=== PATIENT | female | born 1935 | race Two or more races ===

== ENCOUNTER 2017-04-23 16:17 | Inpatient (IN) | payer MEDICARE, MEDICAID ==
[~2017-04-23] VITALS: Ht 157.5 cm; Wt 62.1 kg
[2017-04-23] MEDS ORDERED: Sodium Chloride 500ML 500 ML IVPB ONE (17:00)
[2017-04-23 17:51] LABS: APPEARANCE,URINE CLEAR; BILIRUBIN, URINE NEGATIVE (NEGATIVE); COLOR,URINE PALE YELLOW; GLUCOSE, URINE (UA) 2+ (NEGATIVE); KETONES,URINE NEGATIVE (NEGATIVE); LEUKOCYTE ESTERASE ,URINE 1+ (NEGATIVE); NITRITE,URINE NEGATIVE (NEGATIVE); PH,URINE 5 (4.5-8.0); PROTEIN,URINE 3+ (NEGATIVE); UROBILINOGEN,URINE NORMAL MG/DL (0.0-1.0)
[2017-04-23 18:04] LABS: BASOPHILS % (AUTO) 1.6 % (0.0-2.0); EOSINOPHILS % (AUTO) 1.5 % (0.0-3.0); HEMATOCRIT 29.2 % (37.0-47.0); HEMOGLOBIN 9.3 G/DL (12.0-16.0); LYMPHOCYTES % (AUTO) 19.2 % (20.0-45.0); MEAN CORPUSCULAR VOLUME 95 FL (80-99); MONOCYTES % (AUTO) 9.7 % (1.0-10.0); PLATELET COUNT 276 K/UL (150-450); RED BLOOD COUNT 3.07 M/UL (4.20-5.40); RED CELL DISTRIBUTION WIDTH 12.7 % (11.6-14.8); WHITE BLOOD COUNT 11.3 K/UL (4.8-10.8)
--- NOTE | 2017-04-23 18:10 | Emergency Room Report ---
History of Present Illness General Chief Complaint: Multiple Trauma/Fall Source: Patient Present Illness HPI Patient presents emergency department today with generalized weakness. Patient currently is not eating or sleeping. Patient has had multiple falls because of her weakness. She fell and hit her head and has a contusion on the back of her head. She denies any nausea vomiting or chills. She does complain of persistent dizziness as well. Symptoms are noted to be highly severe. No other modifying factors. No other associated signs and symptoms. No other complaints were noted. Allergies: Coded Allergies: No Known Allergies (Unverified , 04/23/17) Patient History Past Medical History: DM, HTN, CAD Past Surgical History: none Pertinent Family History: none Social History: Denies: smoking, alcohol use, drug use Reviewed Nursing Documentation: PMH: Agreed, PSxH: Agreed Nursing Documentation-PMH Hx Cardiac Problems: Yes Hx Hypertension: Yes Hx Diabetes: Yes Review of Systems All Other Systems: negative except mentioned in HPI Physical Exam Vital Signs Date Time Temp Pulse Resp B/P (MAP) Pulse Ox O2 Delivery O2 Flow Rate FiO2 04/23/17 16:15 98.2 86 18 134/64 96 Room Air Sp02 EP Interpretation: reviewed, normal General Appearance: alert, moderate distress Head: other - contusion on head Eyes: bilateral eye normal inspection ENT: normal ENT inspection, hearing grossly normal, normal voice Neck: normal inspection, full range of motion, supple, no bony tend Respiratory: normal inspection, lungs clear, normal breath sounds, no respiratory distress, no retraction, no wheezing Cardiovascular #1: regular rate, rhythm, no edema Gastrointestinal: normal inspection, normal bowel sounds, non tender, soft, no guarding, no hernia Genitourinary: no CVA tenderness Musculoskeletal: normal inspection, back normal, normal range of motion Neurologic: normal inspection, alert, responsive, speech normal Psychiatric: normal inspection, judgement/insight normal, depressed affect Skin: normal inspection, normal color, no rash Medical Decision Making Diagnostic Impression: Primary Impression: Failure to thrive Additional Impressions: Fall Contusion Unable to ambulate Vertigo ER Course Patient presents emergency department to alcohol and inability ambulate. Patient not eating well not sleeping. Patient also has a contusion. Patient also complains of spinning around her head. Differential considerations include electrolyte abnormality, acute CVA, vertigo, intracranial injury, urethritis name a few. Given the severity of the patient's presentation I felt this is a highly complex patient. This patient required extensive workup. Patient laboratory workup show evidence of anemia and renal insufficiency. Patient's head CT was negative. Chest x-ray was also normal. Given patient's inability ambulate and failure to thrive the patient require admission to the hospital. Case was discussed with Dr. Ben Barrios. Patient will be admitted to [facility] for further treatment. Labs Test 04/23/17 17:40 04/23/17 17:45 Urine Color Pale yellow Urine Appearance Clear Urine pH 5 (4.5-8.0) Urine Specific [place] 1.010 (1.005-1.035) Urine Protein 3+ (NEGATIVE) Urine Glucose (UA) 2+ (NEGATIVE) Urine Ketones Negative (NEGATIVE) Urine Occult Blood 3+ (NEGATIVE) Urine Nitrite Negative (NEGATIVE) Urine Bilirubin Negative (NEGATIVE) Urine Urobilinogen Normal MG/DL (0.0-1.0) Urine Leukocyte Esterase 1+ (NEGATIVE) Urine RBC 0-2 /HPF (0 - 2) Urine WBC 0-2 /HPF (0 - 2) Urine Squamous Epithelial Cells Few /LPF (NONE/OCC) Urine Bacteria None /HPF (NONE) White Blood Count 11.3 K/UL (4.8-10.8) Red Blood Count 3.07 M/UL (4.20-5.40) Hemoglobin 9.3 G/DL (12.0-16.0) Hematocrit 29.2 % (37.0-47.0) Mean Corpuscular Volume 95 FL (80-99) Mean Corpuscular Hemoglobin 30.3 PG (27.0-31.0) Mean Corpuscular Hemoglobin Concent 31.9 G/DL (32.0-36.0) Red Cell Distribution Width 12.7 % (11.6-14.8) Platelet Count 276 K/UL (150-450) Mean Platelet Volume 6.8 FL (6.5-10.1) Neutrophils (%) (Auto) 68.0 % (45.0-75.0) Lymphocytes (%) (Auto) 19.2 % (20.0-45.0) Monocytes (%) (Auto) 9.7 % (1.0-10.0) Eosinophils (%) (Auto) 1.5 % (0.0-3.0) Basophils (%) (Auto) 1.6 % (0.0-2.0) Sodium Level 138 MMOL/L (136-145) Potassium Level 4.5 MMOL/L (3.5-5.1) Chloride Level 103 MMOL/L (98-107) Carbon Dioxide Level 21 MMOL/L (21-32) Anion Gap 14 mmol/L (5-15) Blood Urea Nitrogen 28 mg/dL (7-18) Creatinine 2.0 MG/DL (0.55-1.30) Estimat Glomerular Filtration Rate mL/min (>60) Glucose Level 242 MG/DL (74-106) Calcium Level 9.1 MG/DL (8.5-10.1) Total Bilirubin 0.3 MG/DL (0.2-1.0) Aspartate Amino Transf (AST/SGOT) 22 U/L (15-37) Alanine Aminotransferase (ALT/SGPT) 20 U/L (12-78) Alkaline Phosphatase 68 U/L (46-116) Total Creatine Kinase 503 U/L (26-308) Creatine Kinase MB 1.9 NG/ML (0.0-3.6) Creatine Kinase MB Relative Index 0.3 Troponin I 0.010 ng/mL (0.000-0.056) Pro-B-Type Natriuretic Peptide 607 pg/mL (0-125) Total Protein 7.1 G/DL (6.4-8.2) Albumin 3.4 G/DL (3.4-5.0) Globulin 3.7 g/dL Albumin/Globulin Ratio 0.9 (1.0-2.7) EKG Diagnostic Results Rate: normal Rhythm: NSR ST Segments: no acute changes Rhythm Strip Diag. Results EP Interpretation: yes Rate: 83 Chest X-Ray Diagnostic Results Chest X-Ray Diagnostic Results : Chest X-Ray Ordered: Yes # of Views/Limited/Complete: 1 View Indication: Chest Pain EP Interpretation: Yes Interpretation: no consolidation, no effusion, no pneumothorax, no acute cardiopulmonary disease Impression: No acute disease Electronically Signed by: Electronically signed by Alex Chong MD CT/MRI/US Diagnostic Results CT/MRI/US Diagnostic Results : Impression ead CT: Negative Last Vital Signs Date Time Temp Pulse Resp B/P (MAP) Pulse Ox O2 Delivery O2 Flow Rate FiO2 04/23/17 16:15 98.2 86 18 134/64 96 Room Air Status: improved Disposition: ADMITTED INPATIENT Condition: Serious ALEX CHONG M.D. Apr 23, 2017 18:10
[2017-04-23 18:14] VITALS: BP 150/47
[2017-04-23] MEDS ORDERED: UNOBMED (18:20)
[2017-04-23 18:24] LABS: ALANINE AMINOTRANSFERASE 20 U/L (12-78); ALBUMIN 3.4 G/DL (3.4-5.0); ALBUMIN/GLOBULIN RATIO 0.9 (1.0-2.7); ALKALINE PHOSPHATASE 68 U/L (46-116); ANION GAP 14 mmol/L (5-15); ASPARTATE AMINO TRANSFERASE 22 U/L (15-37); BILIRUBIN,TOTAL 0.3 MG/DL (0.2-1.0); BLOOD UREA NITROGEN 28 mg/dL (7-18); CALCIUM 9.1 MG/DL (8.5-10.1); CARBON DIOXIDE 21 MMOL/L (21-32); CHLORIDE 103 MMOL/L (98-107); CKMB 1.9 NG/ML (0.0-3.6); CREATINE KINASE 503 U/L (26-308); POTASSIUM 4.5 MMOL/L (3.5-5.1); SODIUM 138 MMOL/L (136-145)
[2017-04-23 19:15] VITALS: BP 142/68
[2017-04-23 20:55] VITALS: BP 138/69
[2017-04-23] MEDS ORDERED: Nitroglycerin Subl 0.4mg tab SL PRN (21:00)
[2017-04-23] MEDS ORDERED: Albuterol/Ipratropium 3ml neb HHN PRN (21:00)
[2017-04-23] MEDS ORDERED: LORazepam Inj 2mg/ml 1ml IV PRN (21:00)
[2017-04-23] MEDS ORDERED: Morphine Sulfate 2mg/ml Inj IVP PRN (21:00)
[2017-04-23] MEDS ORDERED: Miralax 17gm pkt ORAL PRN (21:00)
[2017-04-23] MEDS ORDERED: Mylanta II UD 30ml ORAL PRN (21:00)
[2017-04-23 21:50] VITALS: BP 151/71
[2017-04-23] MEDS: Heparin 5000 units/ml inj SUBQ SCH (22:23)
[2017-04-23] MEDS ORDERED: METFORMIN HCL500 M1 ORAL (23:07)
[2017-04-24 00:32] VITALS: BP 144/64
[2017-04-24 04:00] VITALS: BP 136/71
[2017-04-24 07:43] LABS: BASOPHILS % (AUTO) 1.7 % (0.0-2.0); EOSINOPHILS % (AUTO) 3.8 % (0.0-3.0); HEMATOCRIT 30.4 % (37.0-47.0); HEMOGLOBIN 10.2 G/DL (12.0-16.0); MEAN CORPUSCULAR VOLUME 93 FL (80-99); MONOCYTES % (AUTO) 8.9 % (1.0-10.0); NEUTROPHILS % (AUTO) 55.8 % (45.0-75.0); PLATELET COUNT 299 K/UL (150-450); RED BLOOD COUNT 3.26 M/UL (4.20-5.40); RED CELL DISTRIBUTION WIDTH 12.4 % (11.6-14.8); WHITE BLOOD COUNT 7.4 K/UL (4.8-10.8)
[2017-04-24 08:00] VITALS: BP 146/65
--- NOTE | 2017-04-24 08:27 | Diagnostic Imaging Report ---
Indications: Head trauma, pain Technique: Spiral acquisitions obtained through the brain. Angled axial and coronal 5 x 5 mm slices were reconstructed. Total dose length product 1362 mGycm. CTDI vol(s) 70 mGy. Dose reduction achieved using automated exposure control Comparison: None Findings: There is a left high parietal scalp contusion. No acute intracranial hemorrhage or edema. No mass effect or midline shift. There is a calcification within the high right parasagittal parietal cortex. There is mild age-related enlargement of the ventricles and extra axial CSF spaces. A small lacunar infarct is seen within the anterior right corpus callosum. There is periventricular deep white matter chronic ischemic changes. No the calvarium is intact. The mastoids are clear. The visualized sinuses are clear. The orbits are unremarkable. 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 The CT scanner at [facility] is accredited by the [employer] and the scans are performed using protocols designed to limit radiation exposure to as low as reasonably achievable to attain images of sufficient resolution adequate for diagnostic evaluation.
[2017-04-24 08:34] LABS: ALANINE AMINOTRANSFERASE 17 U/L (12-78); ALBUMIN 3.1 G/DL (3.4-5.0); ALBUMIN/GLOBULIN RATIO 0.9 (1.0-2.7); ALKALINE PHOSPHATASE 65 U/L (46-116); ANION GAP 12 mmol/L (5-15); ASPARTATE AMINO TRANSFERASE 27 U/L (15-37); BILIRUBIN,TOTAL 0.2 MG/DL (0.2-1.0); BLOOD UREA NITROGEN 23 mg/dL (7-18); CALCIUM 8.9 MG/DL (8.5-10.1); CARBON DIOXIDE 23 MMOL/L (21-32); CHLORIDE 106 MMOL/L (98-107); CHOLESTEROL 264 MG/DL (< 200); CREATININE 1.7 MG/DL (0.55-1.30); HDL CHOLESTEROL 37 MG/DL (40-60); SODIUM 141 MMOL/L (136-145); TRIGLYCERIDES 624 MG/DL (0-200)
[2017-04-24] MEDS: Heparin 5000 units/ml inj SUBQ SCH ×2 (09:25→21:39)
--- NOTE | 2017-04-24 10:24 | Diagnostic Imaging Report ---
Indication: COUGH Technique: One view of the chest Comparison: none Findings: No acute infiltrates, effusions, or congestion. Tortuous calcified aorta. Normal heart size. Upper mediastinum unremarkable. Impression: No acute process. This agrees with the preliminary interpretation provided by the emergency room physician
[2017-04-24 12:00] VITALS: BP 146/66
--- NOTE | 2017-04-24 13:12 | Neurology Progress Note ---
Objective Physical Exam Last Vital Signs Date Time Temp Pulse Resp B/P (MAP) Pulse Ox O2 Delivery O2 Flow Rate FiO2 04/24/17 08:38 80 18 Room Air 21 04/24/17 08:00 97.9 146/65 95 Laboratory Tests Test 04/23/17 17:40 04/23/17 17:45 04/24/17 06:15 Urine Color Pale yellow Urine Appearance Clear Urine pH 5 (4.5-8.0) Urine Specific [place] 1.010 (1.005-1.035) Urine Protein 3+ (NEGATIVE) H Urine Glucose (UA) 2+ (NEGATIVE) H Urine Ketones Negative (NEGATIVE) Urine Occult Blood 3+ (NEGATIVE) H Urine Nitrite Negative (NEGATIVE) Urine Bilirubin Negative (NEGATIVE) Urine Urobilinogen Normal MG/DL (0.0-1.0) Urine Leukocyte Esterase 1+ (NEGATIVE) H Urine RBC 0-2 /HPF (0 - 2) Urine WBC 0-2 /HPF (0 - 2) Urine Squamous Epithelial Cells Few /LPF (NONE/OCC) Urine Bacteria None /HPF (NONE) White Blood Count 11.3 K/UL (4.8-10.8) H 7.4 K/UL (4.8-10.8) Red Blood Count 3.07 M/UL (4.20-5.40) L 3.26 M/UL (4.20-5.40) L Hemoglobin 9.3 G/DL (12.0-16.0) L 10.2 G/DL (12.0-16.0) L Hematocrit 29.2 % (37.0-47.0) L 30.4 % (37.0-47.0) L Mean Corpuscular Volume 95 FL (80-99) 93 FL (80-99) Mean Corpuscular Hemoglobin 30.3 PG (27.0-31.0) 31.2 PG (27.0-31.0) H Mean Corpuscular Hemoglobin Concent 31.9 G/DL (32.0-36.0) L 33.5 G/DL (32.0-36.0) Red Cell Distribution Width 12.7 % (11.6-14.8) 12.4 % (11.6-14.8) Platelet Count 276 K/UL (150-450) 299 K/UL (150-450) Mean Platelet Volume 6.8 FL (6.5-10.1) 6.9 FL (6.5-10.1) Neutrophils (%) (Auto) 68.0 % (45.0-75.0) 55.8 % (45.0-75.0) Lymphocytes (%) (Auto) 19.2 % (20.0-45.0) L 30.0 % (20.0-45.0) Monocytes (%) (Auto) 9.7 % (1.0-10.0) 8.9 % (1.0-10.0) Eosinophils (%) (Auto) 1.5 % (0.0-3.0) 3.8 % (0.0-3.0) H Basophils (%) (Auto) 1.6 % (0.0-2.0) 1.7 % (0.0-2.0) Sodium Level 138 MMOL/L (136-145) 141 MMOL/L (136-145) Potassium Level 4.5 MMOL/L (3.5-5.1) 4.0 MMOL/L (3.5-5.1) Chloride Level 103 MMOL/L (98-107) 106 MMOL/L (98-107) Carbon Dioxide Level 21 MMOL/L (21-32) 23 MMOL/L (21-32) Anion Gap 14 mmol/L (5-15) 12 mmol/L (5-15) Blood Urea Nitrogen 28 mg/dL (7-18) H 23 mg/dL (7-18) H Creatinine 2.0 MG/DL (0.55-1.30) H 1.7 MG/DL (0.55-1.30) H Estimat Glomerular Filtration Rate mL/min (>60) mL/min (>60) Glucose Level 242 MG/DL (74-106) H 190 MG/DL (74-106) H Calcium Level 9.1 MG/DL (8.5-10.1) 8.9 MG/DL (8.5-10.1) Total Bilirubin 0.3 MG/DL (0.2-1.0) 0.2 MG/DL (0.2-1.0) Aspartate Amino Transf (AST/SGOT) 22 U/L (15-37) 27 U/L (15-37) Alanine Aminotransferase (ALT/SGPT) 20 U/L (12-78) 17 U/L (12-78) Alkaline Phosphatase 68 U/L (46-116) 65 U/L (46-116) Total Creatine Kinase 503 U/L (26-308) H Creatine Kinase MB 1.9 NG/ML (0.0-3.6) Creatine Kinase MB Relative Index 0.3 Troponin I 0.010 ng/mL (0.000-0.056) Pro-B-Type Natriuretic Peptide 607 pg/mL (0-125) H Total Protein 7.1 G/DL (6.4-8.2) 6.7 G/DL (6.4-8.2) Albumin 3.4 G/DL (3.4-5.0) 3.1 G/DL (3.4-5.0) L Globulin 3.7 g/dL 3.6 g/dL Albumin/Globulin Ratio 0.9 (1.0-2.7) L 0.9 (1.0-2.7) L Prothrombin Time 10.0 SEC (9.30-11.50) Prothromb Time International Ratio 1.0 (0.9-1.1) Activated Partial Thromboplast Time 26 SEC (23-33) Triglycerides Level 624 MG/DL (0-200) H Cholesterol Level 264 MG/DL (< 200) H LDL Cholesterol 132 mg/dL (<100) H HDL Cholesterol 37 MG/DL (40-60) L Cholesterol/HDL Ratio 7.1 (3.3-4.4) H Thyroid Stimulating Hormone (TSH) 2.071 uiU/mL (0.360-3.740) Impression/Recommendations Problems: (1) 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
[2017-04-24] MEDS ORDERED: Mylanta II UD 30ml ORAL PRN (15:00)
[2017-04-24] MEDS ORDERED: LORazepam Inj 2mg/ml 1ml IV PRN (15:30)
[2017-04-24] MEDS ORDERED: Miralax 17gm pkt ORAL PRN (15:30)
[2017-04-24] MEDS ORDERED: Nitroglycerin Subl 0.4mg tab SL PRN (15:30)
[2017-04-24] MEDS ORDERED: Albuterol/Ipratropium 3ml neb HHN PRN (15:30)
--- NOTE | 2017-04-24 15:42 | Consultation ---
History of Present Illness General Date patient seen: Apr 24, 2017 Time patient seen: 14:00 Chief Complaint: Multiple Trauma/Fall Referring physician: dr Barrios Reason for Consultation: inpatient management Present Illness HPI 81 y/old female with PMH of CAD, HTN, DM presented to ED with c/o generalized weakness. 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 Negative for acute intracranial bleed or mass effect Left high parietal scalp hematoma mild leuk-1.3 anemia -9.3/29.2 troponin negative ECG with NSR no acute ischemic changes pro BNP 607 BS -242 evidence of renal failure BUN-28 and creat-2.0 patient was admitted for further management Allergies: Coded Allergies: ASPIRIN (Verified Allergy, Unknown, RASH, 04/23/17) CODEINE (Verified Allergy, Unknown, RASH, 04/23/17) Medication History Scheduled Metformin Hcl* (Metformin Hcl*), 500 MG ORAL TWICE A DAY, (Reported) Miscellaneous Medications Unable to Obtain Medications (Unable To Obtain Meds), (Reported) Patient History Healthcare decision maker LAQUITA MICHAELS ADRIANA R Resuscitation status Chemical (Meds Only) Advanced Directive on File No Past Medical/Surgical History Past Medical/Surgical History: (1) Fall (2) CAD (coronary artery disease) (3) HTN (hypertension) (4) Diabetes mellitus Review of Systems Constitutional: Reports: weakness Eye: Reports: no symptoms Respiratory: Reports: no symptoms Cardiovascular: Reports: other - CAD HTN Gastrointestinal: Reports: no symptoms Genitourinary: Reports: no symptoms Skin: Reports: no symptoms Psychiatric: Reports: no symptoms Neurological: Reports: see HPI Endocrine: Reports: other - DM Hematologic/Lymphatic: Reports: see HPI Physical Exam Lines, tubes and drains: peripheral HEENT: normocephalic, atraumatic, anicteric Neck: supple Respiratory/Chest: lungs clear, no respiratory distress, no accessory muscle use Cardiovascular/Chest: normal rate, regular rhythm Abdomen: normal bowel sounds, soft Extremities: no calf tenderness Skin Exam: warm/dry Neurologic: alert Musculoskeletal: normal muscle bulk Last 24 Hour Vital Signs Date Time Temp Pulse Resp B/P (MAP) Pulse Ox O2 Delivery O2 Flow Rate FiO2 04/24/17 12:00 98.1 74 19 146/66 96 Room Air 04/24/17 08:38 80 18 Room Air 21 04/24/17 08:00 97.9 80 17 146/65 95 Room Air 04/24/17 04:00 97.7 83 20 136/71 95 Room Air 04/24/17 00:32 98.2 88 19 144/64 95 Room Air 04/23/17 23:17 98.2 04/23/17 21:50 97.9 87 18 151/71 95 Room Air 04/23/17 21:00 98.2 68 17 138/69 100 Room Air 04/23/17 20:55 98.2 68 17 138/69 100 Room Air 04/23/17 19:15 98.4 84 16 142/68 99 Room Air 04/23/17 18:14 98.2 89 17 150/47 98 Room Air 04/23/17 16:15 98.2 86 18 134/64 96 Room Air Laboratory Tests Test 04/23/17 17:40 04/23/17 17:45 04/24/17 06:15 Urine Color Pale yellow Urine Appearance Clear Urine pH 5 (4.5-8.0) Urine Specific [place] 1.010 (1.005-1.035) Urine Protein 3+ (NEGATIVE) H Urine Glucose (UA) 2+ (NEGATIVE) H Urine Ketones Negative (NEGATIVE) Urine Occult Blood 3+ (NEGATIVE) H Urine Nitrite Negative (NEGATIVE) Urine Bilirubin Negative (NEGATIVE) Urine Urobilinogen Normal MG/DL (0.0-1.0) Urine Leukocyte Esterase 1+ (NEGATIVE) H Urine RBC 0-2 /HPF (0 - 2) Urine WBC 0-2 /HPF (0 - 2) Urine Squamous Epithelial Cells Few /LPF (NONE/OCC) Urine Bacteria None /HPF (NONE) White Blood Count 11.3 K/UL (4.8-10.8) H 7.4 K/UL (4.8-10.8) Red Blood Count 3.07 M/UL (4.20-5.40) L 3.26 M/UL (4.20-5.40) L Hemoglobin 9.3 G/DL (12.0-16.0) L 10.2 G/DL (12.0-16.0) L Hematocrit 29.2 % (37.0-47.0) L 30.4 % (37.0-47.0) L Mean Corpuscular Volume 95 FL (80-99) 93 FL (80-99) Mean Corpuscular Hemoglobin 30.3 PG (27.0-31.0) 31.2 PG (27.0-31.0) H Mean Corpuscular Hemoglobin Concent 31.9 G/DL (32.0-36.0) L 33.5 G/DL (32.0-36.0) Red Cell Distribution Width 12.7 % (11.6-14.8) 12.4 % (11.6-14.8) Platelet Count 276 K/UL (150-450) 299 K/UL (150-450) Mean Platelet Volume 6.8 FL (6.5-10.1) 6.9 FL (6.5-10.1) Neutrophils (%) (Auto) 68.0 % (45.0-75.0) 55.8 % (45.0-75.0) Lymphocytes (%) (Auto) 19.2 % (20.0-45.0) L 30.0 % (20.0-45.0) Monocytes (%) (Auto) 9.7 % (1.0-10.0) 8.9 % (1.0-10.0) Eosinophils (%) (Auto) 1.5 % (0.0-3.0) 3.8 % (0.0-3.0) H Basophils (%) (Auto) 1.6 % (0.0-2.0) 1.7 % (0.0-2.0) Sodium Level 138 MMOL/L (136-145) 141 MMOL/L (136-145) Potassium Level 4.5 MMOL/L (3.5-5.1) 4.0 MMOL/L (3.5-5.1) Chloride Level 103 MMOL/L (98-107) 106 MMOL/L (98-107) Carbon Dioxide Level 21 MMOL/L (21-32) 23 MMOL/L (21-32) Anion Gap 14 mmol/L (5-15) 12 mmol/L (5-15) Blood Urea Nitrogen 28 mg/dL (7-18) H 23 mg/dL (7-18) H Creatinine 2.0 MG/DL (0.55-1.30) H 1.7 MG/DL (0.55-1.30) H Estimat Glomerular Filtration Rate mL/min (>60) mL/min (>60) Glucose Level 242 MG/DL (74-106) H 190 MG/DL (74-106) H Calcium Level 9.1 MG/DL (8.5-10.1) 8.9 MG/DL (8.5-10.1) Total Bilirubin 0.3 MG/DL (0.2-1.0) 0.2 MG/DL (0.2-1.0) Aspartate Amino Transf (AST/SGOT) 22 U/L (15-37) 27 U/L (15-37) Alanine Aminotransferase (ALT/SGPT) 20 U/L (12-78) 17 U/L (12-78) Alkaline Phosphatase 68 U/L (46-116) 65 U/L (46-116) Total Creatine Kinase 503 U/L (26-308) H Creatine Kinase MB 1.9 NG/ML (0.0-3.6) Creatine Kinase MB Relative Index 0.3 Troponin I 0.010 ng/mL (0.000-0.056) Pro-B-Type Natriuretic Peptide 607 pg/mL (0-125) H Total Protein 7.1 G/DL (6.4-8.2) 6.7 G/DL (6.4-8.2) Albumin 3.4 G/DL (3.4-5.0) 3.1 G/DL (3.4-5.0) L Globulin 3.7 g/dL 3.6 g/dL Albumin/Globulin Ratio 0.9 (1.0-2.7) L 0.9 (1.0-2.7) L Prothrombin Time 10.0 SEC (9.30-11.50) Prothromb Time International Ratio 1.0 (0.9-1.1) Activated Partial Thromboplast Time 26 SEC (23-33) Triglycerides Level 624 MG/DL (0-200) H Cholesterol Level 264 MG/DL (< 200) H LDL Cholesterol 132 mg/dL (<100) H HDL Cholesterol 37 MG/DL (40-60) L Cholesterol/HDL Ratio 7.1 (3.3-4.4) H Thyroid Stimulating Hormone (TSH) 2.071 uiU/mL (0.360-3.740) Height (Feet): 5 Height (Inches): 2.00 Weight (Pounds): 137 Medications Current Medications Medications (Trade) Dose Ordered Sig/Lita Route PRN Reason Start Time Stop Time Status Last Admin Dose Admin Acetaminophen (Tylenol) 650 mg Q4H PRN ORAL Prn Headache/Temp > 101 04/24/17 15:30 05/24/17 15:29 Al Hydroxide/Mg Hydroxide (Mylanta II) 30 ml Q6H PRN ORAL dyspepsia 04/24/17 15:00 05/23/17 20:59 Albuterol/ Ipratropium (Albuterol/ Ipratropium) 3 ml Q4H PRN HHN Shortness of Breath 04/24/17 15:30 04/28/17 15:29 Atorvastatin Calcium (Lipitor) 20 mg BEDTIME ORAL 04/24/17 21:00 05/24/17 20:59 Clonidine HCl (Catapres) 0.1 mg Q4H PRN ORAL SBP > 160 04/24/17 15:15 05/23/17 15:14 Clopidogrel Bisulfate (Plavix) 75 mg DAILY ORAL 04/25/17 09:00 05/24/17 13:59 Dextrose (Dextrose 50%) STAT PRN IV Hypoglycemia 04/24/17 15:30 05/23/17 15:29 Heparin Sodium (Porcine) (Heparin 5000 units/ml) 5,000 units EVERY 12 HOURS SUBQ 04/24/17 21:00 05/23/17 21:59 Lorazepam (Ativan 2mg/ml 1ml) 0.5 mg Q4H PRN IV For Anxiety 04/24/17 15:30 04/30/17 15:29 Nitroglycerin (Ntg) 0.4 mg Q5M X 3 DOSES PRN SL Prn Chest Pain 04/24/17 15:30 05/23/17 15:29 Ondansetron HCl (Zofran) 4 mg Q6H PRN IVP Nausea & Vomiting 04/24/17 15:30 05/23/17 15:29 Polyethylene Glycol (Miralax) 17 gm HSPRN PRN ORAL Constipation 04/24/17 15:30 05/23/17 15:29 Temazepam (Restoril) 15 mg HSPRN PRN ORAL Insomnia 04/24/17 15:30 04/30/17 15:29 Assessment/Plan Assessment/Plan ASSESSMENT Likely acute ischemic right middle cerebral artery stroke Blunt head trauma hx of recurrent falls Dehydration mixed hyperlipidemia ARF vs CKD CAD HTN Diabetes mellitus anemia PLAN OF CARE neuro eval appreciated clinical exam c/w acute ischemic CVA with R MCA distribution start Plavix ( allergic to ASA) MRI brain Carotid Duplex lipid panel with grossly elevated TG as well as eleavted TC and LDL started on statin add Gemfibrozil check lipase PT/OT/ST fall precautions gentle IVF monitor renal parameters, lytes renal US BS management, add sensitive scale of insulin BP management , currently normotensive , avoid hypotension monitor HH anemia w/up DVT prophylaxis bowel regimen case discussed and evaluated by supervising physician Hamzah (Magdy),Essence DEJESUS Apr 24, 2017 15:42
[2017-04-24 16:00] VITALS: BP 146/68
[2017-04-24] MEDS: NovoLOG Insulin Flexpen SUBQ SCH ×2 (16:30→21:00)
--- NOTE | 2017-04-24 18:09 | History & Physical ---
History and Physical History & Physicial Dictated for Int Med-Dr Barrios no. [id number]. RUTHIE JORDAN Apr 24, 2017 18:09
--- NOTE | 2017-04-24 18:09 | History & Physical ---
History and Physical History & Physicial Dictated for Int Med-Dr Barrios no. [id number]. RUTHIE JORDAN Apr 24, 2017 18:09
--- NOTE | 2017-04-24 18:09 | History & Physical ---
History and Physical History & Physicial Dictated for Int Med-Dr Barrios no. [id number]. RUTHIE JORDAN Apr 24, 2017 18:09
[2017-04-24 20:00] VITALS: BP 150/61
[2017-04-24] MEDS ORDERED: Atorvastatin 20mg tab ORAL SCH ×2 (21:00)
--- NOTE | 2017-04-24 21:45 | Consultation ---
DATE OF CONSULTATION: 04/24/2017 NEUROLOGICAL CONSULTATION: CONSULTING PHYSICIAN: Hector Mills M.D. ATTENDING PHYSICIAN: Ben Barrios M.D. REQUESTING PHYSICIAN: Ben Barrios M.D. HISTORY OF PRESENT ILLNESS: This is a 81-year-old female seen in neurological consultation to evaluate the new onset of fall, head trauma followed by left-sided weakness. Apparently, the patient had several falls lately. She developed dizziness, headache, and now complaining of heaviness and weakness in her left upper and left lower extremity. She was brought to emergency room. Her vital signs were stable. Blood pressure 134/64, she was afebrile. Initial assessment included imaging, chest x-ray revealing no acute process. 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 The patient's vital signs at the hospital remained stable. She was afebrile. Laboratory work included CBC study with WBC 11.3, hemoglobin 9.3, hematocrit 29.2. Chemistry panel, elevated BUN of 24, creatinine 2.0, blood sugar 232. CPK . Elevated triglycerides at 624, cholesterol 264, and LDL 132. Normal TSH. Urinalysis, 3+ protein. Normal coagulation studies. PAST MEDICAL HISTORY: The patient has history of diabetes, hypertension, hyperlipidemia, coronary artery disease, status post bilateral total knee replacement. SOCIAL HISTORY: The patient lives alone. She is single, but she has family visiting her. No alcohol. No drug abuse. Nonsmoker. FAMILY HISTORY: Noncontributory. REVIEW OF SYMPTOMS: Headache especially in the area of left parietal region, dizziness when getting up, weakness, aches and pains in her left upper and left lower extremity. Denies chest pain or palpitations. Denies respiratory difficulties. No abdominal pain or discomfort. No urine or bowel incontinence. PHYSICAL EXAMINATION: GENERAL: A well-developed, well-nourished lady, not in acute distress, lying comfortably in bed. VITAL SIGNS: Blood pressure 132/70, respiration 18. HEENT: Head normocephalic. There is a tenderness and bruise in the left parietal region. NECK: Supple. No meningeal signs. No otorrhea. No rhinorrhea noted. EXTREMITIES: Upper and lower extremities without clubbing, cyanosis. There is tenderness and bruises on her left upper extremity noted. Peripheral pulses 1+, symmetric. MENTAL STATUS: The patient is alert and oriented x3, with no evidence of aphasia or apraxia. Cognitive function normal. CRANIAL NERVE II: Pupils both responding to light and accommodation. Extraocular movements intact. No nystagmus. CRANIAL NERVE V: Normal corneal responses. CRANIAL NERVE VII: Drooped left nasolabial fold. CRANIAL NERVE VIII: Normal hearing. CRANIAL NERVES IX THROUGH XII: Tongue is in midline. Symmetric palate elevation. MOTOR EXAMINATION: Normal muscle tone and strength in the right upper and right lower extremity, but reduced strength of 3/5 in left upper extremity and 2/5 in left lower extremity. DEEP TENDON REFLEXES: Depressed bilaterally. Positive Babinski on the left. SENSORY EXAMINATION: Decreased response to pin stimulation of left leg. GAIT: Not tested. IMPRESSION: 1. 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 2. 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 3. Hypertension. 4. Diabetes, type 2. 5. Coronary artery disease. 6. Renal insufficiency. DISCUSSION: The patient has multiple stroke risk factors, now presenting with acute right MCA distribution stroke. It is not clear if the patient had symptoms in the last few days when she had several trip and fall accidents. At this time, the patient appears stabilized but presenting with left hemiparesis and sensory loss. Her vital signs remained stable. We will transfer to monitored bed. We will keep strict bed rest for the following 24 hours and get MRI of the brain without contrast, carotid duplex, and 2D echocardiogram. Start on aspirin and Plavix, start on statins, maintain systolic blood pressure above 130 and below 170, start tomorrow, get physical and occupational therapy, speech therapy. We will follow with you. Thank you for allowing me to see this interesting patient in neurological consultation. Hector Mills M.D. DR: Karine JOB#: [id number] CC:
[2017-04-25] VITALS (7 sets, daily range): BP systolic 123–161; BP diastolic 60–70
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
[2017-04-25 05:01] LABS: BASOPHILS % (AUTO) 1.7 % (0.0-2.0); EOSINOPHILS % (AUTO) 4.9 % (0.0-3.0); HEMOGLOBIN 10.9 G/DL (12.0-16.0); MEAN CORPUSCULAR VOLUME 92 FL (80-99); MONOCYTES % (AUTO) 10.2 % (1.0-10.0); NEUTROPHILS % (AUTO) 52.1 % (45.0-75.0); PLATELET COUNT 316 K/UL (150-450); RED BLOOD COUNT 3.36 M/UL (4.20-5.40); RED CELL DISTRIBUTION WIDTH 11.6 % (11.6-14.8); WHITE BLOOD COUNT 8.1 K/UL (4.8-10.8)
[2017-04-25 05:49] LABS: % IRON SATURATION 26 % (15-50); IRON 62 ug/dL (50-175); TOTAL IRON BINDING CAPACITY 242 ug/dL (250-450)
[2017-04-25 06:23] LABS: ANION GAP 12 mmol/L (5-15); BLOOD UREA NITROGEN 24 mg/dL (7-18); CARBON DIOXIDE 23 MMOL/L (21-32); CHLORIDE 105 MMOL/L (98-107); CREATININE 1.8 MG/DL (0.55-1.30); FERRITIN 129 NG/ML (8-388); POTASSIUM 4.2 MMOL/L (3.5-5.1); SODIUM 140 MMOL/L (136-145)
[2017-04-25] MEDS: NovoLOG Insulin Flexpen SUBQ SCH ×4 (06:30→21:00)
--- NOTE | 2017-04-25 08:35 | Diagnostic Imaging Report ---
Indication: Altered mental status and weakness Technique: sagittal T1 fast spin echo, axial T1 FLAIR, axial T2 FLAIR, axial T2 FS PROPELLER, axial T2* GRE, axial diffusion weighted images. ADC and exponential ADC maps generated Comparison: Reference made to head CT dated 04/23/2017 Findings: A focus of restricted diffusion is seen extending from the right posterior garrett radiata into the right lentiform nucleus. Tiny focus also seen in the right high parasagittal frontal region A tiny focus of restricted diffusion is seen in the left garrett radiata. Another small focus of restricted diffusion is also seen in the left posterior temporal periventricular deep white matter. Small focus is seen in the left occipital lobe. Tiny focus of restricted diffusion is seen in the inferior right cerebellar hemisphere. These demonstrate slightly increased T2 signal. These are occult on prior CT. No associated hemorrhage. No mass effect nor midline shift. There is age-related enlargement of the ventricles and extra-axial CSF spaces deep white matter hyperintensities bilaterally likely are chronic ischemic changes.. Visualized orbits and sinuses are unremarkable. Vascular flow voids are preserved. Impression: Multiple small acute infarcts bilaterally as described, largest in the right basal ganglia and garrett radiata. Distribution suggests multiple emboli of cardiogenic origin Negative for acute intracranial bleed or mass effect Chronic and age-related changes, as described This agrees with the preliminary interpretation provided overnight by [facility] teleradiology service.
[2017-04-25] MEDS: Heparin 5000 units/ml inj SUBQ SCH ×2 (08:36→21:00)
--- NOTE | 2017-04-25 09:16 | Pulmonology Progress Note ---
Assessment/Plan Problems: (1) Acute ischemic right middle cerebral artery (MCA) stroke (2) ATN (acute tubular necrosis) (3) Anemia (4) Diabetes mellitus (5) CAD (coronary artery disease) (6) HTN (hypertension) Assessment/Plan MRI Impression: Multiple small acute infarcts bilaterally as described, largest in the right basal ganglia and garrett radiata. Distribution suggests multiple emboli of cardiogenic origin. pt /ot cardio to see, d/w Dr. Enriquez anemia and renal w/u in process. sliding scale, Subjective ROS Limited/Unobtainable: No Interval Events: comfortable, no new complains Allergies: Coded Allergies: ASPIRIN (Verified Allergy, Unknown, RASH, 04/23/17) CODEINE (Verified Allergy, Unknown, RASH, 04/23/17) Objective Last 24 Hour Vital Signs Date Time Temp Pulse Resp B/P (MAP) Pulse Ox O2 Delivery O2 Flow Rate FiO2 04/25/17 08:34 161/70 04/25/17 08:08 98.2 83 20 161/70 98 Room Air 04/25/17 07:49 82 16 Room Air 04/25/17 04:00 78 04/25/17 04:00 97.8 81 20 129/66 97 Room Air 04/25/17 00:00 80 04/25/17 00:00 97.4 82 20 123/60 97 Room Air 04/24/17 22:40 97.9 04/24/17 20:00 80 04/24/17 20:00 97.9 87 20 150/61 97 Room Air 04/24/17 19:36 88 18 Room Air 04/24/17 16:00 79 04/24/17 16:00 97.3 85 19 146/68 97 Room Air 04/24/17 12:00 98.1 74 19 146/66 96 Room Air General Appearance: WD/WN HEENT: normocephalic, anicteric Respiratory/Chest: chest wall non-tender, lungs clear Breasts: no masses Cardiovascular: normal peripheral pulses Abdomen: normal bowel sounds, soft, non tender, no mass Extremities: no cyanosis Skin: no rash, no lesions Laboratory Tests 04/25/17 04:20: White Blood Count 8.1, Red Blood Count 3.36L, Hemoglobin 10.9L, Hematocrit 31.0L , Mean Corpuscular Volume 92, Mean Corpuscular Hemoglobin 32.5H, Mean Corpuscular Hemoglobin Concent 35.2, Red Cell Distribution Width 11.6, Platelet Count 316, Mean Platelet Volume 6.9, Neutrophils (%) (Auto) 52.1, Lymphocytes (% ) (Auto) 31.0, Monocytes (%) (Auto) 10.2H, Eosinophils (%) (Auto) 4.9H, Basophils (%) (Auto) 1.7, Sodium Level 140, Potassium Level 4.2, Chloride Level 105, Carbon Dioxide Level 23, Anion Gap 12, Blood Urea Nitrogen 24H, Creatinine 1.8H, Estimat Glomerular Filtration Rate , Glucose Level 216H, Hemoglobin A1c [ Pending], Calcium Level 9.0, Iron Level 62, Total Iron Binding Capacity 242L, Percent Iron Saturation 26, Unsaturated Iron Binding 180, Ferritin 129, Lipase 135, Vitamin B12 Level 329, RBC Folate Hemolysate [Pending], Red Blood Cell Folate [Pending] Current Medications Medications (Trade) Dose Ordered Sig/Lita Route PRN Reason Start Time Stop Time Status Last Admin Dose Admin Acetaminophen (Tylenol) 650 mg Q4H PRN ORAL Mild Pain/Temp > 100.5 04/24/17 20:45 05/24/17 20:44 04/25/17 08:39 Al Hydroxide/Mg Hydroxide (Mylanta II) 30 ml Q6H PRN ORAL dyspepsia 04/24/17 15:00 05/23/17 20:59 Albuterol/ Ipratropium (Albuterol/ Ipratropium) 3 ml Q4H PRN HHN Shortness of Breath 04/24/17 15:30 04/28/17 15:29 Atorvastatin Calcium (Lipitor) 20 mg BEDTIME ORAL 04/24/17 21:00 05/24/17 20:59 04/24/17 21:37 Clonidine HCl (Catapres) 0.1 mg Q4H PRN ORAL SBP > 160 04/24/17 15:15 05/23/17 15:14 04/25/17 08:34 Clopidogrel Bisulfate (Plavix) 75 mg DAILY ORAL 04/25/17 09:00 05/24/17 13:59 04/25/17 08:34 Dextrose (Dextrose 50%) STAT PRN IV Hypoglycemia 04/24/17 15:45 05/24/17 15:44 Fenofibrate (Tricor) 145 mg DAILY ORAL 04/25/17 09:00 05/25/17 08:59 04/25/17 08:34 Heparin Sodium (Porcine) (Heparin 5000 units/ml) 5,000 units EVERY 12 HOURS SUBQ 04/24/17 21:00 05/23/17 21:59 04/25/17 08:36 Insulin Aspart (NovoLOG) BEFORE MEALS AND HS SUBQ 04/24/17 16:30 05/24/17 16:29 Lorazepam (Ativan 2mg/ml 1ml) 0.5 mg Q4H PRN IV For Anxiety 04/24/17 15:30 04/30/17 15:29 Nitroglycerin (Ntg) 0.4 mg Q5M X 3 DOSES PRN SL Prn Chest Pain 04/24/17 15:30 05/23/17 15:29 Ondansetron HCl (Zofran) 4 mg Q6H PRN IVP Nausea & Vomiting 04/24/17 15:30 05/23/17 15:29 Polyethylene Glycol (Miralax) 17 gm HSPRN PRN ORAL Constipation 04/24/17 15:30 05/23/17 15:29 Temazepam (Restoril) 15 mg HSPRN PRN ORAL Insomnia 04/24/17 15:30 04/30/17 15:29 04/24/17 21:37 RHEA FRANK Apr 25, 2017 09:16
--- NOTE | 2017-04-25 10:04 | Cardiology Progress Note ---
Assessment/Plan Assessment/Plan msultip fall multipl acute cva left sided shest wall pain psot fall dm htn renal insuf anemia opt has been on anticoaguation meds she dose nto recal the nam will need to swtich to antohr agent if the dose and ised as anticoaguation was appropriate trop rib series watc renal fucntion her contac person was contacted brittni clemente lhave her uncle look up all her meds at home adn bring in [id number] Objective Last 24 Hour Vital Signs Date Time Temp Pulse Resp B/P (MAP) Pulse Ox O2 Delivery O2 Flow Rate FiO2 04/25/17 08:34 161/70 04/25/17 08:08 98.2 83 20 161/70 98 Room Air 04/25/17 08:00 83 04/25/17 07:49 82 16 Room Air 04/25/17 04:00 78 04/25/17 04:00 97.8 81 20 129/66 97 Room Air 04/25/17 00:00 80 04/25/17 00:00 97.4 82 20 123/60 97 Room Air 04/24/17 22:40 97.9 04/24/17 20:00 80 04/24/17 20:00 97.9 87 20 150/61 97 Room Air 04/24/17 19:36 88 18 Room Air 04/24/17 16:00 79 04/24/17 16:00 97.3 85 19 146/68 97 Room Air 04/24/17 12:00 98.1 74 19 146/66 96 Room Air Laboratory Tests Test 04/25/17 04:20 White Blood Count 8.1 K/UL (4.8-10.8) Red Blood Count 3.36 M/UL (4.20-5.40) L Hemoglobin 10.9 G/DL (12.0-16.0) L Hematocrit 31.0 % (37.0-47.0) L Mean Corpuscular Volume 92 FL (80-99) Mean Corpuscular Hemoglobin 32.5 PG (27.0-31.0) H Mean Corpuscular Hemoglobin Concent 35.2 G/DL (32.0-36.0) Red Cell Distribution Width 11.6 % (11.6-14.8) Platelet Count 316 K/UL (150-450) Mean Platelet Volume 6.9 FL (6.5-10.1) Neutrophils (%) (Auto) 52.1 % (45.0-75.0) Lymphocytes (%) (Auto) 31.0 % (20.0-45.0) Monocytes (%) (Auto) 10.2 % (1.0-10.0) H Eosinophils (%) (Auto) 4.9 % (0.0-3.0) H Basophils (%) (Auto) 1.7 % (0.0-2.0) Sodium Level 140 MMOL/L (136-145) Potassium Level 4.2 MMOL/L (3.5-5.1) Chloride Level 105 MMOL/L (98-107) Carbon Dioxide Level 23 MMOL/L (21-32) Anion Gap 12 mmol/L (5-15) Blood Urea Nitrogen 24 mg/dL (7-18) H Creatinine 1.8 MG/DL (0.55-1.30) H Estimat Glomerular Filtration Rate mL/min (>60) Glucose Level 216 MG/DL (74-106) H Hemoglobin A1c Pending Calcium Level 9.0 MG/DL (8.5-10.1) Iron Level 62 ug/dL (50-175) Total Iron Binding Capacity 242 ug/dL (250-450) L Percent Iron Saturation 26 % (15-50) Unsaturated Iron Binding 180 ug/dL (112-346) Ferritin 129 NG/ML (8-388) Lipase 135 U/L (73-393) Vitamin B12 Level 329 PG/ML (193-986) RBC Folate Hemolysate Pending Red Blood Cell Folate Pending ANURADHA KNAPP Apr 25, 2017 10:04
--- NOTE | 2017-04-25 10:31 | Diagnostic Imaging Report ---
Indication: Acute renal failure. Abnormal renal function tests Technique: Grayscale and duplex images of the kidneys, retroperitoneum, and bladder were obtained. Comparison:None Findings: Right kidney measures 10.3 cm in length. Left kidney measures 9.4 cm in length. Both kidneys demonstrate normal echogenicity. No hydronephrosis. There is a small amount of perinephric fluid on the left. Questionable left renal sinus echogenic focus with shadowing measures 5 mm in diameter.. Normal inferior vena cava. Bladder is normal. Impression: Questionable nonobstructive left intrarenal calculus Perinephric fluid on the left, nonspecific as regards etiology. Correlate with any findings of left renal inflammation.
[2017-04-25 10:59] LABS: CREATINE KINASE 228 U/L (26-308)
[2017-04-25] MEDS ORDERED: Nitroglycerin Subl 0.4mg tab SL PRN (11:00)
[2017-04-25] MEDS ORDERED: Albuterol/Ipratropium 3ml neb HHN PRN (11:30)
[2017-04-25] MEDS ORDERED: LORazepam Inj 2mg/ml 1ml IV PRN (11:30)
--- NOTE | 2017-04-25 11:44 | Neurology Progress Note ---
Interim History Interim History ROS Limited/Unobtainable: No Complaints: weakness L side Events: no change Objective Physical Exam Last Vital Signs Date Time Temp Pulse Resp B/P (MAP) Pulse Ox O2 Delivery O2 Flow Rate FiO2 04/25/17 08:34 161/70 04/25/17 08:08 98.2 83 20 98 Room Air 04/24/17 08:38 21 Laboratory Tests Test 04/25/17 04:20 04/25/17 04:50 White Blood Count 8.1 K/UL (4.8-10.8) Red Blood Count 3.36 M/UL (4.20-5.40) L Hemoglobin 10.9 G/DL (12.0-16.0) L Hematocrit 31.0 % (37.0-47.0) L Mean Corpuscular Volume 92 FL (80-99) Mean Corpuscular Hemoglobin 32.5 PG (27.0-31.0) H Mean Corpuscular Hemoglobin Concent 35.2 G/DL (32.0-36.0) Red Cell Distribution Width 11.6 % (11.6-14.8) Platelet Count 316 K/UL (150-450) Mean Platelet Volume 6.9 FL (6.5-10.1) Neutrophils (%) (Auto) 52.1 % (45.0-75.0) Lymphocytes (%) (Auto) 31.0 % (20.0-45.0) Monocytes (%) (Auto) 10.2 % (1.0-10.0) H Eosinophils (%) (Auto) 4.9 % (0.0-3.0) H Basophils (%) (Auto) 1.7 % (0.0-2.0) Sodium Level 140 MMOL/L (136-145) Potassium Level 4.2 MMOL/L (3.5-5.1) Chloride Level 105 MMOL/L (98-107) Carbon Dioxide Level 23 MMOL/L (21-32) Anion Gap 12 mmol/L (5-15) Blood Urea Nitrogen 24 mg/dL (7-18) H Creatinine 1.8 MG/DL (0.55-1.30) H Estimat Glomerular Filtration Rate mL/min (>60) Glucose Level 216 MG/DL (74-106) H Hemoglobin A1c Pending Calcium Level 9.0 MG/DL (8.5-10.1) Iron Level 62 ug/dL (50-175) Total Iron Binding Capacity 242 ug/dL (250-450) L Percent Iron Saturation 26 % (15-50) Unsaturated Iron Binding 180 ug/dL (112-346) Ferritin 129 NG/ML (8-388) Lipase 135 U/L (73-393) Vitamin B12 Level 329 PG/ML (193-986) RBC Folate Hemolysate Pending Red Blood Cell Folate Pending Uric Acid 6.9 MG/DL (2.6-7.2) Total Creatine Kinase 228 U/L (26-308) General: well developed, well nourished, no acute distress Head: normocophalic, atraumatic Neck: no rigidity Neurologic Exam Mental Status: awake, alert, oriented x4, normal cognition, good mathematical skills, normal recent memory, normal remote memory, preserved visuospatial function Speech: normal speech, no dysarthia Language: normal language, no aphasia Cranial Nerve II: fundus normal, visual adams, no papilledema Cranial Nerves III, IV, : PERRLA, EOMI, pupils Cranial Nerve V: normal facial sensations, temporales function normal, masseters function normal, pterygoids function normal Cranial Nerve VII: other - L droop Cranial Nerve VIII: normal hearing, no nystagmus Cranial Nerve IX: normal palate elevation, gag response Cranial Nerve X: no voice hoarseness Cranial Nerve XI: SCM symmetric, trapezii function normal Cranial Nerve XII: tongue midline, no tongue atrophy/fasciculations Motor System: normal muscle tone, no involuntary movement, no muscle wasting, other - L arm 4/5, L leg 2/5 Sensory: other - reduced PPL leg Deep Tendon Reflexes: 0 bicep (L), 0 bicep (R), 0 tricep (L), 0 tricep (R), 0 brachioradialis (L), 0 brachioradialis (R), 0 knee (L), 0 knee (R), 0 ankle (L) , 0 ankle (R) Reflexes: extensor plantar (L), mute plantar (R) Stance: other Gait: other Impression/Recommendations Problems: (1) acute ischemic disseminated embolic strokes (2) Acute ischemic right middle cerebral artery (MCA) stroke (3) blunt head trauma (4) CAD (coronary artery disease) (5) HTN (hypertension) (6) Diabetes mellitus Status: unchanged Recommendations # [id number] d/w cardio will start on anticoag get ANAMARIA. pt/ot/speech d/w rn and family DEAN ABURTO Apr 25, 2017 11:44
[2017-04-25] MEDS ORDERED: Mylanta II UD 30ml ORAL PRN (12:00)
--- NOTE | 2017-04-25 12:58 | Internal Med Progress Note ---
Subjective Date of Service: Apr 25, 2017 Physician Name Dixon Jordan Attending Physician Ben Barrios MD Current Medications Medications (Trade) Dose Ordered Sig/Lita Route PRN Reason Start Time Stop Time Status Last Admin Dose Admin Acetaminophen (Tylenol) 650 mg Q4H PRN ORAL Mild Pain/Temp > 100.5 04/25/17 12:00 05/24/17 11:59 Al Hydroxide/Mg Hydroxide (Mylanta II) 30 ml Q6H PRN ORAL dyspepsia 04/25/17 12:00 05/23/17 11:59 Albuterol/ Ipratropium (Albuterol/ Ipratropium) 3 ml Q4H PRN HHN Shortness of Breath 04/25/17 11:30 04/28/17 15:29 Atorvastatin Calcium (Lipitor) 20 mg BEDTIME ORAL 04/25/17 21:00 05/24/17 20:59 Clonidine HCl (Catapres) 0.1 mg Q4H PRN ORAL SBP > 160 mmHg 04/25/17 11:15 05/23/17 15:14 Clopidogrel Bisulfate (Plavix) 75 mg DAILY ORAL 04/26/17 09:00 05/24/17 13:59 Dextrose (Dextrose 50%) STAT PRN IV Hypoglycemia 04/25/17 12:00 05/24/17 11:59 Fenofibrate (Tricor) 145 mg DAILY ORAL 04/26/17 09:00 05/25/17 08:59 Heparin Sodium (Porcine) (Heparin 5000 units/ml) 5,000 units EVERY 12 HOURS SUBQ 04/25/17 21:00 05/23/17 21:59 Insulin Aspart (NovoLOG) BEFORE MEALS AND HS SUBQ 04/25/17 12:00 05/24/17 11:59 Lorazepam (Ativan 2mg/ml 1ml) 0.5 mg Q4H PRN IV For Anxiety 04/25/17 11:30 04/30/17 15:29 Nitroglycerin (Ntg) 0.4 mg Q5M X 3 DOSES PRN SL Prn Chest Pain 04/25/17 11:00 05/23/17 15:29 Ondansetron HCl (Zofran) 4 mg Q6H PRN IVP Nausea & Vomiting 04/25/17 11:30 05/23/17 11:29 Polyethylene Glycol (Miralax) 17 gm HSPRN PRN ORAL Constipation 04/25/17 21:00 05/23/17 20:59 Temazepam (Restoril) 15 mg HSPRN PRN ORAL Insomnia 04/25/17 21:00 04/30/17 20:59 Allergies: Coded Allergies: ASPIRIN (Verified Allergy, Unknown, RASH, 04/23/17) CODEINE (Verified Allergy, Unknown, RASH, 04/23/17) Subjective 81 YO F admitted with left weakness. Now acute CVA. Await transesophageal echo. Cover for Int Med-Dr Barrios Objective Last Vital Signs Date Time Temp Pulse Resp B/P (MAP) Pulse Ox O2 Delivery O2 Flow Rate FiO2 04/25/17 08:34 161/70 04/25/17 08:08 98.2 83 20 98 Room Air 04/24/17 08:38 21 General Appearance: WD/WN, no apparent distress, alert EENT: PERRL/EOMI, normal ENT inspection, TMs normal Neck: non-tender, normal alignment, supple, normal inspection Cardiovascular: normal peripheral pulses, normal rate, regular rhythm, no gallop/murmur, no JVD Respiratory/Chest: chest wall non-tender, lungs clear, normal breath sounds, no respiratory distress, no accessory muscle use Abdomen: normal bowel sounds, non tender, soft, no organomegaly, no mass Genitourinary/Rectal: normal genital exam Extremities: other - left weakness 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, other - left weakness Laboratory Tests Test 04/25/17 04:20 04/25/17 04:50 White Blood Count 8.1 K/UL (4.8-10.8) Red Blood Count 3.36 M/UL (4.20-5.40) L Hemoglobin 10.9 G/DL (12.0-16.0) L Hematocrit 31.0 % (37.0-47.0) L Mean Corpuscular Volume 92 FL (80-99) Mean Corpuscular Hemoglobin 32.5 PG (27.0-31.0) H Mean Corpuscular Hemoglobin Concent 35.2 G/DL (32.0-36.0) Red Cell Distribution Width 11.6 % (11.6-14.8) Platelet Count 316 K/UL (150-450) Mean Platelet Volume 6.9 FL (6.5-10.1) Neutrophils (%) (Auto) 52.1 % (45.0-75.0) Lymphocytes (%) (Auto) 31.0 % (20.0-45.0) Monocytes (%) (Auto) 10.2 % (1.0-10.0) H Eosinophils (%) (Auto) 4.9 % (0.0-3.0) H Basophils (%) (Auto) 1.7 % (0.0-2.0) Sodium Level 140 MMOL/L (136-145) Potassium Level 4.2 MMOL/L (3.5-5.1) Chloride Level 105 MMOL/L (98-107) Carbon Dioxide Level 23 MMOL/L (21-32) Anion Gap 12 mmol/L (5-15) Blood Urea Nitrogen 24 mg/dL (7-18) H Creatinine 1.8 MG/DL (0.55-1.30) H Estimat Glomerular Filtration Rate mL/min (>60) Glucose Level 216 MG/DL (74-106) H Hemoglobin A1c Pending Calcium Level 9.0 MG/DL (8.5-10.1) Iron Level 62 ug/dL (50-175) Total Iron Binding Capacity 242 ug/dL (250-450) L Percent Iron Saturation 26 % (15-50) Unsaturated Iron Binding 180 ug/dL (112-346) Ferritin 129 NG/ML (8-388) Lipase 135 U/L (73-393) Vitamin B12 Level 329 PG/ML (193-986) RBC Folate Hemolysate Pending Red Blood Cell Folate Pending Uric Acid 6.9 MG/DL (2.6-7.2) Total Creatine Kinase 228 U/L (26-308) Assessment/Plan Problem List: (1) Left hemiparesis Assessment & Plan: due to acute CVA (2) Renal failure (3) acute ischemic disseminated embolic strokes Assessment & Plan: Await transesophageal echo to R/O cardiac emboli. (4) Diabetes mellitus Assessment & Plan: Patient Refusing insulin. (5) HTN (hypertension) (6) CAD (coronary artery disease) Assessment & Plan: See cardiology note. Status: not improved DIXON JORDAN Apr 25, 2017 12:58
[2017-04-25] MEDS ORDERED: CLOPIDOGREL75 MG ORAL (17:27)
[2017-04-25] MEDS ORDERED: CETIRIZINE HCL10 MG PO (17:27)
[2017-04-25] MEDS ORDERED: METFORMIN HCL1000 M1 ORAL (17:27)
[2017-04-25] MEDS ORDERED: GLIMEPIRIDE4 MG ORAL (17:27)
[2017-04-25] MEDS ORDERED: CARVEDILOL25 MG ORAL (18:51)
[2017-04-25] MEDS ORDERED: AMLODIPINE BESYL5 MG ORAL (18:51)
--- NOTE | 2017-04-25 19:01 | Consultation ---
DATE OF CONSULTATION: 04/25/2017 CARDIOLOGY CONSULTATION CONSULTING PHYSICIAN: Vishal Enriquez M.D. REFERRING PHYSICIAN: Radha Ayon M.D. REASON FOR REFERRAL: Multiple strokes. HISTORY OF PRESENT ILLNESS: This is a 81-year-old female, who has a history of multiple medical problems. The patient apparently was walking to the bathroom, had noticed that when she stood up, she would get dizzy on that day, but that is not her usual symptoms. Nevertheless, she walked to the bathroom, she fell on her left side and she had tried to get up and she was dizzy constantly; therefore, she presented to the emergency room here at [facility]. It should be noted that this information is obtained from the patient directly through one of our staff that speaks Lebanese. The emergency room data indicates she was actually brought in because of generalized weakness and not eating and sleeping. In any case, the fall resulted in contusion on the back of her head and she presented to the emergency room when she had the dizziness. She denies a spinning sensation, however, as a cause. She actually remembers the actual fall. She did not lose consciousness. She does not really have any chest pain. No PND. No orthopnea, although she uses 3 pillows chronically at home. She has no palpitations. She does not really have dizziness on standing except for the day that this occurred. PAST MEDICAL HISTORY: Positive for diabetes and high blood pressure. She has actually been told to take blood thinners, but she does know why. She does not have high cholesterol. No heart attack. No cancer. No stroke. No hepatitis or tuberculosis. No asthma or emphysema. No ulcers. No kidney problems, liver problems, thyroid problems, anemia, or arthritis. She denies any blood clots anywhere, but she knows that she is on blood thinners because her doctor told her to take. SOCIAL HISTORY: She does not smoke, does not drink, never did. She lives at home. REVIEW OF SYSTEMS: GASTROINTESTINAL: Negative except for the fact that she has had constipation for few days. GENITOURINARY: Negative. PULMONARY: Negative. CONSTITUTIONAL: Negative. NEUROLOGIC: She has some pain in her left side of her body from the fall. PHYSICAL EXAMINATION: GENERALS: Physical examination shows her to be elderly female, in no respiratory distress. However, she is quite uncomfortable when she tries to sit up in bed to allow examination. In fact, she was not able to do that. NECK: Supple. No jugular venous distention. LUNGS: Appear to be clear anteriorly and to the sides as much as I could examine her. CARDIAC: Regular rate and rhythm. No heaves, thrills, gallops, or rubs are noted. ABDOMEN: Soft and nontender, although she does have pain in the rib cage area on the left side on palpation of the abdomen. EXTREMITIES: There is no clubbing or cyanosis. She has good pulses in the right dorsalis pedis, but the left is somewhat weaker. She has excellent capillary refill pressure. LABORATORY AND DIAGNOSTIC DATA: Telemetry data is unremarkable with sinus rhythm. Carotid duplex study showed 20% to 30% stenosis in the common carotid, 10% in the internal carotid and external carotids on the right side, and 30% to 40% in the common carotid on the left side, 10% internal as well as external carotid arteries. Echocardiogram preliminary shows ejection fraction 60% to 65%. No significant valvular regurgitation is noted. EKG shows normal sinus rhythm, normal QRS axis, no ST or T wave abnormalities. Her blood tests show white count of 8.1, hemoglobin 10.9, and platelet count of 316. Her hemoglobin has been as low as 9.3. Sodium 140; potassium 4.2; chloride 105; bicarbonate 22; BUN is 24; creatinine 1.8, has been as high as 2.0; and a glucose of 216. A1c is pending at this time. Iron level of 62, 26% saturation. Liver function tests are normal. Her triglycerides, however, are 624 with a cholesterol of 264, LDL of 132, and her cholesterol is 7.1. Lipase is 135 and vitamin B12 level 329. TSH is 2.071. Her urinalysis shows 1+ leukocyte esterase and 0 to 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 There is a right parietal scalp hematoma and a chest x-ray that was performed shows no acute processes and MRI of the brain shows multiple small acute infarctions bilaterally as described, largest in the right basal ganglia, garrett radiata discoloration suggests multiple emboli of cardiogenic origin. Negative acute intracranial bleed or mass effects being noted. Medications are really unknown at this time. ASSESSMENT AND PLAN: 1. Multiple falls. 2. 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 3. Diabetes mellitus. 4. Hypertension. 5. Anemia. 6. Renal insufficiency. This patient has been on some blood thinners on prior occasions. The name of the medications nor the dosage of medications or the reason why she has been on medications are unknown at this time, but she has been on some blood thinners before. She is allergic to multiple medications, the name of which she is not sure of. Here, she is listed as aspirin and codeine allergies. We would require listing of her medications to make sure that she is on anticoagulation. Obviously, she has had the strokes that would be an indication for anticoagulation if cardioembolic in origin and there is probably a very little chance that these medications could be discontinued. From her other aspects of fall, she will require orthostatic vitals checked and she may have a rib series to identify if there are any fractures of her ribs as she is quite tender in that area, on the left lateral lower chest wall area, to touch and she may have therefore sustained fractures in that area, although her chest x-ray did not identify any, may be a left-sided rib series may be in order. Vishal Enriquez M.D. DR: LAYTON JOB#: [id number] CC:
[2017-04-25] MEDS ORDERED: Atorvastatin 20mg tab ORAL SCH (21:00)
[2017-04-25] MEDS ORDERED: Miralax 17gm pkt ORAL PRN (21:00)
[2017-04-26 03:54] VITALS: BP 140/60
[2017-04-26 05:29] LABS: HEMOGLOBIN 10.6 G/DL (12.0-16.0); MEAN CORPUSCULAR VOLUME 93 FL (80-99); PLATELET COUNT 279 K/UL (150-450); RED BLOOD COUNT 3.13 M/UL (4.20-5.40); RED CELL DISTRIBUTION WIDTH 12.1 % (11.6-14.8); WHITE BLOOD COUNT 8.1 K/UL (4.8-10.8)
[2017-04-26 06:10] LABS: ALANINE AMINOTRANSFERASE 18 U/L (12-78); ALBUMIN/GLOBULIN RATIO 0.8 (1.0-2.7); ALKALINE PHOSPHATASE 67 U/L (46-116); ANION GAP 9 mmol/L (5-15); ASPARTATE AMINO TRANSFERASE 19 U/L (15-37); BILIRUBIN,TOTAL 0.2 MG/DL (0.2-1.0); BLOOD UREA NITROGEN 22 mg/dL (7-18); CARBON DIOXIDE 26 MMOL/L (21-32); CHLORIDE 103 MMOL/L (98-107); CREATININE 1.8 MG/DL (0.55-1.30); PHOSPHORUS 4.6 MG/DL (2.5-4.9); POTASSIUM 4.1 MMOL/L (3.5-5.1); SODIUM 138 MMOL/L (136-145)
[2017-04-26] MEDS ORDERED: COSOPT1 DRO2 BOTH EYES (06:26)
[2017-04-26] MEDS ORDERED: BRIMONIDINE TART5 ML BOTH EYES (06:26)
[2017-04-26] MEDS: NovoLOG Insulin Flexpen SUBQ SCH ×4 (06:30→21:00)
[2017-04-26 06:53] LABS: APPEARANCE,URINE CLEAR; BILIRUBIN, URINE NEGATIVE (NEGATIVE); COLOR,URINE PALE YELLOW; GLUCOSE, URINE (UA) 2+ (NEGATIVE); KETONES,URINE NEGATIVE (NEGATIVE); LEUKOCYTE ESTERASE ,URINE NEGATIVE (NEGATIVE); NITRITE,URINE NEGATIVE (NEGATIVE); PH,URINE 5 (4.5-8.0); PROTEIN,URINE 3+ (NEGATIVE); UROBILINOGEN,URINE NORMAL MG/DL (0.0-1.0)
[2017-04-26 07:25] LABS: % IRON SATURATION 20 % (15-50); IRON 50 ug/dL (50-175); TOTAL IRON BINDING CAPACITY 247 ug/dL (250-450)
[2017-04-26 07:26] LABS: LACTATE DEHYDROGENASE 165 U/L (81-234)
[2017-04-26 08:55] VITALS: BP 148/64
[2017-04-26] MEDS: Carvedilol 25mg Tab ORAL SCH ×2 (09:25→21:18)
[2017-04-26] MEDS: Heparin 5000 units/ml inj SUBQ SCH ×2 (09:32→20:36)
--- NOTE | 2017-04-26 09:32 | Pulmonology Progress Note ---
Assessment/Plan Problems: (1) Acute ischemic right middle cerebral artery (MCA) stroke (2) Anemia (3) ATN (acute tubular necrosis) (4) Diabetes mellitus (5) CAD (coronary artery disease) (6) HTN (hypertension) Assessment/Plan MRI Impression: Multiple small acute infarcts bilaterally as described, largest in the right basal ganglia and garrett radiata. Distribution suggests multiple emboli of cardiogenic origin. pt /ot cardio to see, d/w Dr. Enriquez anemia and renal w/u in process. sliding scale, Reti count elevated, check stool for OB Subjective ROS Limited/Unobtainable: No Interval Events: c/o left chest pain, tender on palpation Allergies: Coded Allergies: ASPIRIN (Verified Allergy, Unknown, 04/25/17) ATORVASTATIN (Verified Allergy, Unknown, 04/26/17) CHOLINE FENOFIBRATE (Verified Allergy, Unknown, 04/26/17) DULOXETINE (Verified Allergy, Unknown, 04/26/17) GABAPENTIN (Verified Allergy, Unknown, 04/26/17) NIACIN (Verified Allergy, Unknown, 04/26/17) OXYCODONE (Verified Allergy, Unknown, 04/26/17) PENICILLINS (Verified Allergy, Unknown, 04/25/17) PROMETHAZINE (Verified Allergy, Unknown, 04/26/17) ROSIGLITAZONE (Verified Allergy, Unknown, 04/26/17) TRAMADOL (Verified Allergy, Unknown, 04/26/17) Objective Last 24 Hour Vital Signs Date Time Temp Pulse Resp B/P (MAP) Pulse Ox O2 Delivery O2 Flow Rate FiO2 04/26/17 08:55 97.1 80 18 148/64 96 Room Air 04/26/17 07:54 83 18 Room Air 21 04/26/17 04:00 79 04/26/17 03:54 97.3 76 20 140/60 95 Room Air 04/26/17 00:00 76 04/25/17 23:57 98.2 82 20 139/63 94 Room Air 04/25/17 20:08 99.3 87 20 147/69 95 Room Air 04/25/17 20:00 83 04/25/17 19:51 80 16 Room Air 04/25/17 16:58 97.1 82 18 141/64 95 Room Air 04/25/17 16:00 82 04/25/17 12:00 77 04/25/17 12:00 97.2 89 18 134/61 94 Room Air Intake and Output 04/26/17 04/27/17 19:00 07:00 Intake Total 240 ml Balance 240 ml Intake Oral 240 ml # Voids 1 General Appearance: WD/WN HEENT: normocephalic, anicteric Respiratory/Chest: chest wall non-tender, lungs clear Breasts: no masses Cardiovascular: normal peripheral pulses Abdomen: normal bowel sounds, non distended Extremities: no clubbing Skin: no ulcers 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 Laboratory Tests 04/26/17 04:20: White Blood Count 8.1, Red Blood Count 3.13L, Hemoglobin 10.6L, Hematocrit 29.0L , Mean Corpuscular Volume 93, Mean Corpuscular Hemoglobin 33.7H, Mean Corpuscular Hemoglobin Concent 36.4H, Red Cell Distribution Width 12.1, Platelet Count 279, Mean Platelet Volume 6.7, Neutrophils (%) (Auto) 56.6, Lymphocytes (%) (Auto) 26.8, Monocytes (%) (Auto) 11.4H, Eosinophils (%) (Auto) 3.6H, Basophils (%) (Auto) 1.6, Erythrocyte Sedimentation Rate 104H, Reticulocyte Count 2.5H, Prothrombin Time 10.0, Prothromb Time International Ratio 1.0, Activated Partial Thromboplast Time 26, Sodium Level 138, Potassium Level 4.1, Chloride Level 103, Carbon Dioxide Level 26, Anion Gap 9, Blood Urea Nitrogen 22H, Creatinine 1.8H, Estimat Glomerular Filtration Rate , Glucose Level 209H, Calcium Level 9.0, Phosphorus Level 4.6, Magnesium Level 1.6L, Iron Level 50, Total Iron Binding Capacity 247L, Percent Iron Saturation 20, Unsaturated Iron Binding 197, Total Bilirubin 0.2, Aspartate Amino Transf (AST/ SGOT) 19, Alanine Aminotransferase (ALT/SGPT) 18, Alkaline Phosphatase 67, Lactate Dehydrogenase 165, Total Protein 6.8, Albumin 3.0L, Globulin 3.8, Albumin/Globulin Ratio 0.8L, Vitamin B12 Level 360, Folate 18.7H 04/26/17 05:00: Urine Color Pale yellow, Urine Appearance Clear, Urine pH 5, Urine Specific [place] 1.015, Urine Protein 3+H, Urine Glucose (UA) 2+H, Urine Ketones Negative , Urine Occult Blood Negative, Urine Nitrite Negative, Urine Bilirubin Negative , Urine Urobilinogen Normal, Urine Leukocyte Esterase Negative, Urine RBC 0-2, Urine WBC 0-2, Urine Squamous Epithelial Cells Occasional, Urine Bacteria Occasional, Urine Eosinophils None seen, Urine Random Sodium 81, Urine Potassium Timed 53 Current Medications Medications (Trade) Dose Ordered Sig/Lita Route PRN Reason Start Time Stop Time Status Last Admin Dose Admin Acetaminophen (Tylenol) 650 mg Q4H PRN ORAL Mild Pain/Temp > 100.5 04/25/17 12:00 05/24/17 11:59 04/25/17 22:00 Al Hydroxide/Mg Hydroxide (Mylanta II) 30 ml Q6H PRN ORAL dyspepsia 04/25/17 12:00 05/23/17 11:59 Albuterol/ Ipratropium (Albuterol/ Ipratropium) 3 ml Q4H PRN HHN Shortness of Breath 04/25/17 11:30 04/28/17 15:29 Atorvastatin Calcium (Lipitor) 20 mg BEDTIME ORAL 04/25/17 21:00 05/24/17 20:59 Carvedilol (Coreg) 25 mg EVERY 12 HOURS ORAL 04/26/17 09:00 05/26/17 08:59 Clonidine HCl (Catapres) 0.1 mg Q4H PRN ORAL SBP > 160 mmHg 04/25/17 11:15 05/23/17 15:14 Clopidogrel Bisulfate (Plavix) 75 mg DAILY ORAL 04/26/17 09:00 05/24/17 13:59 Dextrose (Dextrose 50%) STAT PRN IV Hypoglycemia 04/25/17 12:00 05/24/17 11:59 Dorzolamide/ Timolol (Cosopt) 1 drop TWICE A DAY BOTH EYES 04/26/17 22:00 05/26/17 21:59 Fenofibrate (Tricor) 145 mg DAILY ORAL 04/26/17 09:00 05/25/17 08:59 Heparin Sodium (Porcine) (Heparin 5000 units/ml) 5,000 units EVERY 12 HOURS SUBQ 04/25/17 21:00 05/23/17 21:59 Insulin Aspart (NovoLOG) BEFORE MEALS AND HS SUBQ 04/25/17 12:00 05/24/17 11:59 Lorazepam (Ativan 2mg/ml 1ml) 0.5 mg Q4H PRN IV For Anxiety 04/25/17 11:30 04/30/17 15:29 Magnesium Sulfate 100 ml @ 100 mls/hr Q1H IVPB 04/26/17 08:15 04/26/17 10:14 Nitroglycerin (Ntg) 0.4 mg Q5M X 3 DOSES PRN SL Prn Chest Pain 04/25/17 11:00 05/23/17 15:29 Ondansetron HCl (Zofran) 4 mg Q6H PRN IVP Nausea & Vomiting 04/25/17 11:30 05/23/17 11:29 Polyethylene Glycol (Miralax) 17 gm HSPRN PRN ORAL Constipation 04/25/17 21:00 05/23/17 20:59 Temazepam (Restoril) 15 mg HSPRN PRN ORAL Insomnia 04/25/17 21:00 04/30/17 20:59 RHEA FRANK Apr 26, 2017 09:32
[2017-04-26 12:41] VITALS: BP 125/58
--- NOTE | 2017-04-26 14:48 | Internal Med Progress Note ---
Subjective Date of Service: Apr 26, 2017 Physician Name Ruthie Jordan Attending Physician Ben Barrios MD Current Medications Medications (Trade) Dose Ordered Sig/Lita Route PRN Reason Start Time Stop Time Status Last Admin Dose Admin Acetaminophen (Tylenol) 650 mg Q4H PRN ORAL Mild Pain/Temp > 100.5 04/25/17 12:00 05/24/17 11:59 04/26/17 09:46 Al Hydroxide/Mg Hydroxide (Mylanta II) 30 ml Q6H PRN ORAL dyspepsia 04/25/17 12:00 05/23/17 11:59 Albuterol/ Ipratropium (Albuterol/ Ipratropium) 3 ml Q4H PRN HHN Shortness of Breath 04/25/17 11:30 04/28/17 15:29 Atorvastatin Calcium (Lipitor) 20 mg BEDTIME ORAL 04/25/17 21:00 05/24/17 20:59 Carvedilol (Coreg) 25 mg EVERY 12 HOURS ORAL 04/26/17 09:00 05/26/17 08:59 04/26/17 09:25 Clonidine HCl (Catapres) 0.1 mg Q4H PRN ORAL SBP > 160 mmHg 04/25/17 11:15 05/23/17 15:14 Clopidogrel Bisulfate (Plavix) 75 mg DAILY ORAL 04/26/17 09:00 05/24/17 13:59 04/26/17 13:54 Dextrose (Dextrose 50%) STAT PRN IV Hypoglycemia 04/25/17 12:00 05/24/17 11:59 Dorzolamide/ Timolol (Cosopt) 1 drop TWICE A DAY BOTH EYES 04/26/17 22:00 05/26/17 21:59 Fenofibrate (Tricor) 145 mg DAILY ORAL 04/26/17 09:00 05/25/17 08:59 04/26/17 09:26 Heparin Sodium (Porcine) (Heparin 5000 units/ml) 5,000 units EVERY 12 HOURS SUBQ 04/25/17 21:00 05/23/17 21:59 04/26/17 09:32 Insulin Aspart (NovoLOG) BEFORE MEALS AND HS SUBQ 04/25/17 12:00 05/24/17 11:59 Lorazepam (Ativan 2mg/ml 1ml) 0.5 mg Q4H PRN IV For Anxiety 04/25/17 11:30 04/30/17 15:29 Nitroglycerin (Ntg) 0.4 mg Q5M X 3 DOSES PRN SL Prn Chest Pain 04/25/17 11:00 05/23/17 15:29 Ondansetron HCl (Zofran) 4 mg Q6H PRN IVP Nausea & Vomiting 04/25/17 11:30 05/23/17 11:29 Polyethylene Glycol (Miralax) 17 gm HSPRN PRN ORAL Constipation 04/25/17 21:00 05/23/17 20:59 Temazepam (Restoril) 15 mg HSPRN PRN ORAL Insomnia 04/25/17 21:00 04/30/17 20:59 Allergies: Coded Allergies: ASPIRIN (Verified Allergy, Unknown, 04/25/17) ATORVASTATIN (Verified Allergy, Unknown, 04/26/17) CHOLINE FENOFIBRATE (Verified Allergy, Unknown, 04/26/17) DULOXETINE (Verified Allergy, Unknown, 04/26/17) GABAPENTIN (Verified Allergy, Unknown, 04/26/17) NIACIN (Verified Allergy, Unknown, 04/26/17) OXYCODONE (Verified Allergy, Unknown, 04/26/17) PENICILLINS (Verified Allergy, Unknown, 04/25/17) PROMETHAZINE (Verified Allergy, Unknown, 04/26/17) ROSIGLITAZONE (Verified Allergy, Unknown, 04/26/17) TRAMADOL (Verified Allergy, Unknown, 04/26/17) ROS Limited/Unobtainable: No Constitutional: Reports: no symptoms HEENT: Reports: no symptoms Cardiovascular: Reports: no symptoms Respiratory: Reports: no symptoms Gastrointestinal/Abdominal: Reports: no symptoms Genitourinary: Reports: no symptoms Neurologic/Psychiatric: Reports: other - left sided weakness Subjective 81 YO F admitted with left weakness. Now acute CVA. Await transesophageal echo. Cover for Int Joseph-Dr Barrios Objective Last Vital Signs Date Time Temp Pulse Resp B/P (MAP) Pulse Ox O2 Delivery O2 Flow Rate FiO2 04/26/17 12:41 98.4 74 18 125/58 95 Room Air 04/26/17 07:54 21 Laboratory Tests Test 04/26/17 04:20 04/26/17 05:00 White Blood Count 8.1 K/UL (4.8-10.8) Red Blood Count 3.13 M/UL (4.20-5.40) L Hemoglobin 10.6 G/DL (12.0-16.0) L Hematocrit 29.0 % (37.0-47.0) L Mean Corpuscular Volume 93 FL (80-99) Mean Corpuscular Hemoglobin 33.7 PG (27.0-31.0) H Mean Corpuscular Hemoglobin Concent 36.4 G/DL (32.0-36.0) H Red Cell Distribution Width 12.1 % (11.6-14.8) Platelet Count 279 K/UL (150-450) Mean Platelet Volume 6.7 FL (6.5-10.1) Neutrophils (%) (Auto) % (45.0-75.0) Lymphocytes (%) (Auto) % (20.0-45.0) Monocytes (%) (Auto) % (1.0-10.0) Eosinophils (%) (Auto) % (0.0-3.0) Basophils (%) (Auto) % (0.0-2.0) Differential Total Cells Counted 100 Neutrophils % (Manual) 59 % (45-75) Lymphocytes % (Manual) 26 % (20-45) Monocytes % (Manual) 11 % (1-10) H Eosinophils % (Manual) 4 % (0-3) H Basophils % (Manual) 0 % (0-2) Band Neutrophils 0 % (0-8) Platelet Estimate Adequate Platelet Morphology Normal Erythrocyte Sedimentation Rate 104 MM/HR (0-30) H Reticulocyte Count 2.5 % (0.0-2.0) H Prothrombin Time 10.0 SEC (9.30-11.50) Prothromb Time International Ratio 1.0 (0.9-1.1) Activated Partial Thromboplast Time 26 SEC (23-33) Sodium Level 138 MMOL/L (136-145) Potassium Level 4.1 MMOL/L (3.5-5.1) Chloride Level 103 MMOL/L (98-107) Carbon Dioxide Level 26 MMOL/L (21-32) Anion Gap 9 mmol/L (5-15) Blood Urea Nitrogen 22 mg/dL (7-18) H Creatinine 1.8 MG/DL (0.55-1.30) H Estimat Glomerular Filtration Rate mL/min (>60) Glucose Level 209 MG/DL (74-106) H Calcium Level 9.0 MG/DL (8.5-10.1) Phosphorus Level 4.6 MG/DL (2.5-4.9) Magnesium Level 1.6 MG/DL (1.8-2.4) L Iron Level 50 ug/dL (50-175) Total Iron Binding Capacity 247 ug/dL (250-450) L Percent Iron Saturation 20 % (15-50) Unsaturated Iron Binding 197 ug/dL (112-346) Total Bilirubin 0.2 MG/DL (0.2-1.0) Aspartate Amino Transf (AST/SGOT) 19 U/L (15-37) Alanine Aminotransferase (ALT/SGPT) 18 U/L (12-78) Alkaline Phosphatase 67 U/L (46-116) Lactate Dehydrogenase 165 U/L (81-234) Total Protein 6.8 G/DL (6.4-8.2) Albumin 3.0 G/DL (3.4-5.0) L Globulin 3.8 g/dL Albumin/Globulin Ratio 0.8 (1.0-2.7) L Vitamin B12 Level 360 PG/ML (193-986) Folate 18.7 NG/ML (3.1-17.5) H Urine Color Pale yellow Urine Appearance Clear Urine pH 5 (4.5-8.0) Urine Specific [place] 1.015 (1.005-1.035) Urine Protein 3+ (NEGATIVE) H Urine Glucose (UA) 2+ (NEGATIVE) H Urine Ketones Negative (NEGATIVE) Urine Occult Blood Negative (NEGATIVE) Urine Nitrite Negative (NEGATIVE) Urine Bilirubin Negative (NEGATIVE) Urine Urobilinogen Normal MG/DL (0.0-1.0) Urine Leukocyte Esterase Negative (NEGATIVE) Urine RBC 0-2 /HPF (0 - 2) Urine WBC 0-2 /HPF (0 - 2) Urine Squamous Epithelial Cells Occasional /LPF Urine Bacteria Occasional /HPF (NONE) Urine Eosinophils None seen Urine Random Sodium 81 MEQ/L (20-110) Urine Potassium Timed 53 mmol/L (12-62) Intake and Output 04/26/17 04/27/17 19:00 07:00 Intake Total 480 ml Balance 480 ml Intake Oral 480 ml # Voids 3 Objective General Appearance: WD/WN, no apparent distress, alert EENT: PERRL/EOMI, normal ENT inspection, TMs normal Neck: non-tender, normal alignment, supple, normal inspection Cardiovascular: normal peripheral pulses, normal rate, regular rhythm, no gallop/murmur, no JVD Respiratory/Chest: chest wall non-tender, lungs clear, normal breath sounds, no respiratory distress, no accessory muscle use Abdomen: normal bowel sounds, non tender, soft, no organomegaly, no mass Genitourinary/Rectal: normal genital exam Extremities: other - left weakness 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 Await transesophageal echo to R/O cardiac emboli. (4) Diabetes mellitus Assessment & Plan: Patient Refusing insulin. (5) HTN (hypertension) (6) CAD (coronary artery disease) Assessment & Plan: See cardiology note. Status: not improved RUTHIE JORDAN Apr 26, 2017 14:48
[2017-04-26 16:07] VITALS: BP 138/67
--- NOTE | 2017-04-26 17:02 | Cardiology Progress Note ---
Assessment/Plan Assessment/Plan 1. Multiple falls. 2. 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 3. Diabetes mellitus. 4. Hypertension. 5. Anemia. 6. Renal insufficiency. out pt med included plavix supposedly allergic to lipitor and triplex adn niacin !! will need krystyna however possible multiple cva arterial to arterial embolism rather than cardiac to arterial embolism trop all neg rib series needed med list reviwed will paln on krystyna on Subjective Cardiovascular: Reports: chest pain - chest wall pain , Denies: lightheadedness , palpitations Respiratory: Denies: shortness of breath Gastrointestinal/Abdominal: Denies: abdominal pain Objective Last 24 Hour Vital Signs Date Time Temp Pulse Resp B/P (MAP) Pulse Ox O2 Delivery O2 Flow Rate FiO2 04/26/17 16:07 98.6 82 18 138/67 96 Room Air 04/26/17 16:00 83 04/26/17 12:41 98.4 74 18 125/58 95 Room Air 04/26/17 12:00 74 04/26/17 10:45 97.1 04/26/17 09:25 80 148/64 04/26/17 08:55 97.1 80 18 148/64 96 Room Air 04/26/17 08:00 84 04/26/17 07:54 83 18 Room Air 21 04/26/17 04:00 79 04/26/17 03:54 97.3 76 20 140/60 95 Room Air 04/26/17 00:00 76 04/25/17 23:57 98.2 82 20 139/63 94 Room Air 04/25/17 20:08 99.3 87 20 147/69 95 Room Air 04/25/17 20:00 83 04/25/17 19:51 80 16 Room Air General Appearance: alert Neck: supple Cardiovascular: normal rate, regular rhythm, other - chest wall tenderness Respiratory/Chest: lungs clear, normal breath sounds Abdomen: normal bowel sounds, non tender, soft Extremities: no swelling Intake and Output 04/26/17 04/27/17 19:00 07:00 Intake Total 480 ml Balance 480 ml Intake Oral 480 ml # Voids 3 Laboratory Tests Test 04/26/17 04:20 04/26/17 05:00 White Blood Count 8.1 K/UL (4.8-10.8) Red Blood Count 3.13 M/UL (4.20-5.40) L Hemoglobin 10.6 G/DL (12.0-16.0) L Hematocrit 29.0 % (37.0-47.0) L Mean Corpuscular Volume 93 FL (80-99) Mean Corpuscular Hemoglobin 33.7 PG (27.0-31.0) H Mean Corpuscular Hemoglobin Concent 36.4 G/DL (32.0-36.0) H Red Cell Distribution Width 12.1 % (11.6-14.8) Platelet Count 279 K/UL (150-450) Mean Platelet Volume 6.7 FL (6.5-10.1) Neutrophils (%) (Auto) % (45.0-75.0) Lymphocytes (%) (Auto) % (20.0-45.0) Monocytes (%) (Auto) % (1.0-10.0) Eosinophils (%) (Auto) % (0.0-3.0) Basophils (%) (Auto) % (0.0-2.0) Differential Total Cells Counted 100 Neutrophils % (Manual) 59 % (45-75) Lymphocytes % (Manual) 26 % (20-45) Monocytes % (Manual) 11 % (1-10) H Eosinophils % (Manual) 4 % (0-3) H Basophils % (Manual) 0 % (0-2) Band Neutrophils 0 % (0-8) Platelet Estimate Adequate Platelet Morphology Normal Erythrocyte Sedimentation Rate 104 MM/HR (0-30) H Reticulocyte Count 2.5 % (0.0-2.0) H Prothrombin Time 10.0 SEC (9.30-11.50) Prothromb Time International Ratio 1.0 (0.9-1.1) Activated Partial Thromboplast Time 26 SEC (23-33) Sodium Level 138 MMOL/L (136-145) Potassium Level 4.1 MMOL/L (3.5-5.1) Chloride Level 103 MMOL/L (98-107) Carbon Dioxide Level 26 MMOL/L (21-32) Anion Gap 9 mmol/L (5-15) Blood Urea Nitrogen 22 mg/dL (7-18) H Creatinine 1.8 MG/DL (0.55-1.30) H Estimat Glomerular Filtration Rate mL/min (>60) Glucose Level 209 MG/DL (74-106) H Calcium Level 9.0 MG/DL (8.5-10.1) Phosphorus Level 4.6 MG/DL (2.5-4.9) Magnesium Level 1.6 MG/DL (1.8-2.4) L Iron Level 50 ug/dL (50-175) Total Iron Binding Capacity 247 ug/dL (250-450) L Percent Iron Saturation 20 % (15-50) Unsaturated Iron Binding 197 ug/dL (112-346) Total Bilirubin 0.2 MG/DL (0.2-1.0) Aspartate Amino Transf (AST/SGOT) 19 U/L (15-37) Alanine Aminotransferase (ALT/SGPT) 18 U/L (12-78) Alkaline Phosphatase 67 U/L (46-116) Lactate Dehydrogenase 165 U/L (81-234) Total Protein 6.8 G/DL (6.4-8.2) Albumin 3.0 G/DL (3.4-5.0) L Globulin 3.8 g/dL Albumin/Globulin Ratio 0.8 (1.0-2.7) L Vitamin B12 Level 360 PG/ML (193-986) Folate 18.7 NG/ML (3.1-17.5) H Urine Color Pale yellow Urine Appearance Clear Urine pH 5 (4.5-8.0) Urine Specific [place] 1.015 (1.005-1.035) Urine Protein 3+ (NEGATIVE) H Urine Glucose (UA) 2+ (NEGATIVE) H Urine Ketones Negative (NEGATIVE) Urine Occult Blood Negative (NEGATIVE) Urine Nitrite Negative (NEGATIVE) Urine Bilirubin Negative (NEGATIVE) Urine Urobilinogen Normal MG/DL (0.0-1.0) Urine Leukocyte Esterase Negative (NEGATIVE) Urine RBC 0-2 /HPF (0 - 2) Urine WBC 0-2 /HPF (0 - 2) Urine Squamous Epithelial Cells Occasional /LPF Urine Bacteria Occasional /HPF (NONE) Urine Eosinophils None seen Urine Random Sodium 81 MEQ/L (20-110) Urine Potassium Timed 53 mmol/L (12-62) ANURADHA KNAPP Apr 26, 2017 17:02
--- NOTE | 2017-04-26 17:41 | Cardiology Report ---
APPROVED REPORT EXAM: Two-dimensional and M-mode echocardiogram with Doppler and color Doppler. INDICATION Left ventricular function M-Mode DIMENSIONS Aortic Root2.6 (2.0-3.7cm) Aortic Cusp Exc.1.6 (1.5-2.0cm) Technically difficult study due to poor acoustical windows. M-mode measurements not obtainable due to cardiac structure. Normal left ventricular chamber size, systolic function and wall motion. Left ventricular ejection fraction estimated to be 60-65%. No evidence of left ventricular hypertrophy. No evidence of pericardial or pleural effusion. All other cardiac chamber sizes are within normal limits. Focal aortic valve sclerosis with adequate cusp excursion. Thickened mitral valve leaflets with normal excursion. Normal mitral annulus and aortic root. Pulmonic valve not well visualized. Normal tricuspid valve structure. IVC is normal in size and collapsible with respiration. A color flow and spectral Doppler study was performed and revealed: No aortic regurgitation. Trace mitral regurgitation. Mitral diastolic velocities suggest reduced left ventricular relaxation c/w diastolic dysfunction grade 1. No tricuspid regurgitation.
--- NOTE | 2017-04-26 18:45 | Cardiology Report ---
APPROVED REPORT EKG Measurement Heart [id number] Normal sinus rhythm Nonspecific T wave abnormality Prolonged QT Abnormal ECG
--- NOTE | 2017-04-26 18:45 | Cardiology Report ---
APPROVED REPORT EKG Measurement Heart [id number] Normal sinus rhythm Nonspecific T wave abnormality Prolonged QT Abnormal ECG
--- NOTE | 2017-04-26 18:45 | Cardiology Report ---
APPROVED REPORT EKG Measurement Heart [id number] [place] 152P57 [id number] Normal sinus rhythm Nonspecific T wave abnormality Prolonged QT Abnormal ECG
[2017-04-26 19:53] VITALS: BP 147/67
[2017-04-26] MEDS: Cosopt Opth Soln 10 mL Btl BOTH EYES SCH (21:47)
--- NOTE | 2017-04-26 23:49 | Consultation ---
History of Present Illness General Chief Complaint: Multiple Trauma/Fall Referring physician: dr Barrios Reason for Consultation: inpatient management Present Illness HPI 81-year-old female, who has a history of multiple medical problems. The patient apparently was walking to the bathroom, had noticed that when she stood up, she would get dizzy on that day, but that is not her usual symptoms. the pt has been pw with decrease appetite and stated that she was depressed Allergies: Coded Allergies: ASPIRIN (Verified Allergy, Unknown, 04/25/17) ATORVASTATIN (Verified Allergy, Unknown, 04/26/17) CHOLINE FENOFIBRATE (Verified Allergy, Unknown, 04/26/17) DULOXETINE (Verified Allergy, Unknown, 04/26/17) GABAPENTIN (Verified Allergy, Unknown, 04/26/17) NIACIN (Verified Allergy, Unknown, 04/26/17) OXYCODONE (Verified Allergy, Unknown, 04/26/17) PENICILLINS (Verified Allergy, Unknown, 04/25/17) PROMETHAZINE (Verified Allergy, Unknown, 04/26/17) ROSIGLITAZONE (Verified Allergy, Unknown, 04/26/17) TRAMADOL (Verified Allergy, Unknown, 04/26/17) Medication History Scheduled Amlodipine Besylate* (Amlodipine Besylate*), 5 MG ORAL BID, (Reported) Brimonidine Tartrate* (Alphagan*), 1 DROP BOTH EYES TID, (Reported) Carvedilol* (Carvedilol*), 25 MG ORAL EVERY 12 HOURS, (Reported) Cetirizine Hcl (Cetirizine Hcl), 100 MG PO DAILY, (Reported) Clopidogrel* (Clopidogrel*), 75 MG ORAL DAILY, (Reported) Dorzolamide HCl/Timolol Maleat (Dorzolamide-Timolol Eye Drops), 1 DROP BOTH EYES BID, (Reported) Glimepiride* (Glimepiride*), 2 MG ORAL BID, (Reported) Metformin Hcl* (Metformin Hcl*), 500 MG ORAL TWICE A DAY, (Reported) Metformin Hcl* (Metformin Hcl*), 1,000 MG ORAL BID, (Reported) Miscellaneous Medications Unable to Obtain Medications (Unable To Obtain Meds), (Reported) Patient History History Provided By: Patient, Medical Record Healthcare decision maker LAQUITA MICHAELS ADRIANA R Resuscitation status Chemical (Meds Only) Advanced Directive on File No Review of Systems Psychiatric: Reports: prior hx, anxiety, depressed feelings Physical Exam General Appearance: no apparent distress Neurologic: alert, responsive, depressed affect Last 24 Hour Vital Signs Date Time Temp Pulse Resp B/P (MAP) Pulse Ox O2 Delivery O2 Flow Rate FiO2 04/26/17 21:18 90 147/67 04/26/17 19:53 98.2 90 20 147/67 94 Room Air 04/26/17 16:07 98.6 82 18 138/67 96 Room Air 04/26/17 16:00 83 04/26/17 12:41 98.4 74 18 125/58 95 Room Air 04/26/17 12:00 74 04/26/17 10:45 97.1 04/26/17 09:25 80 148/64 04/26/17 08:55 97.1 80 18 148/64 96 Room Air 04/26/17 08:00 84 04/26/17 07:54 83 18 Room Air 21 04/26/17 04:00 79 04/26/17 03:54 97.3 76 20 140/60 95 Room Air 04/26/17 00:00 76 04/25/17 23:57 98.2 82 20 139/63 94 Room Air Intake and Output 04/26/17 04/27/17 19:00 07:00 Intake Total 720 ml Balance 720 ml Intake Oral 720 ml # Voids 4 Laboratory Tests Test 04/26/17 04:20 04/26/17 05:00 White Blood Count 8.1 K/UL (4.8-10.8) Red Blood Count 3.13 M/UL (4.20-5.40) L Hemoglobin 10.6 G/DL (12.0-16.0) L Hematocrit 29.0 % (37.0-47.0) L Mean Corpuscular Volume 93 FL (80-99) Mean Corpuscular Hemoglobin 33.7 PG (27.0-31.0) H Mean Corpuscular Hemoglobin Concent 36.4 G/DL (32.0-36.0) H Red Cell Distribution Width 12.1 % (11.6-14.8) Platelet Count 279 K/UL (150-450) Mean Platelet Volume 6.7 FL (6.5-10.1) Neutrophils (%) (Auto) % (45.0-75.0) Lymphocytes (%) (Auto) % (20.0-45.0) Monocytes (%) (Auto) % (1.0-10.0) Eosinophils (%) (Auto) % (0.0-3.0) Basophils (%) (Auto) % (0.0-2.0) Differential Total Cells Counted 100 Neutrophils % (Manual) 59 % (45-75) Lymphocytes % (Manual) 26 % (20-45) Monocytes % (Manual) 11 % (1-10) H Eosinophils % (Manual) 4 % (0-3) H Basophils % (Manual) 0 % (0-2) Band Neutrophils 0 % (0-8) Platelet Estimate Adequate Platelet Morphology Normal Erythrocyte Sedimentation Rate 104 MM/HR (0-30) H Reticulocyte Count 2.5 % (0.0-2.0) H Prothrombin Time 10.0 SEC (9.30-11.50) Prothromb Time International Ratio 1.0 (0.9-1.1) Activated Partial Thromboplast Time 26 SEC (23-33) Sodium Level 138 MMOL/L (136-145) Potassium Level 4.1 MMOL/L (3.5-5.1) Chloride Level 103 MMOL/L (98-107) Carbon Dioxide Level 26 MMOL/L (21-32) Anion Gap 9 mmol/L (5-15) Blood Urea Nitrogen 22 mg/dL (7-18) H Creatinine 1.8 MG/DL (0.55-1.30) H Estimat Glomerular Filtration Rate mL/min (>60) Glucose Level 209 MG/DL (74-106) H Calcium Level 9.0 MG/DL (8.5-10.1) Phosphorus Level 4.6 MG/DL (2.5-4.9) Magnesium Level 1.6 MG/DL (1.8-2.4) L Iron Level 50 ug/dL (50-175) Total Iron Binding Capacity 247 ug/dL (250-450) L Percent Iron Saturation 20 % (15-50) Unsaturated Iron Binding 197 ug/dL (112-346) Total Bilirubin 0.2 MG/DL (0.2-1.0) Aspartate Amino Transf (AST/SGOT) 19 U/L (15-37) Alanine Aminotransferase (ALT/SGPT) 18 U/L (12-78) Alkaline Phosphatase 67 U/L (46-116) Lactate Dehydrogenase 165 U/L (81-234) Total Protein 6.8 G/DL (6.4-8.2) Albumin 3.0 G/DL (3.4-5.0) L Globulin 3.8 g/dL Albumin/Globulin Ratio 0.8 (1.0-2.7) L Vitamin B12 Level 360 PG/ML (193-986) Folate 18.7 NG/ML (3.1-17.5) H Urine Color Pale yellow Urine Appearance Clear Urine pH 5 (4.5-8.0) Urine Specific [place] 1.015 (1.005-1.035) Urine Protein 3+ (NEGATIVE) H Urine Glucose (UA) 2+ (NEGATIVE) H Urine Ketones Negative (NEGATIVE) Urine Occult Blood Negative (NEGATIVE) Urine Nitrite Negative (NEGATIVE) Urine Bilirubin Negative (NEGATIVE) Urine Urobilinogen Normal MG/DL (0.0-1.0) Urine Leukocyte Esterase Negative (NEGATIVE) Urine RBC 0-2 /HPF (0 - 2) Urine WBC 0-2 /HPF (0 - 2) Urine Squamous Epithelial Cells Occasional /LPF Urine Bacteria Occasional /HPF (NONE) Urine Eosinophils None seen Urine Random Sodium 81 MEQ/L (20-110) Urine Potassium Timed 53 mmol/L (12-62) Height (Feet): 5 Height (Inches): 2.00 Weight (Pounds): 137 Medications Current Medications Medications (Trade) Dose Ordered Sig/Lita Route PRN Reason Start Time Stop Time Status Last Admin Dose Admin Acetaminophen (Tylenol) 650 mg Q4H PRN ORAL Mild Pain/Temp > 100.5 04/25/17 12:00 05/24/17 11:59 04/26/17 21:44 Al Hydroxide/Mg Hydroxide (Mylanta II) 30 ml Q6H PRN ORAL dyspepsia 04/25/17 12:00 05/23/17 11:59 Albuterol/ Ipratropium (Albuterol/ Ipratropium) 3 ml Q4H PRN HHN Shortness of Breath 04/25/17 11:30 04/28/17 15:29 Carvedilol (Coreg) 25 mg EVERY 12 HOURS ORAL 04/26/17 09:00 05/26/17 08:59 04/26/17 21:18 Clonidine HCl (Catapres) 0.1 mg Q4H PRN ORAL SBP > 160 mmHg 04/25/17 11:15 05/23/17 15:14 Clopidogrel Bisulfate (Plavix) 75 mg DAILY ORAL 04/26/17 09:00 05/24/17 13:59 04/26/17 13:54 Dextrose (Dextrose 50%) STAT PRN IV Hypoglycemia 04/25/17 12:00 05/24/17 11:59 Dorzolamide/ Timolol (Cosopt) 1 drop TWICE A DAY BOTH EYES 04/26/17 22:00 05/26/17 21:59 04/26/17 21:47 Glipizide (Glucotrol) 5 mg TWICE A DAY ORAL 04/27/17 09:00 05/27/17 08:59 Heparin Sodium (Porcine) (Heparin 5000 units/ml) 5,000 units EVERY 12 HOURS SUBQ 04/25/17 21:00 05/23/17 21:59 04/26/17 09:32 Insulin Aspart (NovoLOG) BEFORE MEALS AND HS SUBQ 04/25/17 12:00 05/24/17 11:59 Lorazepam (Ativan 2mg/ml 1ml) 0.5 mg Q4H PRN IV For Anxiety 04/25/17 11:30 04/30/17 15:29 Nitroglycerin (Ntg) 0.4 mg Q5M X 3 DOSES PRN SL Prn Chest Pain 04/25/17 11:00 05/23/17 15:29 Ondansetron HCl (Zofran) 4 mg Q6H PRN IVP Nausea & Vomiting 04/25/17 11:30 05/23/17 11:29 Polyethylene Glycol (Miralax) 17 gm HSPRN PRN ORAL Constipation 04/25/17 21:00 05/23/17 20:59 Temazepam (Restoril) 15 mg HSPRN PRN ORAL Insomnia 04/25/17 21:00 04/30/17 20:59 Assessment/Plan Status: stable, progressing Assessment/Plan mdd remeron 7.5 qhs Chalino Hogue M.D. Apr 26, 2017 23:49
[2017-04-27 00:18] VITALS: BP 124/53
[2017-04-27 03:53] VITALS: BP 143/72
[2017-04-27 04:42] LABS: BASOPHILS % (AUTO) 1.3 % (0.0-2.0); EOSINOPHILS % (AUTO) 2.6 % (0.0-3.0); HEMATOCRIT 29.8 % (37.0-47.0); HEMOGLOBIN 10.1 G/DL (12.0-16.0); LYMPHOCYTES % (AUTO) 23.6 % (20.0-45.0); MEAN CORPUSCULAR VOLUME 92 FL (80-99); MONOCYTES % (AUTO) 13.8 % (1.0-10.0); NEUTROPHILS % (AUTO) 58.7 % (45.0-75.0); PLATELET COUNT 290 K/UL (150-450); RED BLOOD COUNT 3.22 M/UL (4.20-5.40); WHITE BLOOD COUNT 9.6 K/UL (4.8-10.8)
[2017-04-27 05:22] LABS: ANION GAP 11 mmol/L (5-15); BLOOD UREA NITROGEN 26 mg/dL (7-18); CALCIUM 9.2 MG/DL (8.5-10.1); CARBON DIOXIDE 23 MMOL/L (21-32); CHLORIDE 101 MMOL/L (98-107); CREATININE 1.9 MG/DL (0.55-1.30); POTASSIUM 4.4 MMOL/L (3.5-5.1); SODIUM 135 MMOL/L (136-145)
[2017-04-27] MEDS: NovoLOG Insulin Flexpen SUBQ SCH ×4 (06:30→21:00)
[2017-04-27] MEDS ORDERED: Ketorolac 30mg Inj IV PRN (07:00)
[2017-04-27 07:55] VITALS: BP 142/74
[2017-04-27] MEDS: Heparin 5000 units/ml inj SUBQ SCH ×2 (09:00→21:00)
[2017-04-27] MEDS ORDERED: Morphine Sulfate 4mg/ml Inj IVP PRN (10:00)
--- NOTE | 2017-04-27 10:23 | Internal Med Progress Note ---
Subjective Date of Service: Apr 27, 2017 Physician Name Ruthie Jordan Attending Physician Ben Barrios MD Current Medications Medications (Trade) Dose Ordered Sig/Lita Route PRN Reason Start Time Stop Time Status Last Admin Dose Admin Acetaminophen (Tylenol) 650 mg Q4H PRN ORAL Mild Pain/Temp > 100.5 04/25/17 12:00 05/24/17 11:59 04/26/17 21:44 Al Hydroxide/Mg Hydroxide (Mylanta II) 30 ml Q6H PRN ORAL dyspepsia 04/25/17 12:00 05/23/17 11:59 Albuterol/ Ipratropium (Albuterol/ Ipratropium) 3 ml Q4H PRN HHN Shortness of Breath 04/25/17 11:30 04/28/17 15:29 Carvedilol (Coreg) 25 mg EVERY 12 HOURS ORAL 04/26/17 09:00 05/26/17 08:59 04/26/17 21:18 Clonidine HCl (Catapres) 0.1 mg Q4H PRN ORAL SBP > 160 mmHg 04/25/17 11:15 05/23/17 15:14 Clopidogrel Bisulfate (Plavix) 75 mg DAILY ORAL 04/26/17 09:00 05/24/17 13:59 04/26/17 13:54 Dextrose (Dextrose 50%) STAT PRN IV Hypoglycemia 04/25/17 12:00 05/24/17 11:59 Dorzolamide/ Timolol (Cosopt) 1 drop TWICE A DAY BOTH EYES 04/26/17 22:00 05/26/17 21:59 04/26/17 21:47 Glipizide (Glucotrol) 5 mg TWICE A DAY ORAL 04/27/17 09:00 05/27/17 08:59 Heparin Sodium (Porcine) (Heparin 5000 units/ml) 5,000 units EVERY 12 HOURS SUBQ 04/25/17 21:00 05/23/17 21:59 04/26/17 09:32 Insulin Aspart (NovoLOG) BEFORE MEALS AND HS SUBQ 04/25/17 12:00 05/24/17 11:59 Lorazepam (Ativan 2mg/ml 1ml) 0.5 mg Q4H PRN IV For Anxiety 04/25/17 11:30 04/30/17 15:29 Mirtazapine (Remeron) 7.5 mg BEDTIME ORAL 04/27/17 21:00 05/27/17 20:59 Morphine Sulfate (Morphine Sulfate) 4 mg Q4H PRN IVP Severe Pain (Pain Scale 7-10) 04/27/17 10:00 05/04/17 09:59 Nitroglycerin (Ntg) 0.4 mg Q5M X 3 DOSES PRN SL Prn Chest Pain 04/25/17 11:00 05/23/17 15:29 Ondansetron HCl (Zofran) 4 mg Q6H PRN IVP Nausea & Vomiting 04/25/17 11:30 05/23/17 11:29 Polyethylene Glycol (Miralax) 17 gm HSPRN PRN ORAL Constipation 04/25/17 21:00 05/23/17 20:59 Temazepam (Restoril) 15 mg HSPRN PRN ORAL Insomnia 04/25/17 21:00 04/30/17 20:59 Allergies: Coded Allergies: ASPIRIN (Verified Allergy, Unknown, 04/25/17) ATORVASTATIN (Verified Allergy, Unknown, 04/26/17) CHOLINE FENOFIBRATE (Verified Allergy, Unknown, 04/26/17) DULOXETINE (Verified Allergy, Unknown, 04/26/17) GABAPENTIN (Verified Allergy, Unknown, 04/26/17) NIACIN (Verified Allergy, Unknown, 04/26/17) OXYCODONE (Verified Allergy, Unknown, 04/26/17) PENICILLINS (Verified Allergy, Unknown, 04/25/17) PROMETHAZINE (Verified Allergy, Unknown, 04/26/17) ROSIGLITAZONE (Verified Allergy, Unknown, 04/26/17) TRAMADOL (Verified Allergy, Unknown, 04/26/17) ROS Limited/Unobtainable: No Constitutional: Reports: no symptoms HEENT: Reports: no symptoms Cardiovascular: Reports: no symptoms Respiratory: Reports: no symptoms Gastrointestinal/Abdominal: Reports: no symptoms Genitourinary: Reports: no symptoms Neurologic/Psychiatric: Reports: weakness Subjective 81 YO F admitted with left weakness. Now acute CVA. Await transesophageal echo. Cover for Int April Barrios Objective Last Vital Signs Date Time Temp Pulse Resp B/P (MAP) Pulse Ox O2 Delivery O2 Flow Rate FiO2 04/27/17 07:55 80 18 Room Air 21 04/27/17 07:55 96.3 142/74 94 Laboratory Tests Test 04/27/17 04:12 White Blood Count 9.6 K/UL (4.8-10.8) Red Blood Count 3.22 M/UL (4.20-5.40) L Hemoglobin 10.1 G/DL (12.0-16.0) L Hematocrit 29.8 % (37.0-47.0) L Mean Corpuscular Volume 92 FL (80-99) Mean Corpuscular Hemoglobin 31.5 PG (27.0-31.0) H Mean Corpuscular Hemoglobin Concent 34.1 G/DL (32.0-36.0) Red Cell Distribution Width 12.0 % (11.6-14.8) Platelet Count 290 K/UL (150-450) Mean Platelet Volume 7.6 FL (6.5-10.1) Neutrophils (%) (Auto) 58.7 % (45.0-75.0) Lymphocytes (%) (Auto) 23.6 % (20.0-45.0) Monocytes (%) (Auto) 13.8 % (1.0-10.0) H Eosinophils (%) (Auto) 2.6 % (0.0-3.0) Basophils (%) (Auto) 1.3 % (0.0-2.0) Sodium Level 135 MMOL/L (136-145) L Potassium Level 4.4 MMOL/L (3.5-5.1) Chloride Level 101 MMOL/L (98-107) Carbon Dioxide Level 23 MMOL/L (21-32) Anion Gap 11 mmol/L (5-15) Blood Urea Nitrogen 26 mg/dL (7-18) H Creatinine 1.9 MG/DL (0.55-1.30) H Estimat Glomerular Filtration Rate mL/min (>60) Glucose Level 254 MG/DL (74-106) H Calcium Level 9.2 MG/DL (8.5-10.1) Intake and Output 04/27/17 04/28/17 19:00 07:00 # Voids 1 Objective General Appearance: WD/WN, no apparent distress, alert EENT: PERRL/EOMI, normal ENT inspection, TMs normal Neck: non-tender, normal alignment, supple, normal inspection Cardiovascular: normal peripheral pulses, normal rate, regular rhythm, no gallop/murmur, no JVD Respiratory/Chest: chest wall non-tender, lungs clear, normal breath sounds, no respiratory distress, no accessory muscle use Abdomen: normal bowel sounds, non tender, soft, no organomegaly, no mass Genitourinary/Rectal: normal genital exam Extremities: other - left weakness Neurologic: fluid power mechanic II-XII grossly normal, other - left weakness Assessment/Plan Problem List: (1) Left hemiparesis Assessment & Plan: See neruology note; due to acute CVA (2) Renal failure (3) acute ischemic disseminated embolic strokes Assessment & Plan: See neruology note. Await transesophageal echo to R/O cardiac emboli. (4) Diabetes mellitus Assessment & Plan: Patient Refusing insulin. (5) HTN (hypertension) (6) CAD (coronary artery disease) Assessment & Plan: See cardiology note. Status: not improved Assessment/Plan Discharge planning: nursing home [facility] vs [facility] RUTHIE JORDAN Apr 27, 2017 10:23
[2017-04-27] MEDS ORDERED: DiphenhydrAMINE 50mg/ml Inj IVP PRN (10:30)
--- NOTE | 2017-04-27 11:02 | Diagnostic Imaging Report ---
Indication: Left-sided pain Technique: Oval views of the left ribs Comparison: None Findings: No acute fractures. No evidence of pneumothorax. There is scoliotic deformity and degenerative change of the thoracic and lumbar spine Impression: No acute bony trauma
--- NOTE | 2017-04-27 11:21 | Diagnostic Imaging Report ---
APPROVED REPORT CPT Code: 47704 Vascular Symptoms Syncope Doppler Spectral Velocity Analysis RightLeft arteries. The Doppler spectral flow analysis indicates the degree of stenosis is minimal (20% - 30%) in the common carotid artery, minimal (10%) in the internal carotid artery, and minimal (10%) in the external carotid artery. VERTEBRAL- The vertebral artery is patent, without evidence of stenosis or steal. arteries. The Doppler spectral flow analysis indicates the degree of stenosis is minimal to mild (30% - 40%) in the common carotid artery, minimal (10%) in the internal carotid artery, and minimal (10%) in the external carotid artery. VERTEBRAL- The vertebral artery is patent, without evidence of stenosis or steal. The ECA and ICA vesselas are tortuous.
--- NOTE | 2017-04-27 11:21 | Diagnostic Imaging Report ---
APPROVED REPORT CPT Code: 52656 Vascular Symptoms Syncope Doppler Spectral Velocity Analysis RightLeft arteries. The Doppler spectral flow analysis indicates the degree of stenosis is minimal (20% - 30%) in the common carotid artery, minimal (10%) in the internal carotid artery, and minimal (10%) in the external carotid artery. VERTEBRAL- The vertebral artery is patent, without evidence of stenosis or steal. arteries. The Doppler spectral flow analysis indicates the degree of stenosis is minimal to mild (30% - 40%) in the common carotid artery, minimal (10%) in the internal carotid artery, and minimal (10%) in the external carotid artery. VERTEBRAL- The vertebral artery is patent, without evidence of stenosis or steal. The ECA and ICA vesselas are tortuous.
--- NOTE | 2017-04-27 11:21 | Diagnostic Imaging Report ---
APPROVED REPORT CPT Code: 91739 Vascular Symptoms Syncope Doppler Spectral Velocity Analysis RightLeft arteries. The Doppler spectral flow analysis indicates the degree of stenosis is minimal (20% - 30%) in the common carotid artery, minimal (10%) in the internal carotid artery, and minimal (10%) in the external carotid artery. VERTEBRAL- The vertebral artery is patent, without evidence of stenosis or steal. arteries. The Doppler spectral flow analysis indicates the degree of stenosis is minimal to mild (30% - 40%) in the common carotid artery, minimal (10%) in the internal carotid artery, and minimal (10%) in the external carotid artery. VERTEBRAL- The vertebral artery is patent, without evidence of stenosis or steal. The ECA and ICA vesselas are tortuous.
[2017-04-27 11:38] VITALS: BP 157/65
[2017-04-27] MEDS: Carvedilol 25mg Tab ORAL SCH ×2 (11:43→21:00)
[2017-04-27] MEDS: Cosopt Opth Soln 10 mL Btl BOTH EYES SCH ×2 (11:43→17:33)
[2017-04-27] MEDS: GlipiZIDE 5mg tab ORAL SCH ×2 (11:44→17:33)
--- NOTE | 2017-04-27 12:05 | Pulmonology Progress Note ---
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 Distribution suggests multiple emboli of cardiogenic origin. pt /ot on morphine prn pain sliding scale, Reti count elevated, check stool for OB, still pending Subjective ROS Limited/Unobtainable: No Constitutional: Reports: no symptoms HEENT: Repors: no symptoms Allergies: Coded Allergies: ASPIRIN (Verified Allergy, Unknown, 04/25/17) ATORVASTATIN (Verified Allergy, Unknown, 04/26/17) CHOLINE FENOFIBRATE (Verified Allergy, Unknown, 04/26/17) DULOXETINE (Verified Allergy, Unknown, 04/26/17) GABAPENTIN (Verified Allergy, Unknown, 04/26/17) NIACIN (Verified Allergy, Unknown, 04/26/17) OXYCODONE (Verified Allergy, Unknown, 04/26/17) PENICILLINS (Verified Allergy, Unknown, 04/25/17) PROMETHAZINE (Verified Allergy, Unknown, 04/26/17) ROSIGLITAZONE (Verified Allergy, Unknown, 04/26/17) TRAMADOL (Verified Allergy, Unknown, 04/26/17) Objective Last 24 Hour Vital Signs Date Time Temp Pulse Resp B/P (MAP) Pulse Ox O2 Delivery O2 Flow Rate FiO2 04/27/17 11:43 83 157/65 04/27/17 11:38 96.8 83 18 157/65 93 Room Air 04/27/17 07:55 80 18 Room Air 21 04/27/17 07:55 96.3 81 18 142/74 94 Room Air 04/27/17 04:00 75 04/27/17 03:53 97.0 82 20 143/72 95 Room Air 04/27/17 00:18 98.2 81 20 124/53 97 Room Air 04/27/17 00:00 83 04/26/17 21:18 90 147/67 04/26/17 20:00 92 04/26/17 19:53 98.2 90 20 147/67 94 Room Air 04/26/17 19:11 85 18 Room Air 21 04/26/17 16:07 98.6 82 18 138/67 96 Room Air 04/26/17 16:00 83 04/26/17 12:41 98.4 74 18 125/58 95 Room Air Intake and Output 04/27/17 04/28/17 19:00 07:00 Intake Total 120 ml Balance 120 ml Intake Oral 120 ml # Voids 2 General Appearance: WD/WN, no acute distress HEENT: atraumatic Respiratory/Chest: chest wall non-tender, lungs clear Breasts: no masses Cardiovascular: normal peripheral pulses, regular rhythm Abdomen: soft, non tender, no organomegaly Extremities: no cyanosis, no clubbing Laboratory Tests 04/27/17 04:12: White Blood Count 9.6, Red Blood Count 3.22L, Hemoglobin 10.1L, Hematocrit 29.8L , Mean Corpuscular Volume 92, Mean Corpuscular Hemoglobin 31.5H, Mean Corpuscular Hemoglobin Concent 34.1, Red Cell Distribution Width 12.0, Platelet Count 290, Mean Platelet Volume 7.6, Neutrophils (%) (Auto) 58.7, Lymphocytes (% ) (Auto) 23.6, Monocytes (%) (Auto) 13.8H, Eosinophils (%) (Auto) 2.6, Basophils (%) (Auto) 1.3, Sodium Level 135L, Potassium Level 4.4, Chloride Level 101, Carbon Dioxide Level 23, Anion Gap 11, Blood Urea Nitrogen 26H, Creatinine 1.9H, Estimat Glomerular Filtration Rate , Glucose Level 254H, Calcium Level 9.2 Current Medications Medications (Trade) Dose Ordered Sig/Lita Route PRN Reason Start Time Stop Time Status Last Admin Dose Admin Acetaminophen (Tylenol) 650 mg Q4H PRN ORAL Mild Pain/Temp > 100.5 04/25/17 12:00 05/24/17 11:59 04/26/17 21:44 Al Hydroxide/Mg Hydroxide (Mylanta II) 30 ml Q6H PRN ORAL dyspepsia 04/25/17 12:00 05/23/17 11:59 Albuterol/ Ipratropium (Albuterol/ Ipratropium) 3 ml Q4H PRN HHN Shortness of Breath 04/25/17 11:30 04/28/17 15:29 Carvedilol (Coreg) 25 mg EVERY 12 HOURS ORAL 04/26/17 09:00 11/28/17 08:59 04/27/17 11:43 Clonidine HCl (Catapres) 0.1 mg Q4H PRN ORAL SBP > 160 mmHg 04/25/17 11:15 05/23/17 15:14 Clopidogrel Bisulfate (Plavix) 75 mg DAILY ORAL 04/26/17 09:00 05/24/17 13:59 04/26/17 13:54 Dextrose (Dextrose 50%) STAT PRN IV Hypoglycemia 04/25/17 12:00 05/24/17 11:59 Diphenhydramine HCl (Benadryl) 25 mg Q6H PRN IVP Itching 04/27/17 10:30 05/27/17 10:29 Dorzolamide/ Timolol (Cosopt) 1 drop TWICE A DAY BOTH EYES 04/26/17 22:00 05/26/17 21:59 04/27/17 11:43 Glipizide (Glucotrol) 5 mg TWICE A DAY ORAL 04/27/17 09:00 05/27/17 08:59 04/27/17 11:44 Heparin Sodium (Porcine) (Heparin 5000 units/ml) 5,000 units EVERY 12 HOURS SUBQ 04/25/17 21:00 05/23/17 21:59 04/26/17 09:32 Insulin Aspart (NovoLOG) BEFORE MEALS AND HS SUBQ 04/25/17 12:00 05/24/17 11:59 Lorazepam (Ativan 2mg/ml 1ml) 0.5 mg Q4H PRN IV For Anxiety 04/25/17 11:30 04/30/17 15:29 Mirtazapine (Remeron) 7.5 mg BEDTIME ORAL 04/27/17 21:00 05/27/17 20:59 Morphine Sulfate (Morphine Sulfate) 4 mg Q4H PRN IVP Severe Pain (Pain Scale 7-10) 04/27/17 10:00 05/04/17 09:59 Nitroglycerin (Ntg) 0.4 mg Q5M X 3 DOSES PRN SL Prn Chest Pain 04/25/17 11:00 05/23/17 15:29 Ondansetron HCl (Zofran) 4 mg Q6H PRN IVP Nausea & Vomiting 04/25/17 11:30 05/23/17 11:29 Polyethylene Glycol (Miralax) 17 gm HSPRN PRN ORAL Constipation 04/25/17 21:00 05/23/17 20:59 Temazepam (Restoril) 15 mg HSPRN PRN ORAL Insomnia 04/25/17 21:00 04/30/17 20:59 RHEA FRANK Apr 27, 2017 12:05
--- NOTE | 2017-04-27 12:42 | Neurology Progress Note ---
Interim History Interim History ROS Limited/Unobtainable: No Complaints: weakness L side Events: no change Objective Physical Exam Last Vital Signs Date Time Temp Pulse Resp B/P (MAP) Pulse Ox O2 Delivery O2 Flow Rate FiO2 04/27/17 11:43 83 157/65 04/27/17 11:38 96.8 18 93 Room Air 04/27/17 07:55 21 Laboratory Tests Test 04/27/17 04:12 White Blood Count 9.6 K/UL (4.8-10.8) Red Blood Count 3.22 M/UL (4.20-5.40) L Hemoglobin 10.1 G/DL (12.0-16.0) L Hematocrit 29.8 % (37.0-47.0) L Mean Corpuscular Volume 92 FL (80-99) Mean Corpuscular Hemoglobin 31.5 PG (27.0-31.0) H Mean Corpuscular Hemoglobin Concent 34.1 G/DL (32.0-36.0) Red Cell Distribution Width 12.0 % (11.6-14.8) Platelet Count 290 K/UL (150-450) Mean Platelet Volume 7.6 FL (6.5-10.1) Neutrophils (%) (Auto) 58.7 % (45.0-75.0) Lymphocytes (%) (Auto) 23.6 % (20.0-45.0) Monocytes (%) (Auto) 13.8 % (1.0-10.0) H Eosinophils (%) (Auto) 2.6 % (0.0-3.0) Basophils (%) (Auto) 1.3 % (0.0-2.0) Sodium Level 135 MMOL/L (136-145) L Potassium Level 4.4 MMOL/L (3.5-5.1) Chloride Level 101 MMOL/L (98-107) Carbon Dioxide Level 23 MMOL/L (21-32) Anion Gap 11 mmol/L (5-15) Blood Urea Nitrogen 26 mg/dL (7-18) H Creatinine 1.9 MG/DL (0.55-1.30) H Estimat Glomerular Filtration Rate mL/min (>60) Glucose Level 254 MG/DL (74-106) H Calcium Level 9.2 MG/DL (8.5-10.1) General: well developed, well nourished, no acute distress Head: normocophalic, atraumatic Neck: no rigidity Neurologic Exam Mental Status: awake, alert, oriented x4, normal cognition, good mathematical skills, normal recent memory, normal remote memory, preserved visuospatial function Speech: normal speech, no dysarthia Language: normal language, no aphasia Cranial Nerve II: fundus normal, visual adams, no papilledema Cranial Nerves III, IV, : PERRLA, EOMI, pupils Cranial Nerve V: normal facial sensations, temporales function normal, masseters function normal, pterygoids function normal Cranial Nerve VII: other - L droop Cranial Nerve VIII: normal hearing, no nystagmus Cranial Nerve IX: normal palate elevation, gag response Cranial Nerve X: no voice hoarseness Cranial Nerve XI: SCM symmetric, trapezii function normal Cranial Nerve XII: tongue midline, no tongue atrophy/fasciculations Motor System: normal muscle tone, no involuntary movement, no muscle wasting, other - L arm 4/5, L leg 2/5 Sensory: other - reduced PPL leg Deep Tendon Reflexes: 0 bicep (L), 0 bicep (R), 0 tricep (L), 0 tricep (R), 0 brachioradialis (L), 0 brachioradialis (R), 0 knee (L), 0 knee (R), 0 ankle (L) , 0 ankle (R) Reflexes: extensor plantar (L), mute plantar (R) Stance: other Gait: other Impression/Recommendations Problems: (1) acute ischemic disseminated embolic strokes (2) blunt head trauma (3) CAD (coronary artery disease) (4) HTN (hypertension) (5) Diabetes mellitus Status: not improved Recommendations # [id number] [facility] pt/ot/speech d/w speech and family DEAN ABURTO Apr 27, 2017 12:42
--- NOTE | 2017-04-27 12:44 | Neurology Progress Note ---
Interim History Interim History ROS Limited/Unobtainable: No Complaints: weakness L side, pain L chest, numbness L face Events: no change Objective Physical Exam Last Vital Signs Date Time Temp Pulse Resp B/P (MAP) Pulse Ox O2 Delivery O2 Flow Rate FiO2 04/27/17 11:43 83 157/65 04/27/17 11:38 96.8 18 93 Room Air 04/27/17 07:55 21 Laboratory Tests Test 04/27/17 04:12 White Blood Count 9.6 K/UL (4.8-10.8) Red Blood Count 3.22 M/UL (4.20-5.40) L Hemoglobin 10.1 G/DL (12.0-16.0) L Hematocrit 29.8 % (37.0-47.0) L Mean Corpuscular Volume 92 FL (80-99) Mean Corpuscular Hemoglobin 31.5 PG (27.0-31.0) H Mean Corpuscular Hemoglobin Concent 34.1 G/DL (32.0-36.0) Red Cell Distribution Width 12.0 % (11.6-14.8) Platelet Count 290 K/UL (150-450) Mean Platelet Volume 7.6 FL (6.5-10.1) Neutrophils (%) (Auto) 58.7 % (45.0-75.0) Lymphocytes (%) (Auto) 23.6 % (20.0-45.0) Monocytes (%) (Auto) 13.8 % (1.0-10.0) H Eosinophils (%) (Auto) 2.6 % (0.0-3.0) Basophils (%) (Auto) 1.3 % (0.0-2.0) Sodium Level 135 MMOL/L (136-145) L Potassium Level 4.4 MMOL/L (3.5-5.1) Chloride Level 101 MMOL/L (98-107) Carbon Dioxide Level 23 MMOL/L (21-32) Anion Gap 11 mmol/L (5-15) Blood Urea Nitrogen 26 mg/dL (7-18) H Creatinine 1.9 MG/DL (0.55-1.30) H Estimat Glomerular Filtration Rate mL/min (>60) Glucose Level 254 MG/DL (74-106) H Calcium Level 9.2 MG/DL (8.5-10.1) General: well developed, well nourished, no acute distress Head: normocophalic, atraumatic Neck: no rigidity Neurologic Exam Mental Status: awake, alert, oriented x4, normal cognition, good mathematical skills, normal recent memory, normal remote memory, preserved visuospatial function Speech: normal speech, no dysarthia Language: normal language, no aphasia Cranial Nerve II: fundus normal, visual adams, no papilledema Cranial Nerves III, IV, : PERRLA, EOMI, pupils Cranial Nerve V: normal facial sensations, temporales function normal, masseters function normal, pterygoids function normal Cranial Nerve VII: other - L droop Cranial Nerve VIII: normal hearing, no nystagmus Cranial Nerve IX: normal palate elevation, gag response Cranial Nerve X: no voice hoarseness Cranial Nerve XI: SCM symmetric, trapezii function normal Cranial Nerve XII: tongue midline, no tongue atrophy/fasciculations Motor System: normal muscle tone, no involuntary movement, no muscle wasting, other - L arm 4/5, L leg 2/5 Sensory: other - reduced PPL leg Deep Tendon Reflexes: 0 bicep (L), 0 bicep (R), 0 tricep (L), 0 tricep (R), 0 brachioradialis (L), 0 brachioradialis (R), 0 knee (L), 0 knee (R), 0 ankle (L) , 0 ankle (R) Reflexes: extensor plantar (L), mute plantar (R) Stance: other Gait: other Impression/Recommendations Problems: (1) acute ischemic disseminated embolic strokes (2) blunt head trauma (3) CAD (coronary artery disease) (4) HTN (hypertension) (5) Diabetes mellitus Status: not improved, unchanged Recommendations # [id number] [place] anticoag per cardio rehab pt/ot/speech d/w speech and family DEAN ABURTO Apr 27, 2017 12:43
[2017-04-27 15:36] VITALS: BP 124/60
[2017-04-27] MEDS ORDERED: Miralax 17gm pkt ORAL PRN (17:45)
--- NOTE | 2017-04-27 18:11 | Cardiology Progress Note ---
Assessment/Plan Assessment/Plan 1. Multiple falls. 2. 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 3. Diabetes mellitus. 4. Hypertension. 5. Anemia. 6. Renal insufficiency. out pt med included plavix supposedly allergic to lipitor and triplex adn niacin !! planned krystyna for tomorrow however possible multiple cva arterial to arterial embolism rather than cardiac to arterial embolism trop all neg rib series neg echo neg but tds krystyna discussed with pt Subjective Cardiovascular: Reports: chest pain, Denies: lightheadedness, palpitations Respiratory: Denies: shortness of breath Gastrointestinal/Abdominal: Denies: abdomen distended Genitourinary: Denies: no symptoms Objective Last 24 Hour Vital Signs Date Time Temp Pulse Resp B/P (MAP) Pulse Ox O2 Delivery O2 Flow Rate FiO2 04/27/17 15:36 97.7 78 18 124/60 94 Room Air 04/27/17 12:00 83 04/27/17 11:43 83 157/65 04/27/17 11:38 96.8 83 18 157/65 93 Room Air 04/27/17 08:00 80 04/27/17 07:55 80 18 Room Air 21 04/27/17 07:55 96.3 81 18 142/74 94 Room Air 04/27/17 04:00 75 04/27/17 03:53 97.0 82 20 143/72 95 Room Air 04/27/17 00:18 98.2 81 20 124/53 97 Room Air 04/27/17 00:00 83 04/26/17 21:18 90 147/67 04/26/17 20:00 92 04/26/17 19:53 98.2 90 20 147/67 94 Room Air 04/26/17 19:11 85 18 Room Air 21 General Appearance: alert Neck: supple Cardiovascular: normal rate Respiratory/Chest: lungs clear, other - left lateral chest wall tenderness Abdomen: normal bowel sounds, non tender, soft Extremities: no swelling Intake and Output 04/27/17 04/28/17 19:00 07:00 Intake Total 480 ml Balance 480 ml Intake Oral 480 ml # Voids 3 Laboratory Tests Test 04/27/17 04:12 White Blood Count 9.6 K/UL (4.8-10.8) Red Blood Count 3.22 M/UL (4.20-5.40) L Hemoglobin 10.1 G/DL (12.0-16.0) L Hematocrit 29.8 % (37.0-47.0) L Mean Corpuscular Volume 92 FL (80-99) Mean Corpuscular Hemoglobin 31.5 PG (27.0-31.0) H Mean Corpuscular Hemoglobin Concent 34.1 G/DL (32.0-36.0) Red Cell Distribution Width 12.0 % (11.6-14.8) Platelet Count 290 K/UL (150-450) Mean Platelet Volume 7.6 FL (6.5-10.1) Neutrophils (%) (Auto) 58.7 % (45.0-75.0) Lymphocytes (%) (Auto) 23.6 % (20.0-45.0) Monocytes (%) (Auto) 13.8 % (1.0-10.0) H Eosinophils (%) (Auto) 2.6 % (0.0-3.0) Basophils (%) (Auto) 1.3 % (0.0-2.0) Sodium Level 135 MMOL/L (136-145) L Potassium Level 4.4 MMOL/L (3.5-5.1) Chloride Level 101 MMOL/L (98-107) Carbon Dioxide Level 23 MMOL/L (21-32) Anion Gap 11 mmol/L (5-15) Blood Urea Nitrogen 26 mg/dL (7-18) H Creatinine 1.9 MG/DL (0.55-1.30) H Estimat Glomerular Filtration Rate mL/min (>60) Glucose Level 254 MG/DL (74-106) H Calcium Level 9.2 MG/DL (8.5-10.1) ANURADHA KNAPP Apr 27, 2017 18:11
--- NOTE | 2017-04-27 19:27 | General Progress Note ---
Assessment/Plan Status: stable Assessment/Plan encephalopathy noncompliance lacks capacity cont to encourage her to take meds Subjective Date patient seen: Apr 27, 2017 Neurologic/Psychiatric: Reports: anxiety - the pt refuses some meds, insulin illogical unable to process nor understand the information given to her, depressed Allergies: Coded Allergies: ASPIRIN (Verified Allergy, Unknown, 04/25/17) ATORVASTATIN (Verified Allergy, Unknown, 04/26/17) CHOLINE FENOFIBRATE (Verified Allergy, Unknown, 04/26/17) DULOXETINE (Verified Allergy, Unknown, 04/26/17) GABAPENTIN (Verified Allergy, Unknown, 04/26/17) NIACIN (Verified Allergy, Unknown, 04/26/17) OXYCODONE (Verified Allergy, Unknown, 04/26/17) PENICILLINS (Verified Allergy, Unknown, 04/25/17) PROMETHAZINE (Verified Allergy, Unknown, 04/26/17) ROSIGLITAZONE (Verified Allergy, Unknown, 04/26/17) TRAMADOL (Verified Allergy, Unknown, 04/26/17) Objective Last 24 Hour Vital Signs Date Time Temp Pulse Resp B/P (MAP) Pulse Ox O2 Delivery O2 Flow Rate FiO2 04/27/17 16:00 79 04/27/17 15:36 97.7 78 18 124/60 94 Room Air 04/27/17 12:00 83 04/27/17 11:43 83 157/65 04/27/17 11:38 96.8 83 18 157/65 93 Room Air 04/27/17 08:00 80 04/27/17 07:55 80 18 Room Air 21 04/27/17 07:55 96.3 81 18 142/74 94 Room Air 04/27/17 04:00 75 04/27/17 03:53 97.0 82 20 143/72 95 Room Air 04/27/17 00:18 98.2 81 20 124/53 97 Room Air 04/27/17 00:00 83 04/26/17 21:18 90 147/67 04/26/17 20:00 92 04/26/17 19:53 98.2 90 20 147/67 94 Room Air Intake and Output 04/27/17 04/28/17 19:00 07:00 Intake Total 480 ml Balance 480 ml Intake Oral 480 ml # Voids 4 Laboratory Tests 04/27/17 04:12: White Blood Count 9.6, Red Blood Count 3.22L, Hemoglobin 10.1L, Hematocrit 29.8L , Mean Corpuscular Volume 92, Mean Corpuscular Hemoglobin 31.5H, Mean Corpuscular Hemoglobin Concent 34.1, Red Cell Distribution Width 12.0, Platelet Count 290, Mean Platelet Volume 7.6, Neutrophils (%) (Auto) 58.7, Lymphocytes (% ) (Auto) 23.6, Monocytes (%) (Auto) 13.8H, Eosinophils (%) (Auto) 2.6, Basophils (%) (Auto) 1.3, Sodium Level 135L, Potassium Level 4.4, Chloride Level 101, Carbon Dioxide Level 23, Anion Gap 11, Blood Urea Nitrogen 26H, Creatinine 1.9H, Estimat Glomerular Filtration Rate , Glucose Level 254H, Calcium Level 9.2 Height (Feet): 5 Height (Inches): 2.00 Weight (Pounds): 137 General Appearance: no apparent distress, alert Neurologic: responsive, depressed affect Chalino Hogue M.D. Apr 27, 2017 19:27
[2017-04-27 20:00] VITALS: BP 140/62
[2017-04-28] VITALS (12 sets, daily range): BP systolic 133–148; BP diastolic 60–74
[2017-04-28 06:30] LABS: BASOPHILS % (AUTO) 1.4 % (0.0-2.0); HEMATOCRIT 31.9 % (37.0-47.0); HEMOGLOBIN 10.5 G/DL (12.0-16.0); LYMPHOCYTES % (AUTO) 21.5 % (20.0-45.0); MEAN CORPUSCULAR VOLUME 93 FL (80-99); MONOCYTES % (AUTO) 13.9 % (1.0-10.0); NEUTROPHILS % (AUTO) 59.2 % (45.0-75.0); PLATELET COUNT 325 K/UL (150-450); RED BLOOD COUNT 3.42 M/UL (4.20-5.40); RED CELL DISTRIBUTION WIDTH 12.4 % (11.6-14.8); WHITE BLOOD COUNT 10.1 K/UL (4.8-10.8)
[2017-04-28] MEDS: NovoLOG Insulin Flexpen SUBQ SCH ×4 (06:30→20:47)
[2017-04-28 07:13] LABS: ANION GAP 9 mmol/L (5-15); BLOOD UREA NITROGEN 28 mg/dL (7-18); CALCIUM 8.9 MG/DL (8.5-10.1); CARBON DIOXIDE 25 MMOL/L (21-32); CHLORIDE 102 MMOL/L (98-107); CREATININE 1.9 MG/DL (0.55-1.30); POTASSIUM 4.7 MMOL/L (3.5-5.1); SODIUM 136 MMOL/L (136-145)
[2017-04-28] MEDS: Cosopt Opth Soln 10 mL Btl BOTH EYES SCH ×2 (09:00→17:51)
[2017-04-28] MEDS: GlipiZIDE 5mg tab ORAL SCH ×2 (09:00→17:51)
[2017-04-28] MEDS: Heparin 5000 units/ml inj SUBQ SCH ×2 (09:00→20:46)
[2017-04-28] MEDS: Carvedilol 25mg Tab ORAL SCH ×2 (09:00→20:47)
[2017-04-28] MEDS ORDERED: Propofol 200mg/20ml IV ONE (12:20)
[2017-04-28] MEDS ORDERED: Midazolam 2mg/2ml Inj ONE (12:20)
[2017-04-28] MEDS ORDERED: Sterile Water Irrig 1000ml IRRIG ONE (12:20)
[2017-04-28] MEDS ORDERED: NS Irrig 1000ml ONE (12:20)
[2017-04-28] MEDS ORDERED: NS 500ML IV ONE (12:30)
--- NOTE | 2017-04-28 12:34 | Pulmonology Progress Note ---
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 Distribution suggests multiple emboli of cardiogenic origin. pt /ot on morphine prn pain sliding scale, awaiting OB in stool Subjective ROS Limited/Unobtainable: No Constitutional: Reports: no symptoms HEENT: Repors: no symptoms Allergies: Coded Allergies: ASPIRIN (Verified Allergy, Unknown, 04/25/17) ATORVASTATIN (Verified Allergy, Unknown, 04/26/17) CHOLINE FENOFIBRATE (Verified Allergy, Unknown, 04/26/17) DULOXETINE (Verified Allergy, Unknown, 04/26/17) GABAPENTIN (Verified Allergy, Unknown, 04/26/17) NIACIN (Verified Allergy, Unknown, 04/26/17) OXYCODONE (Verified Allergy, Unknown, 04/26/17) PENICILLINS (Verified Allergy, Unknown, 04/25/17) PROMETHAZINE (Verified Allergy, Unknown, 04/26/17) ROSIGLITAZONE (Verified Allergy, Unknown, 04/26/17) TRAMADOL (Verified Allergy, Unknown, 04/26/17) Objective Last 24 Hour Vital Signs Date Time Temp Pulse Resp B/P (MAP) Pulse Ox O2 Delivery O2 Flow Rate FiO2 04/28/17 12:00 97.5 79 20 146/66 93 Room Air 04/28/17 08:25 81 18 Room Air 04/28/17 08:00 97.6 81 20 140/64 95 Room Air 04/28/17 04:00 98.2 84 18 148/74 94 Room Air 04/28/17 03:42 77 04/28/17 00:03 75 04/28/17 00:00 98.1 77 18 147/61 94 Room Air 04/27/17 20:37 84 04/27/17 20:00 98.1 83 18 140/62 94 Room Air 04/27/17 19:30 82 18 Room Air 21 04/27/17 16:00 79 04/27/17 15:36 97.7 78 18 124/60 94 Room Air General Appearance: WD/WN HEENT: normocephalic, atraumatic Respiratory/Chest: chest wall non-tender, lungs clear Cardiovascular: normal peripheral pulses, regular rhythm Abdomen: normal bowel sounds, soft, non tender Extremities: no cyanosis Skin: no rash 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 Laboratory Tests 04/28/17 05:40: White Blood Count 10.1, Red Blood Count 3.42L, Hemoglobin 10.5L, Hematocrit 31.9L, Mean Corpuscular Volume 93, Mean Corpuscular Hemoglobin 30.6, Mean Corpuscular Hemoglobin Concent 32.8, Red Cell Distribution Width 12.4, Platelet Count 325, Mean Platelet Volume 7.8, Neutrophils (%) (Auto) 59.2, Lymphocytes (% ) (Auto) 21.5, Monocytes (%) (Auto) 13.9H, Eosinophils (%) (Auto) 4.0H, Basophils (%) (Auto) 1.4, Sodium Level 136, Potassium Level 4.7, Chloride Level 102, Carbon Dioxide Level 25, Anion Gap 9, Blood Urea Nitrogen 28H, Creatinine 1.9H, Estimat Glomerular Filtration Rate , Glucose Level 261H, Calcium Level 8.9 Current Medications Medications (Trade) Dose Ordered Sig/Lita Route PRN Reason Start Time Stop Time Status Last Admin Dose Admin Acetaminophen (Tylenol) 650 mg Q4H PRN ORAL Mild Pain/Temp > 100.5 04/25/17 12:00 05/24/17 11:59 04/27/17 20:59 Al Hydroxide/Mg Hydroxide (Mylanta II) 30 ml Q6H PRN ORAL dyspepsia 04/25/17 12:00 05/23/17 11:59 Albuterol/ Ipratropium (Albuterol/ Ipratropium) 3 ml Q4H PRN HHN Shortness of Breath 04/25/17 11:30 04/28/17 15:29 Carvedilol (Coreg) 25 mg EVERY 12 HOURS ORAL 04/26/17 09:00 05/26/17 08:59 04/27/17 11:43 Clonidine HCl (Catapres) 0.1 mg Q4H PRN ORAL SBP > 160 mmHg 04/25/17 11:15 05/23/17 15:14 Clopidogrel Bisulfate (Plavix) 75 mg DAILY ORAL 04/26/17 09:00 05/24/17 13:59 04/26/17 13:54 Dextrose (Dextrose 50%) STAT PRN IV Hypoglycemia 04/25/17 12:00 05/24/17 11:59 Diphenhydramine HCl (Benadryl) 25 mg Q6H PRN IVP Itching 04/27/17 10:30 05/27/17 10:29 Dorzolamide/ Timolol (Cosopt) 1 drop TWICE A DAY BOTH EYES 04/26/17 22:00 05/26/17 21:59 04/28/17 09:00 Glipizide (Glucotrol) 5 mg TWICE A DAY ORAL 04/27/17 09:00 05/27/17 08:59 04/27/17 17:33 Heparin Sodium (Porcine) (Heparin 5000 units/ml) 5,000 units EVERY 12 HOURS SUBQ 04/25/17 21:00 05/23/17 21:59 04/26/17 09:32 Insulin Aspart (NovoLOG) BEFORE MEALS AND HS SUBQ 04/25/17 12:00 05/24/17 11:59 Lorazepam (Ativan 2mg/ml 1ml) 0.5 mg Q4H PRN IV For Anxiety 04/25/17 11:30 04/30/17 15:29 Mirtazapine (Remeron) 7.5 mg BEDTIME ORAL 04/27/17 21:00 05/27/17 20:59 04/27/17 20:53 Morphine Sulfate (Morphine Sulfate) 4 mg Q4H PRN IVP Severe Pain (Pain Scale 7-10) 04/27/17 10:00 05/04/17 09:59 Nitroglycerin (Ntg) 0.4 mg Q5M X 3 DOSES PRN SL Prn Chest Pain 04/25/17 11:00 05/23/17 15:29 Ondansetron HCl (Zofran) 4 mg Q6H PRN IVP Nausea & Vomiting 04/25/17 11:30 05/23/17 11:29 Polyethylene Glycol (Miralax) 17 gm DAILYPRN PRN ORAL Constipation 04/27/17 17:45 05/25/17 20:59 04/27/17 17:34 Temazepam (Restoril) 15 mg HSPRN PRN ORAL Insomnia 04/25/17 21:00 04/30/17 20:59 RHEA FRANK Apr 28, 2017 12:34
--- NOTE | 2017-04-28 13:04 | Pre-Procedure Note/Attestation ---
Pre-Procedure Note/Attestation Complete Prior to Procedure Procedure Narrative: transesophageal echocardiography Indications for Procedure Pre-Operative Diagnosis: cva multiple Attestation I attest that I discussed the nature of the procedure; its benefits; risks and complications; and alternatives (and the risks and benefits of such alternatives ), prior to the procedure, with the patient (or the patient's legal cash application representative). I attest that, if there was a reasonable possibility of needing a blood transfusion, the patient (or the patient's legal cash application representative) was given the [facility] standardized written summary, pursuant to the [place] Blood Safety Act ([place] Health and Safety Code # 1645, as amended). I attest that I re-evaluated the patient just prior to the surgery and that there has been no change in the patient's H&P, except as documented below: ANURADHA KNAPP Apr 28, 2017 13:04
--- NOTE | 2017-04-28 13:04 | Pre-Procedure Note/Attestation ---
Pre-Procedure Note/Attestation Complete Prior to Procedure Procedure Narrative: transesophageal echocardiography Indications for Procedure Pre-Operative Diagnosis: cva multiple Attestation I attest that I discussed the nature of the procedure; its benefits; risks and complications; and alternatives (and the risks and benefits of such alternatives ), prior to the procedure, with the patient (or the patient's legal membership sales representative). I attest that, if there was a reasonable possibility of needing a blood transfusion, the patient (or the patient's legal membership sales representative) was given the [facility] standardized written summary, pursuant to the [place] Blood Safety Act ([place] Health and Safety Code # 1645, as amended). I attest that I re-evaluated the patient just prior to the surgery and that there has been no change in the patient's H&P, except as documented below: ANURADHA KNAPP Apr 28, 2017 13:04
--- NOTE | 2017-04-28 13:04 | Pre-Procedure Note/Attestation ---
Pre-Procedure Note/Attestation Complete Prior to Procedure Procedure Narrative: transesophageal echocardiography Indications for Procedure Pre-Operative Diagnosis: cva multiple Attestation I attest that I discussed the nature of the procedure; its benefits; risks and complications; and alternatives (and the risks and benefits of such alternatives ), prior to the procedure, with the patient (or the patient's legal account services representative). I attest that, if there was a reasonable possibility of needing a blood transfusion, the patient (or the patient's legal account services representative) was given the [facility] standardized written summary, pursuant to the [place] Blood Safety Act ([place] Health and Safety Code # 1645, as amended). I attest that I re-evaluated the patient just prior to the surgery and that there has been no change in the patient's H&P, except as documented below: ANURADHA KNAPP Apr 28, 2017 13:04
--- NOTE | 2017-04-28 13:07 | Brief Operative Note ---
Immediate Post Operative Note Operative Note Pre-op Diagnosis: cva multiple Procedure: krystyna, pw, color flow agitate saline bubble study Findings: other - no evidence for [place] thrombus she did have sessile atheroma in the descending thoracic arota Surgeon: sdaneshrad Anesthesia: moderate sedation Specimen: none Complications: none Condition: stable Fluids: none Estimated Blood Loss: none Drains: none Implant(s) used?: No ANURADHA KNAPP Apr 28, 2017 13:07
--- NOTE | 2017-04-28 13:13 | Cardiology Progress Note ---
Assessment/Plan Assessment/Plan 1. Multiple falls. 2. 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 3. Diabetes mellitus. 4. Hypertension. 5. Anemia. 6. Renal insufficiency. 7. aortic atheroma out pt med included plavix supposedly allergic to lipitor and triplex adn niacin !! krystyna did nto show any cardiac sourse of embolism and not righ tto left shunt , but did show atherom in the proximal descengin aorta possible multiple cva arterial to arterial embolism form atheroma of aorta trop all neg rib series neg likley need statin and antiplt i doubt anticoagulation will be benfitial Subjective Cardiovascular: Reports: chest pain - left side Respiratory: Denies: shortness of breath Gastrointestinal/Abdominal: Denies: abdominal pain Genitourinary: Denies: no symptoms Objective Last 24 Hour Vital Signs Date Time Temp Pulse Resp B/P (MAP) Pulse Ox O2 Delivery O2 Flow Rate FiO2 04/28/17 12:00 97.5 79 20 146/66 93 Room Air 04/28/17 08:25 81 18 Room Air 21 04/28/17 08:00 97.6 81 20 140/64 95 Room Air 04/28/17 04:00 98.2 84 18 148/74 94 Room Air 04/28/17 03:42 77 04/28/17 00:03 75 04/28/17 00:00 98.1 77 18 147/61 94 Room Air 04/27/17 20:37 84 04/27/17 20:00 98.1 83 18 140/62 94 Room Air 04/27/17 19:30 82 18 Room Air 21 04/27/17 16:00 79 04/27/17 15:36 97.7 78 18 124/60 94 Room Air General Appearance: no apparent distress Neck: supple Cardiovascular: normal rate, regular rhythm Respiratory/Chest: rhonchi - left Abdomen: normal bowel sounds, non tender, soft Extremities: no swelling Laboratory Tests Test 04/28/17 05:40 White Blood Count 10.1 K/UL (4.8-10.8) Red Blood Count 3.42 M/UL (4.20-5.40) L Hemoglobin 10.5 G/DL (12.0-16.0) L Hematocrit 31.9 % (37.0-47.0) L Mean Corpuscular Volume 93 FL (80-99) Mean Corpuscular Hemoglobin 30.6 PG (27.0-31.0) Mean Corpuscular Hemoglobin Concent 32.8 G/DL (32.0-36.0) Red Cell Distribution Width 12.4 % (11.6-14.8) Platelet Count 325 K/UL (150-450) Mean Platelet Volume 7.8 FL (6.5-10.1) Neutrophils (%) (Auto) 59.2 % (45.0-75.0) Lymphocytes (%) (Auto) 21.5 % (20.0-45.0) Monocytes (%) (Auto) 13.9 % (1.0-10.0) H Eosinophils (%) (Auto) 4.0 % (0.0-3.0) H Basophils (%) (Auto) 1.4 % (0.0-2.0) Sodium Level 136 MMOL/L (136-145) Potassium Level 4.7 MMOL/L (3.5-5.1) Chloride Level 102 MMOL/L (98-107) Carbon Dioxide Level 25 MMOL/L (21-32) Anion Gap 9 mmol/L (5-15) Blood Urea Nitrogen 28 mg/dL (7-18) H Creatinine 1.9 MG/DL (0.55-1.30) H Estimat Glomerular Filtration Rate mL/min (>60) Glucose Level 261 MG/DL (74-106) H Calcium Level 8.9 MG/DL (8.5-10.1) ANURADHA KNAPP Apr 28, 2017 13:13
--- NOTE | 2017-04-28 13:30 | Anethesia Preoperative Eval ---
Anesthesia Pre-op PMH/ROS General Date of Evaluation: Apr 28, 2017 Time of Evaluation: 12:25 Anesthesiologist: Stevie ASA Score: ASA 3 Mallampati Score Class I : Soft palate, uvula, fauces, pillars visible Class II: Soft palate, uvula, fauces visible Class III: Soft palate, base of uvula visible Class IV: Only hard plate visible Mallampati Classification: Class II Surgeon: Flavio Diagnosis: CVA Surgical Procedure: krystyna Anesthesia History: none Family History: no anesthesia problems Allergies: Coded Allergies: ASPIRIN (Verified Allergy, Unknown, 04/25/17) ATORVASTATIN (Verified Allergy, Unknown, 04/26/17) CHOLINE FENOFIBRATE (Verified Allergy, Unknown, 04/26/17) DULOXETINE (Verified Allergy, Unknown, 04/26/17) GABAPENTIN (Verified Allergy, Unknown, 04/26/17) NIACIN (Verified Allergy, Unknown, 04/26/17) OXYCODONE (Verified Allergy, Unknown, 04/26/17) PENICILLINS (Verified Allergy, Unknown, 04/25/17) PROMETHAZINE (Verified Allergy, Unknown, 04/26/17) ROSIGLITAZONE (Verified Allergy, Unknown, 04/26/17) TRAMADOL (Verified Allergy, Unknown, 04/26/17) Medications: see eMAR Past Medical History Cardiovascular: Reports: HTN, Denies: CAD, AR, valve dz, arrhythmia, other Pulmonary: Denies: asthma, COPD, VICKY, other Gastrointestinal/Genitourinary: Reports: GERD, CRI, Denies: ESRD, other Neurologic/Psychiatric: Reports: dementia - mild, Denies: CVA, depression/anxiety, TIA, other Endocrine: Reports: DM - on pills, Denies: hypothyroidism, steroids, other HEENT: Denies: cataract (L), cataract (R), glaucoma, C[place] (L), COW[place]Z (R), other Hematology/Immune: Reports: anemia - mild, Denies: DVT, bleeding disorder, other Musculoskeletal/Integumentary: Reports: DJD, Denies: OA, RA, DDD, edema, other PMH Narrative: as above admitted after mechanical fall no Fx diagnosed PSxH Narrative: Bilateral knee replacement Anesthesia Pre-op Phys. Exam Physician Exam Last Vital Signs Date Time Temp Pulse Resp B/P (MAP) Pulse Ox O2 Delivery O2 Flow Rate FiO2 04/28/17 13:18 98.7 88 16 138/60 97 Nasal Cannula 3.0 04/28/17 08:25 21 Constitutional: NAD Neurologic: other - unable to obtaine Cardiovascular: RRR Respiratory: CTA Gastrointestinal: S/NT/ND Airway Exam Mallampati Score: Class II MO: limited Neck: short ROM: limited Teeth: missing Dentures: no upper, no lower Anesthesia Pre-op A/P Labs Hematology Test 04/28/17 05:40 White Blood Count 10.1 K/UL (4.8-10.8) Red Blood Count 3.42 M/UL (4.20-5.40) L Hemoglobin 10.5 G/DL (12.0-16.0) L Hematocrit 31.9 % (37.0-47.0) L Mean Corpuscular Volume 93 FL (80-99) Mean Corpuscular Hemoglobin 30.6 PG (27.0-31.0) Mean Corpuscular Hemoglobin Concent 32.8 G/DL (32.0-36.0) Red Cell Distribution Width 12.4 % (11.6-14.8) Platelet Count 325 K/UL (150-450) Mean Platelet Volume 7.8 FL (6.5-10.1) Neutrophils (%) (Auto) 59.2 % (45.0-75.0) Lymphocytes (%) (Auto) 21.5 % (20.0-45.0) Monocytes (%) (Auto) 13.9 % (1.0-10.0) H Eosinophils (%) (Auto) 4.0 % (0.0-3.0) H Basophils (%) (Auto) 1.4 % (0.0-2.0) Chemistry Test 04/28/17 05:40 Sodium Level 136 MMOL/L (136-145) Potassium Level 4.7 MMOL/L (3.5-5.1) Chloride Level 102 MMOL/L (98-107) Carbon Dioxide Level 25 MMOL/L (21-32) Anion Gap 9 mmol/L (5-15) Blood Urea Nitrogen 28 mg/dL (7-18) H Creatinine 1.9 MG/DL (0.55-1.30) H Estimat Glomerular Filtration Rate mL/min (>60) Glucose Level 261 MG/DL (74-106) H Calcium Level 8.9 MG/DL (8.5-10.1) Studies Pre-op Studies: EKG - NSR Risk Assessment & Plan Assessment: ASA 3 Plan: MAC Status Change Before Surgery: No Pre-Antibiotics Drug: none LEIDY WALLER M.D. Apr 28, 2017 13:30
--- NOTE | 2017-04-28 13:31 | Immediate Post-Op Evaluation ---
Immediate Post-Op Evalulation Immediate Post-Op Evalulation Procedure: ANAMARIA Date of Evaluation: Apr 28, 2017 Time of Evaluation: 13:30 IV Fluids: 200 Blood Products: none Estimated Blood Loss: none Urinary Output: none Blood Pressure Systolic: 139 Blood Pressure Diastolic: 65 Pulse Rate: 82 Respiratory Rate: 20 O2 Sat by Pulse Oximetry: 99 Temperature (Fahrenheit): 98.1 Pain Score (1-10): 2 Nausea: No Vomiting: No Complications NONE Patient Status: reacts, patent, none Hydration Status: adequate LEIDY WALLER M.D. Apr 28, 2017 13:31
[2017-04-28] MEDS ORDERED: LR 1000ml 1,000 ML IVLG SCH (13:32)
--- NOTE | 2017-04-28 13:32 | 48 Hour Post Anesthesia Eval ---
Post Anesthesia Evaluation Procedure: ANAMARIA Date of Evaluation: Apr 28, 2017 Time of Evaluation: 14:10 Blood Pressure Systolic: 148 0: 61 Pulse Rate: 80 Respiratory Rate: 18 Temperature (Fahrenheit): 97.6 O2 Sat by Pulse Oximetry: 98 Airway: patent Nausea: No Vomiting: No Pain Intensity: 1 Hydration Status: adequate Cardiopulmonary Status: stable Mental Status/LOC: patient returned to baseline Follow-up Care/Observations: n/a Post-Anesthesia Complications: none Follow-up care needed: N/A LEIDY WALLER M.D. Apr 28, 2017 13:32
[2017-04-28] MEDS ORDERED: fentaNYL 100 mcg/2 mL IV PRN (13:45)
[2017-04-28] MEDS ORDERED: DiphenhydrAMINE 50mg/ml Inj IVP PRN (13:45)
--- NOTE | 2017-04-28 14:16 | General Progress Note ---
Assessment/Plan Status: stable, progressing Assessment/Plan mdd noncompliance cont current meds cont to encourage her to take meds Subjective Neurologic/Psychiatric: Reports: anxiety, depressed, emotional problems Allergies: Coded Allergies: ASPIRIN (Verified Allergy, Unknown, 04/25/17) ATORVASTATIN (Verified Allergy, Unknown, 04/26/17) CHOLINE FENOFIBRATE (Verified Allergy, Unknown, 04/26/17) DULOXETINE (Verified Allergy, Unknown, 04/26/17) GABAPENTIN (Verified Allergy, Unknown, 04/26/17) NIACIN (Verified Allergy, Unknown, 04/26/17) OXYCODONE (Verified Allergy, Unknown, 04/26/17) PENICILLINS (Verified Allergy, Unknown, 04/25/17) PROMETHAZINE (Verified Allergy, Unknown, 04/26/17) ROSIGLITAZONE (Verified Allergy, Unknown, 04/26/17) TRAMADOL (Verified Allergy, Unknown, 04/26/17) Subjective the pt refuses insulin at times. she is alert and oriented but is illogical Objective Last 24 Hour Vital Signs Date Time Temp Pulse Resp B/P (MAP) Pulse Ox O2 Delivery O2 Flow Rate FiO2 04/28/17 13:40 98.9 82 22 133/69 98 Nasal Cannula 2.0 04/28/17 13:32 80 18 98 04/28/17 13:31 82 20 99 04/28/17 13:30 80 24 148/60 98 Nasal Cannula 2.0 04/28/17 13:23 80 18 139/65 98 Nasal Cannula 2.0 04/28/17 13:18 88 16 138/60 97 Nasal Cannula 3.0 04/28/17 13:12 98.7 88 16 133/68 97 Nasal Cannula 3.0 04/28/17 12:00 97.5 79 20 146/66 93 Room Air 04/28/17 08:25 81 18 Room Air 21 04/28/17 08:00 97.6 81 20 140/64 95 Room Air 04/28/17 04:00 98.2 84 18 148/74 94 Room Air 04/28/17 03:42 77 04/28/17 00:03 75 04/28/17 00:00 98.1 77 18 147/61 94 Room Air 04/27/17 20:37 84 04/27/17 20:00 98.1 83 18 140/62 94 Room Air 04/27/17 19:30 82 18 Room Air 21 04/27/17 16:00 79 04/27/17 15:36 97.7 78 18 124/60 94 Room Air Intake and Output 04/28/17 04/29/17 19:00 07:00 Intake Total 150 ml Balance 150 ml IV Total 150 ml Laboratory Tests 04/28/17 05:40: White Blood Count 10.1, Red Blood Count 3.42L, Hemoglobin 10.5L, Hematocrit 31.9L, Mean Corpuscular Volume 93, Mean Corpuscular Hemoglobin 30.6, Mean Corpuscular Hemoglobin Concent 32.8, Red Cell Distribution Width 12.4, Platelet Count 325, Mean Platelet Volume 7.8, Neutrophils (%) (Auto) 59.2, Lymphocytes (% ) (Auto) 21.5, Monocytes (%) (Auto) 13.9H, Eosinophils (%) (Auto) 4.0H, Basophils (%) (Auto) 1.4, Sodium Level 136, Potassium Level 4.7, Chloride Level 102, Carbon Dioxide Level 25, Anion Gap 9, Blood Urea Nitrogen 28H, Creatinine 1.9H, Estimat Glomerular Filtration Rate , Glucose Level 261H, Calcium Level 8.9 Height (Feet): 5 Height (Inches): 2.00 Weight (Pounds): 137 General Appearance: no apparent distress, alert Neurologic: alert, oriented x 3, responsive, depressed affect Chalino Hogue M.D. Apr 28, 2017 14:16
--- NOTE | 2017-04-28 17:43 | Internal Med Progress Note ---
Subjective Date of Service: Apr 28, 2017 Physician Name Jordan,Ruthie Attending Physician Ben Barrios MD Current Medications Medications (Trade) Dose Ordered Sig/Lita Route PRN Reason Start Time Stop Time Status Last Admin Dose Admin Acetaminophen (Tylenol) 325 mg Q4H PRN ORAL Mild Pain (Pain Scale 1-3) 04/28/17 13:45 04/28/17 18:45 Acetaminophen (Tylenol) 650 mg Q4H PRN ORAL Mild Pain/Temp > 100.5 04/25/17 12:00 05/24/17 11:59 04/27/17 20:59 Al Hydroxide/Mg Hydroxide (Mylanta II) 30 ml Q6H PRN ORAL dyspepsia 04/25/17 12:00 05/23/17 11:59 Carvedilol (Coreg) 25 mg EVERY 12 HOURS ORAL 04/26/17 09:00 05/26/17 08:59 04/27/17 11:43 Clonidine HCl (Catapres) 0.1 mg Q4H PRN ORAL SBP > 160 mmHg 04/25/17 11:15 05/23/17 15:14 Clopidogrel Bisulfate (Plavix) 75 mg DAILY ORAL 04/26/17 09:00 05/24/17 13:59 04/26/17 13:54 Dextrose (Dextrose 50%) STAT PRN IV Hypoglycemia 04/25/17 12:00 05/24/17 11:59 Diphenhydramine HCl (Benadryl) 25 mg Q15M PRN IVP Itching 04/28/17 13:45 04/28/17 18:45 Diphenhydramine HCl (Benadryl) 25 mg Q6H PRN IVP Itching 04/27/17 10:30 05/27/17 10:29 Dorzolamide/ Timolol (Cosopt) 1 drop TWICE A DAY BOTH EYES 04/26/17 22:00 05/26/17 21:59 04/28/17 09:00 Fentanyl Citrate (Sublimaze 100 mcg/2 mL) 25 mcg Q10M PRN IV Moderate Pain (Pain Scale 4-6) 04/28/17 13:45 04/28/17 18:45 Glipizide (Glucotrol) 5 mg TWICE A DAY ORAL 04/27/17 09:00 05/27/17 08:59 04/27/17 17:33 Heparin Sodium (Porcine) (Heparin 5000 units/ml) 5,000 units EVERY 12 HOURS SUBQ 04/25/17 21:00 05/23/17 21:59 04/26/17 09:32 Insulin Aspart (NovoLOG) BEFORE MEALS AND HS SUBQ 04/25/17 12:00 05/24/17 11:59 Lactated Ringer's 1,000 ml @ 10 mls/hr Q24H IVLG 04/28/17 13:32 04/28/17 18:45 Lorazepam (Ativan 2mg/ml 1ml) 0.5 mg Q4H PRN IV For Anxiety 04/25/17 11:30 04/30/17 15:29 Mirtazapine (Remeron) 7.5 mg BEDTIME ORAL 04/27/17 21:00 05/27/17 20:59 04/27/17 20:53 Morphine Sulfate (Morphine Sulfate) 4 mg Q4H PRN IVP Severe Pain (Pain Scale 7-10) 04/27/17 10:00 05/04/17 09:59 Nitroglycerin (Ntg) 0.4 mg Q5M X 3 DOSES PRN SL Prn Chest Pain 04/25/17 11:00 05/23/17 15:29 Ondansetron HCl (Zofran) 4 mg Q1H PRN IVP Nausea & Vomiting 04/28/17 13:45 04/28/17 18:45 Ondansetron HCl (Zofran) 4 mg Q6H PRN IVP Nausea & Vomiting 04/25/17 11:30 05/23/17 11:29 Polyethylene Glycol (Miralax) 17 gm DAILYPRN PRN ORAL Constipation 04/27/17 17:45 05/25/17 20:59 04/27/17 17:34 Temazepam (Restoril) 15 mg HSPRN PRN ORAL Insomnia 04/25/17 21:00 04/30/17 20:59 Allergies: Coded Allergies: ASPIRIN (Verified Allergy, Unknown, 04/25/17) ATORVASTATIN (Verified Allergy, Unknown, 04/26/17) CHOLINE FENOFIBRATE (Verified Allergy, Unknown, 04/26/17) DULOXETINE (Verified Allergy, Unknown, 04/26/17) GABAPENTIN (Verified Allergy, Unknown, 04/26/17) NIACIN (Verified Allergy, Unknown, 04/26/17) OXYCODONE (Verified Allergy, Unknown, 04/26/17) PENICILLINS (Verified Allergy, Unknown, 04/25/17) PROMETHAZINE (Verified Allergy, Unknown, 04/26/17) ROSIGLITAZONE (Verified Allergy, Unknown, 04/26/17) TRAMADOL (Verified Allergy, Unknown, 04/26/17) ROS Limited/Unobtainable: No Constitutional: Reports: no symptoms HEENT: Reports: no symptoms Cardiovascular: Reports: no symptoms Respiratory: Reports: no symptoms Gastrointestinal/Abdominal: Reports: no symptoms Genitourinary: Reports: no symptoms Neurologic/Psychiatric: Reports: no symptoms Subjective 81 YO F admitted with left weakness. Now acute CVA. Await transesophageal echo and videoswallow. Cover for Int Joseph-Dr Barrios Objective Last Vital Signs Date Time Temp Pulse Resp B/P (MAP) Pulse Ox O2 Delivery O2 Flow Rate FiO2 04/28/17 16:00 80 04/28/17 13:40 98.9 22 133/69 98 Nasal Cannula 2.0 04/28/17 08:25 21 Laboratory Tests Test 04/28/17 05:40 White Blood Count 10.1 K/UL (4.8-10.8) Red Blood Count 3.42 M/UL (4.20-5.40) L Hemoglobin 10.5 G/DL (12.0-16.0) L Hematocrit 31.9 % (37.0-47.0) L Mean Corpuscular Volume 93 FL (80-99) Mean Corpuscular Hemoglobin 30.6 PG (27.0-31.0) Mean Corpuscular Hemoglobin Concent 32.8 G/DL (32.0-36.0) Red Cell Distribution Width 12.4 % (11.6-14.8) Platelet Count 325 K/UL (150-450) Mean Platelet Volume 7.8 FL (6.5-10.1) Neutrophils (%) (Auto) 59.2 % (45.0-75.0) Lymphocytes (%) (Auto) 21.5 % (20.0-45.0) Monocytes (%) (Auto) 13.9 % (1.0-10.0) H Eosinophils (%) (Auto) 4.0 % (0.0-3.0) H Basophils (%) (Auto) 1.4 % (0.0-2.0) Sodium Level 136 MMOL/L (136-145) Potassium Level 4.7 MMOL/L (3.5-5.1) Chloride Level 102 MMOL/L (98-107) Carbon Dioxide Level 25 MMOL/L (21-32) Anion Gap 9 mmol/L (5-15) Blood Urea Nitrogen 28 mg/dL (7-18) H Creatinine 1.9 MG/DL (0.55-1.30) H Estimat Glomerular Filtration Rate mL/min (>60) Glucose Level 261 MG/DL (74-106) H Calcium Level 8.9 MG/DL (8.5-10.1) Intake and Output 04/28/17 04/29/17 19:00 07:00 Intake Total 150 ml Balance 150 ml IV Total 150 ml Objective General Appearance: WD/WN, no apparent distress, alert EENT: PERRL/EOMI, normal ENT inspection, TMs normal Neck: non-tender, normal alignment, supple, normal inspection Cardiovascular: normal peripheral pulses, normal rate, regular rhythm, no gallop/murmur, no JVD Respiratory/Chest: chest wall non-tender, lungs clear, normal breath sounds, no respiratory distress, no accessory muscle use Abdomen: normal bowel sounds, non tender, soft, no organomegaly, no mass Genitourinary/Rectal: normal genital exam Extremities: other - left weakness 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 Await transesophageal echo to R/O cardiac emboli. (4) Diabetes mellitus Assessment & Plan: Patient Refusing insulin. (5) HTN (hypertension) (6) CAD (coronary artery disease) Assessment & Plan: See cardiology note. (7) Dysphagia Assessment & Plan: Await video swallow eval Assessment/Plan Discharge planning: nursing home [facility] [place] [facility] RUTHIE JORDAN Apr 28, 2017 17:43
[2017-04-29] VITALS: BP 139/65
[2017-04-29 04:00] VITALS: BP_SYST 140; BP_SYST 150; BP_DIAS 61; BP_DIAS 64
[2017-04-29] MEDS: NovoLOG Insulin Flexpen SUBQ SCH ×4 (06:30→18:05)
[2017-04-29 06:31] LABS: BASOPHILS % (AUTO) 1.6 % (0.0-2.0); EOSINOPHILS % (AUTO) 3.1 % (0.0-3.0); HEMATOCRIT 32.3 % (37.0-47.0); HEMOGLOBIN 10.9 G/DL (12.0-16.0); LYMPHOCYTES % (AUTO) 18.9 % (20.0-45.0); MEAN CORPUSCULAR VOLUME 94 FL (80-99); MONOCYTES % (AUTO) 10.6 % (1.0-10.0); NEUTROPHILS % (AUTO) 65.9 % (45.0-75.0); PLATELET COUNT 331 K/UL (150-450); RED BLOOD COUNT 3.44 M/UL (4.20-5.40); RED CELL DISTRIBUTION WIDTH 12.4 % (11.6-14.8); WHITE BLOOD COUNT 11.3 K/UL (4.8-10.8)
[2017-04-29 07:07] LABS: ANION GAP 11 mmol/L (5-15); BLOOD UREA NITROGEN 33 mg/dL (7-18); CALCIUM 9.3 MG/DL (8.5-10.1); CARBON DIOXIDE 25 MMOL/L (21-32); CHLORIDE 101 MMOL/L (98-107); CREATININE 1.9 MG/DL (0.55-1.30); POTASSIUM 4.7 MMOL/L (3.5-5.1); SODIUM 137 MMOL/L (136-145)
[2017-04-29 08:00] VITALS: BP 150/60
[2017-04-29] MEDS: Cosopt Opth Soln 10 mL Btl BOTH EYES SCH ×2 (09:29→18:06)
[2017-04-29] MEDS: Carvedilol 25mg Tab ORAL SCH (09:31)
[2017-04-29] MEDS: GlipiZIDE 5mg tab ORAL SCH ×2 (09:31→18:06)
[2017-04-29] MEDS: Heparin 5000 units/ml inj SUBQ SCH (09:45)
--- NOTE | 2017-04-29 10:46 | Internal Med Progress Note ---
Subjective Date of Service: Apr 29, 2017 Physician Name StephaniRuthie Attending Physician Ben Barrios MD Current Medications Medications (Trade) Dose Ordered Sig/Lita Route PRN Reason Start Time Stop Time Status Last Admin Dose Admin Acetaminophen (Tylenol) 650 mg Q4H PRN ORAL Mild Pain/Temp > 100.5 04/25/17 12:00 05/24/17 11:59 04/29/17 09:32 Al Hydroxide/Mg Hydroxide (Mylanta II) 30 ml Q6H PRN ORAL dyspepsia 04/25/17 12:00 05/23/17 11:59 Carvedilol (Coreg) 25 mg EVERY 12 HOURS ORAL 04/26/17 09:00 05/26/17 08:59 04/29/17 09:31 Clonidine HCl (Catapres) 0.1 mg Q4H PRN ORAL SBP > 160 mmHg 04/25/17 11:15 05/23/17 15:14 Clopidogrel Bisulfate (Plavix) 75 mg DAILY ORAL 04/26/17 09:00 05/24/17 13:59 04/29/17 09:31 Dextrose (Dextrose 50%) STAT PRN IV Hypoglycemia 04/25/17 12:00 05/24/17 11:59 Diphenhydramine HCl (Benadryl) 25 mg Q6H PRN IVP Itching 04/27/17 10:30 05/27/17 10:29 Dorzolamide/ Timolol (Cosopt) 1 drop TWICE A DAY BOTH EYES 04/26/17 22:00 05/26/17 21:59 04/29/17 09:29 Glipizide (Glucotrol) 5 mg TWICE A DAY ORAL 04/27/17 09:00 05/27/17 08:59 04/29/17 09:31 Heparin Sodium (Porcine) (Heparin 5000 units/ml) 5,000 units EVERY 12 HOURS SUBQ 04/25/17 21:00 05/23/17 21:59 04/29/17 09:45 Insulin Aspart (NovoLOG) BEFORE MEALS AND HS SUBQ 04/25/17 12:00 05/24/17 11:59 Lorazepam (Ativan 2mg/ml 1ml) 0.5 mg Q4H PRN IV For Anxiety 04/25/17 11:30 04/30/17 15:29 Mirtazapine (Remeron) 7.5 mg BEDTIME ORAL 04/27/17 21:00 05/27/17 20:59 04/28/17 20:46 Morphine Sulfate (Morphine Sulfate) 4 mg Q4H PRN IVP Severe Pain (Pain Scale 7-10) 04/27/17 10:00 05/04/17 09:59 Nitroglycerin (Ntg) 0.4 mg Q5M X 3 DOSES PRN SL Prn Chest Pain 04/25/17 11:00 05/23/17 15:29 Ondansetron HCl (Zofran) 4 mg Q6H PRN IVP Nausea & Vomiting 04/25/17 11:30 05/23/17 11:29 Polyethylene Glycol (Miralax) 17 gm DAILYPRN PRN ORAL Constipation 04/27/17 17:45 05/25/17 20:59 04/27/17 17:34 Temazepam (Restoril) 15 mg HSPRN PRN ORAL Insomnia 04/25/17 21:00 04/30/17 20:59 Allergies: Coded Allergies: ASPIRIN (Verified Allergy, Unknown, 04/25/17) ATORVASTATIN (Verified Allergy, Unknown, 04/26/17) CHOLINE FENOFIBRATE (Verified Allergy, Unknown, 04/26/17) DULOXETINE (Verified Allergy, Unknown, 04/26/17) GABAPENTIN (Verified Allergy, Unknown, 04/26/17) NIACIN (Verified Allergy, Unknown, 04/26/17) OXYCODONE (Verified Allergy, Unknown, 04/26/17) PENICILLINS (Verified Allergy, Unknown, 04/25/17) PROMETHAZINE (Verified Allergy, Unknown, 04/26/17) ROSIGLITAZONE (Verified Allergy, Unknown, 04/26/17) TRAMADOL (Verified Allergy, Unknown, 04/26/17) ROS Limited/Unobtainable: No Constitutional: Reports: no symptoms HEENT: Reports: no symptoms Cardiovascular: Reports: no symptoms Respiratory: Reports: no symptoms Gastrointestinal/Abdominal: Reports: no symptoms Genitourinary: Reports: no symptoms Neurologic/Psychiatric: Reports: no symptoms Subjective 81 YO F admitted with left weakness. Now acute CVA. S/P transesophageal echo 04/28/17. Await videoswallow. Cover for Int Joseph-Dr Barrios Objective Last Vital Signs Date Time Temp Pulse Resp B/P (MAP) Pulse Ox O2 Delivery O2 Flow Rate FiO2 04/29/17 09:31 83 150/60 04/29/17 04:00 98.0 20 93 04/29/17 00:00 Room Air 04/28/17 13:40 2.0 04/28/17 08:25 21 Laboratory Tests Test 04/29/17 05:30 White Blood Count 11.3 K/UL (4.8-10.8) H Red Blood Count 3.44 M/UL (4.20-5.40) L Hemoglobin 10.9 G/DL (12.0-16.0) L Hematocrit 32.3 % (37.0-47.0) L Mean Corpuscular Volume 94 FL (80-99) Mean Corpuscular Hemoglobin 31.7 PG (27.0-31.0) H Mean Corpuscular Hemoglobin Concent 33.7 G/DL (32.0-36.0) Red Cell Distribution Width 12.4 % (11.6-14.8) Platelet Count 331 K/UL (150-450) Mean Platelet Volume 7.3 FL (6.5-10.1) Neutrophils (%) (Auto) 65.9 % (45.0-75.0) Lymphocytes (%) (Auto) 18.9 % (20.0-45.0) L Monocytes (%) (Auto) 10.6 % (1.0-10.0) H Eosinophils (%) (Auto) 3.1 % (0.0-3.0) H Basophils (%) (Auto) 1.6 % (0.0-2.0) Sodium Level 137 MMOL/L (136-145) Potassium Level 4.7 MMOL/L (3.5-5.1) Chloride Level 101 MMOL/L (98-107) Carbon Dioxide Level 25 MMOL/L (21-32) Anion Gap 11 mmol/L (5-15) Blood Urea Nitrogen 33 mg/dL (7-18) H Creatinine 1.9 MG/DL (0.55-1.30) H Estimat Glomerular Filtration Rate mL/min (>60) Glucose Level 252 MG/DL (74-106) H Calcium Level 9.3 MG/DL (8.5-10.1) Objective General Appearance: WD/WN, no apparent distress, alert EENT: PERRL/EOMI, normal ENT inspection, TMs normal Neck: non-tender, normal alignment, supple, normal inspection Cardiovascular: normal peripheral pulses, normal rate, regular rhythm, no gallop/murmur, no JVD Respiratory/Chest: chest wall non-tender, lungs clear, normal breath sounds, no respiratory distress, no accessory muscle use Abdomen: normal bowel sounds, non tender, soft, no organomegaly, no mass Genitourinary/Rectal: normal genital exam Extremities: other - left weakness 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 S/P transesophageal echo 04/28/17-no thrombus, however aortic atheroma (4) Diabetes mellitus Assessment & Plan: Patient Refusing insulin. (5) HTN (hypertension) (6) CAD (coronary artery disease) Assessment & Plan: See cardiology note. (7) Dysphagia Assessment & Plan: Await video swallow eval Assessment/Plan Discharge planning: [facility] [place] [facility] RUTHIE JORDAN Apr 29, 2017 10:46
--- NOTE | 2017-04-29 12:42 | Neurology Progress Note ---
Interim History Interim History ROS Limited/Unobtainable: Yes Complaints: weakness L side, pain L chest, numbness L face worsened Events: progressed stroke, refusing insulin Objective Physical Exam Last Vital Signs Date Time Temp Pulse Resp B/P (MAP) Pulse Ox O2 Delivery O2 Flow Rate FiO2 04/29/17 09:31 83 150/60 04/29/17 04:00 98.0 20 93 04/29/17 00:00 Room Air 04/28/17 13:40 2.0 04/28/17 08:25 21 Laboratory Tests Test 04/29/17 05:30 White Blood Count 11.3 K/UL (4.8-10.8) H Red Blood Count 3.44 M/UL (4.20-5.40) L Hemoglobin 10.9 G/DL (12.0-16.0) L Hematocrit 32.3 % (37.0-47.0) L Mean Corpuscular Volume 94 FL (80-99) Mean Corpuscular Hemoglobin 31.7 PG (27.0-31.0) H Mean Corpuscular Hemoglobin Concent 33.7 G/DL (32.0-36.0) Red Cell Distribution Width 12.4 % (11.6-14.8) Platelet Count 331 K/UL (150-450) Mean Platelet Volume 7.3 FL (6.5-10.1) Neutrophils (%) (Auto) 65.9 % (45.0-75.0) Lymphocytes (%) (Auto) 18.9 % (20.0-45.0) L Monocytes (%) (Auto) 10.6 % (1.0-10.0) H Eosinophils (%) (Auto) 3.1 % (0.0-3.0) H Basophils (%) (Auto) 1.6 % (0.0-2.0) Sodium Level 137 MMOL/L (136-145) Potassium Level 4.7 MMOL/L (3.5-5.1) Chloride Level 101 MMOL/L (98-107) Carbon Dioxide Level 25 MMOL/L (21-32) Anion Gap 11 mmol/L (5-15) Blood Urea Nitrogen 33 mg/dL (7-18) H Creatinine 1.9 MG/DL (0.55-1.30) H Estimat Glomerular Filtration Rate mL/min (>60) Glucose Level 252 MG/DL (74-106) H Calcium Level 9.3 MG/DL (8.5-10.1) General: well developed, well nourished, no acute distress Head: normocophalic, atraumatic Neck: no rigidity Neurologic Exam Mental Status: awake - drowsy arousable, alert, oriented x4, normal cognition, good mathematical skills, normal recent memory Speech: normal speech, no dysarthia Language: normal language, no aphasia Cranial Nerve II: fundus normal, visual adams, no papilledema Cranial Nerves III, IV, : PERRLA, EOMI, pupils Cranial Nerve V: normal facial sensations, temporales function normal, masseters function normal, pterygoids function normal Cranial Nerve VII: other - L droop Cranial Nerve VIII: normal hearing, no nystagmus Cranial Nerve IX: normal palate elevation, gag response Cranial Nerve X: no voice hoarseness Cranial Nerve XI: SCM symmetric, trapezii function normal Cranial Nerve XII: tongue midline, no tongue atrophy/fasciculations Motor System: normal muscle tone, no involuntary movement, no muscle wasting, other - L arm 1/5, L leg 1/5 R leg 3/5 Sensory: other - reduced PPL leg Deep Tendon Reflexes: 0 bicep (L), 0 bicep (R), 0 tricep (L), 0 tricep (R), 0 brachioradialis (L), 0 brachioradialis (R), 0 knee (L), 0 knee (R), 0 ankle (L) , 0 ankle (R) Reflexes: extensor plantar (L), mute plantar (R) Stance: other Gait: other Impression/Recommendations Problems: (1) Acute ischemic disseminated strokes, in progression. (2) Elevated erythrocyte sedimentation rate (3) aortic atheroma (4) CAD (coronary artery disease) (5) HTN (hypertension) (6) diabetes mellitus poor control Status: stable, progressing, deteriorating Recommendations # [id number] plavix/statins rehab acute labs collagen -vasc/coagulopathy DEAN ABURTO Apr 29, 2017 12:42
[2017-04-29 15:08] LABS: CHOLESTEROL 228 MG/DL (< 200); HDL CHOLESTEROL 35 MG/DL (40-60); TRIGLYCERIDES 389 MG/DL (0-200)
--- NOTE | 2017-04-29 15:48 | Pulmonology Progress Note ---
Assessment/Plan Problems: (1) Acute ischemic right middle cerebral artery (MCA) stroke (2) Anemia (3) ATN (acute tubular necrosis) (4) Diabetes mellitus (5) CAD (coronary artery disease) (6) HTN (hypertension) Assessment/Plan For ANAMARIA didn't show any source of emboli pt /ot note appreciated. heart rate BP controlled med/surg Subjective ROS Limited/Unobtainable: No Constitutional: Reports: no symptoms HEENT: Repors: no symptoms Allergies: Coded Allergies: ASPIRIN (Verified Allergy, Unknown, 04/25/17) ATORVASTATIN (Verified Allergy, Unknown, 04/26/17) CHOLINE FENOFIBRATE (Verified Allergy, Unknown, 04/26/17) DULOXETINE (Verified Allergy, Unknown, 04/26/17) GABAPENTIN (Verified Allergy, Unknown, 04/26/17) NIACIN (Verified Allergy, Unknown, 04/26/17) OXYCODONE (Verified Allergy, Unknown, 04/26/17) PENICILLINS (Verified Allergy, Unknown, 04/25/17) PROMETHAZINE (Verified Allergy, Unknown, 04/26/17) ROSIGLITAZONE (Verified Allergy, Unknown, 04/26/17) TRAMADOL (Verified Allergy, Unknown, 04/26/17) Objective Last 24 Hour Vital Signs Date Time Temp Pulse Resp B/P (MAP) Pulse Ox O2 Delivery O2 Flow Rate FiO2 04/29/17 09:31 83 150/60 04/29/17 08:00 92.5 83 18 150/60 Room Air 04/29/17 04:00 98.0 74 20 140/64 93 04/29/17 03:42 73 04/29/17 00:00 98.0 77 20 139/65 98 Room Air 04/28/17 23:52 76 04/28/17 20:47 88 136/61 04/28/17 20:00 98.2 87 20 136/61 94 Room Air 04/28/17 19:56 86 04/28/17 16:00 80 04/28/17 16:00 97.8 83 21 143/61 96 Room Air General Appearance: WD/WN HEENT: normocephalic, atraumatic, anicteric Respiratory/Chest: chest wall non-tender, lungs clear Breasts: no masses Cardiovascular: normal peripheral pulses Abdomen: normal bowel sounds, soft, non tender Genitourinary: normal external genitalia Extremities: no cyanosis Skin: no rash 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 Laboratory Tests 04/29/17 05:30: White Blood Count 11.3H, Red Blood Count 3.44L, Hemoglobin 10.9L, Hematocrit 32.3L, Mean Corpuscular Volume 94, Mean Corpuscular Hemoglobin 31.7H, Mean Corpuscular Hemoglobin Concent 33.7, Red Cell Distribution Width 12.4, Platelet Count 331, Mean Platelet Volume 7.3, Neutrophils (%) (Auto) 65.9, Lymphocytes (% ) (Auto) 18.9L, Monocytes (%) (Auto) 10.6H, Eosinophils (%) (Auto) 3.1H, Basophils (%) (Auto) 1.6, Sodium Level 137, Potassium Level 4.7, Chloride Level 101, Carbon Dioxide Level 25, Anion Gap 11, Blood Urea Nitrogen 33H, Creatinine 1.9H, Estimat Glomerular Filtration Rate , Glucose Level 252H, Calcium Level 9.3 04/29/17 14:25: Protein C Activity [Pending], Protein S Activity [Pending], Anti-Thrombin III Antigen [Pending], Factor V Mutation [Pending], C-Reactive Protein, Quantitative 9.8H, Triglycerides Level 389H, Cholesterol Level 228H, LDL Cholesterol 133H, HDL Cholesterol 35L, Cholesterol/HDL Ratio 6.5H, Phospholipids Level [Pending], Anti-Nuclear Antibody Screen [Pending] Current Medications Medications (Trade) Dose Ordered Sig/Lita Route PRN Reason Start Time Stop Time Status Last Admin Dose Admin Acetaminophen (Tylenol) 650 mg Q4H PRN ORAL Mild Pain/Temp > 100.5 04/25/17 12:00 05/24/17 11:59 04/29/17 09:32 Al Hydroxide/Mg Hydroxide (Mylanta II) 30 ml Q6H PRN ORAL dyspepsia 04/25/17 12:00 05/23/17 11:59 Carvedilol (Coreg) 25 mg EVERY 12 HOURS ORAL 04/26/17 09:00 05/26/17 08:59 04/29/17 09:31 Clonidine HCl (Catapres) 0.1 mg Q4H PRN ORAL SBP > 160 mmHg 04/25/17 11:15 05/23/17 15:14 Clopidogrel Bisulfate (Plavix) 75 mg DAILY ORAL 04/26/17 09:00 05/24/17 13:59 04/29/17 09:31 Dextrose (Dextrose 50%) STAT PRN IV Hypoglycemia 04/25/17 12:00 05/24/17 11:59 Diphenhydramine HCl (Benadryl) 25 mg Q6H PRN IVP Itching 04/27/17 10:30 05/27/17 10:29 Dorzolamide/ Timolol (Cosopt) 1 drop TWICE A DAY BOTH EYES 04/26/17 22:00 05/26/17 21:59 04/29/17 09:29 Glipizide (Glucotrol) 5 mg TWICE A DAY ORAL 04/27/17 09:00 05/27/17 08:59 04/29/17 09:31 Heparin Sodium (Porcine) (Heparin 5000 units/ml) 5,000 units EVERY 12 HOURS SUBQ 04/25/17 21:00 05/23/17 21:59 04/29/17 09:45 Insulin Aspart (NovoLOG) BEFORE MEALS AND HS SUBQ 04/25/17 12:00 05/24/17 11:59 04/29/17 12:47 Lorazepam (Ativan 2mg/ml 1ml) 0.5 mg Q4H PRN IV For Anxiety 04/25/17 11:30 04/30/17 15:29 Mirtazapine (Remeron) 7.5 mg BEDTIME ORAL 04/27/17 21:00 05/27/17 20:59 04/28/17 20:46 Morphine Sulfate (Morphine Sulfate) 4 mg Q4H PRN IVP Severe Pain (Pain Scale 7-10) 04/27/17 10:00 05/04/17 09:59 Nitroglycerin (Ntg) 0.4 mg Q5M X 3 DOSES PRN SL Prn Chest Pain 04/25/17 11:00 05/23/17 15:29 Ondansetron HCl (Zofran) 4 mg Q6H PRN IVP Nausea & Vomiting 04/25/17 11:30 05/23/17 11:29 Polyethylene Glycol (Miralax) 17 gm DAILYPRN PRN ORAL Constipation 04/27/17 17:45 05/25/17 20:59 04/27/17 17:34 Temazepam (Restoril) 15 mg HSPRN PRN ORAL Insomnia 04/25/17 21:00 04/30/17 20:59 RHEA FRANK Apr 29, 2017 15:48
--- NOTE | 2017-04-29 17:14 | Cardiology Progress Note ---
Assessment/Plan Assessment/Plan 1. Multiple falls. 2. 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 3. Diabetes mellitus. 4. Hypertension. 5. Anemia. 6. Renal insufficiency. 7. aortic atheroma out pt med included plavix supposedly allergic to lipitor and triplex adn niacin !! krystyna did nto show any cardiac sourse of embolism and not righ tto left shunt , but did show atherom in the proximal descengin aorta possible multiple cva arterial to arterial embolism form atheroma of aorta trop all neg rib series neg likley need statin and antiplt per neurology pending sng transfer Subjective Cardiovascular: Reports: chest pain Respiratory: Denies: shortness of breath Gastrointestinal/Abdominal: Denies: abdominal pain Objective Last 24 Hour Vital Signs Date Time Temp Pulse Resp B/P (MAP) Pulse Ox O2 Delivery O2 Flow Rate FiO2 04/29/17 16:00 80 04/29/17 09:31 83 150/60 04/29/17 08:00 92.5 83 18 150/60 Room Air 04/29/17 04:00 98.0 74 20 140/64 93 04/29/17 03:42 73 04/29/17 00:00 98.0 77 20 139/65 98 Room Air 04/28/17 23:52 76 04/28/17 20:47 88 136/61 04/28/17 20:00 98.2 87 20 136/61 94 Room Air 04/28/17 19:56 86 General Appearance: alert Neck: supple Cardiovascular: regular rhythm Respiratory/Chest: lungs clear Abdomen: normal bowel sounds, non tender, soft Extremities: no swelling Laboratory Tests Test 04/29/17 05:30 04/29/17 14:25 White Blood Count 11.3 K/UL (4.8-10.8) H Red Blood Count 3.44 M/UL (4.20-5.40) L Hemoglobin 10.9 G/DL (12.0-16.0) L Hematocrit 32.3 % (37.0-47.0) L Mean Corpuscular Volume 94 FL (80-99) Mean Corpuscular Hemoglobin 31.7 PG (27.0-31.0) H Mean Corpuscular Hemoglobin Concent 33.7 G/DL (32.0-36.0) Red Cell Distribution Width 12.4 % (11.6-14.8) Platelet Count 331 K/UL (150-450) Mean Platelet Volume 7.3 FL (6.5-10.1) Neutrophils (%) (Auto) 65.9 % (45.0-75.0) Lymphocytes (%) (Auto) 18.9 % (20.0-45.0) L Monocytes (%) (Auto) 10.6 % (1.0-10.0) H Eosinophils (%) (Auto) 3.1 % (0.0-3.0) H Basophils (%) (Auto) 1.6 % (0.0-2.0) Sodium Level 137 MMOL/L (136-145) Potassium Level 4.7 MMOL/L (3.5-5.1) Chloride Level 101 MMOL/L (98-107) Carbon Dioxide Level 25 MMOL/L (21-32) Anion Gap 11 mmol/L (5-15) Blood Urea Nitrogen 33 mg/dL (7-18) H Creatinine 1.9 MG/DL (0.55-1.30) H Estimat Glomerular Filtration Rate mL/min (>60) Glucose Level 252 MG/DL (74-106) H Calcium Level 9.3 MG/DL (8.5-10.1) Protein C Activity Pending Protein S Activity Pending Anti-Thrombin III Antigen Pending Factor V Mutation Pending C-Reactive Protein, Quantitative 9.8 mg/dL (0.00-0.90) H Triglycerides Level 389 MG/DL (0-200) H Cholesterol Level 228 MG/DL (< 200) H LDL Cholesterol 133 mg/dL (<100) H HDL Cholesterol 35 MG/DL (40-60) L Cholesterol/HDL Ratio 6.5 (3.3-4.4) H Phospholipids Level Pending Anti-Nuclear Antibody Screen Pending ANURADHA KNAPP Apr 29, 2017 17:14
[2017-04-29 18:45] VITALS: BP 133/50
[2017-04-29] MEDS ORDERED: Lactulose 10gm/15ml UDC ORAL PRN (19:15)
--- NOTE | 2017-04-30 18:28 | General Progress Note ---
Assessment/Plan Status: stable Assessment/Plan mdd noncompliance cont current meds cont to encourage her to take meds Subjective Date patient seen: Apr 29, 2017 Neurologic/Psychiatric: Reports: anxiety, depressed, emotional problems Allergies: Coded Allergies: ASPIRIN (Verified Allergy, Unknown, 04/25/17) ATORVASTATIN (Verified Allergy, Unknown, 04/26/17) CHOLINE FENOFIBRATE (Verified Allergy, Unknown, 04/26/17) DULOXETINE (Verified Allergy, Unknown, 04/26/17) GABAPENTIN (Verified Allergy, Unknown, 04/26/17) NIACIN (Verified Allergy, Unknown, 04/26/17) OXYCODONE (Verified Allergy, Unknown, 04/26/17) PENICILLINS (Verified Allergy, Unknown, 04/25/17) PROMETHAZINE (Verified Allergy, Unknown, 04/26/17) ROSIGLITAZONE (Verified Allergy, Unknown, 04/26/17) TRAMADOL (Verified Allergy, Unknown, 04/26/17) Subjective the pt refuses insulin at times. she is alert and oriented but is illogical Objective Last 24 Hour Vital Signs Date Time Temp Pulse Resp B/P (MAP) Pulse Ox O2 Delivery O2 Flow Rate FiO2 04/29/17 19:14 92.5 19 Room Air 04/29/17 18:45 98.2 84 20 133/50 98 Room Air Height (Feet): 5 Height (Inches): 2.00 Weight (Pounds): 137 General Appearance: no apparent distress, alert Neurologic: alert, oriented x 3, responsive, depressed affect Chalino Hogue M.D. Apr 30, 2017 18:28
--- NOTE | 2017-05-01 17:07 | Discharge Summary ---
Discharge Summary Hospital Course Date of Admission Apr 23, 2017 at 19:23 Date of Discharge Apr 29, 2017 at 20:50 Admitting Diagnosis falls failure to thrieve HPI Olga Reyes is a 81 year old female who was admitted on Apr 23, 2017 at 19: 23 for Falss,Failure To Thrive Hospital Course [id number] Discharge Discharge Disposition Patient was discharged to SNF/Subacute Facility(03) Discharge Diagnoses: Ingris Olguin NP May 01, 2017 17:07
--- NOTE | 2017-05-01 17:07 | Discharge Summary ---
Discharge Summary Hospital Course Date of Admission Apr 23, 2017 at 19:23 Date of Discharge Apr 29, 2017 at 20:50 Admitting Diagnosis falls failure to thrieve HPI Olga Reyes is a 81 year old female who was admitted on Apr 23, 2017 at 19: 23 for Falss,Failure To Thrive Hospital Course [id number] Discharge Discharge Disposition Patient was discharged to SNF/Subacute Facility(03) Discharge Diagnoses: Ingris Olguin NP May 01, 2017 17:07
--- NOTE | 2017-05-01 17:07 | Discharge Summary ---
Discharge Summary Hospital Course Date of Admission Apr 23, 2017 at 19:23 Date of Discharge Apr 29, 2017 at 20:50 Admitting Diagnosis falls failure to thrieve HPI Olga Reyes is a 81 year old female who was admitted on Apr 23, 2017 at 19: 23 for Falss,Failure To Thrive Hospital Course [id number] Discharge Discharge Disposition Patient was discharged to SNF/Subacute Facility(03) Discharge Diagnoses: Ingris Olguin NP May 01, 2017 17:07
--- NOTE | 2017-05-02 00:15 | Discharge Summary 2 SIG ---
DATE OF ADMISSION: 04/23/2017 DATE OF DISCHARGE: 04/29/2017 ATTENDING PHYSICIAN: Ben Barrios M.D. CONSULTANTS: 1. Radha Ayon M.D. 2. Hector Mills M.D. 3. Vishal Enriquez M.D. 4. Chalino Hogue M.D. BRIEF HOSPITAL COURSE: The patient is a 81-year-old female, who came from home, presented to ED complaining of generalized weakness. She has medical history significant for coronary artery disease, hypertension, diabetes mellitus, and reported had not been eating or sleeping. She was having recurrent falls secondary to generalized weakness and was unable to ambulate. She reported dizziness with walking and recently hit her head and had a contusion at the back of the head. She denied any chest pain, shortness of breath, or palpitations. 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 She was slightly anemic. Creatinine was elevated to 2.0. She was admitted to a monitored bed and was started on aspirin and Plavix. She underwent neurologic evaluation. Carotid duplex showed 20% to 30% stenosis in the common carotid, 10% in the internal carotid and external carotid on the right, 30% to 40% in the common carotid on the left side, and 10% internal as well as external carotid arteries. Echocardiogram showed ejection fraction 60% to 65%, there was no significant valvular regurgitation and EKG was in normal sinus rhythm with normal QRS axis, no ST to T-wave abnormalities. MRI of the brain showed multiple small acute infarcts bilaterally, largest in the right basal ganglia and garrett radiata suggesting multiple emboli of cardiogenic origin, there was no intracranial bleed or mass effect noted. Cardiac evaluation was done. The patient is allergic to multiple medications including aspirin, codeine, Lipitor, Trilipix, and niacin. On 04/28/2017, she underwent transesophageal echocardiogram with color flow and saline bubble study. Findings showed no evidence for NASIR thrombus, although there was an atheroma in the descending thoracic aorta, possible source could be arterial to arterial embolism from atheroma of the aorta. Troponin had been negative and rib series was negative for fractures or acute bony trauma. She was given physical therapy and was eventually discharged to [facility]. FINAL DIAGNOSES: 1. Acute ischemic disseminated stroke. 2. Aortic atheroma. 3. Coronary artery disease. 4. Hypertension. 5. Diabetes mellitus, poor control. 6. Major depressive disorder. 7. Multiple falls. 8. Anemia. 9. Hypertension. 10. Acute cerebrovascular accident with left hemiparesis. 11. Dysphagia. DISPOSITION: The patient was discharged to [facility]. DISCHARGE MEDICATIONS: Continue with aspirin and Plavix. Radha Ayon M.D. I have been assigned to dictate discharge summary on this account and I was not involved in the patient's management. Ingris Olguin N.P. DR: Domitila JOB#: [id number] CC: MELVIN
== END 2017-04-29 20:50 | DRG 64 ==
LOC: EDBD 16:17 → EMR 16:50 → 4W 19:23 → EDBEDREQ 20:20 → 2W 04-24 14:33 → 2E 04-25 11:05 → SDSOVERFLO 04-29 10:49 → 2E 04-29 10:52
PROC: B24BZZ4 Ultrasonography of Heart with Aorta, Transesophageal (ICD-10-PCS; principal; 2017-04-28 12:45)
DX: I63.411 Cerebral infarction due to embolism of right middle cerebral artery (principal); N17.0 Acute kidney failure with tubular necrosis; E11.65 Type 2 diabetes mellitus with hyperglycemia; I10 Essential (primary) hypertension; D64.9 Anemia, unspecified; S00.03XA Contusion of scalp, initial encounter; G81.94 Hemiplegia, unspecified affecting left nondominant side; I25.10 Atherosclerotic heart disease of native coronary artery without angina pectoris; R42 Dizziness and giddiness; Z88.6 Allergy status to analgesic agent; Z88.8 Allergy status to other drugs, medicaments and biological substances; I70.0 Atherosclerosis of aorta; R13.10 Dysphagia, unspecified; V89.9XXA Person injured in unspecified vehicle accident, initial encounter; Y92.89 Other specified places as the place of occurrence of the external cause; Z79.84 Long term (current) use of oral hypoglycemic drugs; E86.0 Dehydration; Z86.73 Personal history of transient ischemic attack (TIA), and cerebral infarction without residual deficits; Z91.81 History of falling; F32.9 Major depressive disorder, single episode, unspecified; Z96.653 Presence of artificial knee joint, bilateral; R51 Headache; Z91.14 Patient's other noncompliance with medication regimen
CPT/HCPCS: 36415; 70450; 70551; 71010; 76775; 80048; 80053; 80061; 81001; 81003; 81241; 82550; 82553; 82607; 82728; 82746; 82747; 82962; 83036; 83540; 83550; 83615; 83690; 83735; 83880; 84100; 84133; 84300; 84311; 84443; 84484; 84550; 85007; 85025; 85044; 85060; 85301; 85303; 85306; 85610; 85651; 85730; 86039; 86140; 89050; 93005; 93306; 93312; 93880; 94003; 94150; 94664; 99285; J1815; J2250

== ENCOUNTER 2018-08-18 20:14 | Inpatient (IN) | payer MEDICARE, MEDICAID ==
[~2018-08-18] VITALS: Ht 157.5 cm; Wt 53.3 kg
[~2018-08-18 20:14] MED LIST: AMLODIPINE BESYL5 MG ORAL; BRIMONIDINE TART5 ML BOTH EYES; CARVEDILOL25 MG ORAL; CETIRIZINE HCL10 MG PO; CLOPIDOGREL75 MG ORAL; COSOPT1 DRO2 BOTH EYES; GLIMEPIRIDE4 MG ORAL; METFORMIN HCL1000 M1 ORAL; METFORMIN HCL500 M1 ORAL; UNOBMED
[2018-08-18 20:15] VITALS: BP 104/69
--- NOTE | 2018-08-18 20:21 | NUR ---
ED Nurse Note: RA29 BROUGHT PT TO ED PT ON 6L ALBUTEROL TREATMENT O2 96% DIFFUCULTY BREATHING PER SON, FOUND MOM AT HOME.
[2018-08-18 21:10] LABS: BASOPHILS % (AUTO) 1.5 % (0.0-2.0); EOSINOPHILS % (AUTO) 1.3 % (0.0-3.0); HEMATOCRIT 31.7 % (37.0-47.0); HEMOGLOBIN 10.6 G/DL (12.0-16.0); LYMPHOCYTES % (AUTO) 13.9 % (20.0-45.0); MEAN CORPUSCULAR VOLUME 87 FL (80-99); MONOCYTES % (AUTO) 7.8 % (1.0-10.0); NEUTROPHILS % (AUTO) 75.6 % (45.0-75.0); PLATELET COUNT 339 K/UL (150-450); RED BLOOD COUNT 3.65 M/UL (4.20-5.40); RED CELL DISTRIBUTION WIDTH 11.6 % (11.6-14.8); WHITE BLOOD COUNT 14.5 K/UL (4.8-10.8)
[2018-08-18 21:42] LABS: ANION GAP 12 mmol/L (5-15); BLOOD UREA NITROGEN 31 mg/dL (7-18); CALCIUM 8.5 MG/DL (8.5-10.1); CARBON DIOXIDE 24 MMOL/L (21-32); CHLORIDE 98 MMOL/L (98-107); POTASSIUM 4.6 MMOL/L (3.5-5.1); SODIUM 134 MMOL/L (136-145)
[2018-08-18 21:55] LABS: APPEARANCE,URINE CLEAR; BILIRUBIN, URINE NEGATIVE (NEGATIVE); COLOR,URINE PALE YELLOW; GLUCOSE, URINE (UA) 2+ (NEGATIVE); KETONES,URINE 1+ (NEGATIVE); LEUKOCYTE ESTERASE ,URINE 2+ (NEGATIVE); NITRITE,URINE NEGATIVE (NEGATIVE); PH,URINE 5 (4.5-8.0); PROTEIN,URINE 3+ (NEGATIVE); UROBILINOGEN,URINE NORMAL MG/DL (0.0-1.0)
[2018-08-18 22:09] LABS: ALANINE AMINOTRANSFERASE 14 U/L (12-78); ALBUMIN 3.1 G/DL (3.4-5.0); ALBUMIN/GLOBULIN RATIO 0.7 (1.0-2.7); ALKALINE PHOSPHATASE 96 U/L (46-116); ASPARTATE AMINO TRANSFERASE 18 U/L (15-37); BILIRUBIN,TOTAL 0.3 MG/DL (0.2-1.0); CKMB 2.4 NG/ML (0.0-3.6); CREATINE KINASE 97 U/L (26-308); PHOSPHORUS 4.1 MG/DL (2.5-4.9)
--- NOTE | 2018-08-18 22:13 | NUR ---
ED Nurse Note: RUTH ALFORD [phone]
[2018-08-18] MEDS ORDERED: Miralax 17gm pkt ORAL PRN (22:30)
[2018-08-18] MEDS ORDERED: Heparin 25,000u/D5W 500ml 500 ML IV SCH (22:30)
[2018-08-18] MEDS ORDERED: Enalaprilat 2.5mg/2ml Inj IV PRN (22:30)
[2018-08-18] MEDS ORDERED: dilTIAZem HCl 25mg/5ml Inj IV PRN (22:30)
[2018-08-18] MEDS ORDERED: Albuterol/Ipratropium 3ml neb HHN PRN (22:30)
[2018-08-18] MEDS ORDERED: Nitroglycerin Subl 0.4mg tab SL PRN (22:30)
[2018-08-18 22:46] VITALS: BP 126/58
--- NOTE | 2018-08-18 22:47 | Emergency Room Report ---
History of Present Illness General Chief Complaint: Dyspnea/Respdistress Present Illness HPI Patient is a 82-year-old female brought in by EMS after increased difficulty breathing. Patient was noted to have prior history of diabetes as well as arthritis. Patient was noted to have previously been admitted to this hospital for discomfort. Patient had been started on supplemental oxygen and given breathing treatments by EMS. Patient was noted to have increased wheezing. Patient was noted to have no fever. She reported having some issues with chronic back pain due to prior falls. Patient denies any prior history of cardiac disease or lung disease. Allergies: Coded Allergies: ASPIRIN (Verified Allergy, Unknown, 04/25/17) ATORVASTATIN (Verified Allergy, Unknown, 04/26/17) CHOLINE FENOFIBRATE (Verified Allergy, Unknown, 04/26/17) DULOXETINE (Verified Allergy, Unknown, 04/26/17) GABAPENTIN (Verified Allergy, Unknown, 04/26/17) NIACIN (Verified Allergy, Unknown, 04/26/17) OXYCODONE (Verified Allergy, Unknown, 04/26/17) PENICILLINS (Verified Allergy, Unknown, 04/25/17) PROMETHAZINE (Verified Allergy, Unknown, 04/26/17) ROSIGLITAZONE (Verified Allergy, Unknown, 04/26/17) TRAMADOL (Verified Allergy, Unknown, 04/26/17) Patient History Past Medical History: see triage record Last Menstrual Period: ANAM Now: No Reviewed Nursing Documentation: PMH: Agreed; PSxH: Agreed Nursing Documentation-PMH Hx Cardiac Problems: Yes Hx Hypertension: Yes Hx Diabetes: Yes Hx Gastrointestinal Problems: No Hx Cerebrovascular Accident: Yes - 01/2018 Hx Headaches: Yes Hx Weakness: Yes Review of Systems All Other Systems: negative except mentioned in HPI Physical Exam Vital Signs Date Time Temp Pulse Resp B/P (MAP) Pulse Ox O2 Delivery O2 Flow Rate FiO2 08/18/18 20:14 101 26 104/69 89 Non-Rebreather 15.0 08/18/18 20:47 100 Sp02 EP Interpretation: reviewed, normal General Appearance: normal inspection, alert, moderate distress, Chronically Ill Head: atraumatic ENT: normal ENT inspection, hearing grossly normal, normal voice Neck: normal inspection, supple, no bony tend, limited range of motion Respiratory: normal inspection, no retraction, wheezing Cardiovascular #1: regular rate, rhythm, no edema Gastrointestinal: normal inspection, normal bowel sounds, non tender, soft, no guarding, no hernia Genitourinary: no CVA tenderness Musculoskeletal: normal inspection, back normal, normal range of motion Neurologic: normal inspection, alert, oriented x3, responsive, 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 Total critical care time excluding procedures approximately 45 minutes. Medical Decision Making Diagnostic Impression: Primary Impression: Acute respiratory failure Additional Impression: Non-ST elevated myocardial infarction ER Course . Patient presented for shortness of breath. Differential included but was not limited to anemia, pneumonia, pneumothorax, myocardial infarction, pericardial effusion, congestive heart failure, acidosis. Because of complexity of patient's case laboratory testing and imaging studies were ordered. Patient noted to have initially severe respiratory distress. She was started on BiPAP. She was given breathing treatments. Patient is noted to be allergic to aspirin. Patient was noted to have EKG interpreted by me with normal sinus rhythm with diffuse ST depression. Patient's initial troponin was noted to be elevated. Patient was given clopidogrel as well as heparin after discussion with cardiology. Patient was also given IV Lasix. Patient was noted to have some improvement in her respiratory status. Dr. Vishal Enriquez was contacted for cardiology consult. Dr. Ben Barrios was contacted for inpatient management due to prior admission Labs Test 08/18/18 20:30 08/18/18 20:33 08/18/18 21:35 08/18/18 22:22 White Blood Count 14.5 K/UL (4.8-10.8) Red Blood Count 3.65 M/UL (4.20-5.40) Hemoglobin 10.6 G/DL (12.0-16.0) Hematocrit 31.7 % (37.0-47.0) Mean Corpuscular Volume 87 FL (80-99) Mean Corpuscular Hemoglobin 29.1 PG (27.0-31.0) Mean Corpuscular Hemoglobin Concent 33.4 G/DL (32.0-36.0) Red Cell Distribution Width 11.6 % (11.6-14.8) Platelet Count 339 K/UL (150-450) Mean Platelet Volume 6.7 FL (6.5-10.1) Neutrophils (%) (Auto) 75.6 % (45.0-75.0) Lymphocytes (%) (Auto) 13.9 % (20.0-45.0) Monocytes (%) (Auto) 7.8 % (1.0-10.0) Eosinophils (%) (Auto) 1.3 % (0.0-3.0) Basophils (%) (Auto) 1.5 % (0.0-2.0) Sodium Level 134 MMOL/L (136-145) Potassium Level 4.6 MMOL/L (3.5-5.1) Chloride Level 98 MMOL/L (98-107) Carbon Dioxide Level 24 MMOL/L (21-32) Anion Gap 12 mmol/L (5-15) Blood Urea Nitrogen 31 mg/dL (7-18) Creatinine 2.0 MG/DL (0.55-1.30) Estimat Glomerular Filtration Rate mL/min (>60) Glucose Level 313 MG/DL (74-106) Calcium Level 8.5 MG/DL (8.5-10.1) Phosphorus Level 4.1 MG/DL (2.5-4.9) Magnesium Level 1.6 MG/DL (1.8-2.4) Total Bilirubin 0.3 MG/DL (0.2-1.0) Aspartate Amino Transf (AST/SGOT) 18 U/L (15-37) Alanine Aminotransferase (ALT/SGPT) 14 U/L (12-78) Alkaline Phosphatase 96 U/L (46-116) Total Creatine Kinase 97 U/L (26-308) Creatine Kinase MB 2.4 NG/ML (0.0-3.6) Creatine Kinase MB Relative Index 2.4 Troponin I 2.241 ng/mL (0.000-0.056) Pro-B-Type Natriuretic Peptide 04267 pg/mL (0-125) Total Protein 7.6 G/DL (6.4-8.2) Albumin 3.1 G/DL (3.4-5.0) Globulin 4.5 g/dL Albumin/Globulin Ratio 0.7 (1.0-2.7) Arterial Blood pH 7.411 (7.350-7.450) Arterial Blood Partial Pressure CO2 37.3 mmHg (35.0-45.0) Arterial Blood Partial Pressure O2 428.9 mmHg (75.0-100.0) Arterial Blood HCO3 23.2 mmol/L (22.0-26.0) Arterial Blood Oxygen Saturation 99.0 % (95-100) Arterial Blood Base Excess -1.2 (-2-2) Darin Test Positive Urine Color Pale yellow Urine Appearance Clear Urine pH 5 (4.5-8.0) Urine Specific [place] 1.020 (1.005-1.035) Urine Protein 3+ (NEGATIVE) Urine Glucose (UA) 2+ (NEGATIVE) Urine Ketones 1+ (NEGATIVE) Urine Blood 1+ (NEGATIVE) Urine Nitrite Negative (NEGATIVE) Urine Bilirubin Negative (NEGATIVE) Urine Urobilinogen Normal MG/DL (0.0-1.0) Urine Leukocyte Esterase 2+ (NEGATIVE) Urine RBC 2-4 /HPF (0 - 2) Urine WBC 5-10 /HPF (0 - 2) Urine Squamous Epithelial Cells Few /LPF (NONE/OCC) Urine Bacteria Moderate /HPF (NONE) EKG Diagnostic Results Rate: normal Rhythm: NSR ST Segments: other - diffuse st depression Last Vital Signs Date Time Temp Pulse Resp B/P (MAP) Pulse Ox O2 Delivery O2 Flow Rate FiO2 08/18/18 20:47 80 24 98 Facial 100 08/18/18 20:15 104/69 15.0 Status: improved Disposition: ADMITTED INPATIENT Condition: Serious Referrals: NOT CHOSEN IPA/,REFERRING (PCP) Hiram Hawkins MD Aug 18, 2018 22:47
[2018-08-18] MEDS ORDERED: Heparin 5000 units/ml inj IV ONE (23:15)
--- NOTE | 2018-08-18 23:32 | NUR ---
ED Nurse Note: TELEPHONE REPORT GIVEN TO BRIE DURAN
--- NOTE | 2018-08-18 23:40 | NUR ---
ED Nurse Note: PT TRANSFERRED WITH RT GOMEZ PATRICIA RN AND HU RN PT ON VALUE STREAM COACH, PT IS AOX4, VSS AT THE MOMENT, ON ROOM AIR SKIN INTACT. ALL BELONINGS ARE WITH PT.
[2018-08-19 00:05] VITALS: BP 127/61
--- NOTE | 2018-08-19 00:05 | NUR ---
NURSE NOTES: Report received from BRIE Arnett. Pt A/Ox4. trailer body assembler shows SR. Pt currently on 2L NC. O2 saturation @ 99%. Tolerating settings well. Shows no signs of acute distress. Pt has a LAC20g with heparin drip running at 12 u/kg/hr. Bed in lowest position, bed alarms placed. Call light within reach. Will continue to monitor and with patients plan of care.
--- NOTE | 2018-08-19 02:00 | NUR ---
NURSE NOTES: Pt resting comfortably. All needs have been met. Pt able to reposition self. VSS. Will continue to monitor.
[2018-08-19 04:00] VITALS: BP 147/64
--- NOTE | 2018-08-19 04:00 | NUR ---
NURSE NOTES: Pt changed and cleaned. Now resting comfortably. Showing no signs of acute distress. VSS. Will continue to monitor.
[2018-08-19 05:48] LABS: BASOPHILS % (AUTO) 0.7 % (0.0-2.0); EOSINOPHILS % (AUTO) 0.4 % (0.0-3.0); HEMATOCRIT 27.2 % (37.0-47.0); HEMOGLOBIN 9.1 G/DL (12.0-16.0); LYMPHOCYTES % (AUTO) 13.6 % (20.0-45.0); MEAN CORPUSCULAR VOLUME 86 FL (80-99); NEUTROPHILS % (AUTO) 77.2 % (45.0-75.0); PLATELET COUNT 292 K/UL (150-450); RED BLOOD COUNT 3.14 M/UL (4.20-5.40); RED CELL DISTRIBUTION WIDTH 11.4 % (11.6-14.8); WHITE BLOOD COUNT 11.3 K/UL (4.8-10.8)
[2018-08-19] MEDS ORDERED: Heparin 5000 units/ml inj SUBQ SCH (06:00)
[2018-08-19] MEDS: NovoLOG Insulin Flexpen SUBQ SCH ×4 (06:24→20:31)
[2018-08-19 06:47] LABS: INR 1.1 (0.9-1.1)
[2018-08-19] MEDS ORDERED: Heparin 25,000u/D5W 500ml 500 ML IV SCH ×3 (06:48→14:15)
[2018-08-19 06:57] LABS: CHOLESTEROL 110 MG/DL (< 200); HDL CHOLESTEROL 47 MG/DL (40-60); TRIGLYCERIDES 90 MG/DL (30-150)
--- NOTE | 2018-08-19 07:15 | NUR ---
CASE MANAGEMENT:REVIEW 82 YR OLD FEMALE BIBA FROM HOME CC: SOB. SAT 80% ON RA AT SCENE SI: RESPIRATORY DISTRESS 98.7 101 26 104/69 89% ON 15L/40% NON REBREATHER WBC+14.5 BUN+31 CR+2.0 GLUCOSE+313 MAG-1.6 IS: ALBUTEROL HHN X1 E M ASSEMBLER IV LASIX X1 PLAVIX X1 HEPARIN GTT PLACED ON BIPAP URINE CX BLOOD CX CXR : TO ICU INTERQUAL CRITERIA MET
--- NOTE | 2018-08-19 07:16 | NUR ---
NURSE NOTES: RECEIVED REPORT FROM Maura PINA RN. PATIENT IS LYING IN BED, RESPONSIVE. MALAGASY SPEAKING. HOOKED TO BOXING INSPECTOR. ON 2L NC. NO SIGNS OF DISTRESS. DENIES ANY PAIN OF THE MOMENT. IV ON L HAND G20 WITH HEPARIN DRIP AT 10"U"/KG/HR FOLLOWING HOSPITAL PROTOCOL ON HEPARIN DRIP. CALL LIGHT WITHIN REACH. BED AT LOWEST POSITION. SIDE RAILS UP. WILL CONTINUE TO MONITOR.
[2018-08-19 08:00] VITALS: BP 123/68
[2018-08-19] MEDS ORDERED: Carvedilol 25mg Tab ORAL SCH (09:00)
[2018-08-19 09:05] LABS: ALANINE AMINOTRANSFERASE 11 U/L (12-78); ALBUMIN 2.9 G/DL (3.4-5.0); ALBUMIN/GLOBULIN RATIO 0.7 (1.0-2.7); ALKALINE PHOSPHATASE 82 U/L (46-116); ANION GAP 15 mmol/L (5-15); ASPARTATE AMINO TRANSFERASE 21 U/L (15-37); BILIRUBIN,TOTAL 0.3 MG/DL (0.2-1.0); BLOOD UREA NITROGEN 30 mg/dL (7-18); CALCIUM 8.6 MG/DL (8.5-10.1); CARBON DIOXIDE 22 MMOL/L (21-32); CHLORIDE 99 MMOL/L (98-107); CREATININE 1.9 MG/DL (0.55-1.30); SODIUM 136 MMOL/L (136-145)
--- NOTE | 2018-08-19 09:45 | NUR ---
TRANSFER TO FLOOR: Patient transferred to [facility], per striker bed. Report given to Frida Jennings RN. Belongings and medications given to NOD. No signs of distress.
--- NOTE | 2018-08-19 11:56 | Diagnostic Imaging Report ---
Indication: Shortness of breath Technique: One view of the chest Comparison: 04/23/2017 Findings: Interim development of bilateral pulmonary interstitial edema, with peripheral curly B-lines noted. The heart size is upper limits of normal. No definite airspace consolidation. There is suggestion of small pleural effusions bilaterally. Impression: Bilateral interstitial edema. Suspect small bilateral pleural effusions well Findings discussed by phone with Dr. Ayon at the time of interpretation
--- NOTE | 2018-08-19 11:58 | Consultation ---
History of Present Illness General Date patient seen: Aug 19, 2018 Chief Complaint: Dyspnea/Respdistress Present Illness HPI 82 year old female with PMH of CAD, HTN, DM presented to ED with CC of shortness of breath and wheezing. She received respiratory treatment from paramedics and felt better. Initial CXR in ER showed mild pulmonary edema. Her troponin was increased to 2 as well. She received IV lasix and was started on heparin drip and transferred to [facility]. Allergies: Coded Allergies: ASPIRIN (Verified Allergy, Unknown, 04/25/17) ATORVASTATIN (Verified Allergy, Unknown, 04/26/17) CHOLINE FENOFIBRATE (Verified Allergy, Unknown, 04/26/17) DULOXETINE (Verified Allergy, Unknown, 04/26/17) GABAPENTIN (Verified Allergy, Unknown, 04/26/17) NIACIN (Verified Allergy, Unknown, 04/26/17) OXYCODONE (Verified Allergy, Unknown, 04/26/17) PENICILLINS (Verified Allergy, Unknown, 04/25/17) PROMETHAZINE (Verified Allergy, Unknown, 04/26/17) ROSIGLITAZONE (Verified Allergy, Unknown, 04/26/17) TRAMADOL (Verified Allergy, Unknown, 04/26/17) Medication History Scheduled Amlodipine Besylate* (Amlodipine Besylate*), 5 MG ORAL BID, (Reported) Brimonidine Tartrate* (Alphagan*), 1 DROP BOTH EYES TID, (Reported) Carvedilol* (Carvedilol*), 25 MG ORAL EVERY 12 HOURS, (Reported) Cetirizine Hcl (Cetirizine Hcl), 100 MG PO DAILY, (Reported) Clopidogrel* (Clopidogrel*), 75 MG ORAL DAILY, (Reported) Dorzolamide HCl/Timolol Maleat (Dorzolamide-Timolol Eye Drops), 1 DROP BOTH EYES BID, (Reported) Glimepiride* (Glimepiride*), 2 MG ORAL BID, (Reported) Metformin Hcl* (Metformin Hcl*), 500 MG ORAL TWICE A DAY, (Reported) Metformin Hcl* (Metformin Hcl*), 1,000 MG ORAL BID, (Reported) Miscellaneous Medications Unable to Obtain Medications (Unable To Obtain Meds), (Reported) Patient History Healthcare decision maker Resuscitation status Advanced Directive on File Past Medical/Surgical History Past Medical/Surgical History: (1) Non-ST elevated myocardial infarction (2) ATN (acute tubular necrosis) (3) HTN (hypertension) (4) CAD (coronary artery disease) (5) Diabetes mellitus Review of Systems All Other Systems: negative except mentioned in HPI Physical Exam General Appearance: WD/WN Lines, tubes and drains: peripheral HEENT: normocephalic, atraumatic Neck: non-tender, normal alignment Respiratory/Chest: chest wall non-tender, lungs clear Cardiovascular/Chest: normal peripheral pulses, normal rate Abdomen: normal bowel sounds Genitourinary/Rectal: normal genital exam Extremities: normal range of motion Last 24 Hour Vital Signs Date Time Temp Pulse Resp B/P (MAP) Pulse Ox O2 Delivery O2 Flow Rate FiO2 08/19/18 08:36 83 123/68 08/19/18 08:36 83 123/68 08/19/18 08:00 98.0 77 18 123/68 (86) 100 08/19/18 08:00 81 08/19/18 08:00 Nasal Cannula 2.0 08/19/18 08:00 2.0 08/19/18 05:11 74 14 98 08/19/18 04:00 84 08/19/18 04:00 98.4 78 19 147/64 (91) 100 08/19/18 04:00 2.0 08/19/18 04:00 Nasal Cannula 2.0 08/19/18 02:19 71 12 100 08/19/18 00:28 Nasal Cannula 2.0 08/19/18 00:05 98.1 80 127/61 (83) 08/19/18 00:05 85 08/18/18 23:40 98.7 86 15 124/62 100 15.0 40 08/18/18 22:50 77 17 98 Facial 40 08/18/18 22:46 75 16 126/58 96 15.0 100 08/18/18 20:47 80 24 98 Facial 100 08/18/18 20:15 101 26 104/69 89 Non-Rebreather 15.0 08/18/18 20:15 101 26 Non-Rebreather 15.0 08/18/18 20:14 101 26 104/69 89 Non-Rebreather 15.0 Intake and Output 08/18/18 08/19/18 19:00 07:00 Intake Total 31.570 ml Output Total 0 ml Balance 31.570 ml Intake IV Total 31.570 ml Output Urine Total 0 ml # Voids 3 Laboratory Tests Test 08/18/18 20:30 08/18/18 20:33 08/18/18 21:35 08/18/18 22:22 White Blood Count 14.5 K/UL (4.8-10.8) H Red Blood Count 3.65 M/UL (4.20-5.40) L Hemoglobin 10.6 G/DL (12.0-16.0) L Hematocrit 31.7 % (37.0-47.0) L Mean Corpuscular Volume 87 FL (80-99) Mean Corpuscular Hemoglobin 29.1 PG (27.0-31.0) Mean Corpuscular Hemoglobin Concent 33.4 G/DL (32.0-36.0) Red Cell Distribution Width 11.6 % (11.6-14.8) Platelet Count 339 K/UL (150-450) Mean Platelet Volume 6.7 FL (6.5-10.1) Neutrophils (%) (Auto) 75.6 % (45.0-75.0) H Lymphocytes (%) (Auto) 13.9 % (20.0-45.0) L Monocytes (%) (Auto) 7.8 % (1.0-10.0) Eosinophils (%) (Auto) 1.3 % (0.0-3.0) Basophils (%) (Auto) 1.5 % (0.0-2.0) Sodium Level 134 MMOL/L (136-145) L Potassium Level 4.6 MMOL/L (3.5-5.1) Chloride Level 98 MMOL/L (98-107) Carbon Dioxide Level 24 MMOL/L (21-32) Anion Gap 12 mmol/L (5-15) Blood Urea Nitrogen 31 mg/dL (7-18) H Creatinine 2.0 MG/DL (0.55-1.30) H Estimat Glomerular Filtration Rate mL/min (>60) Glucose Level 313 MG/DL (74-106) H Lactic Acid Level 2.90 mmol/L (0.4-2.0) H 1.50 mmol/L (0.66-2.22) Calcium Level 8.5 MG/DL (8.5-10.1) Phosphorus Level 4.1 MG/DL (2.5-4.9) Magnesium Level 1.6 MG/DL (1.8-2.4) L Total Bilirubin 0.3 MG/DL (0.2-1.0) Aspartate Amino Transf (AST/SGOT) 18 U/L (15-37) Alanine Aminotransferase (ALT/SGPT) 14 U/L (12-78) Alkaline Phosphatase 96 U/L (46-116) Total Creatine Kinase 97 U/L (26-308) Creatine Kinase MB 2.4 NG/ML (0.0-3.6) Creatine Kinase MB Relative Index 2.4 Troponin I 2.241 ng/mL (0.000-0.056) Pro-B-Type Natriuretic Peptide 48112 pg/mL (0-125) H Total Protein 7.6 G/DL (6.4-8.2) Albumin 3.1 G/DL (3.4-5.0) L Globulin 4.5 g/dL Albumin/Globulin Ratio 0.7 (1.0-2.7) L Arterial Blood pH 7.411 (7.350-7.450) Arterial Blood Partial Pressure CO2 37.3 mmHg (35.0-45.0) Arterial Blood Partial Pressure O2 428.9 mmHg (75.0-100.0) H Arterial Blood HCO3 23.2 mmol/L (22.0-26.0) Arterial Blood Oxygen Saturation 99.0 % (95-100) Arterial Blood Base Excess -1.2 (-2-2) Darin Test Positive Urine Color Pale yellow Urine Appearance Clear Urine pH 5 (4.5-8.0) Urine Specific [place] 1.020 (1.005-1.035) Urine Protein 3+ (NEGATIVE) H Urine Glucose (UA) 2+ (NEGATIVE) H Urine Ketones 1+ (NEGATIVE) H Urine Blood 1+ (NEGATIVE) H Urine Nitrite Negative (NEGATIVE) Urine Bilirubin Negative (NEGATIVE) Urine Urobilinogen Normal MG/DL (0.0-1.0) Urine Leukocyte Esterase 2+ (NEGATIVE) H Urine RBC 2-4 /HPF (0 - 2) H Urine WBC 5-10 /HPF (0 - 2) H Urine Squamous Epithelial Cells Few /LPF (NONE/OCC) Urine Bacteria Moderate /HPF (NONE) H Test 08/19/18 04:30 White Blood Count 11.3 K/UL (4.8-10.8) H Red Blood Count 3.14 M/UL (4.20-5.40) L Hemoglobin 9.1 G/DL (12.0-16.0) L Hematocrit 27.2 % (37.0-47.0) L Mean Corpuscular Volume 86 FL (80-99) Mean Corpuscular Hemoglobin 29.0 PG (27.0-31.0) Mean Corpuscular Hemoglobin Concent 33.6 G/DL (32.0-36.0) Red Cell Distribution Width 11.4 % (11.6-14.8) L Platelet Count 292 K/UL (150-450) Mean Platelet Volume 7.2 FL (6.5-10.1) Neutrophils (%) (Auto) 77.2 % (45.0-75.0) H Lymphocytes (%) (Auto) 13.6 % (20.0-45.0) L Monocytes (%) (Auto) 8.0 % (1.0-10.0) Eosinophils (%) (Auto) 0.4 % (0.0-3.0) Basophils (%) (Auto) 0.7 % (0.0-2.0) Prothrombin Time 11.9 SEC (9.30-11.50) H Prothromb Time International Ratio 1.1 (0.9-1.1) Activated Partial Thromboplast Time 102 SEC (23-33) H Sodium Level 136 MMOL/L (136-145) Potassium Level 4.0 MMOL/L (3.5-5.1) Chloride Level 99 MMOL/L (98-107) Carbon Dioxide Level 22 MMOL/L (21-32) Anion Gap 15 mmol/L (5-15) Blood Urea Nitrogen 30 mg/dL (7-18) H Creatinine 1.9 MG/DL (0.55-1.30) H Estimat Glomerular Filtration Rate mL/min (>60) Glucose Level 181 MG/DL (74-106) #H Calcium Level 8.6 MG/DL (8.5-10.1) Magnesium Level 1.7 MG/DL (1.8-2.4) L Total Bilirubin 0.3 MG/DL (0.2-1.0) Aspartate Amino Transf (AST/SGOT) 21 U/L (15-37) Alanine Aminotransferase (ALT/SGPT) 11 U/L (12-78) L Alkaline Phosphatase 82 U/L (46-116) Troponin I 2.620 ng/mL (0.000-0.056) C-Reactive Protein, Quantitative 11.1 mg/dL (0.00-0.90) H Pro-B-Type Natriuretic Peptide 25447 pg/mL (0-125) H Total Protein 6.9 G/DL (6.4-8.2) Albumin 2.9 G/DL (3.4-5.0) L Globulin 4.0 g/dL Albumin/Globulin Ratio 0.7 (1.0-2.7) L Triglycerides Level 90 MG/DL (30-150) Cholesterol Level 110 MG/DL (< 200) LDL Cholesterol 53 mg/dL (<100) HDL Cholesterol 47 MG/DL (40-60) Cholesterol/HDL Ratio 2.3 (3.3-4.4) L Thyroid Stimulating Hormone (TSH) 3.085 uiU/mL (0.358-3.740) Microbiology Date/Time Source Procedure Growth Status 08/18/18 21:35 Urine,Clean Catch Urine Culture - Preliminary NO GROWTH Resulted Height (Feet): 5 Height (Inches): 2.00 Weight (Pounds): 117 Medications Current Medications Medications (Trade) Dose Ordered Sig/Lita Route PRN Reason Start Time Stop Time Status Last Admin Dose Admin Acetaminophen (Tylenol) 650 mg Q4H PRN ORAL FEVER 08/18/18 22:30 09/17/18 22:29 Albuterol/ Ipratropium (Albuterol/ Ipratropium) 3 ml Q4H PRN HHN Shortness of Breath 08/18/18 22:30 08/23/18 22:29 Carvedilol (Coreg) 25 mg EVERY 12 HOURS ORAL 08/19/18 09:00 09/18/18 08:59 08/19/18 08:36 Clopidogrel Bisulfate (Plavix) 75 mg DAILY ORAL 08/19/18 09:00 09/18/18 08:59 08/19/18 08:35 Dextrose (Dextrose 50%) 25 ml Q30M PRN IV Hypoglycemia 08/18/18 22:30 09/17/18 22:29 Diltiazem HCl (Cardizem) 10 mg Q1H PRN IV heart rate more than 120, 08/18/18 22:30 09/17/18 22:29 Enalaprilat (Vasotec) 2.5 mg Q6H PRN IV sbp more than 160 08/18/18 22:30 09/17/18 22:29 Heparin Sodium/ Dextrose 500 ml @ 10.659 mls/ hr ADJUST PER PROTOCOL IV 08/19/18 07:00 09/18/18 06:59 08/19/18 07:02 Insulin Aspart (NovoLOG) BEFORE MEALS AND HS SUBQ 08/19/18 06:30 09/18/18 06:29 Nitroglycerin (Ntg) 0.4 mg Q5M PRN SL Prn Chest Pain 08/18/18 22:30 09/17/18 22:29 Ondansetron HCl (Zofran) 4 mg Q6H PRN IVP Nausea & Vomiting 08/18/18 22:30 09/17/18 22:29 Pantoprazole (Protonix) 40 mg DAILY ORAL 08/19/18 09:00 09/18/18 08:59 08/19/18 08:35 Polyethylene Glycol (Miralax) 17 gm DAILYPRN PRN ORAL Constipation 08/18/18 22:30 09/17/18 22:29 Temazepam (Restoril) 15 mg HSPRN PRN ORAL Insomnia 08/18/18 22:30 08/25/18 22:29 Assessment/Plan Problem List: (1) Acute respiratory failure ICD Codes: J96.00 - Acute respiratory failure, unspecified whether with hypoxia or hypercapnia SNOMED: 91869765 (2) Non-ST elevated myocardial infarction ICD Codes: I21.4 - Non-ST elevation (NSTEMI) myocardial infarction SNOMED: 83797662 (3) CAD (coronary artery disease) ICD Codes: I25.10 - Atherosclerotic heart disease of [place] coronary artery without angina pectoris SNOMED: 09627519 (4) Anemia ICD Codes: D64.9 - Anemia, unspecified SNOMED: 833775996 (5) ATN (acute tubular necrosis) ICD Codes: N17.0 - Acute kidney failure with tubular necrosis SNOMED: 02565076 (6) HTN (hypertension) ICD Codes: I10 - Essential (primary) hypertension SNOMED: 13560441 (7) Diabetes mellitus ICD Codes: E11.9 - Type 2 diabetes mellitus without complications SNOMED: 90661973 Assessment/Plan respiratory treatment continue heparin drip cxr bnp in am anemia w/u renal w/u sliding scale diabetic diet echo cardiogram Levofloxacin b/o bacteruia and leukocytosis dvt prophylaxis. Radha Ayon MD Aug 19, 2018 11:58
[2018-08-19 12:00] VITALS: BP 100/63
--- NOTE | 2018-08-19 12:00 | NUR ---
NURSE NOTES: Dr. Ayon at nurse station, cancelled NM VQ Scan order. Noted. Will continue to monitor patient.
[2018-08-19 12:30] LABS: CREATINE KINASE 112 U/L (26-308)
[2018-08-19] MEDS ORDERED: Heparin 5000 units/ml inj IV SCH (14:09)
--- NOTE | 2018-08-19 14:22 | NUR ---
ST NOTE: BEDSIDE SWALLOW EVAL RECEIVED BEDSIDE SWALLOW EVAL ORDER CHART REVIEWED PRIOR THE EVALUATION PT IS A 82-YEAR-OLD IRISH-SPEAKING FEMALE WHO WAS ADMITTED DUE TO RESP DISTRESS. DYSPHAGIA RISK FACTORS: RESP DISTRESS, INCREASED WHEEZING, H/O CVA(03/2017) W/SIDED WEAKNESS, HTN, HAS BILATERAL KNEE SURGERY 15 YRS AGO. PER BRAIN MRI ON 04/24/17: MULTIPLE SMALL ACUTE INFARCT BILATERALLY, LARGEST IN THE R BASAL GANGLIA AND BORDEN RADIATA. PER CT HEAD(04/23/17:) OLD R CORPUS CALLOSUM ACUTE INFARCT. PER CXR: Bilateral interstitial edema. Suspect small bilateral pleural effusions well PLOF: PT LIVES AT HOME BY HERSELF WITH SOME HELP COMES TO HER PLACE. PER PT, HAS DENTURES BUT ABLE MASTICATE SOLID WITHOUT IT. PER PT, SHE USES FRONT WHEEL WALKER AT HOME. CURRENT STATUS: PT SEEN AT BEDSIDE IN LATE AM. ALERT, COOPERATIVE, FOLLOWS DIRECTIONS, PT WITH NC(2L). IRISH-STAFF AT BEDSIDE. PT ORIENTED X 3 TO 4. L-SIDED WEAKNESS WAS NOTED. 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 MILD INCREASED ORAL TRANSIT TIME AND MILD INCREASED OROPHARYNGEAL TRANSIT TIME, FAIR LARYNGEAL ELEVATION, DELAYED COUGHING AT THE END OF CUP-SEQUENTIAL WITH THIN LIQUIDS, NO OVERT S/S OF WITH PUREE, MASTICATED SOLID. HAS RISK FOR (SILENT) ASPIRATION DUE TO PT HAS H/O CVA. RECOMMENDATIONS: 1. FOR QUALITY OF LIFE, CONTINUE ORAL DIET. CHANGED DIET TO CCHO(MEDIUM) MECH SOFT(CHOPPED) WITH THIN LIQUIDS 2. STRICT ASPIRATION PRECAUTIONS WITH DIRECT SUPERVISION 3. VIDEOSWALLOW STUDY IP OR OP. D/W PT AND RNSCOTT. POSTED ASPIRATION PRECAUTION
--- NOTE | 2018-08-19 15:05 | Diagnostic Imaging Report ---
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 Large collateral vein noted anterior to the superficial femoral artery. Remainder of the deep venous system within normal limits. No evidence of thrombus in the common femoral, popliteal, or calf veins. Greater saphenous vein also within normal limits. LEFT LEG: Venous imaging reveals a patent deep venous system. There is no evidence of thrombus within the femoral, popliteal or tibial segments. The greater saphenous vein is also within normal limits. Doppler indicates normal spontaneous flow within these segments. There is no evidence of acute deep vein thrombosis.
[2018-08-19 16:00] VITALS: BP 121/64
--- NOTE | 2018-08-19 17:37 | Consultation ---
Consult Note Consult Note asked to evaluate for elevated serum Cr patient's presentation was SOB. has multiple Allergies Patient is a 82-year-old female brought in by EMS after increased difficulty breathing. Patient was noted to have prior history of diabetes as well as arthritis. Patient was noted to have previously been admitted to this hospital for discomfort. Patient had been started on supplemental oxygen and given breathing treatments by EMS. Patient was noted to have increased wheezing. Patient was noted to have no fever. She reported having some issues with chronic back pain due to prior falls. Patient denies any prior history of cardiac disease or lung disease. Allergies: ASPIRIN (Verified Allergy, Unknown, 04/25/17) ATORVASTATIN (Verified Allergy, Unknown, 04/26/17) CHOLINE FENOFIBRATE (Verified Allergy, Unknown, 04/26/17) DULOXETINE (Verified Allergy, Unknown, 04/26/17) GABAPENTIN (Verified Allergy, Unknown, 04/26/17) NIACIN (Verified Allergy, Unknown, 04/26/17) OXYCODONE (Verified Allergy, Unknown, 04/26/17) PENICILLINS (Verified Allergy, Unknown, 04/25/17) PROMETHAZINE (Verified Allergy, Unknown, 04/26/17) ROSIGLITAZONE (Verified Allergy, Unknown, 04/26/17) TRAMADOL (Verified Allergy, Unknown, 04/26/17) Hx Cardiac Problems: Yes Hx Hypertension: Yes Hx Diabetes: Yes Hx Cerebrovascular Accident: Yes - 01/2018 Hx Headaches: Yes Hx Weakness: Yes examined date reviewed discussed with sand blaster/Plan Renal failure, Acute on Chronic Acute respiratory failure on presentation CAD, Elevated troponin I Anemia HTN DM h/o CVA CRAWLEY, Weakness 2D Echo Avoid Nephrotoxics keep BP and BS in check optimize cardiac and pulmonary status per orders Lamonte Newton MD Aug 19, 2018 17:37
--- NOTE | 2018-08-19 19:30 | NUR ---
HAND-OFF: Report given to BRIE Negrete.
--- NOTE | 2018-08-19 19:31 | NUR ---
NURSE NOTES: BESIDE REPORT RECEIVED FROM BRIE CHAVEZ. PATIENT IN X4, CZECH SPEAKING W/ SOME KINYARWANDA. SIGNAL SUPERVISOR SHOWING NSR. 2L NC, SATING WELL. BIPAP PRN ORDER. [facility] SOFT DIET. LAST BM WAS 08/17, WILL MONITOR. PURWICK IN PLACE, DRAINING YELLOW URINE. URINALYSIS AND EOSINOPHIL SENT. PT IS ACHS, BUT AM RN MENTIONED SHE IS REFUSING. SKIN IS CLEAN, DRY, INTACT. LAC 20G; ASYMPTOMATIC. RUNNING HEPARIN DROP @ 14U/KG/HR. PTT DUE AT 2029. WILL MONITOR FOR ADVERSE EFFECTS SUCH BLEEDING. ORDER TO COLECT OB STOOL BUT NO BM YET. BED IS LOCKED IN LOWEST POSITION, SIDE RAILS X3, CALL B VINEET W/ IN REACH, BED ALARM ON. WILL CONTINUE TO MONITOR AND FOLLOW W/ PLAN OF CARE.
--- NOTE | 2018-08-19 19:31 | History & Physical ---
History and Physical History & Physicial Dictated for Int Med-Dr Barrios no. [id number]. Dixon Styles MD Aug 19, 2018 19:31
[2018-08-19 20:00] VITALS: BP 125/65
--- NOTE | 2018-08-19 20:14 | Cardiology Progress Note ---
Assessment/Plan Assessment/Plan [id number] heparin diuretic plavix (asa allergy) ntp will likey need cardiac cath but at risk of contrats nephropathy Objective Last 24 Hour Vital Signs Date Time Temp Pulse Resp B/P (MAP) Pulse Ox O2 Delivery O2 Flow Rate FiO2 08/19/18 16:00 Nasal Cannula 2.0 08/19/18 16:00 78 08/19/18 16:00 99.6 81 18 121/64 (83) 93 08/19/18 12:00 98.2 87 18 100/63 (75) 93 08/19/18 12:00 72 08/19/18 12:00 2.0 08/19/18 12:00 Nasal Cannula 2.0 08/19/18 08:36 83 123/68 08/19/18 08:36 83 123/68 08/19/18 08:00 98.0 77 18 123/68 (86) 100 08/19/18 08:00 81 08/19/18 08:00 Nasal Cannula 2.0 08/19/18 08:00 2.0 08/19/18 05:11 74 14 98 08/19/18 04:00 84 08/19/18 04:00 98.4 78 19 147/64 (91) 100 08/19/18 04:00 2.0 08/19/18 04:00 Nasal Cannula 2.0 08/19/18 02:19 71 12 100 08/19/18 00:28 Nasal Cannula 2.0 08/19/18 00:05 98.1 80 127/61 (83) 08/19/18 00:05 85 08/18/18 23:40 98.7 86 15 124/62 100 15.0 40 08/18/18 22:50 77 17 98 Facial 40 08/18/18 22:46 75 16 126/58 96 15.0 100 08/18/18 20:47 80 24 98 Facial 100 08/18/18 20:15 101 26 104/69 89 Non-Rebreather 15.0 08/18/18 20:15 101 26 Non-Rebreather 15.0 08/18/18 20:14 101 26 104/69 89 Non-Rebreather 15.0 Intake and Output 08/18/18 08/19/18 19:00 07:00 Intake Total 31.570 ml Output Total 0 ml Balance 31.570 ml Intake IV Total 31.570 ml Output Urine Total 0 ml # Voids 3 Laboratory Tests Test 08/18/18 20:30 08/18/18 20:33 08/18/18 21:35 08/18/18 22:22 White Blood Count 14.5 K/UL (4.8-10.8) H Red Blood Count 3.65 M/UL (4.20-5.40) L Hemoglobin 10.6 G/DL (12.0-16.0) L Hematocrit 31.7 % (37.0-47.0) L Mean Corpuscular Volume 87 FL (80-99) Mean Corpuscular Hemoglobin 29.1 PG (27.0-31.0) Mean Corpuscular Hemoglobin Concent 33.4 G/DL (32.0-36.0) Red Cell Distribution Width 11.6 % (11.6-14.8) Platelet Count 339 K/UL (150-450) Mean Platelet Volume 6.7 FL (6.5-10.1) Neutrophils (%) (Auto) 75.6 % (45.0-75.0) H Lymphocytes (%) (Auto) 13.9 % (20.0-45.0) L Monocytes (%) (Auto) 7.8 % (1.0-10.0) Eosinophils (%) (Auto) 1.3 % (0.0-3.0) Basophils (%) (Auto) 1.5 % (0.0-2.0) Sodium Level 134 MMOL/L (136-145) L Potassium Level 4.6 MMOL/L (3.5-5.1) Chloride Level 98 MMOL/L (98-107) Carbon Dioxide Level 24 MMOL/L (21-32) Anion Gap 12 mmol/L (5-15) Blood Urea Nitrogen 31 mg/dL (7-18) H Creatinine 2.0 MG/DL (0.55-1.30) H Estimat Glomerular Filtration Rate mL/min (>60) Glucose Level 313 MG/DL (74-106) H Lactic Acid Level 2.90 mmol/L (0.4-2.0) H 1.50 mmol/L (0.66-2.22) Calcium Level 8.5 MG/DL (8.5-10.1) Phosphorus Level 4.1 MG/DL (2.5-4.9) Magnesium Level 1.6 MG/DL (1.8-2.4) L Total Bilirubin 0.3 MG/DL (0.2-1.0) Aspartate Amino Transf (AST/SGOT) 18 U/L (15-37) Alanine Aminotransferase (ALT/SGPT) 14 U/L (12-78) Alkaline Phosphatase 96 U/L (46-116) Total Creatine Kinase 97 U/L (26-308) Creatine Kinase MB 2.4 NG/ML (0.0-3.6) Creatine Kinase MB Relative Index 2.4 Troponin I 2.241 ng/mL (0.000-0.056) Pro-B-Type Natriuretic Peptide 84840 pg/mL (0-125) H Total Protein 7.6 G/DL (6.4-8.2) Albumin 3.1 G/DL (3.4-5.0) L Globulin 4.5 g/dL Albumin/Globulin Ratio 0.7 (1.0-2.7) L Arterial Blood pH 7.411 (7.350-7.450) Arterial Blood Partial Pressure CO2 37.3 mmHg (35.0-45.0) Arterial Blood Partial Pressure O2 428.9 mmHg (75.0-100.0) H Arterial Blood HCO3 23.2 mmol/L (22.0-26.0) Arterial Blood Oxygen Saturation 99.0 % (95-100) Arterial Blood Base Excess -1.2 (-2-2) Darin Test Positive Urine Color Pale yellow Urine Appearance Clear Urine pH 5 (4.5-8.0) Urine Specific [place] 1.020 (1.005-1.035) Urine Protein 3+ (NEGATIVE) H Urine Glucose (UA) 2+ (NEGATIVE) H Urine Ketones 1+ (NEGATIVE) H Urine Blood 1+ (NEGATIVE) H Urine Nitrite Negative (NEGATIVE) Urine Bilirubin Negative (NEGATIVE) Urine Urobilinogen Normal MG/DL (0.0-1.0) Urine Leukocyte Esterase 2+ (NEGATIVE) H Urine RBC 2-4 /HPF (0 - 2) H Urine WBC 5-10 /HPF (0 - 2) H Urine Squamous Epithelial Cells Few /LPF (NONE/OCC) Urine Bacteria Moderate /HPF (NONE) H Test 08/19/18 04:30 08/19/18 13:15 08/19/18 19:59 White Blood Count 11.3 K/UL (4.8-10.8) H Red Blood Count 3.14 M/UL (4.20-5.40) L Hemoglobin 9.1 G/DL (12.0-16.0) L Hematocrit 27.2 % (37.0-47.0) L Mean Corpuscular Volume 86 FL (80-99) Mean Corpuscular Hemoglobin 29.0 PG (27.0-31.0) Mean Corpuscular Hemoglobin Concent 33.6 G/DL (32.0-36.0) Red Cell Distribution Width 11.4 % (11.6-14.8) L Platelet Count 292 K/UL (150-450) Mean Platelet Volume 7.2 FL (6.5-10.1) Neutrophils (%) (Auto) 77.2 % (45.0-75.0) H Lymphocytes (%) (Auto) 13.6 % (20.0-45.0) L Monocytes (%) (Auto) 8.0 % (1.0-10.0) Eosinophils (%) (Auto) 0.4 % (0.0-3.0) Basophils (%) (Auto) 0.7 % (0.0-2.0) Prothrombin Time 11.9 SEC (9.30-11.50) H Prothromb Time International Ratio 1.1 (0.9-1.1) Activated Partial Thromboplast Time 102 SEC (23-33) H 50 SEC (23-33) H Pending Sodium Level 136 MMOL/L (136-145) Potassium Level 4.0 MMOL/L (3.5-5.1) Chloride Level 99 MMOL/L (98-107) Carbon Dioxide Level 22 MMOL/L (21-32) Anion Gap 15 mmol/L (5-15) Blood Urea Nitrogen 30 mg/dL (7-18) H Creatinine 1.9 MG/DL (0.55-1.30) H Estimat Glomerular Filtration Rate mL/min (>60) Glucose Level 181 MG/DL (74-106) #H Uric Acid 7.2 MG/DL (2.6-7.2) Calcium Level 8.6 MG/DL (8.5-10.1) Magnesium Level 1.7 MG/DL (1.8-2.4) L Total Bilirubin 0.3 MG/DL (0.2-1.0) Aspartate Amino Transf (AST/SGOT) 21 U/L (15-37) Alanine Aminotransferase (ALT/SGPT) 11 U/L (12-78) L Alkaline Phosphatase 82 U/L (46-116) Total Creatine Kinase 112 U/L (26-308) Troponin I 2.620 ng/mL (0.000-0.056) C-Reactive Protein, Quantitative 10.2 mg/dL (0.00-0.90) H Pro-B-Type Natriuretic Peptide 63392 pg/mL (0-125) H Total Protein 6.9 G/DL (6.4-8.2) Albumin 2.9 G/DL (3.4-5.0) L Globulin 4.0 g/dL Albumin/Globulin Ratio 0.7 (1.0-2.7) L Triglycerides Level 90 MG/DL (30-150) Cholesterol Level 110 MG/DL (< 200) LDL Cholesterol 53 mg/dL (<100) HDL Cholesterol 47 MG/DL (40-60) Cholesterol/HDL Ratio 2.3 (3.3-4.4) L Thyroid Stimulating Hormone (TSH) 3.085 uiU/mL (0.358-3.740) Microbiology Date/Time Source Procedure Growth Status 08/18/18 21:35 Urine,Clean Catch Urine Culture - Preliminary NO GROWTH Resulted Vishal Enriquez MD Aug 19, 2018 20:14
[2018-08-19 20:28] LABS: APPEARANCE,URINE CLOUDY; BILIRUBIN, URINE NEGATIVE (NEGATIVE); COLOR,URINE PALE YELLOW; GLUCOSE, URINE (UA) 1+ (NEGATIVE); KETONES,URINE 1+ (NEGATIVE); LEUKOCYTE ESTERASE ,URINE NEGATIVE (NEGATIVE); NITRITE,URINE NEGATIVE (NEGATIVE); PH,URINE 5 (4.5-8.0); PROTEIN,URINE 3+ (NEGATIVE); UROBILINOGEN,URINE NORMAL MG/DL (0.0-1.0)
[2018-08-19] MEDS: Carvedilol 25mg Tab ORAL SCH (20:28)
--- NOTE | 2018-08-19 21:30 | History and Physical Report ---
DATE OF ADMISSION: 08/18/2018 CHIEF COMPLAINT: The patient is an 82-year-old female, who presents with a chief complaint of shortness of breath. HISTORY OF PRESENT ILLNESS: Began a couple days prior to admission. The patient began to have shortness of breath. The patient was transported to [facility] emergency room. The patient was found to have pulmonary edema and elevated troponin. The patient is admitted for elevated troponin and probable congestive heart failure. REVIEW OF SYSTEMS: CONSTITUTIONAL: The patient denies weight loss or weight gain. The patient denies fevers or chills. HEENT: The patient denies ear or throat pain. The patient denies headache. CARDIOVASCULAR: The patient denies palpitations or chest pain. CHEST: The patient complains of shortness of breath as above. The patient complains of wheezing. ABDOMEN: The patient denies nausea, vomiting, diarrhea, or constipation. GENITOURINARY: The patient denies dysuria or increased frequency of urination. NEUROMUSCULAR: The patient denies seizures or generalized weakness. PAST MEDICAL HISTORY: Significant for, 1. Cerebrovascular accident in April of 2017. 2. Diabetes type 2. 3. Hypertension. 4. History of coronary artery disease. PAST SURGICAL HISTORY: Significant for bilateral knee replacement secondary to osteoarthritis. CURRENT MEDICATIONS: 1. Amlodipine 5 mg one tab p.o. twice daily. 2. Alphagan one drop to both eyes three times daily. 3. Carvedilol 25 mg p.o. twice daily. 4. Plavix 75 mg p.o. daily. 5. Timolol 1 drop to both eyes twice daily. 6. Glimepiride 2 mg p.o. twice daily. 7. Metformin 500 mg p.o. twice daily. ALLERGIES: 1. Aspirin. 2. Atorvastatin. 3. Choline fenofibrate. 4. Cymbalta. 5. Gabapentin. 6. Niacin. 7. Oxycodone. 8. Penicillin. 9. Promethazine. 10. Actos. 11. Tramadol. SOCIAL HISTORY: The patient is single. The patient denies tobacco or alcohol use. PHYSICAL EXAMINATION: VITAL SIGNS: Temperature 98.4, respirations 19, pulse 78 to 84, and blood pressure 147/64. GENERAL: The patient is well-developed and well-nourished white female, in no apparent distress. HEENT: Eyes, pupils are equal and responsive to light and accommodation. Extraocular movements are intact. NECK: Supple without lymphadenopathy. CHEST: Diffuse wheezes bilaterally. There are no crackles noted. CARDIOVASCULAR: Regular rhythm and rate. S1 and S2 are normal without murmurs, rubs, or gallops. ABDOMEN: Soft, nontender, and nondistended. Positive bowel sounds. No evidence of hepatosplenomegaly. Currently, no rebound or guarding noted. EXTREMITIES: Negative for clubbing, cyanosis, or edema. RECTAL/GENITAL: Refused. NEUROLOGIC: Cranial nerves II through XII are grossly intact without focal deficits. Motor strength is 5/5 bilaterally. Deep tendon reflexes are 2+ plantar. LABORATORY STUDIES: WBC 14.5, hemoglobin 10.6, hematocrit 31.7, and platelets 139,000. Sodium 134, potassium 4.6, chloride 98, CO2 24, BUN 31, creatinine 2.0, and glucose 313 . Lactic acid 2.9. Troponin 2.241. BNP elevated at 13,059. Chest x-ray revealed pulmonary interstitial edema bilaterally. ASSESSMENT: This is an 82-year-old female. 1. Shortness of breath. 2. Congestive heart failure. 3. Elevated troponin. 4. Fcz-HR-vqyitxwi myocardial infarction. 5. Renal failure. 6. Cerebrovascular disease. 7. Hypertension. 8. Coronary artery disease. 9. Glaucoma. TREATMENT: 1. Shortness of breath. A Pulmonary consultation has been obtained with Dr. Radha Ayon. We will follow recommendations of Pulmonary. 2. Congestive heart failure/eci-HW-xksxkjta myocardial infarction. A Cardiology consultation has been obtained with Dr. Vishal Enriquez. The patient has been started empirically on aspirin and Plavix. 3. Renal failure. A Nephrology consultation has been obtained with Dr. Newton. 4. Cerebrovascular disease. 5. Hypertension. The patient is currently hypotensive. 6. Glaucoma. Continue eye drops as above. Dixon Styles M.D. DR: KESHIA JOB#: [id number] CC:
[2018-08-19] MEDS: Heparin 25,000u/D5W 500ml 500 ML IV SCH (22:26)
[2018-08-20] VITALS: BP 120/63
--- NOTE | 2018-08-20 00:30 | Consultation ---
DATE OF CONSULTATION: 08/19/2018 NOTE: "POOR AUDIO QUALITY" CARDIOLOGY CONSULTATION CONSULTING PHYSICIAN: Vishal Enriquez M.D. REFERRING PHYSICIANS: 1. Ben Barrios M.D. 2. Radha Ayon M.D. REASON FOR REFERRAL: Abnormal cardiac enzymes. HISTORY OF PRESENT ILLNESS: This is an elderly female with history of stroke, who has had multiple falls. She had a fall yesterday and grandson who takes care of her was not able to be. He does work. Somebody took help to get her off the floor and put her back in bed. She usually walks with a walker, but has apparently frequent falls. Anyway, by the time that the patient's grandson came home, he found her very short of breath and had been puffing and coughing and he summoned the paramedics and the paramedics brought her to the emergency room of [facility] where she was evaluated and had abnormal cardiac enzymes. Apparently, paramedics found her to have difficulty breathing, increased breathing. Her cardiac enzymes were abnormal and the patient was subsequently admitted to the hospital. She is allergic to aspirin, so she is on Plavix and was started on anticoagulation with heparin and then subsequently admitted on BiPAP. She received some diuretics to which she did respond, but her blood pressure was rather borderline. Anyway, she is admitted to the hospital. Overnight, she was on BiPAP. The BiPAP was subsequently removed. She feels fine, but there has been no reports of any pain, pressure, tightness, heaviness, or any discomfort in the chest. She is able to walk with a walker at home and she has never experienced any shortness of breath with activity or rest at any time. It is of note that the patient's grandson was translating for the patient. She uses 2 pillows for comfort, not because of shortness of breath, but no dizziness or lightheadedness on standing. No heart pounding or palpitation. PAST MEDICAL HISTORY: Positive, she has history of multiple falls, history of multiple cerebrovascular accidents possibly some embolic in origin. 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 Nevertheless, she has history of hypertension. She did not have however hyperlipidemia. SOCIAL HISTORY: She does not smoke, never did. Does not drink, never did. She lives at home. Her grandson looks after her. REVIEW OF SYSTEMS: GASTROINTESTINAL: There has been no reports of nausea, vomiting, diarrhea, or constipation. No bloody or black stool. GENITOURINARY: Denies any burning on urination. PULMONARY: She did have a lot of coughing and congestion according to her grandson last night. 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 Nothing new. CONSTITUTIONAL: No fevers, chills, or night sweats. PHYSICAL EXAMINATION: GENERAL: Shows to be an elderly female, in no respiratory distress. She is on nasal cannula and appears comfortable. NECK: Supple. No jugular venous distention. LUNGS: Appear to be decreased breath sounds on the right side. There are some crackles on the left approximately fpc up, but she is in no respiratory distress. CARDIAC: Regular rate and rhythm. No heaves, thrills, or gallops noted. ABDOMEN: Soft, nontender. Positive bowel sounds. EXTREMITIES: There is no clubbing or cyanosis nor is there any edema. 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 LABORATORY VALUES: Telemetry monitoring showed the patient to be in sinus rhythm. Her electrocardiogram performed yesterday shows there is sinus rhythm and at that time, rate was 98, there is some ST-segment depression in I and aVL as well as some in V2, V3, and V4. In direct comparison with her older EKG, she did not have though ST-segment changes previously in V2 or V3, but there is some slightly in V5 and V6 previously present. Her blood tests, sodium 136, potassium 4.0, chloride 99, bicarbonate of 22, BUN 30, creatinine 1.9, and glucose of 181. Her uric acid is 7.3, calcium is 8.6, and magnesium of 1.7. Total CK of 112. Troponin I originally 2.24, subsequently 2.6 at 4 o'clock this morning, but proBNP was 13,000 last night and was 15,000 earlier today. Total cholesterol was 110 with LDL of 53 and HDL of 47. TSH of 3.085. Her hemoglobin A1c was not measured during this hospitalization and previously has been poor. Her white count is 11.3, hemoglobin 9.1, and platelet count of 292,000. INR is 1.1. Urinalysis showed 5-10 wbc's, 2-4 rbc's, 2+ leukocyte esterase, 1+ blood. A chest x-ray performed in the emergency room showed bilateral interstitial edema versus bilateral pleural effusions as well. Venous duplex study of the lower extremities showed no evidence of deep venous thrombosis. 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 Preliminary echocardiogram shows global hypokinesis. ASSESSMENT AND PLAN: 1. Zhy-HQ-hbscbwlxo myocardial infarction. 2. Diabetes mellitus. 3. Hypertension. 4. History of CVA with left-sided weakness. 5. Anemia. 6. Renal insufficiency. Dr. Barrios and Dr. Ayon, this patient was seen in cardiac consultation. The patient has no signs or symptoms suggestive of coronary syndrome, however, she has diabetes and hypertension, which are risk factors for coronary artery disease and indeed has underlying coronary artery disease because of afv-OG-leeeozkjr myocardial infarction. She is on anticoagulation at the present time. She is going to be on antiplatelet, however, because she is intolerant of aspirin, Plavix will be administered. An echocardiogram has been performed. Preliminary report indicates globally abnormality. She may indeed require cardiac catheterization. EKG should be repeated. If she does require cardiac catheterization, she must be with the understanding that she is at risk of renal failure from contrast nephropathy in that regard. This will be discussed with the patient's son this evening as the patient has already been seen by Dr. Newton. Anticoagulation should be continued for the time being. Vishal Enriquez M.D. DR: Earl JOB#: [id number] CC:
[2018-08-20 03:09] LABS: BASOPHILS % (AUTO) 1.1 % (0.0-2.0); EOSINOPHILS % (AUTO) 1.2 % (0.0-3.0); HEMATOCRIT 26.9 % (37.0-47.0); HEMOGLOBIN 9.2 G/DL (12.0-16.0); MEAN CORPUSCULAR VOLUME 85 FL (80-99); NEUTROPHILS % (AUTO) 71.7 % (45.0-75.0); PLATELET COUNT 306 K/UL (150-450); RED BLOOD COUNT 3.16 M/UL (4.20-5.40); RED CELL DISTRIBUTION WIDTH 11.5 % (11.6-14.8); WHITE BLOOD COUNT 11.6 K/UL (4.8-10.8)
[2018-08-20 03:31] LABS: INR 1.2 (0.9-1.1)
[2018-08-20 03:32] LABS: CREATINE KINASE 67 U/L (26-308); GAMMA GLUTAMYL TRANSPEPTIDASE 15 U/L (5-85); PHOSPHORUS 3.9 MG/DL (2.5-4.9)
[2018-08-20 03:43] LABS: ALANINE AMINOTRANSFERASE 11 U/L (12-78); ALBUMIN 2.6 G/DL (3.4-5.0); ALBUMIN/GLOBULIN RATIO 0.6 (1.0-2.7); ALKALINE PHOSPHATASE 79 U/L (46-116); ANION GAP 8 mmol/L (5-15); ASPARTATE AMINO TRANSFERASE 15 U/L (15-37); BILIRUBIN,TOTAL 0.3 MG/DL (0.2-1.0); BLOOD UREA NITROGEN 27 mg/dL (7-18); CALCIUM 8.1 MG/DL (8.5-10.1); CARBON DIOXIDE 28 MMOL/L (21-32); CHLORIDE 98 MMOL/L (98-107); CHOLESTEROL 113 MG/DL (< 200); CREATININE 2.1 MG/DL (0.55-1.30); FERRITIN 220 NG/ML (8-388); HDL CHOLESTEROL 46 MG/DL (40-60); LACTATE DEHYDROGENASE 174 U/L (81-234); POTASSIUM 3.7 MMOL/L (3.5-5.1); SODIUM 134 MMOL/L (136-145); TRIGLYCERIDES 114 MG/DL (30-150)
[2018-08-20 04:00] VITALS: BP 130/61
--- NOTE | 2018-08-20 04:07 | NUR ---
NURSE NOTES: Received critical lab result for troponin, see DEX. Will contact Funmilayo regarding abnormal labs. Addendum: 08/20/18 at 0416 by Penelope Long RN [facility]
--- NOTE | 2018-08-20 04:16 | NUR ---
NURSE NOTES: SPOKE W/ TESSIERAD REGARDING ELEVATED TROPONIN. NO NEW ORDERS AT THIS TIME. STATES PT IS ON HEPARIN. WILL CONTINUE TO MONITOR AND FOLLOW W/ PLAN OF CARE.
[2018-08-20] MEDS: Heparin 25,000u/D5W 500ml 500 ML IV SCH ×3 (04:51→20:13)
[2018-08-20] MEDS: NovoLOG Insulin Flexpen SUBQ SCH ×4 (05:23→20:16)
--- NOTE | 2018-08-20 07:15 | NUR ---
NURSE NOTES: RECEIVED PT WITH HOB ELEVATED 45 DEGREE RESTING COMFORTABLY AWAKE AND ALERT ORIENTED X4 ,ROMANSH SPEAKING ONLY.PT DENIES CP PAIN OR SOB AT THIS TIME.PT RECEIVING HEPARIN DRIP 8U/KG/HR CONNECTED ON LT AC G# 20 INFUSING WELL .FULL BODY ASSESSMENT DONE.NO ACUTE DISTRESS NOTED AT THIS TIME.WILL CONT TO MONITOR.
[2018-08-20 08:00] VITALS: BP 121/58
--- NOTE | 2018-08-20 08:00 | NUR ---
HAND-OFF: Report given to BRIE HENDERSON.
[2018-08-20 09:38] LABS: % IRON SATURATION 9 % (15-50); IRON 16 ug/dL (50-175); TOTAL IRON BINDING CAPACITY 181 ug/dL (250-450)
[2018-08-20] MEDS: Carvedilol 25mg Tab ORAL SCH ×2 (10:27→20:14)
--- NOTE | 2018-08-20 11:36 | Pulmonology Progress Note ---
Assessment/Plan Problems: (1) Acute respiratory failure (2) Non-ST elevated myocardial infarction (3) CAD (coronary artery disease) (4) Anemia (5) ATN (acute tubular necrosis) (6) HTN (hypertension) (7) Diabetes mellitus Assessment/Plan continue heparin drip on plavix sliding scale diabetic diet anemia w/u monitor BP f/u cardiology recommendations. Subjective ROS Limited/Unobtainable: No Constitutional: Reports: no symptoms HEENT: Repors: no symptoms Respiratory: Reports: no symptoms Allergies: Coded Allergies: ASPIRIN (Verified Allergy, Unknown, 04/25/17) ATORVASTATIN (Verified Allergy, Unknown, 04/26/17) CHOLINE FENOFIBRATE (Verified Allergy, Unknown, 04/26/17) DULOXETINE (Verified Allergy, Unknown, 04/26/17) GABAPENTIN (Verified Allergy, Unknown, 04/26/17) NIACIN (Verified Allergy, Unknown, 04/26/17) OXYCODONE (Verified Allergy, Unknown, 04/26/17) PENICILLINS (Verified Allergy, Unknown, 04/25/17) PROMETHAZINE (Verified Allergy, Unknown, 04/26/17) ROSIGLITAZONE (Verified Allergy, Unknown, 04/26/17) TRAMADOL (Verified Allergy, Unknown, 04/26/17) Objective Last 24 Hour Vital Signs Date Time Temp Pulse Resp B/P (MAP) Pulse Ox O2 Delivery O2 Flow Rate FiO2 08/20/18 10:27 74 121/58 08/20/18 08:00 72 08/20/18 08:00 98.4 74 22 121/58 (79) 96 08/20/18 08:00 Nasal Cannula 2.0 08/20/18 04:00 Nasal Cannula 2.0 08/20/18 04:00 76 08/20/18 04:00 98.1 90 24 130/61 (84) 94 08/20/18 00:00 98.4 83 24 120/63 (82) 95 08/20/18 00:00 Nasal Cannula 2.0 08/20/18 00:00 82 08/19/18 20:28 80 125/65 08/19/18 20:00 80 08/19/18 20:00 97.9 80 18 125/65 (85) 95 08/19/18 20:00 Nasal Cannula 2.0 08/19/18 16:00 Nasal Cannula 2.0 08/19/18 16:00 78 08/19/18 16:00 99.6 81 18 121/64 (83) 93 08/19/18 12:00 98.2 87 18 100/63 (75) 93 08/19/18 12:00 72 08/19/18 12:00 2.0 08/19/18 12:00 Nasal Cannula 2.0 Intake and Output 08/19/18 08/20/18 19:00 07:00 Intake Total 123.646 ml 69.178 ml Output Total 300 ml 300 ml Balance -176.354 ml -230.822 ml Intake IV Total 123.646 ml 69.178 ml Output Urine Total 300 ml 300 ml # Voids 2 General Appearance: WD/WN HEENT: normocephalic, atraumatic Respiratory/Chest: chest wall non-tender, lungs clear Cardiovascular: normal peripheral pulses, normal rate Abdomen: normal bowel sounds, soft, non tender Genitourinary: normal external genitalia Extremities: no clubbing Skin: no lesions Neurologic/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: 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 normal Microbiology Date/Time Source Procedure Growth Status 08/18/18 20:45 Blood Blood Culture - Preliminary NO GROWTH AFTER 24 HOURS Resulted 08/18/18 20:30 Blood Blood Culture - Preliminary NO GROWTH AFTER 24 HOURS Resulted 08/19/18 19:45 Urine,Clean Catch Urine Culture - Preliminary Gram Negative Bacillus 1 Resulted 08/18/18 21:35 Urine,Clean Catch Urine Culture - Preliminary NO GROWTH AFTER 24 HOURS Resulted Laboratory Tests 08/19/18 13:15: Activated Partial Thromboplast Time 50H 08/19/18 19:45: Urine Color Pale yellow, Urine Appearance Cloudy, Urine pH 5, Urine Specific [place] 1.020, Urine Protein 3+H, Urine Glucose (UA) 1+H, Urine Ketones 1+H, Urine Blood 3+H, Urine Nitrite Negative, Urine Bilirubin Negative, Urine Urobilinogen Normal, Urine Leukocyte Esterase Negative, Urine RBC 0-2, Urine WBC 2-4, Urine Squamous Epithelial Cells Occasional, Urine Bacteria ManyH, Urine Eosinophils None seen 08/19/18 19:59: Activated Partial Thromboplast Time > 150*H 08/20/18 03:00: Activated Partial Thromboplast Time 106H, White Blood Count 11.6H, Red Blood Count 3.16L, Hemoglobin 9.2L, Hematocrit 26.9L, Mean Corpuscular Volume 85, Mean Corpuscular Hemoglobin 29.0, Mean Corpuscular Hemoglobin Concent 34.1, Red Cell Distribution Width 11.5L, Platelet Count 306, Mean Platelet Volume 7.8, Neutrophils (%) (Auto) 71.7, Lymphocytes (%) (Auto) 17.0L, Monocytes (%) (Auto) 9.0, Eosinophils (%) (Auto) 1.2, Basophils (%) (Auto) 1.1, Differential Total Cells Counted 100, Neutrophils % (Manual) 73, Lymphocytes % (Manual) 16L, Monocytes % (Manual) 9, Eosinophils % (Manual) 2, Basophils % (Manual) 0, Band Neutrophils 0, Platelet Estimate Adequate, Platelet Morphology Normal, Hypochromasia 1+, Erythrocyte Sedimentation Rate 120H, Reticulocyte Count 0.7, Prothrombin Time 12.1H, Prothromb Time International Ratio 1.2H, Sodium Level 134L, Potassium Level 3.7, Chloride Level 98, Carbon Dioxide Level 28, Anion Gap 8, Blood Urea Nitrogen 27H, Creatinine 2.1H, Estimat Glomerular Filtration Rate , Glucose Level 179H, Hemoglobin A1c 8.9H, Uric Acid 6.9, Calcium Level 8.1L, Phosphorus Level 3.9, Magnesium Level 1.5L, Iron Level 16L, Total Iron Binding Capacity 181L, Percent Iron Saturation 9L, Unsaturated Iron Binding 165 , Ferritin 220, Total Bilirubin 0.3, Gamma Glutamyl Transpeptidase 15, Aspartate Amino Transf (AST/SGOT) 15, Alanine Aminotransferase (ALT/SGPT) 11L, Alkaline Phosphatase 79, Lactate Dehydrogenase 174, Total Creatine Kinase 67, Troponin I 3.036H, Pro-B-Type Natriuretic Peptide [id number], Total Protein 6.6, Albumin 2.6L, Globulin 4.0, Albumin/Globulin Ratio 0.6L, Triglycerides Level 114 , Cholesterol Level 113, LDL Cholesterol 53, HDL Cholesterol 46, Cholesterol/ HDL Ratio 2.5L, Carcinoembryonic Antigen [Pending], Vitamin B12 Level 655, Folate 10.1, Thyroid Stimulating Hormone (TSH) 3.067 08/20/18 10:35: Activated Partial Thromboplast Time 51H Current Medications Medications (Trade) Dose Ordered Sig/Lita Route PRN Reason Start Time Stop Time Status Last Admin Dose Admin Acetaminophen (Tylenol) 650 mg Q4H PRN ORAL FEVER 08/18/18 22:30 09/17/18 22:29 Albuterol/ Ipratropium (Albuterol/ Ipratropium) 3 ml Q4H PRN HHN Shortness of Breath 08/18/18 22:30 08/23/18 22:29 Carvedilol (Coreg) 25 mg EVERY 12 HOURS ORAL 08/19/18 21:00 09/18/18 08:59 08/20/18 10:27 Clopidogrel Bisulfate (Plavix) 75 mg DAILY ORAL 08/19/18 09:00 09/18/18 08:59 08/20/18 10:33 Dextrose (Dextrose 50%) 25 ml Q30M PRN IV Hypoglycemia 08/18/18 22:30 09/17/18 22:29 Diltiazem HCl (Cardizem) 10 mg Q1H PRN IV heart rate more than 120, 08/18/18 22:30 09/17/18 22:29 Heparin Sodium/ Dextrose 500 ml @ 8.528 mls/ hr ADJUST PER PROTOCOL IV 08/19/18 22:30 09/18/18 22:29 08/20/18 11:13 Insulin Aspart (NovoLOG) BEFORE MEALS AND HS SUBQ 08/19/18 06:30 09/18/18 06:29 08/20/18 05:23 Magnesium Sulfate 100 ml @ 100 mls/hr Q1H IVPB 08/20/18 10:00 08/20/18 13:59 08/20/18 11:04 Nitroglycerin (Ntg) 0.4 mg Q5M PRN SL Prn Chest Pain 08/18/18 22:30 09/17/18 22:29 Ondansetron HCl (Zofran) 4 mg Q6H PRN IVP Nausea & Vomiting 08/18/18 22:30 09/17/18 22:29 Pantoprazole (Protonix) 40 mg Q12HR ORAL 08/19/18 21:00 09/18/18 08:59 08/20/18 10:27 Polyethylene Glycol (Miralax) 17 gm DAILYPRN PRN ORAL Constipation 08/18/18 22:30 09/17/18 22:29 Temazepam (Restoril) 15 mg HSPRN PRN ORAL Insomnia 08/18/18 22:30 08/25/18 22:29 Radha Ayon MD Aug 20, 2018 11:36
[2018-08-20 12:00] VITALS: BP 135/72
[2018-08-20] MEDS ORDERED: Heparin 5000 units/ml inj IV SCH ×2 (12:00→19:15)
[2018-08-20] MEDS ORDERED: Heparin 25,000u/D5W 500ml 500 ML IV SCH (12:00)
--- NOTE | 2018-08-20 14:19 | Internal Med Progress Note ---
Subjective Physician Name Ben Barrios Attending Physician Ben Barrios MD Current Medications Medications (Trade) Dose Ordered Sig/Lita Route PRN Reason Start Time Stop Time Status Last Admin Dose Admin Acetaminophen (Tylenol) 650 mg Q4H PRN ORAL FEVER 08/18/18 22:30 09/17/18 22:29 Albuterol/ Ipratropium (Albuterol/ Ipratropium) 3 ml Q4H PRN HHN Shortness of Breath 08/18/18 22:30 08/23/18 22:29 Carvedilol (Coreg) 25 mg EVERY 12 HOURS ORAL 08/19/18 21:00 09/18/18 08:59 08/20/18 10:27 Clopidogrel Bisulfate (Plavix) 75 mg DAILY ORAL 08/19/18 09:00 09/18/18 08:59 08/20/18 10:33 Dextrose (Dextrose 50%) 25 ml Q30M PRN IV Hypoglycemia 08/18/18 22:30 09/17/18 22:29 Diltiazem HCl (Cardizem) 10 mg Q1H PRN IV heart rate more than 120, 08/18/18 22:30 09/17/18 22:29 Heparin Sodium/ Dextrose 500 ml @ 10.659 mls/ hr ADJUST PER PROTOCOL IV 08/20/18 12:00 09/19/18 11:59 08/20/18 12:13 Insulin Aspart (NovoLOG) BEFORE MEALS AND HS SUBQ 08/19/18 06:30 09/18/18 06:29 08/20/18 13:37 Nitroglycerin (Ntg) 0.4 mg Q5M PRN SL Prn Chest Pain 08/18/18 22:30 09/17/18 22:29 Ondansetron HCl (Zofran) 4 mg Q6H PRN IVP Nausea & Vomiting 08/18/18 22:30 09/17/18 22:29 Pantoprazole (Protonix) 40 mg Q12HR ORAL 08/19/18 21:00 09/18/18 08:59 08/20/18 10:27 Polyethylene Glycol (Miralax) 17 gm DAILYPRN PRN ORAL Constipation 08/18/18 22:30 09/17/18 22:29 Temazepam (Restoril) 15 mg HSPRN PRN ORAL Insomnia 2/20/19 22:30 08/25/18 22:29 Allergies: Coded Allergies: ASPIRIN (Verified Allergy, Unknown, 04/25/17) ATORVASTATIN (Verified Allergy, Unknown, 04/26/17) CHOLINE FENOFIBRATE (Verified Allergy, Unknown, 04/26/17) DULOXETINE (Verified Allergy, Unknown, 04/26/17) GABAPENTIN (Verified Allergy, Unknown, 04/26/17) NIACIN (Verified Allergy, Unknown, 04/26/17) OXYCODONE (Verified Allergy, Unknown, 04/26/17) PENICILLINS (Verified Allergy, Unknown, 04/25/17) PROMETHAZINE (Verified Allergy, Unknown, 04/26/17) ROSIGLITAZONE (Verified Allergy, Unknown, 04/26/17) TRAMADOL (Verified Allergy, Unknown, 04/26/17) Subjective Awake, alert, responsive, denies any chest pain, less shortness of breath Objective Last Vital Signs Date Time Temp Pulse Resp B/P (MAP) Pulse Ox O2 Delivery O2 Flow Rate FiO2 08/20/18 10:27 74 121/58 08/20/18 08:00 98.4 22 96 08/20/18 08:00 Nasal Cannula 2.0 08/18/18 23:40 40 Laboratory Tests Test 08/19/18 19:45 08/19/18 19:59 08/20/18 03:00 08/20/18 10:35 Urine Color Pale yellow Urine Appearance Cloudy Urine pH 5 (4.5-8.0) Urine Specific [place] 1.020 (1.005-1.035) Urine Protein 3+ (NEGATIVE) H Urine Glucose (UA) 1+ (NEGATIVE) H Urine Ketones 1+ (NEGATIVE) H Urine Blood 3+ (NEGATIVE) H Urine Nitrite Negative (NEGATIVE) Urine Bilirubin Negative (NEGATIVE) Urine Urobilinogen Normal MG/DL (0.0-1.0) Urine Leukocyte Esterase Negative (NEGATIVE) Urine RBC 0-2 /HPF (0 - 2) Urine WBC 2-4 /HPF (0 - 2) Urine Squamous Epithelial Cells Occasional /LPF Urine Bacteria Many /HPF (NONE) H Urine Eosinophils None seen (NONE SEEN) Activated Partial Thromboplast Time > 150 SEC (23-33) *H 106 SEC (23-33) H 51 SEC (23-33) H White Blood Count 11.6 K/UL (4.8-10.8) H Red Blood Count 3.16 M/UL (4.20-5.40) L Hemoglobin 9.2 G/DL (12.0-16.0) L Hematocrit 26.9 % (37.0-47.0) L Mean Corpuscular Volume 85 FL (80-99) Mean Corpuscular Hemoglobin 29.0 PG (27.0-31.0) Mean Corpuscular Hemoglobin Concent 34.1 G/DL (32.0-36.0) Red Cell Distribution Width 11.5 % (11.6-14.8) L Platelet Count 306 K/UL (150-450) Mean Platelet Volume 7.8 FL (6.5-10.1) Neutrophils (%) (Auto) 71.7 % (45.0-75.0) Lymphocytes (%) (Auto) 17.0 % (20.0-45.0) L Monocytes (%) (Auto) 9.0 % (1.0-10.0) Eosinophils (%) (Auto) 1.2 % (0.0-3.0) Basophils (%) (Auto) 1.1 % (0.0-2.0) Differential Total Cells Counted 100 Neutrophils % (Manual) 73 % (45-75) Lymphocytes % (Manual) 16 % (20-45) L Monocytes % (Manual) 9 % (1-10) Eosinophils % (Manual) 2 % (0-3) Basophils % (Manual) 0 % (0-2) Band Neutrophils 0 % (0-8) Other Cell Type Pathologist comment Platelet Estimate Adequate Platelet Morphology Normal Hypochromasia 1+ Erythrocyte Sedimentation Rate 120 MM/HR (0-30) H Reticulocyte Count 0.7 % (0.0-2.0) Prothrombin Time 12.1 SEC (9.30-11.50) H Prothromb Time International Ratio 1.2 (0.9-1.1) H Sodium Level 134 MMOL/L (136-145) L Potassium Level 3.7 MMOL/L (3.5-5.1) Chloride Level 98 MMOL/L (98-107) Carbon Dioxide Level 28 MMOL/L (21-32) Anion Gap 8 mmol/L (5-15) Blood Urea Nitrogen 27 mg/dL (7-18) H Creatinine 2.1 MG/DL (0.55-1.30) H Estimat Glomerular Filtration Rate mL/min (>60) Glucose Level 179 MG/DL (74-106) H Hemoglobin A1c 8.9 % (4.3-6.0) H Uric Acid 6.9 MG/DL (2.6-7.2) Calcium Level 8.1 MG/DL (8.5-10.1) L Phosphorus Level 3.9 MG/DL (2.5-4.9) Magnesium Level 1.5 MG/DL (1.8-2.4) L Iron Level 16 ug/dL (50-175) L Total Iron Binding Capacity 181 ug/dL (250-450) L Percent Iron Saturation 9 % (15-50) L Unsaturated Iron Binding 165 ug/dL (112-346) Ferritin 220 NG/ML (8-388) Total Bilirubin 0.3 MG/DL (0.2-1.0) Gamma Glutamyl Transpeptidase 15 U/L (5-85) Aspartate Amino Transf (AST/SGOT) 15 U/L (15-37) Alanine Aminotransferase (ALT/SGPT) 11 U/L (12-78) L Alkaline Phosphatase 79 U/L (46-116) Lactate Dehydrogenase 174 U/L (81-234) Total Creatine Kinase 67 U/L (26-308) Troponin I 3.036 ng/mL (0.000-0.056) Pro-B-Type Natriuretic Peptide 21764 pg/mL (0-125) H Total Protein 6.6 G/DL (6.4-8.2) Albumin 2.6 G/DL (3.4-5.0) L Globulin 4.0 g/dL Albumin/Globulin Ratio 0.6 (1.0-2.7) L Triglycerides Level 114 MG/DL (30-150) Cholesterol Level 113 MG/DL (< 200) LDL Cholesterol 53 mg/dL (<100) HDL Cholesterol 46 MG/DL (40-60) Cholesterol/HDL Ratio 2.5 (3.3-4.4) L Carcinoembryonic Antigen Pending Vitamin B12 Level 655 PG/ML (193-986) Folate 10.1 NG/ML (8.6-58.9) Thyroid Stimulating Hormone (TSH) 3.067 uiU/mL (0.358-3.740) Microbiology Date/Time Source Procedure Growth Status 08/18/18 20:45 Blood Blood Culture - Preliminary NO GROWTH AFTER 24 HOURS Resulted 08/18/18 20:30 Blood Blood Culture - Preliminary NO GROWTH AFTER 24 HOURS Resulted 08/19/18 19:45 Urine,Clean Catch Urine Culture - Preliminary Gram Negative Bacillus 1 Resulted 08/18/18 21:35 Urine,Clean Catch Urine Culture - Preliminary NO GROWTH AFTER 24 HOURS Resulted Intake and Output 08/19/18 08/20/18 19:00 07:00 Intake Total 123.646 ml 69.178 ml Output Total 300 ml 300 ml Balance -176.354 ml -230.822 ml Intake IV Total 123.646 ml 69.178 ml Output Urine Total 300 ml 300 ml # Voids 2 Objective General: No acute distress, awake and alert HEENT: NCAT, sclera anicteric, PERRL, EOMI. Neck: Supple, no significant jugular venous distention, Lungs: decreased air in the bases, clear to auscultation bilaterally, no Wheeze or Rales. Heart: Regular rate and rhythm, normal S1/S2, no murmur, distant heart sounds. Abdomen: soft, nontender, nondistended. Normoactive bowel sounds. / Rectal: Refused and deferred. Extremities: No Cyanosis , clubbing or edema. Neuro: A&O x 3, Able to move all extremities slowly. Skin: warm, no rashest Assessment/Plan Status Narrative 1. Shortness of breath. 2. Congestive heart failure. 3. Chronic renal insufficiency. 4. [id number] myocardial infarction. 5. History of CVA with left-sided weakness. 6. Glaucoma. 7. Hypertension. 8. Coronary artery disease. TREATMENT: 1. Shortness of breath. A Pulmonary consultation has been obtained with Dr. Radha Ayon. We will follow recommendations of Pulmonary. 2. Congestive heart failure/[id number] myocardial infarction. A Cardiology consultation has been obtained with Dr. Vishal Enriquez. The patient has been started empirically on aspirin and Plavix. 3. Renal failure. A Nephrology consultation has been obtained with Dr. Newton. 4. Cerebrovascular disease. 5. Hypertension. The patient is currently hypotensive. 6. Glaucoma. Continue eye drops as above. Continue on a heparin drip as per pharmacy, CODE STATUS is full code. Monitor laboratory, 2 the patient D alida. Ben Barrios MD Aug 20, 2018 14:19
--- NOTE | 2018-08-20 15:59 | Nephrology Progress Note ---
Assessment/Plan Problem List: (1) Renal failure (ARF), acute on chronic (2) CAD (coronary artery disease) Assessment: elevated troponin (3) Acute respiratory failure (4) Diabetic nephropathy Assessment Renal failure, Acute on Chronic Acute respiratory failure on presentation CAD, Elevated troponin I Anemia HTN DM h/o CVA CRAWLEY, Weakness Plan 2D Echo pending per cardio management Avoid Nephrotoxics keep BP and BS in check optimize cardiac and pulmonary status per orders Subjective ROS Limited/Unobtainable: No Constitutional: Reports: malaise, weakness Objective Objective Last 24 Hour Vital Signs Date Time Temp Pulse Resp B/P (MAP) Pulse Ox O2 Delivery O2 Flow Rate FiO2 08/20/18 12:00 Nasal Cannula 2.0 08/20/18 10:27 74 121/58 08/20/18 08:00 72 08/20/18 08:00 98.4 74 22 121/58 (79) 96 08/20/18 08:00 Nasal Cannula 2.0 08/20/18 04:00 Nasal Cannula 2.0 08/20/18 04:00 76 08/20/18 04:00 98.1 90 24 130/61 (84) 94 08/20/18 00:00 98.4 83 24 120/63 (82) 95 08/20/18 00:00 Nasal Cannula 2.0 08/20/18 00:00 82 08/19/18 20:28 80 125/65 08/19/18 20:00 80 08/19/18 20:00 97.9 80 18 125/65 (85) 95 08/19/18 20:00 Nasal Cannula 2.0 08/19/18 16:00 Nasal Cannula 2.0 08/19/18 16:00 78 08/19/18 16:00 99.6 81 18 121/64 (83) 93 Intake and Output 08/19/18 08/20/18 19:00 07:00 Intake Total 123.646 ml 69.178 ml Output Total 300 ml 300 ml Balance -176.354 ml -230.822 ml Intake IV Total 123.646 ml 69.178 ml Output Urine Total 300 ml 300 ml # Voids 2 Laboratory Tests 08/19/18 19:45: Urine Color Pale yellow, Urine Appearance Cloudy, Urine pH 5, Urine Specific [place] 1.020, Urine Protein 3+H, Urine Glucose (UA) 1+H, Urine Ketones 1+H, Urine Blood 3+H, Urine Nitrite Negative, Urine Bilirubin Negative, Urine Urobilinogen Normal, Urine Leukocyte Esterase Negative, Urine RBC 0-2, Urine WBC 2-4, Urine Squamous Epithelial Cells Occasional, Urine Bacteria ManyH, Urine Eosinophils None seen 08/19/18 19:59: Activated Partial Thromboplast Time > 150*H 08/20/18 03:00: Activated Partial Thromboplast Time 106H, White Blood Count 11.6H, Red Blood Count 3.16L, Hemoglobin 9.2L, Hematocrit 26.9L, Mean Corpuscular Volume 85, Mean Corpuscular Hemoglobin 29.0, Mean Corpuscular Hemoglobin Concent 34.1, Red Cell Distribution Width 11.5L, Platelet Count 306, Mean Platelet Volume 7.8, Neutrophils (%) (Auto) 71.7, Lymphocytes (%) (Auto) 17.0L, Monocytes (%) (Auto) 9.0, Eosinophils (%) (Auto) 1.2, Basophils (%) (Auto) 1.1, Differential Total Cells Counted 100, Neutrophils % (Manual) 73, Lymphocytes % (Manual) 16L, Monocytes % (Manual) 9, Eosinophils % (Manual) 2, Basophils % (Manual) 0, Band Neutrophils 0, Other Cell Type Pathologist comment, Platelet Estimate Adequate, Platelet Morphology Normal, Hypochromasia 1+, Erythrocyte Sedimentation Rate 120H, Reticulocyte Count 0.7, Prothrombin Time 12.1H, Prothromb Time International Ratio 1.2H, Sodium Level 134L, Potassium Level 3.7, Chloride Level 98, Carbon Dioxide Level 28, Anion Gap 8, Blood Urea Nitrogen 27H, Creatinine 2.1H, Estimat Glomerular Filtration Rate , Glucose Level 179H, Hemoglobin A1c 8.9H, Uric Acid 6.9, Calcium Level 8.1L, Phosphorus Level 3.9, Magnesium Level 1.5L, Iron Level 16L, Total Iron Binding Capacity 181L, Percent Iron Saturation 9L, Unsaturated Iron Binding 165, Ferritin 220, Total Bilirubin 0.3, Gamma Glutamyl Transpeptidase 15, Aspartate Amino Transf (AST/SGOT) 15, Alanine Aminotransferase (ALT/SGPT) 11L, Alkaline Phosphatase 79, Lactate Dehydrogenase 174, Total Creatine Kinase 67, Troponin I 3.036H, Pro-B-Type Natriuretic Peptide 47659E, Total Protein 6.6, Albumin 2.6L, Globulin 4.0, Albumin/Globulin Ratio 0.6L, Triglycerides Level 114, Cholesterol Level 113, LDL Cholesterol 53, HDL Cholesterol 46, Cholesterol/HDL Ratio 2.5L, Carcinoembryonic Antigen [Pending], Vitamin B12 Level 655, Folate 10.1, Thyroid Stimulating Hormone (TSH) 3.067 08/20/18 10:35: Activated Partial Thromboplast Time 51H Height (Feet): 5 Height (Inches): 2.00 Weight (Pounds): 117 General Appearance: no apparent distress Cardiovascular: normal rate Respiratory/Chest: decreased breath sounds Abdomen: soft Objective no change Lamonte Newton MD Aug 20, 2018 15:59
[2018-08-20 16:00] VITALS: BP 124/70
--- NOTE | 2018-08-20 19:00 | Cardiology Progress Note ---
Assessment/Plan Assessment/Plan 1. [id number] myocardial infarction. 2. Diabetes mellitus. 3. Hypertension. 4. History of CVA with left-sided weakness. 5. Anemia. 6. Renal insufficiency. heparin diuretic plavix (asa allergy) ntp will likey need cardiac cath but at risk of contrast nephropathy d/w pt in detail with davis on 08/19 she wishes to proceed if planned trop nto yet peaked transfer center at [facility] notified on 08/19 ther aore 30 pt ahead of pt for transfer as of today Subjective Cardiovascular: Denies: chest pain, lightheadedness Respiratory: Denies: SOB at rest Gastrointestinal/Abdominal: Denies: black stools Genitourinary: Denies: burning Objective Last 24 Hour Vital Signs Date Time Temp Pulse Resp B/P (MAP) Pulse Ox O2 Delivery O2 Flow Rate FiO2 08/20/18 16:00 76 08/20/18 16:00 98.4 74 20 124/70 (88) 93 08/20/18 16:00 Nasal Cannula 2.0 08/20/18 12:00 98.1 71 20 135/72 (93) 94 08/20/18 12:00 69 08/20/18 12:00 Nasal Cannula 2.0 08/20/18 10:27 74 121/58 08/20/18 08:00 72 08/20/18 08:00 98.4 74 22 121/58 (79) 96 08/20/18 08:00 Nasal Cannula 2.0 08/20/18 04:00 Nasal Cannula 2.0 08/20/18 04:00 76 08/20/18 04:00 98.1 90 24 130/61 (84) 94 08/20/18 00:00 98.4 83 24 120/63 (82) 95 08/20/18 00:00 Nasal Cannula 2.0 08/20/18 00:00 82 08/19/18 20:28 80 125/65 08/19/18 20:00 80 08/19/18 20:00 97.9 80 18 125/65 (85) 95 08/19/18 20:00 Nasal Cannula 2.0 General Appearance: no apparent distress, alert Neck: supple Cardiovascular: normal rate Respiratory/Chest: crackles/rales Abdomen: normal bowel sounds, non tender, soft Extremities: no swelling Intake and Output 08/19/18 08/20/18 19:00 07:00 Intake Total 123.646 ml 69.178 ml Output Total 300 ml 300 ml Balance -176.354 ml -230.822 ml Intake IV Total 123.646 ml 69.178 ml Output Urine Total 300 ml 300 ml # Voids 2 Laboratory Tests Test 08/19/18 19:45 08/19/18 19:59 08/20/18 03:00 08/20/18 10:35 Urine Color Pale yellow Urine Appearance Cloudy Urine pH 5 (4.5-8.0) Urine Specific Sherwood 1.020 (1.005-1.035) Urine Protein 3+ (NEGATIVE) H Urine Glucose (UA) 1+ (NEGATIVE) H Urine Ketones 1+ (NEGATIVE) H Urine Blood 3+ (NEGATIVE) H Urine Nitrite Negative (NEGATIVE) Urine Bilirubin Negative (NEGATIVE) Urine Urobilinogen Normal MG/DL (0.0-1.0) Urine Leukocyte Esterase Negative (NEGATIVE) Urine RBC 0-2 /HPF (0 - 2) Urine WBC 2-4 /HPF (0 - 2) Urine Squamous Epithelial Cells Occasional /LPF Urine Bacteria Many /HPF (NONE) H Urine Eosinophils None seen (NONE SEEN) Activated Partial Thromboplast Time > 150 SEC (23-33) *H 106 SEC (23-33) H 51 SEC (23-33) H White Blood Count 11.6 K/UL (4.8-10.8) H Red Blood Count 3.16 M/UL (4.20-5.40) L Hemoglobin 9.2 G/DL (12.0-16.0) L Hematocrit 26.9 % (37.0-47.0) L Mean Corpuscular Volume 85 FL (80-99) Mean Corpuscular Hemoglobin 29.0 PG (27.0-31.0) Mean Corpuscular Hemoglobin Concent 34.1 G/DL (32.0-36.0) Red Cell Distribution Width 11.5 % (11.6-14.8) L Platelet Count 306 K/UL (150-450) Mean Platelet Volume 7.8 FL (6.5-10.1) Neutrophils (%) (Auto) 71.7 % (45.0-75.0) Lymphocytes (%) (Auto) 17.0 % (20.0-45.0) L Monocytes (%) (Auto) 9.0 % (1.0-10.0) Eosinophils (%) (Auto) 1.2 % (0.0-3.0) Basophils (%) (Auto) 1.1 % (0.0-2.0) Differential Total Cells Counted 100 Neutrophils % (Manual) 73 % (45-75) Lymphocytes % (Manual) 16 % (20-45) L Monocytes % (Manual) 9 % (1-10) Eosinophils % (Manual) 2 % (0-3) Basophils % (Manual) 0 % (0-2) Band Neutrophils 0 % (0-8) Other Cell Type Pathologist comment Platelet Estimate Adequate Platelet Morphology Normal Hypochromasia 1+ Erythrocyte Sedimentation Rate 120 MM/HR (0-30) H Reticulocyte Count 0.7 % (0.0-2.0) Prothrombin Time 12.1 SEC (9.30-11.50) H Prothromb Time International Ratio 1.2 (0.9-1.1) H Sodium Level 134 MMOL/L (136-145) L Potassium Level 3.7 MMOL/L (3.5-5.1) Chloride Level 98 MMOL/L (98-107) Carbon Dioxide Level 28 MMOL/L (21-32) Anion Gap 8 mmol/L (5-15) Blood Urea Nitrogen 27 mg/dL (7-18) H Creatinine 2.1 MG/DL (0.55-1.30) H Estimat Glomerular Filtration Rate mL/min (>60) Glucose Level 179 MG/DL (74-106) H Hemoglobin A1c 8.9 % (4.3-6.0) H Uric Acid 6.9 MG/DL (2.6-7.2) Calcium Level 8.1 MG/DL (8.5-10.1) L Phosphorus Level 3.9 MG/DL (2.5-4.9) Magnesium Level 1.5 MG/DL (1.8-2.4) L Iron Level 16 ug/dL (50-175) L Total Iron Binding Capacity 181 ug/dL (250-450) L Percent Iron Saturation 9 % (15-50) L Unsaturated Iron Binding 165 ug/dL (112-346) Ferritin 220 NG/ML (8-388) Total Bilirubin 0.3 MG/DL (0.2-1.0) Gamma Glutamyl Transpeptidase 15 U/L (5-85) Aspartate Amino Transf (AST/SGOT) 15 U/L (15-37) Alanine Aminotransferase (ALT/SGPT) 11 U/L (12-78) L Alkaline Phosphatase 79 U/L (46-116) Lactate Dehydrogenase 174 U/L (81-234) Total Creatine Kinase 67 U/L (26-308) Troponin I 3.036 ng/mL (0.000-0.056) Pro-B-Type Natriuretic Peptide 44739 pg/mL (0-125) H Total Protein 6.6 G/DL (6.4-8.2) Albumin 2.6 G/DL (3.4-5.0) L Globulin 4.0 g/dL Albumin/Globulin Ratio 0.6 (1.0-2.7) L Triglycerides Level 114 MG/DL (30-150) Cholesterol Level 113 MG/DL (< 200) LDL Cholesterol 53 mg/dL (<100) HDL Cholesterol 46 MG/DL (40-60) Cholesterol/HDL Ratio 2.5 (3.3-4.4) L Carcinoembryonic Antigen Pending Vitamin B12 Level 655 PG/ML (193-986) Folate 10.1 NG/ML (8.6-58.9) Thyroid Stimulating Hormone (TSH) 3.067 uiU/mL (0.358-3.740) Test 08/20/18 18:30 Activated Partial Thromboplast Time Pending Microbiology Date/Time Source Procedure Growth Status 08/18/18 20:45 Blood Blood Culture - Preliminary NO GROWTH AFTER 24 HOURS Resulted 08/18/18 20:30 Blood Blood Culture - Preliminary NO GROWTH AFTER 24 HOURS Resulted 08/19/18 19:45 Urine,Clean Catch Urine Culture - Preliminary Gram Negative Bacillus 1 Resulted 08/18/18 21:35 Urine,Clean Catch Urine Culture - Preliminary NO GROWTH AFTER 24 HOURS Resulted Vishal Enriquez MD Aug 20, 2018 19:00
--- NOTE | 2018-08-20 19:15 | NUR ---
HAND-OFF: Report given to .MIMI BAIRD.
--- NOTE | 2018-08-20 19:59 | NUR ---
NURSE NOTES: Received report form Cristofer Lamar RN. Pt in bed awake with tv on. Hep Drip running at prescribed rate. Will update rate change and order timed PTT once administered. No distress noted. Pt denies pain. Bed in lowest position with side rails up x2 and call light in reach. Will continue to monitor.
[2018-08-20 20:00] VITALS: BP 130/77
[2018-08-20] MEDS ORDERED: Tubing IV Secondary IV ONE (20:18)
[2018-08-20] MEDS ORDERED: NS 275ml ONE (20:18)
[2018-08-21] VITALS: BP 126/55
[2018-08-21 02:41] LABS: BASOPHILS % (AUTO) 0.9 % (0.0-2.0); EOSINOPHILS % (AUTO) 1.8 % (0.0-3.0); HEMATOCRIT 28.2 % (37.0-47.0); HEMOGLOBIN 9.5 G/DL (12.0-16.0); LYMPHOCYTES % (AUTO) 17.6 % (20.0-45.0); MEAN CORPUSCULAR VOLUME 85 FL (80-99); MONOCYTES % (AUTO) 9.2 % (1.0-10.0); NEUTROPHILS % (AUTO) 70.4 % (45.0-75.0); PLATELET COUNT 324 K/UL (150-450); RED BLOOD COUNT 3.32 M/UL (4.20-5.40); RED CELL DISTRIBUTION WIDTH 11.1 % (11.6-14.8); WHITE BLOOD COUNT 11.8 K/UL (4.8-10.8)
[2018-08-21 02:54] LABS: ALANINE AMINOTRANSFERASE 15 U/L (12-78); ALBUMIN 2.6 G/DL (3.4-5.0); ALBUMIN/GLOBULIN RATIO 0.6 (1.0-2.7); ALKALINE PHOSPHATASE 85 U/L (46-116); ANION GAP 6 mmol/L (5-15); ASPARTATE AMINO TRANSFERASE 14 U/L (15-37); BILIRUBIN,TOTAL 0.4 MG/DL (0.2-1.0); BLOOD UREA NITROGEN 27 mg/dL (7-18); CALCIUM 8.5 MG/DL (8.5-10.1); CARBON DIOXIDE 30 MMOL/L (21-32); CHLORIDE 98 MMOL/L (98-107); CREATININE 2.1 MG/DL (0.55-1.30); PHOSPHORUS 4.8 MG/DL (2.5-4.9); POTASSIUM 3.9 MMOL/L (3.5-5.1); SODIUM 134 MMOL/L (136-145)
[2018-08-21 04:00] VITALS: BP 132/66
[2018-08-21] MEDS: Heparin 25,000u/D5W 500ml 500 ML IV SCH ×2 (04:12→18:46)
[2018-08-21] MEDS: NovoLOG Insulin Flexpen SUBQ SCH ×4 (06:30→22:22)
--- NOTE | 2018-08-21 07:10 | NUR ---
NURSE NOTES: Received patient from BRIE Maya. Patient in bed and asleep. On heparin drip at the prescribed rate. In room air. In no respiratory distress. secured entrance monitor in placed. Bed in lowest position with side rails up. Will continue to follow plan of care.
--- NOTE | 2018-08-21 07:36 | Pulmonology Progress Note ---
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 , but no acute DVT pain management supportive care renal parameters without change , possibly chronic kidney disease , urine cx + Klebsiella, blood cx negative , start elodia Cipro BS management with SSI, HgA1c -8.9 not at goal, need further optimization of antiglycemic regimen as outpt, later monitor renal parameters and electrolytes, avoid nephrotoxic and replace electrolytes prn monitor H&H with goal to keep hemoglobin above 7 , remain at baseline GI prophylaxis awaiting for transfer case discussed and evaluated by supervising physician Subjective Allergies: Coded Allergies: ASPIRIN (Verified Allergy, Unknown, 04/25/17) ATORVASTATIN (Verified Allergy, Unknown, 04/26/17) CHOLINE FENOFIBRATE (Verified Allergy, Unknown, 04/26/17) DULOXETINE (Verified Allergy, Unknown, 04/26/17) GABAPENTIN (Verified Allergy, Unknown, 04/26/17) NIACIN (Verified Allergy, Unknown, 04/26/17) OXYCODONE (Verified Allergy, Unknown, 04/26/17) PENICILLINS (Verified Allergy, Unknown, 04/25/17) PROMETHAZINE (Verified Allergy, Unknown, 04/26/17) ROSIGLITAZONE (Verified Allergy, Unknown, 04/26/17) TRAMADOL (Verified Allergy, Unknown, 04/26/17) Subjective leuk trending down, afebrile pulse ox stable on O2 via NC no signs of resp distress awaiting for transfer to [facility] for cardiac cath Objective Last 24 Hour Vital Signs Date Time Temp Pulse Resp B/P (MAP) Pulse Ox O2 Delivery O2 Flow Rate FiO2 08/21/18 04:00 Nasal Cannula 2.0 08/21/18 04:00 97.9 72 18 132/66 (88) 92 08/21/18 04:00 70 08/21/18 00:00 77 08/21/18 00:00 98.2 75 18 126/55 (78) 92 08/21/18 00:00 Nasal Cannula 2.0 08/20/18 20:14 66 130/77 08/20/18 20:00 97.9 66 20 130/77 (94) 97 08/20/18 20:00 79 08/20/18 20:00 Nasal Cannula 2.0 08/20/18 16:00 76 08/20/18 16:00 98.4 74 20 124/70 (88) 93 08/20/18 16:00 Nasal Cannula 2.0 08/20/18 12:00 98.1 71 20 135/72 (93) 94 08/20/18 12:00 69 08/20/18 12:00 Nasal Cannula 2.0 08/20/18 10:27 74 121/58 08/20/18 08:00 72 08/20/18 08:00 98.4 74 22 121/58 (79) 96 08/20/18 08:00 Nasal Cannula 2.0 Intake and Output 08/20/18 08/21/18 18:59 06:59 Intake Total 939.538 ml 303.955 ml Output Total 650 ml 300 ml Balance 289.538 ml 3.955 ml Intake Oral 750 ml 240 ml IV Total 189.538 ml 63.955 ml Output Urine Total 650 ml 300 ml # Voids 3 # Bowel Movements 1 General Appearance: no acute distress, other - asleep, arousable elderly female HEENT: normocephalic, atraumatic, anicteric, mucous membranes moist Respiratory/Chest: lungs clear, no respiratory distress, no accessory muscle use Cardiovascular: normal peripheral pulses, normal rate, regular rhythm - SR with ST depression Abdomen: normal bowel sounds, soft, non tender, non distended Extremities: no edema, pedal pulses normal Neurologic/Psychiatric: abnormal gait, responsive Musculoskeletal: atrophy - BLE Microbiology Date/Time Source Procedure Growth Status 08/18/18 20:45 Blood Blood Culture - Preliminary NO GROWTH AFTER 48 HOURS Resulted 08/18/18 20:30 Blood Blood Culture - Preliminary NO GROWTH AFTER 48 HOURS Resulted 08/19/18 19:45 Urine,Clean Catch Urine Culture - Final Klebsiella Pneumoniae Complete 08/18/18 21:35 Urine,Clean Catch Urine Culture - Final NO GROWTH AFTER 48 HOURS Complete Laboratory Tests 08/20/18 10:35: Activated Partial Thromboplast Time 51H 08/20/18 18:30: Activated Partial Thromboplast Time 63H 08/21/18 02:20: Activated Partial Thromboplast Time > 150*H, White Blood Count 11.8H, Red Blood Count 3.32L, Hemoglobin 9.5L, Hematocrit 28.2L, Mean Corpuscular Volume 85, Mean Corpuscular Hemoglobin 28.7, Mean Corpuscular Hemoglobin Concent 33.8, Red Cell Distribution Width 11.1L, Platelet Count 324, Mean Platelet Volume 7.7, Neutrophils (%) (Auto) 70.4, Lymphocytes (%) (Auto) 17.6L, Monocytes (%) (Auto) 9.2, Eosinophils (%) (Auto) 1.8, Basophils (%) (Auto) 0.9, Erythrocyte Sedimentation Rate 100H, Sodium Level 134L, Potassium Level 3.9, Chloride Level 98, Carbon Dioxide Level 30, Anion Gap 6, Blood Urea Nitrogen 27H, Creatinine 2.1H, Estimat Glomerular Filtration Rate , Glucose Level 206H, Calcium Level 8.5 , Phosphorus Level 4.8, Magnesium Level 2.8H, Total Bilirubin 0.4, Aspartate Amino Transf (AST/SGOT) 14L, Alanine Aminotransferase (ALT/SGPT) 15, Alkaline Phosphatase 85, Troponin I 2.386H, Total Protein 6.6, Albumin 2.6L, Globulin 4.0 , Albumin/Globulin Ratio 0.6L Current Medications Medications (Trade) Dose Ordered Sig/Lita Route PRN Reason Start Time Stop Time Status Last Admin Dose Admin Acetaminophen (Tylenol) 650 mg Q4H PRN ORAL FEVER 08/18/18 22:30 09/17/18 22:29 Albuterol/ Ipratropium (Albuterol/ Ipratropium) 3 ml Q4H PRN HHN Shortness of Breath 08/18/18 22:30 08/23/18 22:29 Carvedilol (Coreg) 25 mg EVERY 12 HOURS ORAL 08/19/18 21:00 09/18/18 08:59 08/20/18 20:14 Clopidogrel Bisulfate (Plavix) 75 mg DAILY ORAL 08/19/18 09:00 09/18/18 08:59 08/20/18 10:33 Dextrose (Dextrose 50%) 25 ml Q30M PRN IV Hypoglycemia 08/18/18 22:30 09/17/18 22:29 Diltiazem HCl (Cardizem) 10 mg Q1H PRN IV heart rate more than 120, 08/18/18 22:30 09/17/18 22:29 Heparin Sodium/ Dextrose 500 ml @ 8.528 mls/ hr ADJUST PER PROTOCOL IV 08/20/18 19:15 09/19/18 19:14 08/21/18 04:12 Insulin Aspart (NovoLOG) BEFORE MEALS AND HS SUBQ 08/19/18 06:30 09/18/18 06:29 08/20/18 18:10 Nitroglycerin (Ntg) 0.4 mg Q5M PRN SL Prn Chest Pain 08/18/18 22:30 09/17/18 22:29 Ondansetron HCl (Zofran) 4 mg Q6H PRN IVP Nausea & Vomiting 08/18/18 22:30 09/17/18 22:29 Pantoprazole (Protonix) 40 mg Q12HR ORAL 08/19/18 21:00 09/18/18 08:59 08/20/18 20:14 Polyethylene Glycol (Miralax) 17 gm DAILYPRN PRN ORAL Constipation 08/18/18 22:30 09/17/18 22:29 Temazepam (Restoril) 15 mg HSPRN PRN ORAL Insomnia 08/18/18 22:30 08/25/18 22:29 08/20/18 20:20 Essence Goodson NP Aug 21, 2018 07:36
--- NOTE | 2018-08-21 07:40 | NUR ---
HAND-OFF: Report given to Taylor Lester RN. Pt stable. EKG done in chart.
[2018-08-21 08:00] VITALS: BP 128/54
[2018-08-21] MEDS: Carvedilol 25mg Tab ORAL SCH ×2 (09:14→22:20)
[2018-08-21] MEDS ORDERED: Heparin 25,000u/D5W 500ml 500 ML IV SCH (11:15)
[2018-08-21] MEDS ORDERED: Heparin 5000 units/ml inj IV ONE (11:15)
[2018-08-21 12:00] VITALS: BP 131/61
[2018-08-21] MEDS ORDERED: Albuterol/Ipratropium 3ml neb HHN PRN (12:00)
--- NOTE | 2018-08-21 15:07 | Nephrology Progress Note ---
Assessment/Plan Problem List: (1) Renal failure (ARF), acute on chronic (2) CAD (coronary artery disease) Assessment: elevated troponin (3) Acute respiratory failure (4) Diabetic nephropathy Assessment Renal failure, Acute on Chronic Acute respiratory failure on presentation CAD, Elevated troponin I Anemia HTN DM h/o CVA CRAWLEY, Weakness Plan troponin lower 2D Echo pending per cardio management Avoid Nephrotoxics keep BP and BS in check optimize cardiac and pulmonary status per orders Subjective ROS Limited/Unobtainable: No Constitutional: Reports: malaise, weakness Objective Objective Last 24 Hour Vital Signs Date Time Temp Pulse Resp B/P (MAP) Pulse Ox O2 Delivery O2 Flow Rate FiO2 08/21/18 12:00 98.1 71 20 131/61 (84) 95 08/21/18 12:00 Nasal Cannula 2.0 08/21/18 09:14 73 128/54 08/21/18 08:00 Nasal Cannula 2.0 08/21/18 08:00 76 08/21/18 08:00 98.4 73 20 128/54 (78) 92 08/21/18 04:00 Nasal Cannula 2.0 08/21/18 04:00 97.9 72 18 132/66 (88) 92 08/21/18 04:00 70 08/21/18 00:00 77 08/21/18 00:00 98.2 75 18 126/55 (78) 92 08/21/18 00:00 Nasal Cannula 2.0 08/20/18 20:14 66 130/77 08/20/18 20:00 97.9 66 20 130/77 (94) 97 08/20/18 20:00 79 08/20/18 20:00 Nasal Cannula 2.0 08/20/18 16:00 76 08/20/18 16:00 98.4 74 20 124/70 (88) 93 08/20/18 16:00 Nasal Cannula 2.0 Intake and Output 08/20/18 08/21/18 19:00 07:00 Intake Total 939.538 ml 312.483 ml Output Total 650 ml 300 ml Balance 289.538 ml 12.483 ml Intake Oral 750 ml 240 ml IV Total 189.538 ml 72.483 ml Output Urine Total 650 ml 300 ml # Voids 3 # Bowel Movements 1 Laboratory Tests 08/20/18 18:30: Activated Partial Thromboplast Time 63H 2/23/19 02:20: Activated Partial Thromboplast Time > 150*H, White Blood Count 11.8H, Red Blood Count 3.32L, Hemoglobin 9.5L, Hematocrit 28.2L, Mean Corpuscular Volume 85, Mean Corpuscular Hemoglobin 28.7, Mean Corpuscular Hemoglobin Concent 33.8, Red Cell Distribution Width 11.1L, Platelet Count 324, Mean Platelet Volume 7.7, Neutrophils (%) (Auto) 70.4, Lymphocytes (%) (Auto) 17.6L, Monocytes (%) (Auto) 9.2, Eosinophils (%) (Auto) 1.8, Basophils (%) (Auto) 0.9, Erythrocyte Sedimentation Rate 100H, Sodium Level 134L, Potassium Level 3.9, Chloride Level 98, Carbon Dioxide Level 30, Anion Gap 6, Blood Urea Nitrogen 27H, Creatinine 2.1H, Estimat Glomerular Filtration Rate , Glucose Level 206H, Calcium Level 8.5 , Phosphorus Level 4.8, Magnesium Level 2.8H, Total Bilirubin 0.4, Aspartate Amino Transf (AST/SGOT) 14L, Alanine Aminotransferase (ALT/SGPT) 15, Alkaline Phosphatase 85, Troponin I 2.386H, Total Protein 6.6, Albumin 2.6L, Globulin 4.0 , Albumin/Globulin Ratio 0.6L 08/21/18 10:15: Activated Partial Thromboplast Time 58H Height (Feet): 5 Height (Inches): 2.00 Weight (Pounds): 117 Cardiovascular: normal rate Respiratory/Chest: decreased breath sounds Abdomen: soft Objective no change Lamonte Newton MD Aug 21, 2018 15:07
[2018-08-21 16:00] VITALS: BP 129/63
--- NOTE | 2018-08-21 16:51 | NUR ---
NURSE NOTES: Patient refuses Novolog insulin. Educated patient in the importance of receiving insulin, but still refuses.
--- NOTE | 2018-08-21 18:00 | Internal Med Progress Note ---
Subjective Date of Service: Aug 21, 2018 Physician Name Dixon Styles Attending Physician Ben Barrios MD Current Medications Medications (Trade) Dose Ordered Sig/Lita Route PRN Reason Start Time Stop Time Status Last Admin Dose Admin Acetaminophen (Tylenol) 650 mg Q4H PRN ORAL FEVER 08/18/18 22:30 09/17/18 22:29 Albuterol/ Ipratropium (Albuterol/ Ipratropium) 3 ml Q4H PRN HHN Shortness of Breath 08/21/18 12:00 08/26/18 11:59 Carvedilol (Coreg) 25 mg EVERY 12 HOURS ORAL 08/19/18 21:00 09/18/18 08:59 08/21/18 09:14 Ciprofloxacin (Cipro 500mg tab) 250 mg EVERY 12 HOURS ORAL 08/21/18 21:00 08/28/18 20:59 Clopidogrel Bisulfate (Plavix) 75 mg DAILY ORAL 08/19/18 09:00 09/18/18 08:59 08/21/18 09:13 Dextrose (Dextrose 50%) 25 ml Q30M PRN IV Hypoglycemia 08/18/18 22:30 09/17/18 22:29 Diltiazem HCl (Cardizem) 10 mg Q1H PRN IV heart rate more than 120, 08/18/18 22:30 09/17/18 22:29 Heparin Sodium/ Dextrose 500 ml @ 10.659 mls/ hr ADJUST PER PROTOCOL IV 08/21/18 11:15 09/20/18 11:14 08/21/18 11:16 Insulin Aspart (NovoLOG) BEFORE MEALS AND HS SUBQ 08/19/18 06:30 09/18/18 06:29 08/21/18 11:14 Nitroglycerin (Ntg) 0.4 mg Q5M PRN SL Prn Chest Pain 08/18/18 22:30 09/17/18 22:29 Ondansetron HCl (Zofran) 4 mg Q6H PRN IVP Nausea & Vomiting 08/18/18 22:30 09/17/18 22:29 Pantoprazole (Protonix) 40 mg Q12HR ORAL 08/19/18 21:00 09/18/18 08:59 08/21/18 09:14 Polyethylene Glycol (Miralax) 17 gm DAILYPRN PRN ORAL Constipation 08/18/18 22:30 09/17/18 22:29 Temazepam (Restoril) 15 mg HSPRN PRN ORAL Insomnia 08/18/18 22:30 08/25/18 22:29 08/20/18 20:20 Allergies: Coded Allergies: ASPIRIN (Verified Allergy, Unknown, 04/25/17) ATORVASTATIN (Verified Allergy, Unknown, 04/26/17) CHOLINE FENOFIBRATE (Verified Allergy, Unknown, 04/26/17) DULOXETINE (Verified Allergy, Unknown, 04/26/17) GABAPENTIN (Verified Allergy, Unknown, 04/26/17) NIACIN (Verified Allergy, Unknown, 04/26/17) OXYCODONE (Verified Allergy, Unknown, 04/26/17) PENICILLINS (Verified Allergy, Unknown, 04/25/17) PROMETHAZINE (Verified Allergy, Unknown, 04/26/17) ROSIGLITAZONE (Verified Allergy, Unknown, 04/26/17) TRAMADOL (Verified Allergy, Unknown, 04/26/17) ROS Limited/Unobtainable: Yes Subjective 82 YO F admitted with shortness of breath. Now NSTEMI and CHF. Cover for Int Med-Dr Barrios. RADHA Objective Last Vital Signs Date Time Temp Pulse Resp B/P (MAP) Pulse Ox O2 Delivery O2 Flow Rate FiO2 08/21/18 16:00 98.4 72 18 129/63 (85) 96 08/21/18 16:00 Nasal Cannula 2.0 08/18/18 23:40 40 Laboratory Tests Test 08/20/18 18:30 08/21/18 02:20 08/21/18 10:15 Activated Partial Thromboplast Time 63 SEC (23-33) H > 150 SEC (23-33) *H 58 SEC (23-33) H White Blood Count 11.8 K/UL (4.8-10.8) H Red Blood Count 3.32 M/UL (4.20-5.40) L Hemoglobin 9.5 G/DL (12.0-16.0) L Hematocrit 28.2 % (37.0-47.0) L Mean Corpuscular Volume 85 FL (80-99) Mean Corpuscular Hemoglobin 28.7 PG (27.0-31.0) Mean Corpuscular Hemoglobin Concent 33.8 G/DL (32.0-36.0) Red Cell Distribution Width 11.1 % (11.6-14.8) L Platelet Count 324 K/UL (150-450) Mean Platelet Volume 7.7 FL (6.5-10.1) Neutrophils (%) (Auto) 70.4 % (45.0-75.0) Lymphocytes (%) (Auto) 17.6 % (20.0-45.0) L Monocytes (%) (Auto) 9.2 % (1.0-10.0) Eosinophils (%) (Auto) 1.8 % (0.0-3.0) Basophils (%) (Auto) 0.9 % (0.0-2.0) Erythrocyte Sedimentation Rate 100 MM/HR (0-30) H Sodium Level 134 MMOL/L (136-145) L Potassium Level 3.9 MMOL/L (3.5-5.1) Chloride Level 98 MMOL/L (98-107) Carbon Dioxide Level 30 MMOL/L (21-32) Anion Gap 6 mmol/L (5-15) Blood Urea Nitrogen 27 mg/dL (7-18) H Creatinine 2.1 MG/DL (0.55-1.30) H Estimat Glomerular Filtration Rate mL/min (>60) Glucose Level 206 MG/DL (74-106) H Calcium Level 8.5 MG/DL (8.5-10.1) Phosphorus Level 4.8 MG/DL (2.5-4.9) Magnesium Level 2.8 MG/DL (1.8-2.4) H Total Bilirubin 0.4 MG/DL (0.2-1.0) Aspartate Amino Transf (AST/SGOT) 14 U/L (15-37) L Alanine Aminotransferase (ALT/SGPT) 15 U/L (12-78) Alkaline Phosphatase 85 U/L (46-116) Troponin I 2.386 ng/mL (0.000-0.056) Total Protein 6.6 G/DL (6.4-8.2) Albumin 2.6 G/DL (3.4-5.0) L Globulin 4.0 g/dL Albumin/Globulin Ratio 0.6 (1.0-2.7) L Microbiology Date/Time Source Procedure Growth Status 08/18/18 20:45 Blood Blood Culture - Preliminary NO GROWTH AFTER 48 HOURS Resulted 08/18/18 20:30 Blood Blood Culture - Preliminary NO GROWTH AFTER 48 HOURS Resulted 08/19/18 19:45 Urine,Clean Catch Urine Culture - Final Klebsiella Pneumoniae Complete 08/18/18 21:35 Urine,Clean Catch Urine Culture - Final NO GROWTH AFTER 48 HOURS Complete Intake and Output 08/20/18 08/21/18 19:00 07:00 Intake Total 939.538 ml 312.483 ml Output Total 650 ml 300 ml Balance 289.538 ml 12.483 ml Intake Oral 750 ml 240 ml IV Total 189.538 ml 72.483 ml Output Urine Total 650 ml 300 ml # Voids 3 # Bowel Movements 1 Objective PHYSICAL EXAMINATION: VITAL SIGNS: Temperature 98.4, respirations 19, pulse 78 to 84, and blood pressure 147/64. GENERAL: The patient is well-developed and well-nourished white female, in no apparent distress. HEENT: Eyes, pupils are equal and responsive to light and accommodation. Extraocular movements are intact. NECK: Supple without lymphadenopathy. CHEST: Diffuse wheezes bilaterally. Crackles noted in bilateral bases. CARDIOVASCULAR: Regular rhythm and rate. S1 and S2 are normal without murmurs, rubs, or gallops. ABDOMEN: Soft, nontender, and nondistended. Positive bowel sounds. No evidence of hepatosplenomegaly. Currently, no rebound or guarding noted. EXTREMITIES: Negative for clubbing, cyanosis, or edema. RECTAL/GENITAL: Refused. NEUROLOGIC: Cranial nerves II through XII are grossly intact without focal deficits. Motor strength is 5/5 bilaterally. Deep tendon reflexes are 2+ bilat Assessment/Plan Assessment/Plan ASSESSMENT: This is an 82-year-old female. 1. Shortness of breath. 2. Congestive heart failure. 3. Elevated troponin. 4. Idw-[id number] myocardial infarction. 5. Renal failure. 6. Cerebrovascular disease. 7. Hypertension. 8. Coronary artery disease. 9. Glaucoma. TREATMENT: 1. Shortness of breath. A Pulmonary consultation has been obtained with Dr. Radha Ayon. We will follow recommendations of Pulmonary. 2. Congestive heart failure/[id number] myocardial infarction. A See Cardiology consultation by Dr. Vishal Enriquez. The patient has been started empirically on aspirin and Plavix. 3. Renal failure. A Nephrology consultation has been obtained with Dr. Newton. 4. Cerebrovascular disease. 5. Hypertension. The patient is currently hypotensive. 6. Glaucoma. Continue eye drops as above. 7. May require cardiac cath-see cardiology note. Dixon Styles MD Aug 21, 2018 18:00
--- NOTE | 2018-08-21 19:26 | NUR ---
HAND-OFF: Report given to BRIE Harvey. Patient stable.
--- NOTE | 2018-08-21 19:30 | NUR ---
NURSE NOTES: Received patient from BRIE STREET. Resting in bed comfortably. oriented x4. on NC 2L with no respiratory distress. SR on monitor.. vs stable. afebrile. Denies any pain at this time.on Heparin Drip 9unit /kg/hr with s/s of bleeding.call light in reach. bed in locked and alarm on. will resume plan of care.
[2018-08-21 20:00] VITALS: BP 123/58
--- NOTE | 2018-08-21 21:55 | NUR ---
NURSE NOTES: Received patient from BRIE Harvey. Will continue plan of care.
--- NOTE | 2018-08-21 22:15 | Cardiology Progress Note ---
Assessment/Plan Assessment/Plan stable on IV Heparin, plan is transfer for cath, her creatinine is elevated Subjective Subjective The patient is sleeping, and when aroused, denied chest pain, feels uncomfortable in bed Objective Last 24 Hour Vital Signs Date Time Temp Pulse Resp B/P (MAP) Pulse Ox O2 Delivery O2 Flow Rate FiO2 08/21/18 20:00 98.9 74 18 123/58 (79) 96 08/21/18 20:00 Nasal Cannula 2.0 08/21/18 19:42 76 08/21/18 16:00 98.4 72 18 129/63 (85) 96 08/21/18 16:00 Nasal Cannula 2.0 08/21/18 15:54 70 08/21/18 12:00 98.1 71 20 131/61 (84) 95 08/21/18 12:00 Nasal Cannula 2.0 08/21/18 11:32 69 08/21/18 09:14 73 128/54 08/21/18 08:00 Nasal Cannula 2.0 08/21/18 08:00 76 08/21/18 08:00 98.4 73 20 128/54 (78) 92 08/21/18 04:00 Nasal Cannula 2.0 08/21/18 04:00 97.9 72 18 132/66 (88) 92 08/21/18 04:00 70 08/21/18 00:00 77 08/21/18 00:00 98.2 75 18 126/55 (78) 92 08/21/18 00:00 Nasal Cannula 2.0 General Appearance: no apparent distress EENT: PERRL/EOMI Neck: non-tender Rhythm: NSR Cardiovascular: normal rate Respiratory/Chest: crackles/rales - at bases Abdomen: soft Extremities: non-tender Intake and Output 08/20/18 08/21/18 19:00 07:00 Intake Total 939.538 ml 312.483 ml Output Total 650 ml 300 ml Balance 289.538 ml 12.483 ml Intake Oral 750 ml 240 ml IV Total 189.538 ml 72.483 ml Output Urine Total 650 ml 300 ml # Voids 3 # Bowel Movements 1 Laboratory Tests Test 08/21/18 02:20 08/21/18 10:15 08/21/18 17:30 White Blood Count 11.8 K/UL (4.8-10.8) H Red Blood Count 3.32 M/UL (4.20-5.40) L Hemoglobin 9.5 G/DL (12.0-16.0) L Hematocrit 28.2 % (37.0-47.0) L Mean Corpuscular Volume 85 FL (80-99) Mean Corpuscular Hemoglobin 28.7 PG (27.0-31.0) Mean Corpuscular Hemoglobin Concent 33.8 G/DL (32.0-36.0) Red Cell Distribution Width 11.1 % (11.6-14.8) L Platelet Count 324 K/UL (150-450) Mean Platelet Volume 7.7 FL (6.5-10.1) Neutrophils (%) (Auto) 70.4 % (45.0-75.0) Lymphocytes (%) (Auto) 17.6 % (20.0-45.0) L Monocytes (%) (Auto) 9.2 % (1.0-10.0) Eosinophils (%) (Auto) 1.8 % (0.0-3.0) Basophils (%) (Auto) 0.9 % (0.0-2.0) Erythrocyte Sedimentation Rate 100 MM/HR (0-30) H Activated Partial Thromboplast Time > 150 SEC (23-33) *H 58 SEC (23-33) H 96 SEC (23-33) H Sodium Level 134 MMOL/L (136-145) L Potassium Level 3.9 MMOL/L (3.5-5.1) Chloride Level 98 MMOL/L (98-107) Carbon Dioxide Level 30 MMOL/L (21-32) Anion Gap 6 mmol/L (5-15) Blood Urea Nitrogen 27 mg/dL (7-18) H Creatinine 2.1 MG/DL (0.55-1.30) H Estimat Glomerular Filtration Rate mL/min (>60) Glucose Level 206 MG/DL (74-106) H Calcium Level 8.5 MG/DL (8.5-10.1) Phosphorus Level 4.8 MG/DL (2.5-4.9) Magnesium Level 2.8 MG/DL (1.8-2.4) H Total Bilirubin 0.4 MG/DL (0.2-1.0) Aspartate Amino Transf (AST/SGOT) 14 U/L (15-37) L Alanine Aminotransferase (ALT/SGPT) 15 U/L (12-78) Alkaline Phosphatase 85 U/L (46-116) Troponin I 2.386 ng/mL (0.000-0.056) Total Protein 6.6 G/DL (6.4-8.2) Albumin 2.6 G/DL (3.4-5.0) L Globulin 4.0 g/dL Albumin/Globulin Ratio 0.6 (1.0-2.7) L Microbiology Date/Time Source Procedure Growth Status 08/19/18 19:45 Urine,Clean Catch Urine Culture - Final Klebsiella Pneumoniae Complete Sada Hardy MD Aug 21, 2018 22:15
[2018-08-21] MEDS: Ciprofloxacin 500mg tab ORAL SCH (22:21)
[2018-08-22] VITALS: BP 125/58
[2018-08-22] MEDS: Heparin 25,000u/D5W 500ml 500 ML IV SCH ×2 (01:28→08:44)
[2018-08-22 04:00] VITALS: BP 133/70
[2018-08-22 04:52] LABS: BASOPHILS % (AUTO) 0.7 % (0.0-2.0); EOSINOPHILS % (AUTO) 1.7 % (0.0-3.0); HEMOGLOBIN 9.1 G/DL (12.0-16.0); LYMPHOCYTES % (AUTO) 10.1 % (20.0-45.0); MEAN CORPUSCULAR VOLUME 86 FL (80-99); MONOCYTES % (AUTO) 9.4 % (1.0-10.0); NEUTROPHILS % (AUTO) 78.1 % (45.0-75.0); PLATELET COUNT 325 K/UL (150-450); RED BLOOD COUNT 3.13 M/UL (4.20-5.40); RED CELL DISTRIBUTION WIDTH 11.5 % (11.6-14.8); WHITE BLOOD COUNT 13.5 K/UL (4.8-10.8)
[2018-08-22 05:02] LABS: ANION GAP 6 mmol/L (5-15); BLOOD UREA NITROGEN 30 mg/dL (7-18); CALCIUM 8.7 MG/DL (8.5-10.1); CARBON DIOXIDE 29 MMOL/L (21-32); CHLORIDE 98 MMOL/L (98-107); CREATININE 2.2 MG/DL (0.55-1.30); POTASSIUM 4.1 MMOL/L (3.5-5.1); SODIUM 133 MMOL/L (136-145)
[2018-08-22] MEDS: NovoLOG Insulin Flexpen SUBQ SCH ×4 (06:23→21:22)
--- NOTE | 2018-08-22 07:10 | NUR ---
HAND-OFF: Report given to BRIE Vazquez.
--- NOTE | 2018-08-22 07:11 | NUR ---
NURSE NOTES: Received patient from BRIE Grayson. Patient in bed and asleep. On 2L NC. monitoring and evaluation advisor in placed. Currently on 7 u/ml/hr heparin drip. In no distress. Bed in lowest position with side rails up. Will continue to follow plan of care.
[2018-08-22 08:00] VITALS: BP 133/90
[2018-08-22] MEDS ORDERED: Heparin 5000 units/ml inj IV SCH (08:30)
[2018-08-22] MEDS: Carvedilol 25mg Tab ORAL SCH ×2 (08:34→21:20)
[2018-08-22] MEDS: Ciprofloxacin 500mg tab ORAL SCH (08:34)
--- NOTE | 2018-08-22 08:34 | Pulmonology Progress Note ---
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 , but no acute DVT pain management supportive care renal parameters without change , likely chronic kidney disease monitor renal parameters and electrolytes, avoid nephrotoxic and replace electrolytes prn, nephro follows urine cx + Klebsiella, blood cx negative, continue Cipro BS management with SSI, HgA1c -8.9 not at goal, need further optimization of antiglycemic regimen as outpt, later monitor H&H with goal to keep hemoglobin above 7 , remain at baseline GI prophylaxis awaiting for transfer for cardiac cath case discussed and evaluated by supervising physician Subjective Allergies: Coded Allergies: ASPIRIN (Verified Allergy, Unknown, 04/25/17) ATORVASTATIN (Verified Allergy, Unknown, 04/26/17) CHOLINE FENOFIBRATE (Verified Allergy, Unknown, 04/26/17) DULOXETINE (Verified Allergy, Unknown, 04/26/17) GABAPENTIN (Verified Allergy, Unknown, 04/26/17) NIACIN (Verified Allergy, Unknown, 04/26/17) OXYCODONE (Verified Allergy, Unknown, 04/26/17) PENICILLINS (Verified Allergy, Unknown, 04/25/17) PROMETHAZINE (Verified Allergy, Unknown, 04/26/17) ROSIGLITAZONE (Verified Allergy, Unknown, 04/26/17) TRAMADOL (Verified Allergy, Unknown, 04/26/17) Subjective still with leuk, afebrile pulse ox stable on O2 via NC no signs of resp distress awaiting for transfer to [facility] for cardiac cath on heparin gtt Objective Last 24 Hour Vital Signs Date Time Temp Pulse Resp B/P (MAP) Pulse Ox O2 Delivery O2 Flow Rate FiO2 08/22/18 08:00 98.2 73 20 133/90 (104) 96 08/22/18 04:00 99.3 82 18 133/70 (91) 96 08/22/18 04:00 Nasal Cannula 2.0 08/22/18 03:33 79 08/22/18 00:00 Nasal Cannula 2.0 08/22/18 00:00 97.9 79 18 125/58 (80) 96 08/21/18 23:41 77 08/21/18 22:20 74 123/58 08/21/18 20:00 98.9 74 18 123/58 (79) 96 08/21/18 20:00 Nasal Cannula 2.0 08/21/18 19:42 76 08/21/18 16:00 98.4 72 18 129/63 (85) 96 08/21/18 16:00 Nasal Cannula 2.0 08/21/18 15:54 70 08/21/18 12:00 98.1 71 20 131/61 (84) 95 08/21/18 12:00 Nasal Cannula 2.0 08/21/18 11:32 69 08/21/18 09:14 73 128/54 Intake and Output 08/21/18 08/22/18 19:00 07:00 Intake Total 276.0366 ml 98.708 ml Output Total 300 ml 400 ml Balance -23.9634 ml -301.292 ml Intake Oral 200 ml IV Total 76.0366 ml 98.708 ml Output Urine Total 300 ml 400 ml # Voids 1 Objective General Appearance: no acute distress, asleep, arousable elderly female HEENT: normocephalic, atraumatic, anicteric, mucous membranes moist Respiratory/Chest: lungs clear, no respiratory distress, no accessory muscle use Cardiovascular: normal peripheral pulses, normal rate, regular rhythm - SR with ST depression Abdomen: normal bowel sounds, soft, non tender, non distended Extremities: no edema, pedal pulses normal Neurologic/Psychiatric: abnormal gait, responsive Musculoskeletal: atrophy - BLE Microbiology Date/Time Source Procedure Growth Status 08/19/18 19:45 Urine,Clean Catch Urine Culture - Final Klebsiella Pneumoniae Complete Laboratory Tests 08/21/18 10:15: Activated Partial Thromboplast Time 58H 08/21/18 17:30: Activated Partial Thromboplast Time 96H 08/22/18 00:40: Activated Partial Thromboplast Time 96H 08/22/18 04:00: White Blood Count 13.5H, Red Blood Count 3.13L, Hemoglobin 9.1L, Hematocrit 27.0L, Mean Corpuscular Volume 86, Mean Corpuscular Hemoglobin 29.0, Mean Corpuscular Hemoglobin Concent 33.7, Red Cell Distribution Width 11.5L, Platelet Count 325, Mean Platelet Volume 6.6, Neutrophils (%) (Auto) 78.1H, Lymphocytes (%) (Auto) 10.1L, Monocytes (%) (Auto) 9.4, Eosinophils (%) (Auto) 1.7, Basophils (%) (Auto) 0.7, Sodium Level 133L, Potassium Level 4.1, Chloride Level 98, Carbon Dioxide Level 29, Anion Gap 6, Blood Urea Nitrogen 30H, Creatinine 2.2H, Estimat Glomerular Filtration Rate , Glucose Level 209H, Calcium Level 8.7, Troponin I 2.122H 08/22/18 07:25: Activated Partial Thromboplast Time 61H Current Medications Medications (Trade) Dose Ordered Sig/Lita Route PRN Reason Start Time Stop Time Status Last Admin Dose Admin Acetaminophen (Tylenol) 650 mg Q4H PRN ORAL FEVER 08/18/18 22:30 09/17/18 22:29 Albuterol/ Ipratropium (Albuterol/ Ipratropium) 3 ml Q4H PRN HHN Shortness of Breath 08/21/18 12:00 08/26/18 11:59 Carvedilol (Coreg) 25 mg EVERY 12 HOURS ORAL 08/19/18 21:00 09/18/18 08:59 08/21/18 22:20 Ciprofloxacin (Cipro 500mg tab) 250 mg EVERY 12 HOURS ORAL 08/21/18 21:00 08/28/18 20:59 08/21/18 22:21 Clopidogrel Bisulfate (Plavix) 75 mg DAILY ORAL 08/19/18 09:00 09/18/18 08:59 08/21/18 09:13 Dextrose (Dextrose 50%) 25 ml Q30M PRN IV Hypoglycemia 08/18/18 22:30 09/17/18 22:29 Diltiazem HCl (Cardizem) 10 mg Q1H PRN IV heart rate more than 120, 08/18/18 22:30 09/17/18 22:29 Heparin Sodium (Porcine) (Heparin 5000 units/ml) 2,000 units ONCE IV 08/22/18 08:30 08/22/18 09:00 Heparin Sodium/ Dextrose 500 ml @ 9.593 mls/ hr ADJUST PER PROTOCOL IV 08/21/18 18:30 09/20/18 18:29 08/22/18 01:28 Insulin Aspart (NovoLOG) BEFORE MEALS AND HS SUBQ 08/19/18 06:30 09/18/18 06:29 08/22/18 06:23 Nitroglycerin (Ntg) 0.4 mg Q5M PRN SL Prn Chest Pain 08/18/18 22:30 09/17/18 22:29 Ondansetron HCl (Zofran) 4 mg Q6H PRN IVP Nausea & Vomiting 08/18/18 22:30 09/17/18 22:29 Pantoprazole (Protonix) 40 mg Q12HR ORAL 08/19/18 21:00 09/18/18 08:59 08/21/18 22:20 Polyethylene Glycol (Miralax) 17 gm DAILYPRN PRN ORAL Constipation 08/18/18 22:30 09/17/18 22:29 Temazepam (Restoril) 15 mg HSPRN PRN ORAL Insomnia 08/18/18 22:30 08/25/18 22:29 08/20/18 20:20 Essence Goodson [employer]FF WORKER Aug 22, 2018 08:34
[2018-08-22 12:00] VITALS: BP 125/78
--- NOTE | 2018-08-22 15:36 | NUR ---
NURSE NOTES: Spoke to Marion from Pharmacy about patient's PTT 76. Keep same rate and order PTT tomorrow AM. Order carried out.
[2018-08-22 16:00] VITALS: BP 131/62
--- NOTE | 2018-08-22 18:10 | Nephrology Progress Note ---
Assessment/Plan Problem List: (1) Renal failure (ARF), acute on chronic (2) CAD (coronary artery disease) Assessment: elevated troponin (3) Acute respiratory failure (4) Diabetic nephropathy Assessment Renal failure, Acute on Chronic Acute respiratory failure on presentation CAD, Elevated troponin I Anemia HTN DM h/o CVA CRAWLEY, Weakness Plan troponin lower 2D Echo pending per cardio management Avoid Nephrotoxics keep BP and BS in check optimize cardiac and pulmonary status per orders Subjective ROS Limited/Unobtainable: No Constitutional: Reports: malaise, weakness Objective Objective Last 24 Hour Vital Signs Date Time Temp Pulse Resp B/P (MAP) Pulse Ox O2 Delivery O2 Flow Rate FiO2 08/22/18 16:59 Nasal Cannula 2.0 28 08/22/18 16:59 83 18 Nasal Cannula 2.0 28 08/22/18 16:00 Nasal Cannula 2.0 08/22/18 16:00 98.1 74 20 131/62 (85) 97 08/22/18 15:38 70 08/22/18 12:00 Nasal Cannula 2.0 08/22/18 12:00 98.2 69 22 125/78 (94) 96 08/22/18 11:31 70 08/22/18 08:34 73 133/90 08/22/18 08:00 73 08/22/18 08:00 73 08/22/18 08:00 98.2 73 20 133/90 (104) 96 08/22/18 08:00 Nasal Cannula 2.0 08/22/18 04:00 99.3 82 18 133/70 (91) 96 08/22/18 04:00 Nasal Cannula 2.0 08/22/18 03:33 79 08/22/18 00:00 Nasal Cannula 2.0 08/22/18 00:00 97.9 79 18 125/58 (80) 96 08/21/18 23:41 77 08/21/18 22:20 74 123/58 08/21/18 20:00 98.9 74 18 123/58 (79) 96 08/21/18 20:00 Nasal Cannula 2.0 08/21/18 19:42 76 Intake and Output 08/21/18 08/22/18 19:00 07:00 Intake Total 276.0366 ml 98.708 ml Output Total 300 ml 400 ml Balance -23.9634 ml -301.292 ml Intake Oral 200 ml IV Total 76.0366 ml 98.708 ml Output Urine Total 300 ml 400 ml # Voids 1 Laboratory Tests 08/22/18 00:40: Activated Partial Thromboplast Time 96H 08/22/18 04:00: White Blood Count 13.5H, Red Blood Count 3.13L, Hemoglobin 9.1L, Hematocrit 27.0L, Mean Corpuscular Volume 86, Mean Corpuscular Hemoglobin 29.0, Mean Corpuscular Hemoglobin Concent 33.7, Red Cell Distribution Width 11.5L, Platelet Count 325, Mean Platelet Volume 6.6, Neutrophils (%) (Auto) 78.1H, Lymphocytes (%) (Auto) 10.1L, Monocytes (%) (Auto) 9.4, Eosinophils (%) (Auto) 1.7, Basophils (%) (Auto) 0.7, Sodium Level 133L, Potassium Level 4.1, Chloride Level 98, Carbon Dioxide Level 29, Anion Gap 6, Blood Urea Nitrogen 30H, Creatinine 2.2H, Estimat Glomerular Filtration Rate , Glucose Level 209H, Calcium Level 8.7, Troponin I 2.122H 08/22/18 07:25: Activated Partial Thromboplast Time 61H 08/22/18 14:20: Activated Partial Thromboplast Time 76H Height (Feet): 5 Height (Inches): 2.00 Weight (Pounds): 117 General Appearance: no apparent distress Cardiovascular: normal rate Respiratory/Chest: decreased breath sounds Abdomen: distended Objective no change Lamonte Newton MD Aug 22, 2018 18:10
--- NOTE | 2018-08-22 18:29 | Internal Med Progress Note ---
Subjective Date of Service: Aug 22, 2018 Physician Name StylesDixon Attending Physician Ben Barrios MD Current Medications Medications (Trade) Dose Ordered Sig/Lita Route PRN Reason Start Time Stop Time Status Last Admin Dose Admin Acetaminophen (Tylenol) 650 mg Q4H PRN ORAL FEVER 08/18/18 22:30 09/17/18 22:29 Albuterol/ Ipratropium (Albuterol/ Ipratropium) 3 ml Q4H PRN HHN Shortness of Breath 08/21/18 12:00 08/26/18 11:59 Carvedilol (Coreg) 25 mg EVERY 12 HOURS ORAL 08/19/18 21:00 09/18/18 08:59 08/22/18 08:34 Ciprofloxacin (Cipro 500mg tab) 500 mg Q24H ORAL 08/23/18 09:00 08/30/18 08:59 Clopidogrel Bisulfate (Plavix) 75 mg DAILY ORAL 08/19/18 09:00 09/18/18 08:59 08/22/18 08:34 Dextrose (Dextrose 50%) 25 ml Q30M PRN IV Hypoglycemia 08/18/18 22:30 09/17/18 22:29 Diltiazem HCl (Cardizem) 10 mg Q1H PRN IV heart rate more than 120, 08/18/18 22:30 09/17/18 22:29 Heparin Sodium/ Dextrose 500 ml @ 9.593 mls/ hr ADJUST PER PROTOCOL IV 08/21/18 18:30 09/20/18 18:29 08/22/18 08:44 Insulin Aspart (NovoLOG) BEFORE MEALS AND HS SUBQ 08/19/18 06:30 09/18/18 06:29 08/22/18 16:30 Nitroglycerin (Ntg) 0.4 mg Q5M PRN SL Prn Chest Pain 08/18/18 22:30 09/17/18 22:29 Ondansetron HCl (Zofran) 4 mg Q6H PRN IVP Nausea & Vomiting 08/18/18 22:30 09/17/18 22:29 Pantoprazole (Protonix) 40 mg Q12HR ORAL 08/19/18 21:00 09/18/18 08:59 08/22/18 08:34 Polyethylene Glycol (Miralax) 17 gm DAILYPRN PRN ORAL Constipation 08/18/18 22:30 09/17/18 22:29 Temazepam (Restoril) 15 mg HSPRN PRN ORAL Insomnia 08/18/18 22:30 08/25/18 22:29 08/20/18 20:20 Allergies: Coded Allergies: ASPIRIN (Verified Allergy, Unknown, 04/25/17) ATORVASTATIN (Verified Allergy, Unknown, 04/26/17) CHOLINE FENOFIBRATE (Verified Allergy, Unknown, 04/26/17) DULOXETINE (Verified Allergy, Unknown, 04/26/17) GABAPENTIN (Verified Allergy, Unknown, 04/26/17) NIACIN (Verified Allergy, Unknown, 04/26/17) OXYCODONE (Verified Allergy, Unknown, 04/26/17) PENICILLINS (Verified Allergy, Unknown, 04/25/17) PROMETHAZINE (Verified Allergy, Unknown, 04/26/17) ROSIGLITAZONE (Verified Allergy, Unknown, 04/26/17) TRAMADOL (Verified Allergy, Unknown, 04/26/17) ROS Limited/Unobtainable: Yes Subjective 82 YO F admitted with shortness of breath. Now NSTEMI and CHF. Cover for Int Med-Dr Barrios. RADHA Objective Last Vital Signs Date Time Temp Pulse Resp B/P (MAP) Pulse Ox O2 Delivery O2 Flow Rate FiO2 08/22/18 16:59 Nasal Cannula 2.0 28 08/22/18 16:59 83 18 08/22/18 16:00 98.1 131/62 (85) 97 Laboratory Tests Test 08/22/18 00:40 08/22/18 04:00 08/22/18 07:25 08/22/18 14:20 Activated Partial Thromboplast Time 96 SEC (23-33) H 61 SEC (23-33) H 76 SEC (23-33) H White Blood Count 13.5 K/UL (4.8-10.8) H Red Blood Count 3.13 M/UL (4.20-5.40) L Hemoglobin 9.1 G/DL (12.0-16.0) L Hematocrit 27.0 % (37.0-47.0) L Mean Corpuscular Volume 86 FL (80-99) Mean Corpuscular Hemoglobin 29.0 PG (27.0-31.0) Mean Corpuscular Hemoglobin Concent 33.7 G/DL (32.0-36.0) Red Cell Distribution Width 11.5 % (11.6-14.8) L Platelet Count 325 K/UL (150-450) Mean Platelet Volume 6.6 FL (6.5-10.1) Neutrophils (%) (Auto) 78.1 % (45.0-75.0) H Lymphocytes (%) (Auto) 10.1 % (20.0-45.0) L Monocytes (%) (Auto) 9.4 % (1.0-10.0) Eosinophils (%) (Auto) 1.7 % (0.0-3.0) Basophils (%) (Auto) 0.7 % (0.0-2.0) Sodium Level 133 MMOL/L (136-145) L Potassium Level 4.1 MMOL/L (3.5-5.1) Chloride Level 98 MMOL/L (98-107) Carbon Dioxide Level 29 MMOL/L (21-32) Anion Gap 6 mmol/L (5-15) Blood Urea Nitrogen 30 mg/dL (7-18) H Creatinine 2.2 MG/DL (0.55-1.30) H Estimat Glomerular Filtration Rate mL/min (>60) Glucose Level 209 MG/DL (74-106) H Calcium Level 8.7 MG/DL (8.5-10.1) Troponin I 2.122 ng/mL (0.000-0.056) Microbiology Date/Time Source Procedure Growth Status 08/19/18 19:45 Urine,Clean Catch Urine Culture - Final Klebsiella Pneumoniae Complete Intake and Output 08/21/18 08/22/18 19:00 07:00 Intake Total 276.0366 ml 98.708 ml Output Total 300 ml 400 ml Balance -23.9634 ml -301.292 ml Intake Oral 200 ml IV Total 76.0366 ml 98.708 ml Output Urine Total 300 ml 400 ml # Voids 1 Objective PHYSICAL EXAMINATION: VITAL SIGNS: Temperature 98.4, respirations 19, pulse 78 to 84, and blood pressure 147/64. GENERAL: The patient is well-developed and well-nourished white female, in no apparent distress. HEENT: Eyes, pupils are equal and responsive to light and accommodation. Extraocular movements are intact. NECK: Supple without lymphadenopathy. CHEST: Diffuse wheezes bilaterally. Crackles noted in bilateral bases. CARDIOVASCULAR: Regular rhythm and rate. S1 and S2 are normal without murmurs, rubs, or gallops. ABDOMEN: Soft, nontender, and nondistended. Positive bowel sounds. No evidence of hepatosplenomegaly. Currently, no rebound or guarding noted. EXTREMITIES: Negative for clubbing, cyanosis, or edema. RECTAL/GENITAL: Refused. NEUROLOGIC: Cranial nerves II through XII are grossly intact without focal deficits. Motor strength is 5/5 bilaterally. Deep tendon reflexes are 2+ bilat Assessment/Plan Assessment/Plan ASSESSMENT: This is an 82-year-old female. 1. Shortness of breath. 2. Congestive heart failure. 3. Elevated troponin. 4. [id number] myocardial infarction. 5. Renal failure. 6. Cerebrovascular disease. 7. Hypertension. 8. Coronary artery disease. 9. Glaucoma. TREATMENT: 1. Shortness of breath. A Pulmonary consultation has been obtained with Dr. Radha Ayon. We will follow recommendations of Pulmonary. 2. Congestive heart failure/[id number] myocardial infarction. A See Cardiology consultation by Dr. Vishal Enriquez. The patient has been started empirically on aspirin and Plavix. 3. Renal failure. A Nephrology consultation has been obtained with Dr. Newton. 4. Cerebrovascular disease. 5. Hypertension. The patient is currently hypotensive. 6. Glaucoma. Continue eye drops as above. 7. May require cardiac cath-see cardiology note. Dixon Styles MD Aug 22, 2018 18:29
--- NOTE | 2018-08-22 19:00 | Cardiology Progress Note ---
Assessment/Plan Assessment/Plan stable on IV Heparin, plan is transfer for cath, her creatinine is elevated Subjective Subjective The patient is sleeping, and when aroused, denied chest pain, Objective Last 24 Hour Vital Signs Date Time Temp Pulse Resp B/P (MAP) Pulse Ox O2 Delivery O2 Flow Rate FiO2 08/22/18 16:59 Nasal Cannula 2.0 28 08/22/18 16:59 83 18 Nasal Cannula 2.0 28 08/22/18 16:00 Nasal Cannula 2.0 08/22/18 16:00 98.1 74 20 131/62 (85) 97 08/22/18 15:38 70 08/22/18 12:00 Nasal Cannula 2.0 08/22/18 12:00 98.2 69 22 125/78 (94) 96 08/22/18 11:31 70 08/22/18 08:34 73 133/90 08/22/18 08:00 73 08/22/18 08:00 73 08/22/18 08:00 98.2 73 20 133/90 (104) 96 08/22/18 08:00 Nasal Cannula 2.0 08/22/18 04:00 99.3 82 18 133/70 (91) 96 08/22/18 04:00 Nasal Cannula 2.0 08/22/18 03:33 79 08/22/18 00:00 Nasal Cannula 2.0 08/22/18 00:00 97.9 79 18 125/58 (80) 96 08/21/18 23:41 77 08/21/18 22:20 74 123/58 08/21/18 20:00 98.9 74 18 123/58 (79) 96 08/21/18 20:00 Nasal Cannula 2.0 08/21/18 19:42 76 General Appearance: no apparent distress EENT: PERRL/EOMI Neck: supple Rhythm: NSR Cardiovascular: tachycardia Respiratory/Chest: crackles/rales Abdomen: non tender Extremities: normal capillary refill Neurologic: hand drawer in II-XII grossly normal Intake and Output 08/21/18 08/22/18 19:00 07:00 Intake Total 276.0366 ml 98.708 ml Output Total 300 ml 400 ml Balance -23.9634 ml -301.292 ml Intake Oral 200 ml IV Total 76.0366 ml 98.708 ml Output Urine Total 300 ml 400 ml # Voids 1 Laboratory Tests Test 08/22/18 00:40 08/22/18 04:00 08/22/18 07:25 08/22/18 14:20 Activated Partial Thromboplast Time 96 SEC (23-33) H 61 SEC (23-33) H 76 SEC (23-33) H White Blood Count 13.5 K/UL (4.8-10.8) H Red Blood Count 3.13 M/UL (4.20-5.40) L Hemoglobin 9.1 G/DL (12.0-16.0) L Hematocrit 27.0 % (37.0-47.0) L Mean Corpuscular Volume 86 FL (80-99) Mean Corpuscular Hemoglobin 29.0 PG (27.0-31.0) Mean Corpuscular Hemoglobin Concent 33.7 G/DL (32.0-36.0) Red Cell Distribution Width 11.5 % (11.6-14.8) L Platelet Count 325 K/UL (150-450) Mean Platelet Volume 6.6 FL (6.5-10.1) Neutrophils (%) (Auto) 78.1 % (45.0-75.0) H Lymphocytes (%) (Auto) 10.1 % (20.0-45.0) L Monocytes (%) (Auto) 9.4 % (1.0-10.0) Eosinophils (%) (Auto) 1.7 % (0.0-3.0) Basophils (%) (Auto) 0.7 % (0.0-2.0) Sodium Level 133 MMOL/L (136-145) L Potassium Level 4.1 MMOL/L (3.5-5.1) Chloride Level 98 MMOL/L (98-107) Carbon Dioxide Level 29 MMOL/L (21-32) Anion Gap 6 mmol/L (5-15) Blood Urea Nitrogen 30 mg/dL (7-18) H Creatinine 2.2 MG/DL (0.55-1.30) H Estimat Glomerular Filtration Rate mL/min (>60) Glucose Level 209 MG/DL (74-106) H Calcium Level 8.7 MG/DL (8.5-10.1) Troponin I 2.122 ng/mL (0.000-0.056) Microbiology Date/Time Source Procedure Growth Status 08/19/18 19:45 Urine,Clean Catch Urine Culture - Final Klebsiella Pneumoniae Complete Sada Hardy MD Aug 22, 2018 18:59
--- NOTE | 2018-08-22 19:29 | NUR ---
HAND-OFF: Report given to BRIE Taylor. Patient stable.
--- NOTE | 2018-08-22 19:30 | NUR ---
NURSE NOTES:Received pt awake and alert but kind of weak but easily arousable to verbal stimuli AOx4. NSR on the monitor. Bp stable. afebrile. Pt on Heparin drip at 9u/kg/hr, infusing to left Forearm. site patent and with good blood return. Left arm with 1+ edema , pt felt pain in moving. elevated Left arm with pillow. Will endorsed in am and let mD aware. Purewick to suction with good urine output. Skin is intact. Will continue to monitor.
[2018-08-22 20:00] VITALS: BP 134/70
--- NOTE | 2018-08-22 23:00 | NUR ---
NURSE NOTES:[facility] called inquiring about the pt- updated with pt condition- No bed available.
[2018-08-23] VITALS (8 sets, daily range): BP systolic 117–130; BP diastolic 56–68
--- NOTE | 2018-08-23 04:00 | NUR ---
NURSE NOTES: chest pain nor SOB noted, sleeping well at this time.
[2018-08-23 04:47] LABS: BASOPHILS % (AUTO) 1.7 % (0.0-2.0); EOSINOPHILS % (AUTO) 1.3 % (0.0-3.0); HEMATOCRIT 27.7 % (37.0-47.0); HEMOGLOBIN 8.8 G/DL (12.0-16.0); LYMPHOCYTES % (AUTO) 12.1 % (20.0-45.0); MEAN CORPUSCULAR VOLUME 89 FL (80-99); MONOCYTES % (AUTO) 10.6 % (1.0-10.0); NEUTROPHILS % (AUTO) 74.3 % (45.0-75.0); PLATELET COUNT 320 K/UL (150-450); RED BLOOD COUNT 3.11 M/UL (4.20-5.40); RED CELL DISTRIBUTION WIDTH 11.8 % (11.6-14.8); WHITE BLOOD COUNT 11.8 K/UL (4.8-10.8)
[2018-08-23] MEDS ORDERED: Heparin 25,000u/D5W 500ml 500 ML IV SCH ×6 (05:30→21:34)
[2018-08-23] MEDS ORDERED: Heparin 5000 units/ml inj IV ONE (05:30)
--- NOTE | 2018-08-23 05:30 | NUR ---
NURSE NOTES:PTT 45secs- Heparin drip re adjusted per protocol (per pipeline) pls see emar.
[2018-08-23 06:24] LABS: ALANINE AMINOTRANSFERASE 10 U/L (12-78); ALBUMIN 2.2 G/DL (3.4-5.0); ALBUMIN/GLOBULIN RATIO 0.5 (1.0-2.7); ALKALINE PHOSPHATASE 81 U/L (46-116); ANION GAP 9 mmol/L (5-15); ASPARTATE AMINO TRANSFERASE 14 U/L (15-37); BILIRUBIN,TOTAL 0.2 MG/DL (0.2-1.0); BLOOD UREA NITROGEN 30 mg/dL (7-18); CALCIUM 8.8 MG/DL (8.5-10.1); CARBON DIOXIDE 26 MMOL/L (21-32); CHLORIDE 99 MMOL/L (98-107); CREATININE 1.9 MG/DL (0.55-1.30); PHOSPHORUS 4.6 MG/DL (2.5-4.9); POTASSIUM 4.2 MMOL/L (3.5-5.1); SODIUM 134 MMOL/L (136-145)
[2018-08-23] MEDS: NovoLOG Insulin Flexpen SUBQ SCH ×4 (06:35→21:32)
--- NOTE | 2018-08-23 07:28 | NUR ---
NURSE NOTES: Received report BRIE Taylor. Patient is resting in bed, in stable condition. No s/sx of SOB, breathing is even and unlabored. Denies any presence of pain or discomfort at this time. Bed is in lowest position, brakes engaged. Call light is kept within easy reach. Will continue to monitor patient.
--- NOTE | 2018-08-23 07:29 | NUR ---
HAND-OFF: Report given to Javier Jennings RN.
[2018-08-23] MEDS: Carvedilol 25mg Tab ORAL SCH ×2 (08:11→21:35)
[2018-08-23] MEDS ORDERED: Ciprofloxacin 500mg tab ORAL SCH (09:00)
--- NOTE | 2018-08-23 10:29 | NUR ---
RADIOLOGY DEPT CHEST X-RAY DONE.-P.DYE
--- NOTE | 2018-08-23 11:27 | Pulmonology Progress Note ---
Assessment/Plan Problems: (1) Acute respiratory failure (2) Non-ST elevated myocardial infarction (3) CAD (coronary artery disease) (4) Anemia (5) ATN (acute tubular necrosis) (6) HTN (hypertension) (7) Diabetes mellitus Assessment/Plan continue heparin drip on plavix sliding scale diabetic diet anemia w/u monitor BP watch bun/creatinine awaiting for transfer to [facility]. She wants to go home Subjective ROS Limited/Unobtainable: No Interval Events: doing better, on heparin drip, wants to go home Allergies: Coded Allergies: ASPIRIN (Verified Allergy, Unknown, 04/25/17) ATORVASTATIN (Verified Allergy, Unknown, 04/26/17) CHOLINE FENOFIBRATE (Verified Allergy, Unknown, 04/26/17) DULOXETINE (Verified Allergy, Unknown, 04/26/17) GABAPENTIN (Verified Allergy, Unknown, 04/26/17) NIACIN (Verified Allergy, Unknown, 04/26/17) OXYCODONE (Verified Allergy, Unknown, 04/26/17) PENICILLINS (Verified Allergy, Unknown, 04/25/17) PROMETHAZINE (Verified Allergy, Unknown, 04/26/17) ROSIGLITAZONE (Verified Allergy, Unknown, 04/26/17) TRAMADOL (Verified Allergy, Unknown, 04/26/17) Objective Last 24 Hour Vital Signs Date Time Temp Pulse Resp B/P (MAP) Pulse Ox O2 Delivery O2 Flow Rate FiO2 08/23/18 08:11 68 130/56 08/23/18 08:00 98.4 68 18 130/56 (80) 98 08/23/18 08:00 Nasal Cannula 2.0 08/23/18 08:00 72 08/23/18 07:16 Nasal Cannula 2.0 28 08/23/18 07:16 71 16 Nasal Cannula 2.0 28 08/23/18 07:16 96 Nasal Cannula 2.0 28 08/23/18 04:00 98.0 74 18 120/68 (85) 95 08/23/18 04:00 73 08/23/18 04:00 Nasal Cannula 2.0 08/23/18 00:00 98.2 72 18 120/63 (82) 98 08/23/18 00:00 Nasal Cannula 2.0 08/23/18 00:00 73 08/22/18 21:20 95 134/70 08/22/18 20:00 Nasal Cannula 2.0 08/22/18 20:00 99.3 95 18 134/70 (91) 97 08/22/18 20:00 74 08/22/18 16:59 Nasal Cannula 2.0 28 08/22/18 16:59 83 18 Nasal Cannula 2.0 28 08/22/18 16:00 Nasal Cannula 2.0 08/22/18 16:00 98.1 74 20 131/62 (85) 97 08/22/18 15:38 70 08/22/18 12:00 Nasal Cannula 2.0 08/22/18 12:00 98.2 69 22 125/78 (94) 96 08/22/18 11:31 70 Intake and Output 08/22/18 08/23/18 18:59 06:59 Intake Total 225.040 ml 100.194 ml Output Total 300 ml 400 ml Balance -74.960 ml -299.806 ml Intake Oral 150 ml IV Total 75.040 ml 100.194 ml Output Urine Total 300 ml 400 ml General Appearance: cachetic HEENT: normocephalic, atraumatic Respiratory/Chest: chest wall non-tender, lungs clear Cardiovascular: normal peripheral pulses, normal rate Abdomen: normal bowel sounds, soft, non tender Genitourinary: normal external genitalia Extremities: no clubbing Neurologic/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: 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 normal Lymphatic: no neck adenopathy Laboratory Tests 08/22/18 14:20: Activated Partial Thromboplast Time 76H 08/23/18 03:50: Activated Partial Thromboplast Time 45H, White Blood Count 11.8H, Red Blood Count 3.11L, Hemoglobin 8.8L, Hematocrit 27.7L, Mean Corpuscular Volume 89, Mean Corpuscular Hemoglobin 28.4, Mean Corpuscular Hemoglobin Concent 31.8L, Red Cell Distribution Width 11.8, Platelet Count 320, Mean Platelet Volume 5.3L , Neutrophils (%) (Auto) 74.3, Lymphocytes (%) (Auto) 12.1L, Monocytes (%) (Auto ) 10.6H, Eosinophils (%) (Auto) 1.3, Basophils (%) (Auto) 1.7, Sodium Level 134L , Potassium Level 4.2, Chloride Level 99, Carbon Dioxide Level 26, Anion Gap 9, Blood Urea Nitrogen 30H, Creatinine 1.9H, Estimat Glomerular Filtration Rate , Glucose Level 196H, Uric Acid 5.9, Calcium Level 8.8, Phosphorus Level 4.6, Magnesium Level 2.0, Total Bilirubin 0.2, Aspartate Amino Transf (AST/SGOT) 14L , Alanine Aminotransferase (ALT/SGPT) 10L, Alkaline Phosphatase 81, Troponin I 1.594H, C-Reactive Protein, Quantitative 21.5H, Pro-B-Type Natriuretic Peptide 12587F, Total Protein 6.4, Albumin 2.2L, Globulin 4.2, Albumin/Globulin Ratio 0.5L Current Medications Medications (Trade) Dose Ordered Sig/Lita Route PRN Reason Start Time Stop Time Status Last Admin Dose Admin Acetaminophen (Tylenol) 650 mg Q4H PRN ORAL FEVER 08/18/18 22:30 09/17/18 22:29 Albuterol/ Ipratropium (Albuterol/ Ipratropium) 3 ml Q4H PRN HHN Shortness of Breath 08/21/18 12:00 08/26/18 11:59 Carvedilol (Coreg) 25 mg EVERY 12 HOURS ORAL 08/19/18 21:00 09/18/18 08:59 08/23/18 08:11 Ciprofloxacin (Cipro 500mg tab) 500 mg Q24H ORAL 08/23/18 09:00 08/30/18 08:59 08/23/18 08:10 Clopidogrel Bisulfate (Plavix) 75 mg DAILY ORAL 08/19/18 09:00 09/18/18 08:59 08/23/18 08:11 Dextrose (Dextrose 50%) 25 ml Q30M PRN IV Hypoglycemia 08/18/18 22:30 09/17/18 22:29 Diltiazem HCl (Cardizem) 10 mg Q1H PRN IV heart rate more than 120, 08/18/18 22:30 09/17/18 22:29 Heparin Sodium/ Dextrose 500 ml @ 13.857 mls/ hr ADJUST PER PROTOCOL IV 08/23/18 05:30 09/22/18 05:29 08/23/18 05:39 Insulin Aspart (NovoLOG) BEFORE MEALS AND HS SUBQ 08/19/18 06:30 09/18/18 06:29 08/23/18 06:35 Nitroglycerin (Ntg) 0.4 mg Q5M PRN SL Prn Chest Pain 08/18/18 22:30 09/17/18 22:29 Ondansetron HCl (Zofran) 4 mg Q6H PRN IVP Nausea & Vomiting 08/18/18 22:30 09/17/18 22:29 Pantoprazole (Protonix) 40 mg Q12HR ORAL 08/19/18 21:00 09/18/18 08:59 08/23/18 08:11 Polyethylene Glycol (Miralax) 17 gm DAILYPRN PRN ORAL Constipation 08/18/18 22:30 09/17/18 22:29 Temazepam (Restoril) 15 mg HSPRN PRN ORAL Insomnia 08/18/18 22:30 08/25/18 22:29 08/20/18 20:20 Radha Ayon MD Aug 23, 2018 11:27
--- NOTE | 2018-08-23 13:00 | Nephrology Progress Note ---
Assessment/Plan Problem List: (1) Renal failure (ARF), acute on chronic (2) CAD (coronary artery disease) Assessment: elevated troponin (3) Acute respiratory failure (4) Diabetic nephropathy Assessment Renal failure, Acute on Chronic Acute respiratory failure on presentation CAD, Elevated troponin I Anemia HTN DM h/o CVA CRAWLEY, Weakness Plan troponin lower 2D Echo pending per cardio management Avoid Nephrotoxics keep BP and BS in check optimize cardiac and pulmonary status per orders Subjective ROS Limited/Unobtainable: No Constitutional: Reports: malaise, weakness Objective Objective Last 24 Hour Vital Signs Date Time Temp Pulse Resp B/P (MAP) Pulse Ox O2 Delivery O2 Flow Rate FiO2 08/23/18 12:00 Nasal Cannula 2.0 08/23/18 11:53 98.4 67 18 124/66 (85) 95 08/23/18 08:11 68 130/56 08/23/18 08:00 98.4 68 18 130/56 (80) 98 08/23/18 08:00 Nasal Cannula 2.0 08/23/18 08:00 72 08/23/18 07:16 Nasal Cannula 2.0 28 08/23/18 07:16 71 16 Nasal Cannula 2.0 28 08/23/18 07:16 96 Nasal Cannula 2.0 28 08/23/18 04:00 98.0 74 18 120/68 (85) 95 08/23/18 04:00 73 08/23/18 04:00 Nasal Cannula 2.0 08/23/18 00:00 98.2 72 18 120/63 (82) 98 08/23/18 00:00 Nasal Cannula 2.0 08/23/18 00:00 73 08/22/18 21:20 95 134/70 08/22/18 20:00 Nasal Cannula 2.0 08/22/18 20:00 99.3 95 18 134/70 (91) 97 08/22/18 20:00 74 08/22/18 16:59 Nasal Cannula 2.0 28 08/22/18 16:59 83 18 Nasal Cannula 2.0 28 08/22/18 16:00 Nasal Cannula 2.0 08/22/18 16:00 98.1 74 20 131/62 (85) 97 08/22/18 15:38 70 Intake and Output 08/22/18 08/23/18 18:59 06:59 Intake Total 225.040 ml 100.194 ml Output Total 300 ml 400 ml Balance -74.960 ml -299.806 ml Intake Oral 150 ml IV Total 75.040 ml 100.194 ml Output Urine Total 300 ml 400 ml Laboratory Tests 08/22/18 14:20: Activated Partial Thromboplast Time 76H 08/23/18 03:50: Activated Partial Thromboplast Time 45H, White Blood Count 11.8H, Red Blood Count 3.11L, Hemoglobin 8.8L, Hematocrit 27.7L, Mean Corpuscular Volume 89, Mean Corpuscular Hemoglobin 28.4, Mean Corpuscular Hemoglobin Concent 31.8L, Red Cell Distribution Width 11.8, Platelet Count 320, Mean Platelet Volume 5.3L , Neutrophils (%) (Auto) 74.3, Lymphocytes (%) (Auto) 12.1L, Monocytes (%) (Auto ) 10.6H, Eosinophils (%) (Auto) 1.3, Basophils (%) (Auto) 1.7, Sodium Level 134L , Potassium Level 4.2, Chloride Level 99, Carbon Dioxide Level 26, Anion Gap 9, Blood Urea Nitrogen 30H, Creatinine 1.9H, Estimat Glomerular Filtration Rate , Glucose Level 196H, Uric Acid 5.9, Calcium Level 8.8, Phosphorus Level 4.6, Magnesium Level 2.0, Total Bilirubin 0.2, Aspartate Amino Transf (AST/SGOT) 14L , Alanine Aminotransferase (ALT/SGPT) 10L, Alkaline Phosphatase 81, Troponin I 1.594H, C-Reactive Protein, Quantitative 21.5H, Pro-B-Type Natriuretic Peptide 21605O, Total Protein 6.4, Albumin 2.2L, Globulin 4.2, Albumin/Globulin Ratio 0.5L 08/23/18 11:30: Activated Partial Thromboplast Time [Pending] Height (Feet): 5 Height (Inches): 2.00 Weight (Pounds): 117 General Appearance: no apparent distress, lethargic Cardiovascular: normal rate Respiratory/Chest: decreased breath sounds Abdomen: distended Objective no change Lamonte Newton MD Aug 23, 2018 13:00
--- NOTE | 2018-08-23 13:10 | Diagnostic Imaging Report ---
Indication: Dyspnea Comparison: 08/18/2018 A single view chest radiograph was obtained. Findings: Accounting for differences in lung volume no definite change is appreciated. Heart is enlarged. Interstitial markings are prominent. IMPRESSION: Suspected mild interstitial edema. No change
--- NOTE | 2018-08-23 16:30 | NUR ---
NURSE NOTES: Patient c/o left arm pain, left arm noted to be 2+ swelling. Contacted Dr. Ayon and left message regarding situation. Awaiting reply. Will continue to monitor patient.
--- NOTE | 2018-08-23 17:14 | NUR ---
NURSE NOTES: Per Dr. Ayon ordered left upper arm venous duplex. Order entered, noted, and carried out. Will continue to monitor patient.
--- NOTE | 2018-08-23 17:18 | NUR ---
TRANSFER TO FLOOR: Patient transferred to Telemetry GH106-3, per Dr. Ayon. Report given to BRIE Collins. Belongings and medications given to BRIE Collins. Family informed of transfer.
[2018-08-23] MEDS ORDERED: Albuterol/Ipratropium 3ml neb HHN PRN (17:19)
[2018-08-23] MEDS ORDERED: Miralax 17gm pkt ORAL PRN (17:20)
--- NOTE | 2018-08-23 17:20 | NUR ---
NURSE NOTES: Patient is transferred from [facility] and received report from BRIE Herrera. Patient is alert and oriented x 4 and is in stable condition. Inventory check done. She is on heparin drip 9 units/kg/hr. No s/s of bleeding noted. Call-light placed in easy reach. Will continue plan of care.
[2018-08-23] MEDS ORDERED: dilTIAZem HCl 25mg/5ml Inj IV PRN (17:27)
[2018-08-23] MEDS ORDERED: Nitroglycerin Subl 0.4mg tab SL PRN (17:30)
--- NOTE | 2018-08-23 18:29 | NUR ---
CASE MANAGEMENT: REVIEW 08/23/2018 SI: RESPIRATORY DISTRESS T 97.4 HR 76 RR 21 B/P 117/68 SATS 99% ON 2L/NC WBC 11.8 NA 134 BUN 30 CR 1.9 GLU 196 AST 14 ALT 10 TROPONIN 1.594 BNP 69903 IS: COREG PO Q12H PLAVIX PO QD INSULIN ASPART SUBQ AC/HS HEPARIN DRIP 10 mL/HR CIPOR PO Q24H TELE STATUS
--- NOTE | 2018-08-23 18:48 | Internal Med Progress Note ---
Subjective Date of Service: Aug 23, 2018 Physician Name Styles,Dixon Attending Physician Ben Barrios MD Current Medications Medications (Trade) Dose Ordered Sig/Lita Route PRN Reason Start Time Stop Time Status Last Admin Dose Admin Acetaminophen (Tylenol) 650 mg Q4H PRN ORAL FEVER 08/23/18 17:19 09/17/18 17:18 Albuterol/ Ipratropium (Albuterol/ Ipratropium) 3 ml Q4H PRN HHN Shortness of Breath 08/23/18 17:19 08/26/18 17:18 Carvedilol (Coreg) 25 mg EVERY 12 HOURS ORAL 08/23/18 21:00 09/18/18 08:59 Ciprofloxacin (Cipro 500mg tab) 500 mg Q24H ORAL 08/24/18 09:00 08/30/18 08:59 Clopidogrel Bisulfate (Plavix) 75 mg DAILY ORAL 08/24/18 09:00 09/18/18 08:59 Dextrose (Dextrose 50%) 25 ml Q30M PRN IV Hypoglycemia 08/23/18 17:30 09/17/18 22:29 Diltiazem HCl (Cardizem) 10 mg Q1H PRN IV heart rate more than 120, 08/23/18 17:27 09/17/18 17:26 Heparin Sodium/ Dextrose 500 ml @ 9.593 mls/ hr ADJUST PER PROTOCOL IV 08/23/18 17:19 09/22/18 17:18 08/23/18 17:30 Insulin Aspart (NovoLOG) BEFORE MEALS AND HS SUBQ 08/23/18 21:00 09/18/18 06:29 Nitroglycerin (Ntg) 0.4 mg Q5M PRN SL Prn Chest Pain 08/23/18 17:30 09/17/18 22:29 Ondansetron HCl (Zofran) 4 mg Q6H PRN IVP Nausea & Vomiting 08/23/18 17:19 09/17/18 17:18 Pantoprazole (Protonix) 40 mg Q12HR ORAL 08/23/18 21:00 09/18/18 08:59 Polyethylene Glycol (Miralax) 17 gm DAILYPRN PRN ORAL Constipation 08/23/18 17:20 09/17/18 17:19 Temazepam (Restoril) 15 mg HSPRN PRN ORAL Insomnia 08/23/18 17:20 08/25/18 17:19 Allergies: Coded Allergies: ASPIRIN (Verified Allergy, Unknown, 04/25/17) ATORVASTATIN (Verified Allergy, Unknown, 04/26/17) CHOLINE FENOFIBRATE (Verified Allergy, Unknown, 04/26/17) DULOXETINE (Verified Allergy, Unknown, 04/26/17) GABAPENTIN (Verified Allergy, Unknown, 04/26/17) NIACIN (Verified Allergy, Unknown, 04/26/17) OXYCODONE (Verified Allergy, Unknown, 04/26/17) PENICILLINS (Verified Allergy, Unknown, 04/25/17) PROMETHAZINE (Verified Allergy, Unknown, 04/26/17) ROSIGLITAZONE (Verified Allergy, Unknown, 04/26/17) TRAMADOL (Verified Allergy, Unknown, 04/26/17) ROS Limited/Unobtainable: No Constitutional: Reports: no symptoms HEENT: Reports: no symptoms Cardiovascular: Reports: no symptoms Respiratory: Reports: shortness of breath Gastrointestinal/Abdominal: Reports: no symptoms Genitourinary: Reports: no symptoms Neurologic/Psychiatric: Reports: no symptoms Subjective 82 YO F admitted with shortness of breath. Now NSTEMI and CHF. Cover for Int Med-Dr Barrios. Objective Last Vital Signs Date Time Temp Pulse Resp B/P (MAP) Pulse Ox O2 Delivery O2 Flow Rate FiO2 08/23/18 17:25 97.7 74 20 127/61 (83) 100 08/23/18 16:00 Nasal Cannula 2.0 08/23/18 07:16 28 Laboratory Tests Test 08/23/18 03:50 08/23/18 11:30 White Blood Count 11.8 K/UL (4.8-10.8) H Red Blood Count 3.11 M/UL (4.20-5.40) L Hemoglobin 8.8 G/DL (12.0-16.0) L Hematocrit 27.7 % (37.0-47.0) L Mean Corpuscular Volume 89 FL (80-99) Mean Corpuscular Hemoglobin 28.4 PG (27.0-31.0) Mean Corpuscular Hemoglobin Concent 31.8 G/DL (32.0-36.0) L Red Cell Distribution Width 11.8 % (11.6-14.8) Platelet Count 320 K/UL (150-450) Mean Platelet Volume 5.3 FL (6.5-10.1) L Neutrophils (%) (Auto) 74.3 % (45.0-75.0) Lymphocytes (%) (Auto) 12.1 % (20.0-45.0) L Monocytes (%) (Auto) 10.6 % (1.0-10.0) H Eosinophils (%) (Auto) 1.3 % (0.0-3.0) Basophils (%) (Auto) 1.7 % (0.0-2.0) Activated Partial Thromboplast Time 45 SEC (23-33) H > 150 SEC (23-33) *H Sodium Level 134 MMOL/L (136-145) L Potassium Level 4.2 MMOL/L (3.5-5.1) Chloride Level 99 MMOL/L (98-107) Carbon Dioxide Level 26 MMOL/L (21-32) Anion Gap 9 mmol/L (5-15) Blood Urea Nitrogen 30 mg/dL (7-18) H Creatinine 1.9 MG/DL (0.55-1.30) H Estimat Glomerular Filtration Rate mL/min (>60) Glucose Level 196 MG/DL (74-106) H Uric Acid 5.9 MG/DL (2.6-7.2) Calcium Level 8.8 MG/DL (8.5-10.1) Phosphorus Level 4.6 MG/DL (2.5-4.9) Magnesium Level 2.0 MG/DL (1.8-2.4) Total Bilirubin 0.2 MG/DL (0.2-1.0) Aspartate Amino Transf (AST/SGOT) 14 U/L (15-37) L Alanine Aminotransferase (ALT/SGPT) 10 U/L (12-78) L Alkaline Phosphatase 81 U/L (46-116) Troponin I 1.594 ng/mL (0.000-0.056) C-Reactive Protein, Quantitative 21.5 mg/dL (0.00-0.90) H Pro-B-Type Natriuretic Peptide 37459 pg/mL (0-125) H Total Protein 6.4 G/DL (6.4-8.2) Albumin 2.2 G/DL (3.4-5.0) L Globulin 4.2 g/dL Albumin/Globulin Ratio 0.5 (1.0-2.7) L Intake and Output 08/22/18 08/23/18 18:59 06:59 Intake Total 225.040 ml 100.194 ml Output Total 300 ml 400 ml Balance -74.960 ml -299.806 ml Intake Oral 150 ml IV Total 75.040 ml 100.194 ml Output Urine Total 300 ml 400 ml Objective PHYSICAL EXAMINATION: VITAL SIGNS: Temperature 98.4, respirations 19, pulse 78 to 84, and blood pressure 147/64. GENERAL: The patient is well-developed and well-nourished white female, in no apparent distress. HEENT: Eyes, pupils are equal and responsive to light and accommodation. Extraocular movements are intact. NECK: Supple without lymphadenopathy. CHEST: Diffuse wheezes bilaterally. Crackles noted in bilateral bases. CARDIOVASCULAR: Regular rhythm and rate. S1 and S2 are normal without murmurs, rubs, or gallops. ABDOMEN: Soft, nontender, and nondistended. Positive bowel sounds. No evidence of hepatosplenomegaly. Currently, no rebound or guarding noted. EXTREMITIES: Negative for clubbing, cyanosis, or edema. RECTAL/GENITAL: Refused. NEUROLOGIC: Cranial nerves II through XII are grossly intact without focal deficits. Motor strength is 5/5 bilaterally. Deep tendon reflexes are 2+ bilat Assessment/Plan Assessment/Plan ASSESSMENT: This is an 82-year-old female. 1. Shortness of breath. 2. Congestive heart failure. 3. Elevated troponin. 4. Hne-LM-frhwzzmo myocardial infarction. 5. Renal failure. 6. Cerebrovascular disease. 7. Hypertension. 8. Coronary artery disease. 9. Glaucoma. TREATMENT: 1. Shortness of breath. A Pulmonary consultation has been obtained with Dr. Radha Ayon. We will follow recommendations of Pulmonary. 2. Congestive heart failure/[id number] myocardial infarction. A See Cardiology consultation by Dr. Vishal Enriquez. The patient has been started empirically on aspirin and Plavix. 3. Renal failure. A Nephrology consultation has been obtained with Dr. Newton. 4. Cerebrovascular disease. 5. Hypertension. The patient is currently hypotensive. 6. Glaucoma. Continue eye drops as above. 7. May require cardiac cath-see cardiology note. Dixon Styles MD Aug 23, 2018 18:48
--- NOTE | 2018-08-23 19:27 | NUR ---
HAND-OFF: Report given to BRIE Alcocer. Patient is in stable condition. Endorsed plan of care.
--- NOTE | 2018-08-23 19:31 | NUR ---
NURSE NOTES: Patient received from BRIE Collins. Patient on bed awake, verbalizes needs. on Heparin drip at this time running at 9u/kg/hr. Next PTT timed schedule at 2030h. No signs of distress. IV site intact and patent. Call light within reach. Bed brakes engaged.
--- NOTE | 2018-08-23 20:23 | Cardiology Progress Note ---
Assessment/Plan Assessment/Plan 1. Wdm-VL-sstrvelmr myocardial infarction. 2. Diabetes mellitus. 3. Hypertension. 4. History of CVA with left-sided weakness. 5. Anemia. 6. Renal insufficiency. heparin, will dc in am diuretic plavix (asa allergy) ntp will likey need cardiac cath but at risk of contrast nephropathy d/w pt in detail with stefanialicia on 08/19 she wishes to proceed if planned trop down trending transfer center at [place] called still no bed still Subjective Cardiovascular: Denies: chest pain, lightheadedness, palpitations Respiratory: Denies: shortness of breath Gastrointestinal/Abdominal: Denies: abdominal pain Genitourinary: Denies: burning Objective Last 24 Hour Vital Signs Date Time Temp Pulse Resp B/P (MAP) Pulse Ox O2 Delivery O2 Flow Rate FiO2 08/23/18 19:58 Nasal Cannula 2.0 28 08/23/18 19:58 80 18 Nasal Cannula 2.0 28 08/23/18 19:58 94 Nasal Cannula 2.0 28 08/23/18 17:25 97.7 74 20 127/61 (83) 100 08/23/18 16:00 97.4 76 21 117/68 (84) 99 08/23/18 16:00 Nasal Cannula 2.0 08/23/18 16:00 72 08/23/18 12:00 70 08/23/18 12:00 Nasal Cannula 2.0 08/23/18 11:53 98.4 67 18 124/66 (85) 95 08/23/18 08:11 68 130/56 08/23/18 08:00 98.4 68 18 130/56 (80) 98 08/23/18 08:00 Nasal Cannula 2.0 08/23/18 08:00 72 08/23/18 07:16 Nasal Cannula 2.0 28 08/23/18 07:16 71 16 Nasal Cannula 2.0 28 08/23/18 07:16 96 Nasal Cannula 2.0 28 08/23/18 04:00 98.0 74 18 120/68 (85) 95 08/23/18 04:00 73 08/23/18 04:00 Nasal Cannula 2.0 08/23/18 00:00 98.2 72 18 120/63 (82) 98 08/23/18 00:00 Nasal Cannula 2.0 08/23/18 00:00 73 08/22/18 21:20 95 134/70 General Appearance: no apparent distress Neck: supple Cardiovascular: normal rate Respiratory/Chest: lungs clear Abdomen: normal bowel sounds, non tender, soft Extremities: no swelling Intake and Output 08/22/18 08/23/18 19:00 07:00 Intake Total 217.578 ml 114.051 ml Output Total 300 ml 400 ml Balance -82.422 ml -285.949 ml Intake Oral 150 ml IV Total 67.578 ml 114.051 ml Output Urine Total 300 ml 400 ml Laboratory Tests Test 08/23/18 03:50 08/23/18 11:30 White Blood Count 11.8 K/UL (4.8-10.8) H Red Blood Count 3.11 M/UL (4.20-5.40) L Hemoglobin 8.8 G/DL (12.0-16.0) L Hematocrit 27.7 % (37.0-47.0) L Mean Corpuscular Volume 89 FL (80-99) Mean Corpuscular Hemoglobin 28.4 PG (27.0-31.0) Mean Corpuscular Hemoglobin Concent 31.8 G/DL (32.0-36.0) L Red Cell Distribution Width 11.8 % (11.6-14.8) Platelet Count 320 K/UL (150-450) Mean Platelet Volume 5.3 FL (6.5-10.1) L Neutrophils (%) (Auto) 74.3 % (45.0-75.0) Lymphocytes (%) (Auto) 12.1 % (20.0-45.0) L Monocytes (%) (Auto) 10.6 % (1.0-10.0) H Eosinophils (%) (Auto) 1.3 % (0.0-3.0) Basophils (%) (Auto) 1.7 % (0.0-2.0) Activated Partial Thromboplast Time 45 SEC (23-33) H > 150 SEC (23-33) *H Sodium Level 134 MMOL/L (136-145) L Potassium Level 4.2 MMOL/L (3.5-5.1) Chloride Level 99 MMOL/L (98-107) Carbon Dioxide Level 26 MMOL/L (21-32) Anion Gap 9 mmol/L (5-15) Blood Urea Nitrogen 30 mg/dL (7-18) H Creatinine 1.9 MG/DL (0.55-1.30) H Estimat Glomerular Filtration Rate mL/min (>60) Glucose Level 196 MG/DL (74-106) H Uric Acid 5.9 MG/DL (2.6-7.2) Calcium Level 8.8 MG/DL (8.5-10.1) Phosphorus Level 4.6 MG/DL (2.5-4.9) Magnesium Level 2.0 MG/DL (1.8-2.4) Total Bilirubin 0.2 MG/DL (0.2-1.0) Aspartate Amino Transf (AST/SGOT) 14 U/L (15-37) L Alanine Aminotransferase (ALT/SGPT) 10 U/L (12-78) L Alkaline Phosphatase 81 U/L (46-116) Troponin I 1.594 ng/mL (0.000-0.056) C-Reactive Protein, Quantitative 21.5 mg/dL (0.00-0.90) H Pro-B-Type Natriuretic Peptide 20179 pg/mL (0-125) H Total Protein 6.4 G/DL (6.4-8.2) Albumin 2.2 G/DL (3.4-5.0) L Globulin 4.2 g/dL Albumin/Globulin Ratio 0.5 (1.0-2.7) L Vishal Enriquez MD Aug 23, 2018 20:23
--- NOTE | 2018-08-23 20:35 | NUR ---
NURSE NOTES: Seen Dr. Enriquez visited patient's room and spoke to patient. At this time, patient verbalizes that she wants to go home. Dr. Enriquez explained to patient plan of care at this time.
[2018-08-23] MEDS ORDERED: Heparin 5000 units/ml inj IV SCH (21:33)
--- NOTE | 2018-08-23 21:55 | NUR ---
NURSE NOTES: Heparin drip new rate changed per pharmacy. New orders carried out.
[2018-08-24 03:54] VITALS: BP 121/59
[2018-08-24 04:48] LABS: BASOPHILS % (AUTO) 1.5 % (0.0-2.0); EOSINOPHILS % (AUTO) 2.4 % (0.0-3.0); HEMATOCRIT 25.9 % (37.0-47.0); HEMOGLOBIN 8.8 G/DL (12.0-16.0); LYMPHOCYTES % (AUTO) 16.7 % (20.0-45.0); MEAN CORPUSCULAR VOLUME 87 FL (80-99); MONOCYTES % (AUTO) 9.8 % (1.0-10.0); NEUTROPHILS % (AUTO) 69.5 % (45.0-75.0); PLATELET COUNT 337 K/UL (150-450); RED BLOOD COUNT 2.99 M/UL (4.20-5.40); RED CELL DISTRIBUTION WIDTH 11.5 % (11.6-14.8); WHITE BLOOD COUNT 11.4 K/UL (4.8-10.8)
[2018-08-24 05:13] LABS: PHOSPHORUS 4.6 MG/DL (2.5-4.9)
[2018-08-24 05:26] LABS: ALANINE AMINOTRANSFERASE 13 U/L (12-78); ALBUMIN 2.2 G/DL (3.4-5.0); ALBUMIN/GLOBULIN RATIO 0.5 (1.0-2.7); ALKALINE PHOSPHATASE 79 U/L (46-116); ANION GAP 10 mmol/L (5-15); ASPARTATE AMINO TRANSFERASE 12 U/L (15-37); BILIRUBIN,TOTAL 0.2 MG/DL (0.2-1.0); BLOOD UREA NITROGEN 31 mg/dL (7-18); CALCIUM 8.8 MG/DL (8.5-10.1); CARBON DIOXIDE 25 MMOL/L (21-32); CHLORIDE 99 MMOL/L (98-107); CREATININE 1.9 MG/DL (0.55-1.30); POTASSIUM 4.3 MMOL/L (3.5-5.1); SODIUM 134 MMOL/L (136-145)
[2018-08-24] MEDS: NovoLOG Insulin Flexpen SUBQ SCH ×4 (05:37→21:08)
--- NOTE | 2018-08-24 06:00 | NUR ---
NURSE NOTES: New PTT results. Will follow protocol.
[2018-08-24] MEDS ORDERED: Heparin 25,000u/D5W 500ml 500 ML IV SCH (06:45)
--- NOTE | 2018-08-24 07:00 | NUR ---
NURSE NOTES: Started new bag of Heparin drip with new dosage carried out per pharmacy. IV site intact and patent. Will endorse to the next shift.
--- NOTE | 2018-08-24 07:20 | NUR ---
HAND-OFF: Report given to BRIE Collins. Endorsed plan of care.
--- NOTE | 2018-08-24 07:20 | NUR ---
NURSE NOTES: Received report from BRIE Alcocer. Patient is in stable condition. Still running heparin drip 10 units/kg/hr. No acute distress/SOB noted. Will continue plan of care.
[2018-08-24 08:00] VITALS: BP 137/63
[2018-08-24] MEDS: Carvedilol 25mg Tab ORAL SCH ×2 (08:24→20:50)
[2018-08-24] MEDS ORDERED: Ciprofloxacin 500mg tab ORAL SCH (09:00)
--- NOTE | 2018-08-24 10:56 | Pulmonology Progress Note ---
Assessment/Plan Problems: (1) Acute respiratory failure (2) Non-ST elevated myocardial infarction (3) CAD (coronary artery disease) (4) Anemia (5) ATN (acute tubular necrosis) (6) HTN (hypertension) (7) Diabetes mellitus Assessment/Plan dc heparin drip as recommended by Cardiology start heparin SQ on plavix sliding scale diabetic diet anemia w/u monitor BP watch bun/creatinine awaiting for transfer to [facility]. She wants to go home Subjective ROS Limited/Unobtainable: No Constitutional: Reports: no symptoms HEENT: Repors: no symptoms Respiratory: Reports: no symptoms Allergies: Coded Allergies: ASPIRIN (Verified Allergy, Unknown, 04/25/17) ATORVASTATIN (Verified Allergy, Unknown, 04/26/17) CHOLINE FENOFIBRATE (Verified Allergy, Unknown, 04/26/17) DULOXETINE (Verified Allergy, Unknown, 04/26/17) GABAPENTIN (Verified Allergy, Unknown, 04/26/17) NIACIN (Verified Allergy, Unknown, 04/26/17) OXYCODONE (Verified Allergy, Unknown, 04/26/17) PENICILLINS (Verified Allergy, Unknown, 04/25/17) PROMETHAZINE (Verified Allergy, Unknown, 04/26/17) ROSIGLITAZONE (Verified Allergy, Unknown, 04/26/17) TRAMADOL (Verified Allergy, Unknown, 04/26/17) Objective Last 24 Hour Vital Signs Date Time Temp Pulse Resp B/P (MAP) Pulse Ox O2 Delivery O2 Flow Rate FiO2 08/24/18 08:24 69 137/63 08/24/18 08:00 Nasal Cannula 2.0 08/24/18 08:00 97.1 69 18 137/63 (87) 95 08/24/18 06:55 97 Nasal Cannula 2.0 28 08/24/18 06:55 74 16 Nasal Cannula 2.0 28 08/24/18 06:55 Nasal Cannula 2.0 28 08/24/18 04:00 Nasal Cannula 2.0 08/24/18 03:54 97.8 70 18 121/59 (79) 94 08/24/18 03:37 69 08/24/18 00:00 Nasal Cannula 2.0 08/23/18 23:56 97.9 74 18 125/59 (81) 94 08/23/18 23:28 77 08/23/18 21:35 80 128/64 08/23/18 20:00 Nasal Cannula 2.0 08/23/18 20:00 98.7 80 32 128/64 (85) 92 08/23/18 19:58 Nasal Cannula 2.0 28 08/23/18 19:58 80 18 Nasal Cannula 2.0 28 08/23/18 19:58 94 Nasal Cannula 2.0 28 08/23/18 19:42 80 08/23/18 17:25 97.7 74 20 127/61 (83) 100 08/23/18 16:00 97.4 76 21 117/68 (84) 99 08/23/18 16:00 Nasal Cannula 2.0 08/23/18 16:00 72 08/23/18 12:00 70 08/23/18 12:00 Nasal Cannula 2.0 08/23/18 11:53 98.4 67 18 124/66 (85) 95 Intake and Output 08/23/18 08/24/18 19:00 07:00 Intake Total 102.328 ml 161.571 ml Output Total 600 ml Balance 102.328 ml -438.429 ml Intake Oral 120 ml IV Total 102.328 ml 41.571 ml Output Urine Total 600 ml General Appearance: WD/WN HEENT: normocephalic, atraumatic Respiratory/Chest: chest wall non-tender, lungs clear Breasts: no masses Cardiovascular: normal peripheral pulses Abdomen: normal bowel sounds, soft, non tender Genitourinary: normal external genitalia Extremities: no cyanosis 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 Laboratory Tests 08/23/18 11:30: Activated Partial Thromboplast Time > 150*H 08/23/18 20:18: Activated Partial Thromboplast Time 22L 08/24/18 04:00: Activated Partial Thromboplast Time 135H, White Blood Count 11.4H, Red Blood Count 2.99L, Hemoglobin 8.8L, Hematocrit 25.9L, Mean Corpuscular Volume 87, Mean Corpuscular Hemoglobin 29.4, Mean Corpuscular Hemoglobin Concent 33.9, Red Cell Distribution Width 11.5L, Platelet Count 337, Mean Platelet Volume 6.5, Neutrophils (%) (Auto) 69.5, Lymphocytes (%) (Auto) 16.7L, Monocytes (%) (Auto) 9.8, Eosinophils (%) (Auto) 2.4, Basophils (%) (Auto) 1.5, Erythrocyte Sedimentation Rate 136H, Sodium Level 134L, Potassium Level 4.3, Chloride Level 99, Carbon Dioxide Level 25, Anion Gap 10, Blood Urea Nitrogen 31H, Creatinine 1.9H, Estimat Glomerular Filtration Rate , Glucose Level 202H, Calcium Level 8.8 , Phosphorus Level 4.6, Magnesium Level 1.9, Total Bilirubin 0.2, Aspartate Amino Transf (AST/SGOT) 12L, Alanine Aminotransferase (ALT/SGPT) 13, Alkaline Phosphatase 79, Troponin I 1.170H, Pro-B-Type Natriuretic Peptide 02384D, Total Protein 6.5, Albumin 2.2L, Globulin 4.3, Albumin/Globulin Ratio 0.5L Current Medications Medications (Trade) Dose Ordered Sig/Lita Route PRN Reason Start Time Stop Time Status Last Admin Dose Admin Acetaminophen (Tylenol) 650 mg Q4H PRN ORAL FEVER 08/23/18 17:19 09/17/18 17:18 Albuterol/ Ipratropium (Albuterol/ Ipratropium) 3 ml Q4H PRN HHN Shortness of Breath 08/23/18 17:19 08/26/18 17:18 Carvedilol (Coreg) 25 mg EVERY 12 HOURS ORAL 08/23/18 21:00 09/18/18 08:59 08/24/18 08:24 Ciprofloxacin (Cipro 500mg tab) 500 mg Q24H ORAL 08/24/18 09:00 08/30/18 08:59 08/24/18 08:24 Clopidogrel Bisulfate (Plavix) 75 mg DAILY ORAL 08/24/18 09:00 09/18/18 08:59 08/24/18 08:23 Dextrose (Dextrose 50%) 25 ml Q30M PRN IV Hypoglycemia 08/23/18 17:30 09/17/18 22:29 Diltiazem HCl (Cardizem) 10 mg Q1H PRN IV heart rate more than 120, 08/23/18 17:27 09/17/18 17:26 Heparin Sodium/ Dextrose 500 ml @ 10.659 mls/ hr ADJUST PER PROTOCOL IV 08/24/18 06:45 09/23/18 06:44 08/24/18 06:46 Insulin Aspart (NovoLOG) BEFORE MEALS AND HS SUBQ 08/23/18 21:00 09/18/18 06:29 08/24/18 05:37 Nitroglycerin (Ntg) 0.4 mg Q5M PRN SL Prn Chest Pain 08/23/18 17:30 09/17/18 22:29 Ondansetron HCl (Zofran) 4 mg Q6H PRN IVP Nausea & Vomiting 08/23/18 17:19 09/17/18 17:18 Pantoprazole (Protonix) 40 mg Q12HR ORAL 08/23/18 21:00 09/18/18 08:59 08/24/18 08:23 Polyethylene Glycol (Miralax) 17 gm DAILYPRN PRN ORAL Constipation 08/23/18 17:20 09/17/18 17:19 Temazepam (Restoril) 15 mg HSPRN PRN ORAL Insomnia 08/23/18 17:20 08/25/18 17:19 Radha Ayon MD Aug 24, 2018 10:56
[2018-08-24 12:00] VITALS: BP 137/63
--- NOTE | 2018-08-24 12:17 | NUR ---
CASE MANAGEMENT:REVIEW 08/24/18 SI:NSTEMI 97.1 69 18 137/63 95% ON 2L/NC TROPONIN(+) 1.170 IS:DC HEPARIN GTT HEPARIN SQ Q12 CIPRO PO Q24 PLAVIX PO QD COREG PO Q12 : TELEMETRY STATUS PLAN: AWAIT TRANSFER TO [facility] FOR CARDIAC CATH
--- NOTE | 2018-08-24 12:22 | NUR ---
TRANSFER UPDATE CALLED [facility] AND SPOKE WITH QUINCY (T:[phone]) PER QUINCY PATIENT IS ON THE LIST BUT NO BEDS ARE AVAILABLE
--- NOTE | 2018-08-24 14:35 | Diagnostic Imaging Report ---
APPROVED REPORT CPT Code: 10377 Present Symptoms Comments: Left Upper extremity swelling LEFT UPPER EXTREMITY: Venous imaging reveals patency of the internal jugular, subclavian, axillary and brachial veins. The cephalic and basilic veins are also patent. Doppler indicates normal spontaneous flow within these venous segments.
--- NOTE | 2018-08-24 15:06 | Nephrology Progress Note ---
Assessment/Plan Problem List: (1) Renal failure (ARF), acute on chronic (2) CAD (coronary artery disease) Assessment: elevated troponin (3) Acute respiratory failure (4) Diabetic nephropathy Assessment Renal failure, Acute on Chronic Acute respiratory failure on presentation CAD, Elevated troponin I Anemia HTN DM h/o CVA CRAWLEY, Weakness Plan troponin lower 2D Echo pending per cardio management Avoid Nephrotoxics keep BP and BS in check optimize cardiac and pulmonary status per orders Subjective ROS Limited/Unobtainable: No Constitutional: Reports: malaise, weakness Objective Objective Last 24 Hour Vital Signs Date Time Temp Pulse Resp B/P (MAP) Pulse Ox O2 Delivery O2 Flow Rate FiO2 08/24/18 08:24 69 137/63 08/24/18 08:00 Nasal Cannula 2.0 08/24/18 08:00 68 08/24/18 08:00 97.1 69 18 137/63 (87) 95 08/24/18 06:55 97 Nasal Cannula 2.0 28 08/24/18 06:55 74 16 Nasal Cannula 2.0 28 08/24/18 06:55 Nasal Cannula 2.0 28 08/24/18 04:00 Nasal Cannula 2.0 08/24/18 03:54 97.8 70 18 121/59 (79) 94 08/24/18 03:37 69 08/24/18 00:00 Nasal Cannula 2.0 08/23/18 23:56 97.9 74 18 125/59 (81) 94 08/23/18 23:28 77 08/23/18 21:35 80 128/64 08/23/18 20:00 Nasal Cannula 2.0 08/23/18 20:00 98.7 80 32 128/64 (85) 92 08/23/18 19:58 Nasal Cannula 2.0 28 08/23/18 19:58 80 18 Nasal Cannula 2.0 28 08/23/18 19:58 94 Nasal Cannula 2.0 28 08/23/18 19:42 80 08/23/18 17:25 97.7 74 20 127/61 (83) 100 08/23/18 16:00 97.4 76 21 117/68 (84) 99 08/23/18 16:00 Nasal Cannula 2.0 08/23/18 16:00 72 Intake and Output 08/23/18 08/24/18 19:00 07:00 Intake Total 102.328 ml 161.571 ml Output Total 600 ml Balance 102.328 ml -438.429 ml Intake Oral 120 ml IV Total 102.328 ml 41.571 ml Output Urine Total 600 ml Laboratory Tests 08/23/18 20:18: Activated Partial Thromboplast Time 22L 08/24/18 04:00: Activated Partial Thromboplast Time 135H, White Blood Count 11.4H, Red Blood Count 2.99L, Hemoglobin 8.8L, Hematocrit 25.9L, Mean Corpuscular Volume 87, Mean Corpuscular Hemoglobin 29.4, Mean Corpuscular Hemoglobin Concent 33.9, Red Cell Distribution Width 11.5L, Platelet Count 337, Mean Platelet Volume 6.5, Neutrophils (%) (Auto) 69.5, Lymphocytes (%) (Auto) 16.7L, Monocytes (%) (Auto) 9.8, Eosinophils (%) (Auto) 2.4, Basophils (%) (Auto) 1.5, Erythrocyte Sedimentation Rate 136H, Sodium Level 134L, Potassium Level 4.3, Chloride Level 99, Carbon Dioxide Level 25, Anion Gap 10, Blood Urea Nitrogen 31H, Creatinine 1.9H, Estimat Glomerular Filtration Rate , Glucose Level 202H, Calcium Level 8.8 , Phosphorus Level 4.6, Magnesium Level 1.9, Total Bilirubin 0.2, Aspartate Amino Transf (AST/SGOT) 12L, Alanine Aminotransferase (ALT/SGPT) 13, Alkaline Phosphatase 79, Troponin I 1.170H, Pro-B-Type Natriuretic Peptide 81450W, Total Protein 6.5, Albumin 2.2L, Globulin 4.3, Albumin/Globulin Ratio 0.5L 08/24/18 13:15: Activated Partial Thromboplast Time 37H Height (Feet): 5 Height (Inches): 2.00 Weight (Pounds): 117 General Appearance: no apparent distress Cardiovascular: normal rate Respiratory/Chest: decreased breath sounds Abdomen: soft Objective no change Lamonte Newton MD Aug 24, 2018 15:06
[2018-08-24 16:00] VITALS: BP 123/66
--- NOTE | 2018-08-24 16:04 | Cardiology Progress Note ---
Assessment/Plan Assessment/Plan 1. Vaj-CJ-bmorjsfzw myocardial infarction. 2. Diabetes mellitus. 3. Hypertension. 4. History of CVA with left-sided weakness. 5. Anemia. 6. Renal insufficiency. she wants to go home now off heparin diuretic plavix (asa allergy) ntp will likey need cardiac cath but at risk of contrast nephropathy d/w pt in detail with [facility] on 08/19 she wishes to proceed if planned trop down trending transfer center at [facility] called still no bed still Subjective Cardiovascular: Denies: chest pain, lightheadedness, palpitations Respiratory: Denies: shortness of breath Gastrointestinal/Abdominal: Denies: abdominal pain Genitourinary: Denies: burning Objective Last 24 Hour Vital Signs Date Time Temp Pulse Resp B/P (MAP) Pulse Ox O2 Delivery O2 Flow Rate FiO2 08/24/18 12:00 Nasal Cannula 2.0 08/24/18 12:00 64 08/24/18 12:00 98.4 67 20 137/63 (87) 95 08/24/18 08:24 69 137/63 08/24/18 08:00 Nasal Cannula 2.0 08/24/18 08:00 68 08/24/18 08:00 97.1 69 18 137/63 (87) 95 08/24/18 06:55 97 Nasal Cannula 2.0 28 08/24/18 06:55 74 16 Nasal Cannula 2.0 28 08/24/18 06:55 Nasal Cannula 2.0 28 08/24/18 04:00 Nasal Cannula 2.0 08/24/18 03:54 97.8 70 18 121/59 (79) 94 08/24/18 03:37 69 08/24/18 00:00 Nasal Cannula 2.0 08/23/18 23:56 97.9 74 18 125/59 (81) 94 08/23/18 23:28 77 08/23/18 21:35 80 128/64 08/23/18 20:00 Nasal Cannula 2.0 08/23/18 20:00 98.7 80 32 128/64 (85) 92 08/23/18 19:58 Nasal Cannula 2.0 28 08/23/18 19:58 80 18 Nasal Cannula 2.0 28 08/23/18 19:58 94 Nasal Cannula 2.0 28 08/23/18 19:42 80 08/23/18 17:25 97.7 74 20 127/61 (83) 100 08/23/18 16:00 97.4 76 21 117/68 (84) 99 08/23/18 16:00 Nasal Cannula 2.0 08/23/18 16:00 72 General Appearance: no apparent distress, alert Neck: supple Cardiovascular: normal rate Respiratory/Chest: lungs clear Abdomen: normal bowel sounds, non tender, soft Extremities: no swelling Intake and Output 08/23/18 08/24/18 18:59 06:59 Intake Total 106.592 ml 171.164 ml Output Total 600 ml Balance 106.592 ml -428.836 ml Intake Oral 120 ml IV Total 106.592 ml 51.164 ml Output Urine Total 600 ml Laboratory Tests Test 08/23/18 20:18 08/24/18 04:00 08/24/18 13:15 Activated Partial Thromboplast Time 22 SEC (23-33) L 135 SEC (23-33) H 37 SEC (23-33) H White Blood Count 11.4 K/UL (4.8-10.8) H Red Blood Count 2.99 M/UL (4.20-5.40) L Hemoglobin 8.8 G/DL (12.0-16.0) L Hematocrit 25.9 % (37.0-47.0) L Mean Corpuscular Volume 87 FL (80-99) Mean Corpuscular Hemoglobin 29.4 PG (27.0-31.0) Mean Corpuscular Hemoglobin Concent 33.9 G/DL (32.0-36.0) Red Cell Distribution Width 11.5 % (11.6-14.8) L Platelet Count 337 K/UL (150-450) Mean Platelet Volume 6.5 FL (6.5-10.1) Neutrophils (%) (Auto) 69.5 % (45.0-75.0) Lymphocytes (%) (Auto) 16.7 % (20.0-45.0) L Monocytes (%) (Auto) 9.8 % (1.0-10.0) Eosinophils (%) (Auto) 2.4 % (0.0-3.0) Basophils (%) (Auto) 1.5 % (0.0-2.0) Erythrocyte Sedimentation Rate 136 MM/HR (0-30) H Sodium Level 134 MMOL/L (136-145) L Potassium Level 4.3 MMOL/L (3.5-5.1) Chloride Level 99 MMOL/L (98-107) Carbon Dioxide Level 25 MMOL/L (21-32) Anion Gap 10 mmol/L (5-15) Blood Urea Nitrogen 31 mg/dL (7-18) H Creatinine 1.9 MG/DL (0.55-1.30) H Estimat Glomerular Filtration Rate mL/min (>60) Glucose Level 202 MG/DL (74-106) H Calcium Level 8.8 MG/DL (8.5-10.1) Phosphorus Level 4.6 MG/DL (2.5-4.9) Magnesium Level 1.9 MG/DL (1.8-2.4) Total Bilirubin 0.2 MG/DL (0.2-1.0) Aspartate Amino Transf (AST/SGOT) 12 U/L (15-37) L Alanine Aminotransferase (ALT/SGPT) 13 U/L (12-78) Alkaline Phosphatase 79 U/L (46-116) Troponin I 1.170 ng/mL (0.000-0.056) Pro-B-Type Natriuretic Peptide 10376 pg/mL (0-125) H Total Protein 6.5 G/DL (6.4-8.2) Albumin 2.2 G/DL (3.4-5.0) L Globulin 4.3 g/dL Albumin/Globulin Ratio 0.5 (1.0-2.7) L Vishal Enriquez MD Aug 24, 2018 16:04
--- NOTE | 2018-08-24 18:00 | Internal Med Progress Note ---
Subjective Date of Service: Aug 24, 2018 Physician Name StylesDixon Attending Physician Ben Barrios MD Current Medications Medications (Trade) Dose Ordered Sig/Lita Route PRN Reason Start Time Stop Time Status Last Admin Dose Admin Acetaminophen (Tylenol) 650 mg Q4H PRN ORAL FEVER 08/23/18 17:19 09/17/18 17:18 Albuterol/ Ipratropium (Albuterol/ Ipratropium) 3 ml Q4H PRN HHN Shortness of Breath 08/23/18 17:19 08/26/18 17:18 Carvedilol (Coreg) 25 mg EVERY 12 HOURS ORAL 08/23/18 21:00 09/18/18 08:59 08/24/18 08:24 Ciprofloxacin (Cipro 500mg tab) 500 mg Q24H ORAL 08/24/18 09:00 08/30/18 08:59 08/24/18 08:24 Clopidogrel Bisulfate (Plavix) 75 mg DAILY ORAL 08/24/18 09:00 09/18/18 08:59 08/24/18 08:23 Dextrose (Dextrose 50%) 25 ml Q30M PRN IV Hypoglycemia 08/23/18 17:30 09/17/18 22:29 Diltiazem HCl (Cardizem) 10 mg Q1H PRN IV heart rate more than 120, 08/23/18 17:27 09/17/18 17:26 Heparin Sodium (Porcine) (Heparin 5000 units/ml) 5,000 units EVERY 12 HOURS SUBQ 08/24/18 21:00 09/23/18 20:59 Insulin Aspart (NovoLOG) BEFORE MEALS AND HS SUBQ 08/23/18 21:00 09/18/18 06:29 08/24/18 16:30 Nitroglycerin (Ntg) 0.4 mg Q5M PRN SL Prn Chest Pain 08/23/18 17:30 09/17/18 22:29 Ondansetron HCl (Zofran) 4 mg Q6H PRN IVP Nausea & Vomiting 08/23/18 17:19 09/17/18 17:18 Pantoprazole (Protonix) 40 mg Q12HR ORAL 08/23/18 21:00 09/18/18 08:59 08/24/18 08:23 Polyethylene Glycol (Miralax) 17 gm DAILYPRN PRN ORAL Constipation 08/23/18 17:20 09/17/18 17:19 Temazepam (Restoril) 15 mg HSPRN PRN ORAL Insomnia 08/23/18 17:20 08/25/18 17:19 Allergies: Coded Allergies: ASPIRIN (Verified Allergy, Unknown, 04/25/17) ATORVASTATIN (Verified Allergy, Unknown, 04/26/17) CHOLINE FENOFIBRATE (Verified Allergy, Unknown, 04/26/17) DULOXETINE (Verified Allergy, Unknown, 04/26/17) GABAPENTIN (Verified Allergy, Unknown, 04/26/17) NIACIN (Verified Allergy, Unknown, 04/26/17) OXYCODONE (Verified Allergy, Unknown, 04/26/17) PENICILLINS (Verified Allergy, Unknown, 04/25/17) PROMETHAZINE (Verified Allergy, Unknown, 04/26/17) ROSIGLITAZONE (Verified Allergy, Unknown, 04/26/17) TRAMADOL (Verified Allergy, Unknown, 04/26/17) ROS Limited/Unobtainable: No Constitutional: Reports: no symptoms HEENT: Reports: no symptoms Cardiovascular: Reports: no symptoms Respiratory: Reports: shortness of breath Gastrointestinal/Abdominal: Reports: no symptoms Genitourinary: Reports: no symptoms Neurologic/Psychiatric: Reports: no symptoms Subjective 82 YO F admitted with shortness of breath. Now NSTEMI and CHF. Cover for Int Med-Dr Barrios. Objective Last Vital Signs Date Time Temp Pulse Resp B/P (MAP) Pulse Ox O2 Delivery O2 Flow Rate FiO2 08/24/18 16:00 Nasal Cannula 2.0 08/24/18 16:00 69 08/24/18 16:00 97.7 20 123/66 (85) 95 08/24/18 06:55 28 Laboratory Tests Test 08/23/18 20:18 08/24/18 04:00 08/24/18 13:15 Activated Partial Thromboplast Time 22 SEC (23-33) L 135 SEC (23-33) H 37 SEC (23-33) H White Blood Count 11.4 K/UL (4.8-10.8) H Red Blood Count 2.99 M/UL (4.20-5.40) L Hemoglobin 8.8 G/DL (12.0-16.0) L Hematocrit 25.9 % (37.0-47.0) L Mean Corpuscular Volume 87 FL (80-99) Mean Corpuscular Hemoglobin 29.4 PG (27.0-31.0) Mean Corpuscular Hemoglobin Concent 33.9 G/DL (32.0-36.0) Red Cell Distribution Width 11.5 % (11.6-14.8) L Platelet Count 337 K/UL (150-450) Mean Platelet Volume 6.5 FL (6.5-10.1) Neutrophils (%) (Auto) 69.5 % (45.0-75.0) Lymphocytes (%) (Auto) 16.7 % (20.0-45.0) L Monocytes (%) (Auto) 9.8 % (1.0-10.0) Eosinophils (%) (Auto) 2.4 % (0.0-3.0) Basophils (%) (Auto) 1.5 % (0.0-2.0) Erythrocyte Sedimentation Rate 136 MM/HR (0-30) H Sodium Level 134 MMOL/L (136-145) L Potassium Level 4.3 MMOL/L (3.5-5.1) Chloride Level 99 MMOL/L (98-107) Carbon Dioxide Level 25 MMOL/L (21-32) Anion Gap 10 mmol/L (5-15) Blood Urea Nitrogen 31 mg/dL (7-18) H Creatinine 1.9 MG/DL (0.55-1.30) H Estimat Glomerular Filtration Rate mL/min (>60) Glucose Level 202 MG/DL (74-106) H Calcium Level 8.8 MG/DL (8.5-10.1) Phosphorus Level 4.6 MG/DL (2.5-4.9) Magnesium Level 1.9 MG/DL (1.8-2.4) Total Bilirubin 0.2 MG/DL (0.2-1.0) Aspartate Amino Transf (AST/SGOT) 12 U/L (15-37) L Alanine Aminotransferase (ALT/SGPT) 13 U/L (12-78) Alkaline Phosphatase 79 U/L (46-116) Troponin I 1.170 ng/mL (0.000-0.056) Pro-B-Type Natriuretic Peptide 67165 pg/mL (0-125) H Total Protein 6.5 G/DL (6.4-8.2) Albumin 2.2 G/DL (3.4-5.0) L Globulin 4.3 g/dL Albumin/Globulin Ratio 0.5 (1.0-2.7) L Intake and Output 08/23/18 08/24/18 18:59 06:59 Intake Total 106.592 ml 171.164 ml Output Total 600 ml Balance 106.592 ml -428.836 ml Intake Oral 120 ml IV Total 106.592 ml 51.164 ml Output Urine Total 600 ml Objective PHYSICAL EXAMINATION: VITAL SIGNS: Temperature 98.4, respirations 19, pulse 78 to 84, and blood pressure 147/64. GENERAL: The patient is well-developed and well-nourished white female, in no apparent distress. HEENT: Eyes, pupils are equal and responsive to light and accommodation. Extraocular movements are intact. NECK: Supple without lymphadenopathy. CHEST: Diffuse wheezes bilaterally. Crackles noted in bilateral bases. CARDIOVASCULAR: Regular rhythm and rate. S1 and S2 are normal without murmurs, rubs, or gallops. ABDOMEN: Soft, nontender, and nondistended. Positive bowel sounds. No evidence of hepatosplenomegaly. Currently, no rebound or guarding noted. EXTREMITIES: Negative for clubbing, cyanosis, or edema. RECTAL/GENITAL: Refused. NEUROLOGIC: Cranial nerves II through XII are grossly intact without focal deficits. Motor strength is 5/5 bilaterally. Deep tendon reflexes are 2+ bilat Assessment/Plan Assessment/Plan ASSESSMENT: This is an 82-year-old female. 1. Shortness of breath. 2. Congestive heart failure. 3. Elevated troponin. 4. Xsk-AW-rktbcafd myocardial infarction. 5. Renal failure. 6. Cerebrovascular disease. 7. Hypertension. 8. Coronary artery disease. 9. Glaucoma. TREATMENT: 1. Shortness of breath. A Pulmonary consultation has been obtained with Dr. Radha Ayon. We will follow recommendations of Pulmonary. 2. Congestive heart failure/sov-RU-hpencbau myocardial infarction. A See Cardiology consultation by Dr. Vishal Enriquez. The patient has been started empirically on aspirin and Plavix. 3. Renal failure. A Nephrology consultation has been obtained with Dr. Newton. 4. Cerebrovascular disease. 5. Hypertension. The patient is currently hypotensive. 6. Glaucoma. Continue eye drops as above. 7. Await transfer to [facility] for cardiac cath-see cardiology note. Dixon Styles MD Aug 24, 2018 18:00
--- NOTE | 2018-08-24 18:31 | NUR ---
NURSE NOTES: Received phone call from [facility] and talked with James. He said they have a bed for patient. Room 5011. And asked to make a transportation arrangement @ 2100 and give nurse to nurse report @2029.
--- NOTE | 2018-08-24 18:50 | NUR ---
NURSE NOTES: RP/Phil Lawson made aware that patient is transferring to [facility] @2100, Room 5011.
--- NOTE | 2018-08-24 19:40 | NUR ---
HAND-OFF: Report given to BRIE Taylor. Patient is in stable condition. Endorsed plan of care.
[2018-08-24 20:00] VITALS: BP 136/63
--- NOTE | 2018-08-24 20:00 | NUR ---
NURSE NOTES: Report received from Dennis BAIRD. Patient is observed in bed, awake, alert, oriented, and able to make needs known. Respiratory even and unlabored. Patient denies pain and SOB at this time. IV site is asymptomatic, patent, and intact. Bed is in lowest position with side rails up x2 and brakes are engaged. Bed alarm is on. Encouraged patient to use call light when in need of assistance; pt verbalized understanding. Will continue to monitor.
--- NOTE | 2018-08-24 20:30 | NUR ---
NURSE NOTES: Gave report to Mary at [facility]. Ambulance ETA is 2100.
[2018-08-24 20:50] VITALS: BP 136/63
[2018-08-24] MEDS ORDERED: Heparin 5000 units/ml inj SUBQ SCH (21:00)
[2018-08-24] MEDS ORDERED: NS 275ml ONE (21:14)
--- NOTE | 2018-08-24 21:15 | NUR ---
NURSE NOTES: Patient is transferred from [facility] to [facility] without any incident. Belongings and paperworks given to EMT. Patient is in stable condition. nurse monitoring removed and returned to the director of cardiac cath lab. IV site is asymptomatic, patent, and intact. Patient denies pain at this time. Informed EMT that patient is going to [place] [id number] and gave report to Mary BAIRD.
--- NOTE | 2018-08-25 13:10 | Discharge Summary ---
Discharge Summary Discharge Summary _ DATE OF ADMISSION: 08/18/2018 DATE OF DISCHARGE: 08/24/2018 DISCHARGED BY: Dr. Barrios REASON FOR ADMISSION: 82 years old female with past medical history of hypertension, diabetes, history of CVA in 2018, brought by paramedics due to increased difficulty breathing. Patient started on supplemental oxygen and was given nebulizing treatment with bronchodilator by paramedics. Patient also noted to be wheezing. Upon evaluation vital signs revealed tachycardia . Patient required initially 100% nonrebreathing mask . Laboratory workup revealed leukocytosis WBC 14.5, hemoglobin 10.6 ,hematocrit 31.6 Troponin elevated -2.241. EKG revealed sinus tachycardia with diffused ST depression. BUN 31, creatinine 2.0. Glucose 313. Magnesium 1.6. Stable LFT. Urinalysis revealed pyuria and moderate bacteria, +3 protein. Chest x-ray demonstrated bilateral interstitial edema with suspecting small bilateral pleural effusion. Patient was placed on BiPAP. ABG on BiPAP was stable. Patient subsequently admitted to direct observational unit for further management. CONSULTANTS: lurer Dr. Enriquez pulmonary Dr. Ayon signwriter Dr. Newton [facility] COURSE: Patient admitted to direct observational unit and started on full anticoagulation with heparin drip. Troponin were closely monitored. Patient started on antiplatelet therapy with Plavix (allergic to aspirin). Patient started on diuretic with close monitoring of volumes and cardiorenal parameters. Patient was placed on a waiting list for transfer to tertiary care facility for cardiac catheterization. Due to renal insufficiency, patient was at risk for contrast nephropathy , which was discussed in detail by lurer with patient family, on 08/19 , who wishes to proceed with procedure. Troponin trended down from initial 2.241 down to 1.17 on day of transfer. Heparin drip stopped on 08/24. Antiplatelet therapy with Plavix continued along with a beta-oscar. Blood pressure was managed with beta-oscar and remained stable. After heparin drip discontinued, patient started on DVT prophylaxis with heparin. Venous duplex bilateral lower extremity revealed chronic thrombus in the superficial femoral vein right lower extremity and patent left lower extremity. No evidence of acute DVT. Patient initially was on the BiPAP. FiO2 titrated to keep pulse oximetry above 92%. Patient was able to be to weaned from the BiPAP and started on oxygen via nasal cannula. Pulmonary toilet with bronchodilator provided. Patient started on empiric antibiotics. Blood cultures were negative. Urine culture revealed Klebsiella pneumonia. Antibiotic regimen was continued based on sensitivity. Renal parameters and electrolytes were closely monitored. Electrolytes corrected as needed and nephrotoxins were avoided. Director Security Risk Management followed. Pain management was addressed. Blood sugar was managed with sliding scale of insulin Hemoglobin A1c 8.9 not at goal. Patient will need further optimization of anti-glycemic regimen as outpatient. Hemoglobin and hematocrit were closely monitored with goal to keep hemoglobin above 7. Anemia workup was consistent with anemia of chronic disease. CEA was within normal limits. Stable folate and B12. Prior to discharge hemoglobin 8.8 and hematocrit 25.9. GI prophylaxis provided. Supportive care provided. Bowel regimen instituted. Placement was secured at the [facility] for cardiac catheterization. Patient subsequently was transferred via [facility] ambulance to [facility] for cardiac catheterization. FINAL DIAGNOSES: Acute respiratory failure requiring BiPAP NSTEMI History of CVA with left-sided weakness Hypertension Congestive heart failure Klebsiella UTI Anemia of chronic disease Acute kidney injury on chronic kidney disease Diabetes mellitus with diabetic nephropathy DISCHARGE MEDICATIONS: List of medication was sent to accepting facility DISCHARGE INSTRUCTIONS: Patient was transferred to [facility] for further management. Follow-up with medical doctor at the facility. Essence Goodson NP Aug 25, 2018 13:10
== END 2018-08-24 21:15 | disposition critical access hospital, planned readmission (94) | DRG 280 ==
LOC: EDBD 20:14 → EMR 20:59 → ICU 21:41 → EDBEDREQSVC 22:36 → EDBEDREQ 23:01 → 2W 08-19 09:52 → 2E 08-23 17:23
DX: I21.4 Non-ST elevation (NSTEMI) myocardial infarction (principal); J96.00 Acute respiratory failure, unspecified whether with hypoxia or hypercapnia; N17.9 Acute kidney failure, unspecified; I69.354 Hemiplegia and hemiparesis following cerebral infarction affecting left non-dominant side; N39.0 Urinary tract infection, site not specified; I25.10 Atherosclerotic heart disease of native coronary artery without angina pectoris; I12.9 Hypertensive chronic kidney disease with stage 1 through stage 4 chronic kidney disease, or unspecified chronic kidney disease; N18.9 Chronic kidney disease, unspecified; Z88.6 Allergy status to analgesic agent; Z88.0 Allergy status to penicillin; Z88.8 Allergy status to other drugs, medicaments and biological substances; R29.6 Repeated falls; B96.1 Klebsiella pneumoniae [K. pneumoniae] as the cause of diseases classified elsewhere; H40.9 Unspecified glaucoma; E11.22 Type 2 diabetes mellitus with diabetic chronic kidney disease; R51 Headache; R53.1 Weakness
CPT/HCPCS: 36415; 36600; 71045; 80048; 80053; 80061; 81001; 81003; 82378; 82550; 82553; 82607; 82728; 82746; 82803; 82962; 82977; 83036; 83540; 83550; 83605; 83615; 83735; 83880; 84100; 84443; 84484; 84550; 85007; 85025; 85044; 85060; 85610; 85651; 85730; 86140; 87040; 87086; 87181; 89050; 93005; 93306; 93970; 93971; 94660; 94664; 94760; 99285; J1815; J7620

== ENCOUNTER 2019-12-21 08:42 | Inpatient (IN) | payer OTHER, MEDICAID ==
[~2019-12-21] VITALS: Ht 154.9 cm; Wt 56.7 kg
[2019-12-21 08:50] VITALS: BP_SYST 120; BP_SYST 158; BP_DIAS 63; BP_DIAS 72
--- NOTE | 2019-12-21 08:50 | NUR ---
ED Nurse Note: Pt brought in by ambulance from home c/o n/v x 1 day. Pt denies abd pain/diarrhea. Per pt, she had mechanical fall yesterday and hit the back of her head. Pt denies loss of consciousness and did not seek medical attention after the fall, but was vomiting all night. Redness and swelling noted on left back of head. Respirations even and unlabored on room air. Vitals stable as documented.
[2019-12-21 09:14] LABS: BASOPHILS % (AUTO) 1.1 % (0.0-2.0); EOSINOPHILS % (AUTO) 0.8 % (0.0-3.0); HEMATOCRIT 39.9 % (37.0-47.0); LYMPHOCYTES % (AUTO) 16.4 % (20.0-45.0); MEAN CORPUSCULAR VOLUME 91 FL (80-99); NEUTROPHILS % (AUTO) 75.8 % (45.0-75.0); PLATELET COUNT 314 K/UL (150-450); RED BLOOD COUNT 4.37 M/UL (4.20-5.40); WHITE BLOOD COUNT 10.8 K/UL (4.8-10.8)
--- NOTE | 2019-12-21 09:15 | Emergency Room Report ---
History of Present Illness General Chief Complaint: Vomiting Source: Patient, EMS Present Illness HPI Disclaimer: Please note that this report is being documented using DRAGON technology. This can lead to erroneous entry secondary to incorrect interpretation by the dictating instrument. HPI: 84-year-old female with a history of cardiac disease, hypertension, hyperlipidemia, diabetes presents for evaluation of nausea and vomiting. Symptoms began yesterday. The patient states she was seen at her PMDs office for regular checkup after which she went home feeling well though had a loss of balance fell and struck her head without a loss of consciousness. She took a Tylenol for headache. Overnight she developed nausea and persistent vomiting. She denies abdominal pain or cramping. Denies chest pain or shortness of breath. Denies fever or chills. She denies diarrhea, flank pain, dysuria or hematuria. Denies any alcohol use or foods that did not agree with her. PMH: Hypertension, hyperlipidemia, CAD, diabetes PSH: Sternotomy Allergies: Aspirin, atorvastatin, duloxetine, gabapentin, niacin, oxycodone noted in medical chart Social Hx: Denies alcohol or drug use, denies smoking Allergies: Coded Allergies: ASPIRIN (Verified Allergy, Unknown, 04/25/17) ATORVASTATIN (Verified Allergy, Unknown, 04/26/17) CHOLINE FENOFIBRATE (Verified Allergy, Unknown, 04/26/17) DULOXETINE (Verified Allergy, Unknown, 04/26/17) GABAPENTIN (Verified Allergy, Unknown, 04/26/17) NIACIN (Verified Allergy, Unknown, 04/26/17) OXYCODONE (Verified Allergy, Unknown, 04/26/17) PENICILLINS (Verified Allergy, Unknown, 04/25/17) PROMETHAZINE (Verified Allergy, Unknown, 04/26/17) ROSIGLITAZONE (Verified Allergy, Unknown, 04/26/17) TRAMADOL (Verified Allergy, Unknown, 04/26/17) COVID-19 Screening Contact w/high risk pt: No Recent Travel to affected area: No Experienced COVID-19 symptoms?: No COVID-19 Testing performed DRY END TESTER: No Nursing Documentation-PMH Hx Cardiac Problems: Yes Hx Hypertension: Yes Hx Diabetes: Yes Hx Cancer: No Hx Gastrointestinal Problems: No Hx Cerebrovascular Accident: Yes - 01/2018 Hx Headaches: Yes Hx Weakness: Yes Review of Systems All Other Systems: negative except mentioned in HPI Physical Exam Vital Signs Date Time Temp Pulse Resp B/P (MAP) Pulse Ox O2 Delivery O2 Flow Rate FiO2 12/21/19 08:38 97.9 106 18 181/83 (115) 98 General: Awake and alert, no acute distress HEENT: NC/AT. There are no hematomas or lacerations over the scalp or face. There is a small abrasion over the left occiput. EOMI. PERRLA. Cardiovascular: RRR. S1 and S2 normal. No murmur appreciated Resp: Normal work of breathing. No cough, wheezing or crackles appreciated Abdomen: Abdomen is soft, nondistended. Obese abdomen. Nontender, no mass, no rebound palpable Skin: Intact. No abrasions, laceration or rash over the exposed skin MSK: Normal tone and bulk. Moving all extremities. No obvious deformity. Neuro: Awake and alert. Mentating appropriately. Medical Decision Making Diagnostic Impression: Primary Impression: ROBERTA (acute kidney injury) Additional Impressions: Dehydration Fall Hyperglycemia ER Course Is an 84-year-old female presenting for evaluation of vomiting. Patient had a head injury yesterday did not result in loss of consciousness small abrasion on her head. Will obtain a CT to evaluate for intracranial injury though suspect is not the cause of her for an emesis. May be gastritis, gastroenteritis, viral syndrome, DKA, food poisoning, pancreatitis, cholecystitis, occult ACS. Will obtain broad labs, EKG, imaging. Patient receiving IV fluids and antiemetics. 1030: CT scan of the head does not show evidence of acute traumatic injury though age- related changes are noted in the report. No evidence of bowel obstruction on abdominal x-ray and the patient's abdomen remains soft and nontender. Patient' s labs show acute kidney injury with elevated BUN and creatinine. This likely secondary dehydration patient receiving IV fluids. No clear evidence of urinary tract infection at this time. Blood glucose level elevated but no anion gap; no concern for DKA at this time. Patient will be admitted for persistent vomiting, dehydration, ROBERTA, hyperglycemia and weakness. Patient admitted to her assigned hospitalist according to her health plan, Dr. Franco Laboratory Tests Test 12/21/19 08:55 12/21/19 09:10 White Blood Count 10.8 K/UL (4.8-10.8) Red Blood Count 4.37 M/UL (4.20-5.40) Hemoglobin 13.0 G/DL (12.0-16.0) Hematocrit 39.9 % (37.0-47.0) Mean Corpuscular Volume 91 FL (80-99) Mean Corpuscular Hemoglobin 29.7 PG (27.0-31.0) Mean Corpuscular Hemoglobin Concent 32.5 G/DL (32.0-36.0) Red Cell Distribution Width 12.0 % (11.6-14.8) Platelet Count 314 K/UL (150-450) Mean Platelet Volume 8.5 FL (6.5-10.1) Neutrophils (%) (Auto) 75.8 % (45.0-75.0) H Lymphocytes (%) (Auto) 16.4 % (20.0-45.0) L Monocytes (%) (Auto) 6.0 % (1.0-10.0) Eosinophils (%) (Auto) 0.8 % (0.0-3.0) Basophils (%) (Auto) 1.1 % (0.0-2.0) Sodium Level 137 MMOL/L (136-145) Potassium Level 4.4 MMOL/L (3.5-5.1) Chloride Level 96 MMOL/L (98-107) L Carbon Dioxide Level 29 MMOL/L (21-32) Anion Gap 12 mmol/L (5-15) Blood Urea Nitrogen 36 mg/dL (7-18) H Creatinine 2.2 MG/DL (0.55-1.30) H Estimated Glomerular Filtration Rate 21.4 mL/min (>60) Glucose Level 356 MG/DL (74-106) H Calcium Level 9.4 MG/DL (8.5-10.1) Total Bilirubin 0.4 MG/DL (0.2-1.0) Aspartate Amino Transferase (AST) 21 U/L (15-37) Alanine Aminotransferase (ALT) 22 U/L (12-78) Alkaline Phosphatase 97 U/L (46-116) Troponin I 0.036 ng/mL (0.000-0.056) Total Protein 8.0 G/DL (6.4-8.2) Albumin 4.0 G/DL (3.4-5.0) Globulin 4.0 g/dL Albumin/Globulin Ratio 1.0 (1.0-2.7) Lipase 169 U/L (73-393) Urine Color Pale yellow Urine Appearance Clear Urine pH 6.5 (4.5-8.0) Urine Specific [place] 1.010 (1.005-1.035) Urine Protein 3+ (NEGATIVE) H Urine Glucose (UA) 4+ (NEGATIVE) H Urine Ketones 1+ (NEGATIVE) H Urine Blood 1+ (NEGATIVE) H Urine Nitrite Negative (NEGATIVE) Urine Bilirubin Negative (NEGATIVE) Urine Urobilinogen Normal MG/DL (0.0-1.0) Urine Leukocyte Esterase 1+ (NEGATIVE) H Urine RBC 0-2 /HPF (0 - 2) Urine WBC 0-2 /HPF (0 - 2) Urine Squamous Epithelial Cells Occasional /LPF Urine Bacteria Occasional /HPF (NONE) EKG Diagnostic Results EKG Time: 09:19 Rate: normal Rhythm: NSR ST Segments: no acute changes Other Impression Sinus rhythm, normal axis, prolonged QTC at 505 ms, nonspecific T wave flattening. Rhythm Strip Diag. Results Rhythm Strip Time: :19 EP Interpretation: yes Rate: 90s Rhythm: NSR, no PVC's, no ectopy Other X-Ray Diagnostic Results Other X-Ray Diagnostic Results #1: X-Ray ordered: Abdomen # of Views/Limited Vs Complete: 1 View Indication: Other - Vomiting EP Interpretation: Yes Interpretation: nonspecific bowel gas, no sbo Impression: No acute disease Electronically Signed by: Electronically signed by Dr. Calderon Bojorquez Other X-Ray Diagnostic Results #2: X-Ray ordered: Left shoulder # of Views/Limited Vs Complete: 3 View Indication: Pain EP Interpretation: Yes Interpretation: no dislocation, no soft tissue swelling, no fractures Impression: No acute disease Electronically Signed by: Electronically signed by Dr. Calderon Bojorquez CT/MRI/US Diagnostic Results CT/MRI/US Diagnostic Results : Impression CT HEAD IMPRESSION: Diffuse age-related senescent changes. 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 Also old lacunar right thalamic region. Cortical calcification related to old infection. No acute intracranial traumatic injury. Dictated By: Saw Carrillo MD Electronically Signed By: Saw Carrillo MD Signed Date/Time 12/21/19 1012 Last Vital Signs Date Time Temp Pulse Resp B/P (MAP) Pulse Ox O2 Delivery O2 Flow Rate FiO2 12/21/19 08:38 97.9 106 18 181/83 (115) 98 Disposition: ADMITTED INPATIENT Condition: Stable Calderon Bojorquez MD Dec 21, 2019 09:15
[2019-12-21 09:17] LABS: APPEARANCE,URINE CLEAR; BILIRUBIN, URINE NEGATIVE (NEGATIVE); COLOR,URINE PALE YELLOW; GLUCOSE, URINE (UA) 4+ (NEGATIVE); KETONES,URINE 1+ (NEGATIVE); LEUKOCYTE ESTERASE ,URINE 1+ (NEGATIVE); NITRITE,URINE NEGATIVE (NEGATIVE); PH,URINE 6.5 (4.5-8.0); PROTEIN,URINE 3+ (NEGATIVE); UROBILINOGEN,URINE NORMAL MG/DL (0.0-1.0)
--- NOTE | 2019-12-21 09:18 | NUR ---
ED Nurse Note: xray @ bedside
[2019-12-21 09:27] LABS: ANION GAP 12 mmol/L (5-15); BLOOD UREA NITROGEN 36 mg/dL (7-18); CALCIUM 9.4 MG/DL (8.5-10.1); CARBON DIOXIDE 29 MMOL/L (21-32); CHLORIDE 96 MMOL/L (98-107); CREATININE 2.2 MG/DL (0.55-1.30); POTASSIUM 4.4 MMOL/L (3.5-5.1); SODIUM 137 MMOL/L (136-145)
[2019-12-21 09:31] LABS: ALANINE AMINOTRANSFERASE 22 U/L (12-78); ALKALINE PHOSPHATASE 97 U/L (46-116); ASPARTATE AMINO TRANSFERASE 21 U/L (15-37); BILIRUBIN,TOTAL 0.4 MG/DL (0.2-1.0)
--- NOTE | 2019-12-21 09:45 | NUR ---
ED Nurse Note: Pt in CT
--- NOTE | 2019-12-21 10:12 | Diagnostic Imaging Report ---
EXAM: XRAY Abdomen 1v HISTORY: Reason For Exam: VOMITING COMPARISON: None. TECHNIQUE: Frontal view of the abdomen obtained. FINDINGS: There is a nonobstructed bowel gas pattern. Increased stool lucencies noted throughout the colon. There is a calcific density noted in the pelvis indeterminate for calcified fibroid or bladder stone. Injection granulomas noted in the lower quadrants bilaterally. There is no sign of free air. Degenerative changes and scoliosis of the spine noted. IMPRESSION: INCREASED STOOL LUCENCIES THROUGHOUT THE COLON. CALCIFIC DENSITY IN THE PELVIS EITHER CALCIFIED FIBROID OR BLADDER STONE.
--- NOTE | 2019-12-21 10:18 | Diagnostic Imaging Report ---
EXAM: CT CT Head no Contrast INDICATION: Trauma with head pain. TECHNIQUE: Axial images of the brain were obtained with subsequent sagittal and coronal reformats. All CT scans at this facility are performed using dose modulation techniques as appropriate to a performed exam including the following: automated exposure control with adjustment of the mA and/or kV according to patient size. COMPARISON STUDY: None. RADIATION DOSE: CTDIvol: 53.4 mGy DLP: 1072.2 mGy-cm Dose information generated by the CT scanner is available in PACS. FINDINGS: There is age related senescent changes with ventricular and sulcal prominence. White matter micro-ischemic changes noted. There are old infarct with volume loss noted in the left cerebellum as well as the posterior right parietal region. Punctate cortical calcification at the right frontal vertex likely related to old infection. There is also a small old lacunar in the right thalamic region. There is no evidence of acute traumatic injury. Ventricles and cisterns as well as brainstem and posterior fossa appear unremarkable. The sellar region is normal. Sinuses, mastoid air cells and bony calvarium appear intact. IMPRESSION: Diffuse age-related senescent changes. 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 Also old lacunar right thalamic region. Cortical calcification related to old infection. No acute intracranial traumatic injury.
[2019-12-21 11:30] VITALS: BP 148/71
--- NOTE | 2019-12-21 12:13 | NUR ---
ED Nurse Note: Report given to BRIE Leonard
--- NOTE | 2019-12-21 12:14 | NUR ---
ED Nurse Note: pt c/o left shoulder pain. ED MD aware. xray ordered. Waiting for xr before transporting to .
[2019-12-21 13:25] VITALS: BP 154/71
--- NOTE | 2019-12-21 13:31 | NUR ---
ED Nurse Note: Pt transferred safely to 4E with two sets of earings and clothing.
--- NOTE | 2019-12-21 13:39 | Diagnostic Imaging Report ---
Indication: Shoulder pain Technique: 3 views of the left shoulder Comparison: None Findings: Bones are demineralized. There is slight inferior subluxation of the humeral head relative to the glenoid however there is no complete dislocation. Possibility of the left shoulder joint effusion not excluded. No acute fractures identified. There are degenerative changes at the acromioclavicular joint and within the thoracic spine. Atherosclerotic calcifications are noted in the aortic arch. 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 IMPRESSION: Slight inferior subluxation of the humeral head relative to the glenoid. No acute fracture.
--- NOTE | 2019-12-21 13:43 | Consultation ---
History of Present Illness General Chief Complaint: Vomiting Reason for Consultation: ROBERTA Present Illness HPI This is a 84 year old female with past medical history of history of CAD, DM2, hypertension, hyperlipidemia presents with 2 days of nausea, emesis and syncope. She was in her usual state of health until yesterday. She had a visit with her PCP yesterday. She went home and notes feeling dizzy and passed out for several minutes. Later on she developed nausea and an episode of emesis. She denies any history of kidney disease that she is aware of. She takes Tylenol for pain occasionally. no chest pain. No urinary symptoms. Her cr on presentation note to be 2.2. She was hyperglycemic in the 350s. CT brain with no acute findings. Allergies: Coded Allergies: ASPIRIN (Verified Allergy, Unknown, 04/25/17) ATORVASTATIN (Verified Allergy, Unknown, 04/26/17) CHOLINE FENOFIBRATE (Verified Allergy, Unknown, 04/26/17) DULOXETINE (Verified Allergy, Unknown, 04/26/17) GABAPENTIN (Verified Allergy, Unknown, 04/26/17) NIACIN (Verified Allergy, Unknown, 04/26/17) OXYCODONE (Verified Allergy, Unknown, 04/26/17) PENICILLINS (Verified Allergy, Unknown, 04/25/17) PROMETHAZINE (Verified Allergy, Unknown, 04/26/17) ROSIGLITAZONE (Verified Allergy, Unknown, 04/26/17) TRAMADOL (Verified Allergy, Unknown, 04/26/17) Medication History Scheduled Amlodipine Besylate* (Amlodipine Besylate*), 5 MG ORAL BID, (Reported) Brimonidine Tartrate* (Alphagan*), 1 DROP BOTH EYES TID, (Reported) Carvedilol* (Carvedilol*), 25 MG ORAL EVERY 12 HOURS, (Reported) Cetirizine Hcl (Cetirizine Hcl), 100 MG PO DAILY, (Reported) Clopidogrel* (Clopidogrel*), 75 MG ORAL DAILY, (Reported) Dorzolamide HCl/Timolol Maleat (Dorzolamide-Timolol Eye Drops), 1 DROP BOTH EYES BID, (Reported) Glimepiride* (Glimepiride*), 2 MG ORAL BID, (Reported) Metformin Hcl* (Metformin Hcl*), 500 MG ORAL TWICE A DAY, (Reported) Metformin Hcl* (Metformin Hcl*), 1,000 MG ORAL BID, (Reported) Miscellaneous Medications Unable to Obtain Medications (Unable To Obtain Meds), (Reported) Patient History Healthcare decision maker Resuscitation status Advanced Directive on File Review of Systems Constitutional: Reports: malaise, weakness Eye: Denies: no symptoms, see HPI, eye pain, blurred vision, tearing, double vision, nose pain, nose congestion, acuity changes, discharge, other ENT: Denies: no symptoms, see HPI, ear pain, ear discharge, nose pain, nose congestion, throat pain, throat swelling, mouth pain, hearing loss, nasal discharge, other Respiratory: Denies: no symptoms, see HPI, cough, orthopnea, shortness of breath, stridor, wheezing, LAU, sputum, other Cardiovascular: Denies: no symptoms, see HPI, chest pain, edema, palpitations, syncope, PND, other Gastrointestinal: Reports: abdominal pain, nausea Genitourinary: Denies: no symptoms, see HPI, discharge, dysuria, frequency, hematuria, pain, retention, incontinence, urgency, vag bleed/dc, other Musculoskeletal: Denies: no symptoms, see HPI, back pain, gout, joint pain, joint swelling, muscle pain, muscle stiffness, other Skin: Denies: no symptoms, see HPI, rash, change in color, change in hair/nails , dryness, lesions, other Psychiatric: Denies: no symptoms, see HPI, prior hx, anxiety, depressed feelings, emotional problems, SI, HI, hallucinations, other Neurological: Denies: no symptoms, see HPI, headache, numbness, paresthesia, seizure, tingling, tremors, focal weakness, syncope, dizziness, other Endocrine: Denies: no symptoms, see HPI, excessive sweating, flushing, intolerance to temperature, increased thirst, increased urine, unexplained weight loss, other Hematologic/Lymphatic: Denies: no symptoms, see HPI, anemia, blood clots, easy bleeding, easy bruising, swollen glands, diathesis, other Physical Exam General Appearance: no apparent distress, lethargic Lines, tubes and drains: peripheral HEENT: normocephalic, atraumatic Neck: non-tender, normal alignment Respiratory/Chest: chest wall non-tender, lungs clear, normal breath sounds Cardiovascular/Chest: normal peripheral pulses, normal rate, regular rhythm Abdomen: normal bowel sounds, non tender Genitourinary/Rectal: normal genital exam Extremities: normal range of motion, non-tender, no edema Skin Exam: normal pigmentation Neurologic: alert, oriented x 3 Last 24 Hour Vital Signs Date Time Temp Pulse Resp B/P (MAP) Pulse Ox O2 Delivery O2 Flow Rate FiO2 12/21/19 13:25 97.0 100 20 154/71 98 Room Air 12/21/19 11:30 101 20 148/71 99 Room Air 12/21/19 08:50 97.2 97 20 158/63 98 Room Air 12/21/19 08:50 98 20 12/21/19 08:38 97.9 106 18 181/83 (115) 98 Laboratory Tests Test 12/21/19 08:55 12/21/19 09:10 White Blood Count 10.8 K/UL (4.8-10.8) Red Blood Count 4.37 M/UL (4.20-5.40) Hemoglobin 13.0 G/DL (12.0-16.0) Hematocrit 39.9 % (37.0-47.0) Mean Corpuscular Volume 91 FL (80-99) Mean Corpuscular Hemoglobin 29.7 PG (27.0-31.0) Mean Corpuscular Hemoglobin Concent 32.5 G/DL (32.0-36.0) Red Cell Distribution Width 12.0 % (11.6-14.8) Platelet Count 314 K/UL (150-450) Mean Platelet Volume 8.5 FL (6.5-10.1) Neutrophils (%) (Auto) 75.8 % (45.0-75.0) H Lymphocytes (%) (Auto) 16.4 % (20.0-45.0) L Monocytes (%) (Auto) 6.0 % (1.0-10.0) Eosinophils (%) (Auto) 0.8 % (0.0-3.0) Basophils (%) (Auto) 1.1 % (0.0-2.0) Sodium Level 137 MMOL/L (136-145) Potassium Level 4.4 MMOL/L (3.5-5.1) Chloride Level 96 MMOL/L (98-107) L Carbon Dioxide Level 29 MMOL/L (21-32) Anion Gap 12 mmol/L (5-15) Blood Urea Nitrogen 36 mg/dL (7-18) H Creatinine 2.2 MG/DL (0.55-1.30) H Estimat Glomerular Filtration Rate 21.4 mL/min (>60) Glucose Level 356 MG/DL (74-106) H Calcium Level 9.4 MG/DL (8.5-10.1) Total Bilirubin 0.4 MG/DL (0.2-1.0) Aspartate Amino Transf (AST/SGOT) 21 U/L (15-37) Alanine Aminotransferase (ALT/SGPT) 22 U/L (12-78) Alkaline Phosphatase 97 U/L (46-116) Troponin I 0.036 ng/mL (0.000-0.056) Total Protein 8.0 G/DL (6.4-8.2) Albumin 4.0 G/DL (3.4-5.0) Globulin 4.0 g/dL Albumin/Globulin Ratio 1.0 (1.0-2.7) Lipase 169 U/L (73-393) Urine Color Pale yellow Urine Appearance Clear Urine pH 6.5 (4.5-8.0) Urine Specific [place] 1.010 (1.005-1.035) Urine Protein 3+ (NEGATIVE) H Urine Glucose (UA) 4+ (NEGATIVE) H Urine Ketones 1+ (NEGATIVE) H Urine Blood 1+ (NEGATIVE) H Urine Nitrite Negative (NEGATIVE) Urine Bilirubin Negative (NEGATIVE) Urine Urobilinogen Normal MG/DL (0.0-1.0) Urine Leukocyte Esterase 1+ (NEGATIVE) H Urine RBC 0-2 /HPF (0 - 2) Urine WBC 0-2 /HPF (0 - 2) Urine Squamous Epithelial Cells Occasional /LPF Urine Bacteria Occasional /HPF (NONE) Height (Feet): 5 Height (Inches): 1.00 Weight (Pounds): 125 Assessment/Plan Diagnosis [facility]: #ROBERTA - likely due to pre-renal azotemia due to volume depletion in the setting of hyperglycemia #Metabolic acidosis #DM- with hyperglycemia #nausea, emesis query gastroenteritis #HTN- hypertensive urgency #HLD - check UA - UTP/cr - renal US - gentle hydration with D5-1/2NS- 50cc/hr - continue coreg 25mg BID - amlodipine 5mg BID - hold metformin - hold glymepride - ISS - check vitamin D/PTH - check iron panel, ferritin - monitor mag, phos, BMP daily Time spent 70 min > 50% on care coordination and counseling Mary Duncan M.D. Dec 21, 2019 13:43
--- NOTE | 2019-12-21 14:00 | NUR ---
NURSE NOTES: Received patient via gurney. On room air. Patient denies pain. Iv in the Right ac, site intact. Belongings list verified. Patient is a high fall risk d/t s/p fall at home. Patient placed close to the nurse's station for safety, yellow gown, yellow socks given. Patient oriented to room and surroundings, patient returned demonstration with use of call light and verbalized understanding to call for help. CN and SKEIN MERCERIZING MACHINE OPERATOR made aware.
--- NOTE | 2019-12-21 14:30 | NUR ---
NURSE NOTES: Optifoam placed on sacrum and Bilateral heels for ppx.
[2019-12-21] MEDS: D5NS 1,000 ML IV SCH (14:56)
[2019-12-21 16:00] VITALS: BP 152/89
--- NOTE | 2019-12-21 16:14 | NUR ---
CASE MANAGEMENT:INITIAL REVIEW 84 YR OLD FEMALE BIBA FROM HOME CC;VOMITING SI;HYPERGLYCEMIA. KIDNEY INFECTION. DEHYDRATION. 97.9 106 20 181/83 98% ON RA BUN 36 CR 2.2 BG 356 UA+ PROTEIN, GLUCOSE, KETONES, BLOOD, LEUKOCYTE ESTERASE ABD X-RAY ~ INCREASED STOOL LUCENCIES THROUGHOUT THE COLON. CALCIFIC DENSITY IN THE PELVIS EITHER CALCIFIED FIBROID OR BLADDER STONE. HEAD CT ~ Diffuse age-related senescent changes. 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 Also old lacunar right thalamic region. Cortical calcification related to old infection. No acute intracranial traumatic injury. SHOULDER X-RAY ~ Slight inferior subluxation of the humeral head relative to the glenoid. No acute fracture. IS;IVF NS BOLUS ZOFRAN IV ONCE TRANSFERRED FROM ED TO MED SURG DCP;PATIENT IS FROM HOME
[2019-12-21] MEDS: NovoLOG Insulin Flexpen SUBQ SCH ×2 (16:30→21:26)
--- NOTE | 2019-12-21 16:31 | Diagnostic Imaging Report ---
Indication: Abnormal renal function Technique: US Renal Comp Comparison: None Findings: Right kidney measures 8.3 cm in length. Left kidney measures 7.8 cm in length. Renal echogenicity within normal limits. There is a punctate echogenic focus in the left kidney which may represent a vascular calcification the hilum versus a nonobstructing stone. No evidence of hydronephrosis bilaterally. There is thickening of the wall the urinary bladder and suggestion of a bladder diverticulum. Impression: Punctate echogenic focus in the left kidney which may represent a nonobstructing stone versus vascular calcification. No evidence of hydronephrosis. Renal echogenicity appears within normal limits. Bladder wall thickening. Correlate with urinalysis to assess for cystitis. 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
--- NOTE | 2019-12-21 16:42 | NUR ---
NURSE NOTES: Urine specimen collected and sent down to lab.
--- NOTE | 2019-12-21 16:43 | NUR ---
NURSE NOTES: Patient refused insulin injection x3. Patient re-educated on risks and benefits. Patient states "I do not want to get poked right now."
[2019-12-21] MEDS: Cosopt Opth Soln 10 mL Btl BOTH EYES SCH (17:27)
--- NOTE | 2019-12-21 19:15 | NUR ---
NURSE NOTES: RECEIVED PATIENT FROM BRIE COYLE. PATIENT IS ASLEEP, ON ROOM AIR, NORMAL RESPIRATION, NO ACUTE DISTRESS NOTED. PIV INTACT AND PATENT. PATIENT IS A FALL RISK D/T HX OF FALL AT HOME. FALL PRECAUTION IMPLEMENTED. YELLOW GOWN, YELLOW SOCKS, YELLOW ARMBAND ON. COMMUNICATED WITH STAFF TO PERFORM FREQUENT ROUNDING. BED IS LOCKED AND LOW, BED ALARMS ACTIVE, SIDE RAILS UPX2 AND CALL LIGHT IS WITHIN REACH. WILL CONTINUE TO MONITOR.
--- NOTE | 2019-12-21 19:38 | NUR ---
HAND-OFF: Report given to Tierra RN.
[2019-12-21 20:00] VITALS: BP 154/82
[2019-12-21] MEDS ORDERED: HydrALAZINE 25mg tab ORAL PRN (20:15)
[2019-12-21] MEDS: Carvedilol 25mg Tab ORAL SCH (21:28)
[2019-12-22] VITALS: BP 150/77
--- NOTE | 2019-12-22 04:12 | NUR ---
NURSE NOTES: URINE SAMPLE COLLECTED, SENT DOWN TO LAB.
[2019-12-22 04:37] LABS: APPEARANCE,URINE CLEAR; BILIRUBIN, URINE NEGATIVE (NEGATIVE); COLOR,URINE PALE YELLOW; GLUCOSE, URINE (UA) 3+ (NEGATIVE); KETONES,URINE NEGATIVE (NEGATIVE); LEUKOCYTE ESTERASE ,URINE 2+ (NEGATIVE); NITRITE,URINE NEGATIVE (NEGATIVE); PH,URINE 6 (4.5-8.0); PROTEIN,URINE 3+ (NEGATIVE); UROBILINOGEN,URINE NORMAL MG/DL (0.0-1.0)
[2019-12-22 06:34] LABS: BASOPHILS % (AUTO) 1.4 % (0.0-2.0); EOSINOPHILS % (AUTO) 2.2 % (0.0-3.0); HEMATOCRIT 32.8 % (37.0-47.0); HEMOGLOBIN 10.5 G/DL (12.0-16.0); LYMPHOCYTES % (AUTO) 25.4 % (20.0-45.0); MEAN CORPUSCULAR VOLUME 92 FL (80-99); MONOCYTES % (AUTO) 8.9 % (1.0-10.0); NEUTROPHILS % (AUTO) 62.1 % (45.0-75.0); PLATELET COUNT 272 K/UL (150-450); RED BLOOD COUNT 3.56 M/UL (4.20-5.40); WHITE BLOOD COUNT 9.8 K/UL (4.8-10.8)
[2019-12-22] MEDS: NovoLOG Insulin Flexpen SUBQ SCH ×4 (06:44→21:07)
[2019-12-22 07:09] LABS: ANION GAP 8 mmol/L (5-15); BLOOD UREA NITROGEN 35 mg/dL (7-18); CALCIUM 8.3 MG/DL (8.5-10.1); CARBON DIOXIDE 28 MMOL/L (21-32); CHLORIDE 104 MMOL/L (98-107); CREATININE 2.1 MG/DL (0.55-1.30); POTASSIUM 4.2 MMOL/L (3.5-5.1); SODIUM 140 MMOL/L (136-145)
[2019-12-22 07:39] LABS: % IRON SATURATION 28 % (15-50); IRON 58 ug/dL (50-175); TOTAL IRON BINDING CAPACITY 207 ug/dL (250-450)
--- NOTE | 2019-12-22 07:43 | NUR ---
NURSE NOTES: Report received from Tierra, RN. Pt awake in bed with no SOB, alert and oriented x 4, bed in lowest position with breaks engaged and alarm on, IV line on right AC patent and intact, no c/o any discomfort at this time, will continue to monitor and proceed with plan of care, call light within reach.
--- NOTE | 2019-12-22 07:49 | NUR ---
HAND-OFF: Report given to BRIE Gar.
[2019-12-22 08:00] VITALS: BP 144/90
[2019-12-22 08:01] LABS: FERRITIN 111 NG/ML (8-388)
--- NOTE | 2019-12-22 09:31 | Nephrology Progress Note ---
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 #Metabolic acidosis #DM- with hyperglycemia #nausea, emesis query gastroenteritis #HTN- hypertensive urgency #HLD - UTP/cr- > around 2g - needs to start ACEi or ARB- once Cr is stablized - renal US with no hydro - continue gentle hydration with D5-1/2NS- 50cc/hr - continue coreg 25mg BID - amlodipine 5mg BID - hold metformin - hold glymepride - ISS - check vitamin D/PTH - check iron panel, ferritin- > adequate - monitor mag, phos, BMP daily Time spent 70 min > 50% on care coordination and counseling Subjective ROS Limited/Unobtainable: No Constitutional: Reports: malaise, weakness HEENT: Denies: no symptoms, eye pain, blurred vision, tearing, double vision, ear pain, ear discharge, nose pain, nose congestion, throat pain, throat swelling, mouth pain, mouth swelling, other Genitourinary: Denies: no symptoms, burning, discharge, frequency, flank pain, hematuria, incontinence, pain, urgency, other Neurologic/Psychiatric: Denies: no symptoms, anxiety, depressed, emotional problems, headache, numbness, paresthesia, pre-existing deficit, seizure, tingling, tremors, weakness, other Subjective Cr slightly lower notes some nausea Renal US: Impression: Punctate echogenic focus in the left kidney which may represent a nonobstructing stone versus vascular calcification. No evidence of hydronephrosis. Renal echogenicity appears within normal limits. Bladder wall thickening. Correlate with urinalysis to assess for cystitis. 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 Objective Objective Last 24 Hour Vital Signs Date Time Temp Pulse Resp B/P (MAP) Pulse Ox O2 Delivery O2 Flow Rate FiO2 12/22/19 08:00 98.2 85 20 144/90 (108) 96 12/22/19 00:00 98.1 94 17 150/77 (101) 96 12/21/19 21:28 90 154/82 12/21/19 21:00 Room Air 12/21/19 20:00 98.1 90 17 154/82 (106) 95 12/21/19 17:26 93 152/89 12/21/19 16:00 97.3 93 18 152/89 (110) 97 6/24/20 14:05 Room Air 12/21/19 13:31 97.2 98 20 151/74 97 Room Air 12/21/19 13:25 97.0 100 20 154/71 98 Room Air 12/21/19 11:30 101 20 148/71 99 Room Air Intake and Output 12/21/19 12/22/19 19:00 07:00 Intake Total 350 ml 600 ml Output Total 200 ml Balance 150 ml 600 ml Intake Oral 200 ml IV Total 150 ml 600 ml Output Urine Total 200 ml # Voids 2 Laboratory Tests 12/21/19 16:20: Urine Random Total Protein 100H, Urine Creatinine 57.0 12/22/19 04:00: Urine Color Pale yellow, Urine Appearance Clear, Urine pH 6, Urine Specific [place] 1.020, Urine Protein 3+H, Urine Glucose (UA) 3+H, Urine Ketones Negative , Urine Blood Negative, Urine Nitrite Negative, Urine Bilirubin Negative, Urine Urobilinogen Normal, Urine Leukocyte Esterase 2+H, Urine RBC 0-2, Urine WBC 10- 15H, Urine Squamous Epithelial Cells Few, Urine Bacteria Few 12/22/19 05:25: White Blood Count 9.8, Red Blood Count 3.56L, Hemoglobin 10.5L, Hematocrit 32.8L , Mean Corpuscular Volume 92, Mean Corpuscular Hemoglobin 29.6, Mean Corpuscular Hemoglobin Concent 32.1, Red Cell Distribution Width 12.0, Platelet Count 272, Mean Platelet Volume 8.5, Neutrophils (%) (Auto) 62.1, Lymphocytes (% ) (Auto) 25.4, Monocytes (%) (Auto) 8.9, Eosinophils (%) (Auto) 2.2, Basophils ( %) (Auto) 1.4, Sodium Level 140, Potassium Level 4.2, Chloride Level 104, Carbon Dioxide Level 28, Anion Gap 8, Blood Urea Nitrogen 35H, Creatinine 2.1H, Estimat Glomerular Filtration Rate 22.6, Glucose Level 256#H, Hemoglobin A1c 9.1H, Calcium Level 8.3L, Calcium (Send out) [Pending], Phosphorus Level 4.0, Magnesium Level 1.7L, Iron Level 58, Total Iron Binding Capacity 207L, Percent Iron Saturation 28, Unsaturated Iron Binding 149, Ferritin 111, Vitamin D 25- Hydroxy [Pending], 25-Hydroxy Vitamin D2 [Pending], 25-Hydroxy Vitamin D3 [ Pending], Parathyroid Hormone (Intact) [Pending] Height (Feet): 5 Height (Inches): 1.00 Weight (Pounds): 125 General Appearance: no apparent distress, alert EENT: PERRL/EOMI, normal ENT inspection Neck: non-tender, normal alignment Cardiovascular: normal peripheral pulses, normal rate, regular rhythm Respiratory/Chest: chest wall non-tender, lungs clear, normal breath sounds Abdomen: normal bowel sounds, non tender, soft Extremities: normal range of motion, non-tender, normal inspection Neurologic: alert, oriented x 3 Mary Duncan M.D. Dec 22, 2019 09:31
[2019-12-22] MEDS: Brimonidine 0.2% Opth Sol BOTH EYES SCH ×3 (09:35→17:56)
[2019-12-22] MEDS: Cosopt Opth Soln 10 mL Btl BOTH EYES SCH ×2 (09:35→17:56)
[2019-12-22] MEDS: Carvedilol 25mg Tab ORAL SCH ×2 (09:36→20:57)
--- NOTE | 2019-12-22 10:57 | NUR ---
*-* NO INSURANCE INFORMATION ON THE BAR UNABLE TO SEND CLINICALS OR REVIEWS *-*
--- NOTE | 2019-12-22 11:03 | NUR ---
[employer] TENDER NOTE SW received a notification that pt may have social insurance specialist concern. SW met w/ pt and assessed her needs. Pt presents as A&O 4x and monolingual Lithuanian, understanding Grenadian.Pt presents as frustrated d/t hospitalization. Pt resides alone at [address] [facility], [address] [address] There is no elevator and a few stairs to go to her apartment. Pt uses a walker. Pt has no children and no family contact information. Pt has a caregiver named Milly who visits pt every day. PT declined to share her working hours. PT does not recall Milly's number, stating the contact is at her place. Pt reports Milly provides all assistance w/ ADLs and such support is sufficient. PT does not consider SNF. Pt wishes to return home upon DC. Pt reports his nephew, Phil Frankel [phone] this year. Pt has no other emergency contact. PT reports no concern/needs at this time.
[2019-12-22] MEDS: D5NS 1,000 ML IV SCH (11:16)
[2019-12-22 12:00] VITALS: BP 127/60
--- NOTE | 2019-12-22 12:17 | NUR ---
CASE MANAGEMENT:REVIEW SI;ACUTE KIDNEY INJURY. MET ACIDOSIS. HYPERGLYCEMIA. 98.7 85 20 144/90 96% ON RA BUN 35 CR 2.1 BG 256 A1C 9.1 MAG 1.7 IS;MAG SULFATE IV QCOREG PO Q12 IVF D5W @ 50 ML/HR INSULIN NOVOLOG NORVASC PO BID MED SURG STATUS DCP;PATIENT IS FROM HOME
--- NOTE | 2019-12-22 14:18 | History & Physical ---
History of Present Illness General Date patient seen: Dec 22, 2019 Time patient seen: 14:16 Reason for Hospitalization: Vomiting Present Illness HPI This is a 84 year old female with past medical history of history of CAD, DM2, hypertension, hyperlipidemia presents with 2 days of nausea, emesis and syncope. She was in her usual state of health until yesterday. She reports feeling dizzy and passed out for several minutes. Later on she developed nausea and an episode of emesis. She denies any history of kidney disease that she is aware of. She takes Tylenol for pain occasionally. no chest pain. No urinary symptoms. Her cr on presentation note to be 2.2. She was hyperglycemic in the 350s. CT brain with no acute findings. Allergies: Coded Allergies: ASPIRIN (Verified Allergy, Unknown, 04/25/17) ATORVASTATIN (Verified Allergy, Unknown, 04/26/17) CHOLINE FENOFIBRATE (Verified Allergy, Unknown, 04/26/17) DULOXETINE (Verified Allergy, Unknown, 04/26/17) GABAPENTIN (Verified Allergy, Unknown, 04/26/17) NIACIN (Verified Allergy, Unknown, 04/26/17) OXYCODONE (Verified Allergy, Unknown, 04/26/17) PENICILLINS (Verified Allergy, Unknown, 04/25/17) PROMETHAZINE (Verified Allergy, Unknown, 04/26/17) ROSIGLITAZONE (Verified Allergy, Unknown, 04/26/17) TRAMADOL (Verified Allergy, Unknown, 04/26/17) COVID-19 Screening Contact w/high risk pt: No Recent Travel to affected area: No Experienced COVID-19 symptoms?: No Medication History Scheduled Amlodipine Besylate* (Amlodipine Besylate*), 5 MG ORAL BID, (Reported) Brimonidine Tartrate* (Alphagan*), 1 DROP BOTH EYES TID, (Reported) Carvedilol* (Carvedilol*), 25 MG ORAL EVERY 12 HOURS, (Reported) Cetirizine Hcl (Cetirizine Hcl), 100 MG PO DAILY, (Reported) Clopidogrel* (Clopidogrel*), 75 MG ORAL DAILY, (Reported) Dorzolamide HCl/Timolol Maleat (Dorzolamide-Timolol Eye Drops), 1 DROP BOTH EYES BID, (Reported) Glimepiride* (Glimepiride*), 2 MG ORAL BID, (Reported) Metformin Hcl* (Metformin Hcl*), 500 MG ORAL TWICE A DAY, (Reported) Metformin Hcl* (Metformin Hcl*), 1,000 MG ORAL BID, (Reported) Miscellaneous Medications Unable to Obtain Medications (Unable To Obtain Meds), (Reported) Patient History History Provided By: Patient Healthcare decision maker Resuscitation status Advanced Directive on File Review of Systems Review of Symptoms General ROS: no weight loss or fever Psychological ROS: no depression or mood changes, no memory loss Ophthalmic ROS: no visual changes or eye irritation ENT ROS: no nasal congestion, hearing loss, dizziness Allergy and Immunology ROS: no allergic symptoms or urticaria Hematological and Lymphatic ROS: no swollen glands, unusual bleeding or bruising Endocrine ROS: no polyuria, polydipsia, weight changes, temperature intolerance Respiratory ROS: no cough, shortness of breath, or wheezing Cardiovascular ROS: no chest pain or dyspnea on exertion Gastrointestinal ROS: denies abdominal pain, bright red blood in stool. Musculoskeletal ROS: no myalgias or arthralgias Neurological ROS: no TIA or stroke symptoms Dermatological ROS: no new or changing skin lesions, rashes or pruritis Physical Exam Physical Exam General appearance: alert, cooperative, no distress, appears stated age Head: Normocephalic, without obvious abnormality, atraumatic Eyes: conjunctivae/corneas clear. PERRL, EOM's intact. Fundi benign Throat: Lips, mucosa, and tongue normal. Teeth and gums normal Neck: supple, symmetrical, trachea midline, no adenopathy, thyroid: not enlarged, symmetric, no tenderness/mass/nodules, no carotid bruit and no JVD Lungs: clear to auscultation bilaterally Heart: regular rate and rhythm, S1, S2 normal, no murmur, click, rub or gallop Abdomen: soft, non-tender. Bowel sounds normal. No masses, no organomegaly Extremities: extremities normal, atraumatic, no cyanosis or edema Pulses: 2+ and symmetric Skin: Skin color, texture, turgor normal. No rashes or lesions Neurologic: Grossly normal Last 24 Hour Vital Signs Date Time Temp Pulse Resp B/P (MAP) Pulse Ox O2 Delivery O2 Flow Rate FiO2 12/22/19 12:00 98.7 74 20 127/60 (82) 97 12/22/19 09:36 85 144/90 12/22/19 09:35 85 144/90 12/22/19 09:00 Room Air 12/22/19 08:00 98.2 85 20 144/90 (108) 96 12/22/19 00:00 98.1 94 17 150/77 (101) 96 12/21/19 21:28 90 154/82 12/21/19 21:00 Room Air 12/21/19 20:00 98.1 90 17 154/82 (106) 95 12/21/19 17:26 93 152/89 12/21/19 16:00 97.3 93 18 152/89 (110) 97 Intake and Output 12/21/19 12/22/19 19:00 07:00 Intake Total 350 ml 600 ml Output Total 200 ml Balance 150 ml 600 ml Intake Oral 200 ml IV Total 150 ml 600 ml Output Urine Total 200 ml # Voids 2 Laboratory Tests Test 12/21/19 16:20 12/22/19 04:00 12/22/19 05:25 Urine Random Total Protein 100 MG/DL (< 11.9) H Urine Creatinine 57.0 MG/DL (30.0-125.0) Urine Color Pale yellow Urine Appearance Clear Urine pH 6 (4.5-8.0) Urine Specific [place] 1.020 (1.005-1.035) Urine Protein 3+ (NEGATIVE) H Urine Glucose (UA) 3+ (NEGATIVE) H Urine Ketones Negative (NEGATIVE) Urine Blood Negative (NEGATIVE) Urine Nitrite Negative (NEGATIVE) Urine Bilirubin Negative (NEGATIVE) Urine Urobilinogen Normal MG/DL (0.0-1.0) Urine Leukocyte Esterase 2+ (NEGATIVE) H Urine RBC 0-2 /HPF (0 - 2) Urine WBC 10-15 /HPF (0 - 2) H Urine Squamous Epithelial Cells Few /LPF (NONE/OCC) Urine Bacteria Few /HPF (NONE) White Blood Count 9.8 K/UL (4.8-10.8) Red Blood Count 3.56 M/UL (4.20-5.40) L Hemoglobin 10.5 G/DL (12.0-16.0) L Hematocrit 32.8 % (37.0-47.0) L Mean Corpuscular Volume 92 FL (80-99) Mean Corpuscular Hemoglobin 29.6 PG (27.0-31.0) Mean Corpuscular Hemoglobin Concent 32.1 G/DL (32.0-36.0) Red Cell Distribution Width 12.0 % (11.6-14.8) Platelet Count 272 K/UL (150-450) Mean Platelet Volume 8.5 FL (6.5-10.1) Neutrophils (%) (Auto) 62.1 % (45.0-75.0) Lymphocytes (%) (Auto) 25.4 % (20.0-45.0) Monocytes (%) (Auto) 8.9 % (1.0-10.0) Eosinophils (%) (Auto) 2.2 % (0.0-3.0) Basophils (%) (Auto) 1.4 % (0.0-2.0) Sodium Level 140 MMOL/L (136-145) Potassium Level 4.2 MMOL/L (3.5-5.1) Chloride Level 104 MMOL/L (98-107) Carbon Dioxide Level 28 MMOL/L (21-32) Anion Gap 8 mmol/L (5-15) Blood Urea Nitrogen 35 mg/dL (7-18) H Creatinine 2.1 MG/DL (0.55-1.30) H Estimat Glomerular Filtration Rate 22.6 mL/min (>60) Glucose Level 256 MG/DL (74-106) #H Hemoglobin A1c 9.1 % (4.3-6.0) H Calcium Level 8.3 MG/DL (8.5-10.1) L Calcium (Send out) Pending Phosphorus Level 4.0 MG/DL (2.5-4.9) Magnesium Level 1.7 MG/DL (1.8-2.4) L Iron Level 58 ug/dL (50-175) Total Iron Binding Capacity 207 ug/dL (250-450) L Percent Iron Saturation 28 % (15-50) Unsaturated Iron Binding 149 ug/dL (112-346) Ferritin 111 NG/ML (8-388) Vitamin D 25-Hydroxy Pending 25-Hydroxy Vitamin D2 Pending 25-Hydroxy Vitamin D3 Pending Parathyroid Hormone (Intact) Pending Height (Feet): 5 Height (Inches): 1.00 Weight (Pounds): 125 Medications Current Medications Medications (Trade) Dose Ordered Sig/Lita Route PRN Reason Start Time Stop Time Status Last Admin Dose Admin Amlodipine Besylate (Norvasc) 5 mg BID ORAL 12/21/19 18:00 01/20/20 17:59 12/22/19 09:35 Brimonidine Tartrate (Alphagan) 1 drop TID BOTH EYES 12/22/19 09:00 03/21/20 08:59 12/22/19 12:26 Carvedilol (Coreg) 25 mg EVERY 12 HOURS ORAL 12/21/19 21:00 01/20/20 20:59 12/22/19 09:36 Clopidogrel Bisulfate (Plavix) 75 mg DAILY ORAL 12/22/19 09:00 01/21/20 08:59 12/22/19 09:35 Dextrose (Dextrose 50%) 25 ml Q30M PRN IV Hypoglycemia 12/21/19 14:30 03/20/20 14:29 Dextrose (Dextrose 50%) 50 ml Q30M PRN IV Hypoglycemia 12/21/19 14:30 03/20/20 14:29 Dextrose/Sodium Chloride 1,000 ml @ 50 mls/hr Q20H IV 12/21/19 14:38 01/20/20 14:37 12/22/19 11:16 Dorzolamide/ Timolol (Cosopt) 1 drop BID BOTH EYES 12/21/19 18:00 01/20/20 17:59 12/22/19 09:35 Hydralazine HCl (Apresoline) 25 mg Q6H PRN ORAL For High Blood Pressure 12/21/19 20:15 03/20/20 20:14 Insulin Aspart (NovoLOG) BEFORE MEALS AND HS SUBQ 12/21/19 16:30 03/20/20 16:29 12/22/19 06:44 Assessment/Plan Assessment/Plan: #ROBERTA - likely due to pre-renal azotemia due to volume depletion in the setting of hyperglycemia #CKD- 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
[2019-12-22 16:00] VITALS: BP 150/89
--- NOTE | 2019-12-22 16:14 | NUR ---
*-* INSURANCE *-* ALL AVAILABLE CLINICALS AND REVIEWS HAVE BEEN FAXED TO: Ref#[id number]* ph#[phone] fax#[phone]
--- NOTE | 2019-12-22 19:25 | NUR ---
HAND-OFF: Report given to BRIE Mayorga.
--- NOTE | 2019-12-22 19:26 | NUR ---
NURSE NOTES: Pt refused accuchecks for 1630 and insulin, explained risk and benefits x 3.
--- NOTE | 2019-12-22 19:30 | NUR ---
NURSE NOTES: RECEIVED PATIENT FROM BRIE RODRÍGUEZ. PATIENT IS AWAKE,AAOX4, ON ROOM AIR, NORMAL RESPIRATION, NO ACUTE DISTRESS NOTED. PATIENT DENIES PAIN AND SOB. PIV INTACT AND PATENT, RUNNING D5NS @50ML/HR. PUREWICK IN PLACE, SUCTIONING WELL. PATIENT IS A FALL RISK D/T HX OF FALL AT HOME. FALL PRECAUTION IMPLEMENTED. YELLOW GOWN, YELLOW SOCKS, YELLOW ARMBAND ON. COMMUNICATED WITH STAFF TO PERFORM FREQUENT ROUNDING. BED IS LOCKED AND LOW, BED ALARMS ACTIVE, SIDE RAILS UPX2 AND CALL LIGHT IS WITHIN REACH. WILL CONTINUE TO MONITOR.
[2019-12-22 20:00] VITALS: BP 140/65
[2019-12-23] VITALS: BP 132/73
[2019-12-23 04:00] VITALS: BP 129/74
--- NOTE | 2019-12-23 05:31 | Pulmonology Progress Note ---
Subjective ROS Limited/Unobtainable: No Interval Events: Complainong of neck pain Constitutional: Reports: no symptoms HEENT: Repors: no symptoms Respiratory: Reports: no symptoms Cardiovascular: Reports: no symptoms Gastrointestinal/Abdominal: Reports: no symptoms Genitourinary: Reports: no symptoms Allergies: Coded Allergies: ASPIRIN (Verified Allergy, Unknown, 04/25/17) ATORVASTATIN (Verified Allergy, Unknown, 04/26/17) CHOLINE FENOFIBRATE (Verified Allergy, Unknown, 04/26/17) DULOXETINE (Verified Allergy, Unknown, 04/26/17) GABAPENTIN (Verified Allergy, Unknown, 04/26/17) NIACIN (Verified Allergy, Unknown, 04/26/17) OXYCODONE (Verified Allergy, Unknown, 04/26/17) PENICILLINS (Verified Allergy, Unknown, 04/25/17) PROMETHAZINE (Verified Allergy, Unknown, 04/26/17) ROSIGLITAZONE (Verified Allergy, Unknown, 04/26/17) TRAMADOL (Verified Allergy, Unknown, 04/26/17) Objective Last 24 Hour Vital Signs Date Time Temp Pulse Resp B/P (MAP) Pulse Ox O2 Delivery O2 Flow Rate FiO2 12/23/19 00:00 98.0 88 19 132/73 (92) 95 12/22/19 21:00 Room Air 12/22/19 20:57 83 140/65 12/22/19 20:00 98.2 83 19 140/65 (90) 94 12/22/19 17:57 93 150/89 12/22/19 16:00 97.6 93 18 150/89 (109) 97 12/22/19 12:00 98.7 74 20 127/60 (82) 97 12/22/19 09:36 85 144/90 12/22/19 09:35 85 144/90 12/22/19 09:00 Room Air 12/22/19 08:00 98.2 85 20 144/90 (108) 96 Intake and Output 12/22/19 12/23/19 19:00 07:00 Intake Total 750 ml 400 ml Output Total 200 ml Balance 550 ml 400 ml Intake Oral 200 ml IV Total 550 ml 400 ml Output Urine Total 200 ml General Appearance: no acute distress HEENT: normocephalic Respiratory: chest wall non-tender Cardiovascular: normal peripheral pulses Abdomen: normal bowel sounds Microbiology Date/Time Source Procedure Growth Status 12/22/19 04:00 Urine,Clean Catch Urine Culture - Preliminary Strep Species, Gamma-Hemolytic Gram Negative [place]il[place] Resulted Current Medications Medications (Trade) Dose Ordered Sig/Lita Route PRN Reason Start Time Stop Time Status Last Admin Dose Admin Amlodipine Besylate (Norvasc) 5 mg BID ORAL 12/21/19 18:00 01/20/20 17:59 12/22/19 17:57 Brimonidine Tartrate (Alphagan) 1 drop TID BOTH EYES 12/22/19 09:00 03/21/20 08:59 12/22/19 17:56 Carvedilol (Coreg) 25 mg EVERY 12 HOURS ORAL 12/21/19 21:00 01/20/20 20:59 12/22/19 20:57 Clopidogrel Bisulfate (Plavix) 75 mg DAILY ORAL 12/22/19 09:00 01/21/20 08:59 12/22/19 09:35 Dextrose (Dextrose 50%) 25 ml Q30M PRN IV Hypoglycemia 12/21/19 14:30 03/20/20 14:29 Dextrose (Dextrose 50%) 50 ml Q30M PRN IV Hypoglycemia 12/21/19 14:30 03/20/20 14:29 Dextrose/Sodium Chloride 1,000 ml @ 50 mls/hr Q20H IV 12/21/19 14:38 01/20/20 14:37 12/22/19 11:16 Dorzolamide/ Timolol (Cosopt) 1 drop BID BOTH EYES 12/21/19 18:00 01/20/20 17:59 12/22/19 17:56 Hydralazine HCl (Apresoline) 25 mg Q6H PRN ORAL For High Blood Pressure 12/21/19 20:15 03/20/20 20:14 Insulin Aspart (NovoLOG) BEFORE MEALS AND HS SUBQ 12/21/19 16:30 03/20/20 16:29 12/22/19 21:07 Assessment/Plan Assessment/Plan #ROBERTA - likely due to pre-renal azotemia due to volume depletion in the setting of hyperglycemia #CKD- proteinuric due to DM #Metabolic acidosis #DM- with hyperglycemia #nausea, emesis query gastroenteritis #HTN- hypertensive urgency #HLD - UTP/cr- > around 2g - renal consult - renal US with no hydro - continue gentle hydration with D5-1/2NS- 50cc/hr - continue coreg 25mg BID - amlodipine 5mg BID - hold metformin - hold glymepride - ISS - check vitamin D/PTH - check iron panel, ferritin- > adequate - monitor mag, phos, BMP daily Percy Franco MD Dec 23, 2019 05:31
[2019-12-23] MEDS: D5NS 1,000 ML IV SCH (06:16)
[2019-12-23] MEDS: NovoLOG Insulin Flexpen SUBQ SCH ×4 (06:16→20:37)
[2019-12-23 06:43] LABS: ANION GAP 8 mmol/L (5-15); BLOOD UREA NITROGEN 30 mg/dL (7-18); CALCIUM 7.9 MG/DL (8.5-10.1); CARBON DIOXIDE 27 MMOL/L (21-32); CHLORIDE 103 MMOL/L (98-107); CREATININE 2.1 MG/DL (0.55-1.30); POTASSIUM 4.5 MMOL/L (3.5-5.1); SODIUM 137 MMOL/L (136-145)
--- NOTE | 2019-12-23 07:26 | NUR ---
HAND-OFF: Report given to BRIE Valentin.
--- NOTE | 2019-12-23 07:38 | NUR ---
NURSE NOTES: Report received from Tierra RN. Patient seen on rounds, asleep but easily rousable. Not in distress, no complaints of pain. PIV on right AC patent and infusing D5NS @ 50ml/hr. Pt is incontinent x2, purewick on and secured. Bed low and locked, siderails up x2, call light placed within reach and instructed to call nurse for assistance. Will continue to monitor.
[2019-12-23 08:00] VITALS: BP 135/93
[2019-12-23] MEDS: Cosopt Opth Soln 10 mL Btl BOTH EYES SCH ×2 (08:43→17:22)
[2019-12-23] MEDS: Brimonidine 0.2% Opth Sol BOTH EYES SCH ×3 (08:43→17:22)
[2019-12-23] MEDS: Carvedilol 25mg Tab ORAL SCH ×2 (08:43→20:37)
--- NOTE | 2019-12-23 09:37 | Nephrology Progress Note ---
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 #Metabolic acidosis #DM- with hyperglycemia #nausea, emesis query gastroenteritis #HTN- hypertensive urgency #HLD - UTP/cr- > around 2g - needs to start ACEi or ARB- once Cr is stablized - renal US with no hydro - continue gentle hydration with D5-1/2NS- 50cc/hr - continue coreg 25mg BID - amlodipine 5mg BID - hold metformin - hold glymepride - ISS - check vitamin D/PTH - check iron panel, ferritin- > adequate - monitor mag, phos, BMP daily Time spent 70 min > 50% on care coordination and counseling Subjective ROS Limited/Unobtainable: No Constitutional: Reports: weakness HEENT: Denies: no symptoms, eye pain, blurred vision, tearing, double vision, ear pain, ear discharge, nose pain, nose congestion, throat pain, throat swelling, mouth pain, mouth swelling, other Genitourinary: Denies: no symptoms, burning, discharge, frequency, flank pain, hematuria, incontinence, pain, urgency, other Subjective Cr stable- likely baseline notes some nausea Renal US: Impression: Punctate echogenic focus in the left kidney which may represent a nonobstructing stone versus vascular calcification. No evidence of hydronephrosis. Renal echogenicity appears within normal limits. Bladder wall thickening. Correlate with urinalysis to assess for cystitis. 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 Objective Objective Last 24 Hour Vital Signs Date Time Temp Pulse Resp B/P (MAP) Pulse Ox O2 Delivery O2 Flow Rate FiO2 12/23/19 09:00 Room Air 12/23/19 08:43 70 135/93 12/23/19 08:43 70 135/93 12/23/19 08:00 97.9 70 19 135/93 (107) 97 12/23/19 04:00 97.8 80 19 129/74 (92) 97 12/23/19 00:00 98.0 88 19 132/73 (92) 95 12/22/19 21:00 Room Air 12/22/19 20:57 83 140/65 12/22/19 20:00 98.2 83 19 140/65 (90) 94 12/22/19 17:57 93 150/89 12/22/19 16:00 97.6 93 18 150/89 (109) 97 12/22/19 12:00 98.7 74 20 127/60 (82) 97 Intake and Output 12/22/19 12/23/19 19:00 07:00 Intake Total 750 ml 400 ml Output Total 200 ml Balance 550 ml 400 ml Intake Oral 200 ml IV Total 550 ml 400 ml Output Urine Total 200 ml # Voids 1 Laboratory Tests 12/23/19 05:35: Sodium Level 137, Potassium Level 4.5, Chloride Level 103, Carbon Dioxide Level 27, Anion Gap 8, Blood Urea Nitrogen 30H, Creatinine 2.1H, Estimat Glomerular Filtration Rate 22.6, Glucose Level 276H, Calcium Level 7.9L, Phosphorus Level 4.0, Magnesium Level 2.2 Height (Feet): 5 Height (Inches): 1.00 Weight (Pounds): 125 General Appearance: no apparent distress, alert EENT: PERRL/EOMI, normal ENT inspection Neck: non-tender, normal alignment Cardiovascular: normal peripheral pulses, normal rate, regular rhythm Respiratory/Chest: chest wall non-tender, lungs clear Abdomen: normal bowel sounds, non tender, soft Extremities: normal range of motion, non-tender Neurologic: alert, oriented x 3 Mary Duncan M.D. Dec 23, 2019 09:37
--- NOTE | 2019-12-23 10:20 | NUR ---
CASE MANAGEMENT:REVIEW SI;ACUTE KIDNEY INJURY. MET ACIDOSIS. DM. 98.0 88 19 135/93 95% ON RA BUN 30 CR 2.1 BG 276 CA 7.9 IS;IVF D5W @ 50 ML/HR NORVASC PO BID COREG PO Q12 MED SURG STATUS DCP;PATIENT IS FROM HOME PLAN;CONTINUE HYDRATION
--- NOTE | 2019-12-23 11:16 | CDS Physician Query ---
Clarification is required for compliance, coding accuracy, and to reflect severity of illness for this patient Dear Percy Khan MD Date: 12/22/2019 Water Resources Project Manager/CDS Name: Meliton Leong Clinical Documentation Statement: "84 year old female with past medical history of history of CAD, DM2, hypertension, hyperlipidemia presents with 2 days of nausea, emesis and syncope. " Assessment/Plan:ROBERTA,CKD- proteinuric due to DM, Metabolic acidosis,DM- with hyperglycemia, nausea, emesis query gastroenteritis HTN- hypertensive urgency ,HLD Clinical Finding Show: Vitals (12/20): T97.0F, Pulse 106, RR 20, BP 181/83 LAB (12/20): Hemat: WBC 10.8, Neutr 75.8 Chem: Glucose 356, Urines: Ur.Bacteria 1+, Ur.Leuk.abdullahi.1+ Microbiology (12/21): URINE; STREP SPECIES, GAMMA-HEMOLYTIC COLONY COUNT: >100 ,000 CFU/ML GRAM NEGATIVE NEERAJ COLONY COUNT: >100 ,000 CFU/ML Please respond to the following question: Is there a diagnosis specific to these symptoms or values? If so please state below. PHYSICIAN RESPONSE: [ ] Sepsis [x] UTI [ ] Finding is not signigicant [ ] Other: Present on Admission: [x] Yes [] No [] Clinically Undetermined Physician signature Date Please also document in your Progress Notes and/or Discharge Summary and indicate if the condition was present on admission. MELVIN
[2019-12-23 12:00] VITALS: BP 125/59
--- NOTE | 2019-12-23 12:48 | NUR ---
*-* INSURANCE *-* ALL AVAILABLE CLINICALS AND REVIEWS HAVE BEEN FAXED TO: Ref#[id number]* ph#[phone] fax#[phone]
--- NOTE | 2019-12-23 13:56 | NUR ---
HAND-OFF: Report given to Sarmad BAIRD.
--- NOTE | 2019-12-23 14:00 | NUR ---
NURSE NOTES: Received patient in bed. Awake, A/O x4. [place] speaking only. On room air. Patient denies pain. Bed low and locked.
[2019-12-23 16:00] VITALS: BP 130/60
--- NOTE | 2019-12-23 16:53 | NUR ---
NURSE NOTES: Patient refused insulin injection. BS 203. Refused x3. Re-educated on risks and benefits.
--- NOTE | 2019-12-23 18:37 | NUR ---
NURSE NOTES: Patient wants her niece to be placed as a contact. Emilia Garrison .
--- NOTE | 2019-12-23 19:00 | NUR ---
NURSE NOTES: Received report from BRIE Bañuelos. Patient is awake, lying in semi carrillo's; resting comfortably. Denies pain at this time. No signs of acute distress. Checked IV site and flushed. No erythema, bleeding or infiltration noted. Bed at lowest position, brakes on, siderailsx3. Call light within reach. Will continue to monitor.
--- NOTE | 2019-12-23 19:48 | NUR ---
HAND-OFF: Report given to Marisela BAIRD.
[2019-12-23 20:00] VITALS: BP 124/63
[2019-12-24] VITALS: BP 131/68
--- NOTE | 2019-12-24 01:15 | NUR ---
NURSE NOTES: Resting throughout the night. No significant change of condition noted. Will continue to monitor.
[2019-12-24] MEDS: D5NS 1,000 ML IV SCH (02:01)
[2019-12-24 04:00] VITALS: BP 126/64
[2019-12-24] MEDS: NovoLOG Insulin Flexpen SUBQ SCH ×4 (06:40→20:39)
--- NOTE | 2019-12-24 07:30 | NUR ---
NURSE NOTES: RECEIVED REPORT FROM BRIE STRICKLAND. PATIENT IS A/A/OX3, VERBALLY RESPONSIVE. NO C/O PAIN/DISCOMFORT NOTED. TOLERATED FOOD INTAKE WELL. HOB ELEVATED FOR ASPIRATION PRECAUTION. KEEP BED IN THE LOWEST POSITION. SIDERAILS ARE UPX3. CALL LIGHT IS WITHIN REACH. BED ALARM ACTIVATED. BED LOCKED @ ALL TIMES. CALL LIGHT IS WITHIN REACH. WILL CONT TO MONITOR.
--- NOTE | 2019-12-24 07:36 | NUR ---
HAND-OFF: Report given to JAYESH Pineda. Plan of care endorsed.
[2019-12-24 08:00] VITALS: BP 155/69
[2019-12-24] MEDS: Cosopt Opth Soln 10 mL Btl BOTH EYES SCH ×2 (08:12→16:57)
[2019-12-24] MEDS: Brimonidine 0.2% Opth Sol BOTH EYES SCH ×3 (08:12→16:57)
[2019-12-24] MEDS: Carvedilol 25mg Tab ORAL SCH ×2 (08:12→20:35)
[2019-12-24 11:55] VITALS: BP 135/61
--- NOTE | 2019-12-24 12:51 | Nephrology Progress Note ---
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 #Metabolic acidosis #DM- with hyperglycemia #nausea, emesis query gastroenteritis #HTN- hypertensive urgency #HLD - UTP/cr- > around 2g - needs to start ACEi or ARB- once Cr is stablized- defer to PCP as outpatient - DC metformin on DC given renal insuffiency - resume glimepiride - add januvia 25mg daily - renal US with no hydro - continue gentle hydration with D5-1/2NS- 50cc/hr - continue coreg 25mg BID - amlodipine 5mg BID - hold metformin - hold glymepride - ISS - check vitamin D/PTH - check iron panel, ferritin- > adequate - monitor mag, phos, BMP daily Time spent 70 min > 50% on care coordination and counseling Subjective ROS Limited/Unobtainable: No Constitutional: Denies: no symptoms, chills, diaphoresis, fever, malaise, weakness, other HEENT: Denies: no symptoms, eye pain, blurred vision, tearing, double vision, ear pain, ear discharge, nose pain, nose congestion, throat pain, throat swelling, mouth pain, mouth swelling, other Genitourinary: Denies: no symptoms, burning, discharge, frequency, flank pain, hematuria, incontinence, pain, urgency, other Neurologic/Psychiatric: Denies: no symptoms, anxiety, depressed, emotional problems, headache, numbness, paresthesia, pre-existing deficit, seizure, tingling, tremors, weakness, other Subjective Cr stable- likely baseline notes some nausea Renal US: Impression: Punctate echogenic focus in the left kidney which may represent a nonobstructing stone versus vascular calcification. No evidence of hydronephrosis. Renal echogenicity appears within normal limits. Bladder wall thickening. Correlate with urinalysis to assess for cystitis. 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 Objective Objective Last 24 Hour Vital Signs Date Time Temp Pulse Resp B/P (MAP) Pulse Ox O2 Delivery O2 Flow Rate FiO2 12/24/19 11:55 97.7 72 18 135/61 (85) 97 12/24/19 09:00 Room Air 12/24/19 08:13 74 155/69 12/24/19 08:12 74 155/69 12/24/19 08:00 98.1 74 19 155/69 (97) 96 12/24/19 04:00 98.1 72 20 126/64 (84) 94 12/24/19 00:00 97.6 75 20 131/68 (89) 94 12/23/19 21:00 Room Air 12/23/19 20:37 75 124/63 12/23/19 20:00 97.9 75 20 124/63 (83) 94 12/23/19 17:22 69 130/60 12/23/19 16:00 98.2 69 19 130/60 (83) 95 Intake and Output 12/23/19 12/24/19 19:00 07:00 Intake Total 1100 ml 290 ml Output Total 400 ml Balance 700 ml 290 ml Intake Oral 600 ml 240 ml IV Total 500 ml 50 ml Output Urine Total 400 ml # Voids 2 3 Height (Feet): 5 Height (Inches): 1.00 Weight (Pounds): 125 Mary Duncan M.D. Dec 24, 2019 12:51
--- NOTE | 2019-12-24 14:29 | NUR ---
CASE MANAGEMENT: REVIEW 12/24/2019 SI:HTN CHRONIC KIDNEY DX VS: T 97.7 HR 72 RR 18 B/P 135/61 SATS 97% ON RA LABS: NONE TODAY IS:COREG PO Q12H NORVASC PO BID PLAVIX PO QD INSULIN ASPART SUBQ AC/HS MED/SURG
--- NOTE | 2019-12-24 15:00 | NUR ---
NURSE NOTES: patient refused to be drawn for labs. will reinforce later. Aisha CHAMBERLAIN informed. will cont to monitor.
[2019-12-24 16:00] VITALS: BP 120/58
--- NOTE | 2019-12-24 19:13 | NUR ---
HAND-OFF: Report given to Phil.
--- NOTE | 2019-12-24 19:30 | NUR ---
NURSE NOTES: Report received from Miriam MCCONNELL. Patient is awake and alert x 3. Patient is [place]/Omani speaking, primary language is [place]. Patient noted to be on room air, does not appear to be in respiratory distress at this time. Patient noted to have purawick suctioning clear yellow urine. Patient noted to have right hand 24 tricia IV access saline lock. Endorsed that patient fell at home and is a high fall risk. Endorsed to Phil BAIRD that patient does not try to get up alone here at hospital and is bed bound. Educated patient to call if needs assistance. Bed alarm on, locked, and in lowest position. Will continue to monitor blood glucose levels. Will continue to follow plan of care.
[2019-12-24 20:00] VITALS: BP 144/64
[2019-12-25] VITALS: BP 140/59
[2019-12-25 04:00] VITALS: BP 142/60
[2019-12-25] MEDS: NovoLOG Insulin Flexpen SUBQ SCH ×3 (06:19→16:30)
[2019-12-25 06:53] LABS: ANION GAP 7 mmol/L (5-15); BLOOD UREA NITROGEN 28 mg/dL (7-18); CALCIUM 8.3 MG/DL (8.5-10.1); CARBON DIOXIDE 28 MMOL/L (21-32); CHLORIDE 103 MMOL/L (98-107); CREATININE 2.1 MG/DL (0.55-1.30); POTASSIUM 4.4 MMOL/L (3.5-5.1); SODIUM 138 MMOL/L (136-145)
--- NOTE | 2019-12-25 07:25 | NUR ---
NURSE NOTES: RECEIVED PATIENT A/A/OX2/3, HAVING BREAKFAST. HOB ELEVATED. NO ACUTE CARDIO-RESP DISTRESS NOTED. IV ACCESS PATENT AND INTACT ON RIGHT HAND. KEPT BED IN THE LOWEST POSITION, SIDERAILS ARE UPX3, BRAKES ACTIVATED AND LOCKED @ ALL TIMES. INSTRUCTED TO CALL FOR ASSISTANCE BY UTILIZING CALL LIGHT. WILL CONT TO MONITOR.
--- NOTE | 2019-12-25 07:34 | NUR ---
HAND-OFF: Report given to Miriam PIANO REGULATOR INSPECTOR. Patient is currently in stable condition.
[2019-12-25 08:00] VITALS: BP 122/78
[2019-12-25] MEDS: Carvedilol 25mg Tab ORAL SCH (08:16)
[2019-12-25] MEDS: Brimonidine 0.2% Opth Sol BOTH EYES SCH ×3 (08:17→17:15)
[2019-12-25] MEDS: Cosopt Opth Soln 10 mL Btl BOTH EYES SCH ×2 (08:17→17:15)
[2019-12-25 12:00] VITALS: BP 134/69
[2019-12-25] MEDS ORDERED: JANUVIA25 MG ORAL (13:17)
--- NOTE | 2019-12-25 15:08 | NUR ---
NURSE NOTES: CALLED WENCESLAO SOLORZANO FOR THE DISCHARGE. SHE DELEGATED THE BROTHER, SALINAS TO MACHINE MARKER PATIENT WHICH RESIDES IN [place] TO PROVIDE TRANSPORTATION TO THE PATIENT TO HER RESIDENCE @ [address] [place] [address]. WILL CONT TO MONITOR.
[2019-12-25 15:36] VITALS: BP 131/59
[2019-12-25 17:15] VITALS: BP 131/59
--- NOTE | 2019-12-25 18:15 | NUR ---
NURSE NOTES: D/C HOME WITH INSTRUCTIONS AND RX. DON REGALADO @ BEDSIDE PROVIDING TRANSPORTATION. PERSONAL BELONGINGS REVIEWED AND NOTED. REMOVED IV ACCESS. IN STABLE CONDITION. VERIFIED HOME ADDRESS.
--- NOTE | 2019-12-26 12:53 | NUR ---
*-* INSURANCE *-* DISCHARGE INSTRUCTIONS HAVE BEEN FAXED (NO D/C SUM IN THE SYSTEM) TO: Ref#[id number]* ph#[phone] fax#[phone]
--- NOTE | 2019-12-27 09:23 | NUR ---
*-* INSURANCE *-* ALL CLINICALS HAVE BEEN FAXED TO: MARCELLA ORTEGA [facility] auth# [id number] CM:AIME P: [phone] F: [phone]
--- NOTE | 2019-12-27 16:02 | Discharge Summary ---
Discharge Summary Discharge Summary _ DATE OF ADMISSION: 12/21/2019 DATE OF DISCHARGE: 12/25/2019 DISCHARGED BY: Dr. Franco REASON FOR ADMISSION: 84 years old female with past medical history of coronary artery disease, diabetes mellitus type 2, hypertension, hyperlipidemia, presented with 2 days of nausea, emesis and syncope. CT of the head revealed no acute intracranial pathology. Chest x-ray revealed no acute cardiopulmonary pathology. X-ray of the left shoulder revealed no dislocation or soft tissue swelling. No fracture. EKG revealed sinus rhythm no acute ischemic changes. Laboratory work -up revealed no leukocytosis stable hemoglobin hematocrit and platelet count. BUN 36, creatinine 2.2. Glucose 356. Stable LFT and lipase. Troponin negative. EKG revealed sinus rhythm , no acute ischemic changes. Urinalysis revealed +3 protein , +4 glucose , +1 leukocyte esterase, no pyuria , no bacteria. Blood pressure was elevated 181/83. Patient subsequently admitted for further management. CONSULTANTS: senior materials scientist Dr. Duncan [facility] COU[facility]SE: Patient admitted to medical surgical floor and started on the IV hydration. Renal ultrasound revealed bilateral normal kidney echogenicity. Bladder wall thickening. No evidence of hydronephrosis. Renal parameters and electrolytes were closely monitored. Aircraft Layout Worker followed. Creatinine down to 2.1. Patient was closely monitored and managed with beta-oscar and calcium channel oscar Aircraft Layout Worker recommended initiation of JACKIE or ARB , once creatinine stabilized , which was deferred to PCP as outpatient. Gentle hydration continued. Antiemetic provided as needed. Supportive care provided. Patient was able to tolerate diet. Blood sugar was managed with sliding scale of insulin. Metformin was discontinued due to renal insufficiency . Blood sugar was managed with Amaryl and Januvia was added for better blood sugar control. Hemoglobin A1c 9.1, not at goal. Patient will need further optimization of anti-glycemic regimen as outpatient. Hemoglobin dropped from 13 down to 10.5 Anemia work-up revealed anemia of chronic disease likely due to anemia of chronic kidney disease. Repeated UA 12/21 revealed pyuria. Urine culture revealed Enterococcus faecalis and Klebsiella pneumonia, both with colony count > 100 K. Patient remained afebrile, no leukocytosis. Patient had no urinary complaints. Patient most likely have asymptomatic bacteriuria , not requiring treatment. Patient clinically stabilized and was ready for discharge home. FINAL DIAGNOSES: Acute kidney injury likely due to prerenal azotemia secondary to volume depletion in the setting of hyperglycemia Chronic kidney disease with proteinuria, likely due to diabetes mellitus Metabolic acidosis Diabetes mellitus with hyperglycemia Nausea and emesis , probably gastroenteritis Hypertensive urgency resolved Hyperlipidemia Pyuria, possible UTI DISCHARGE MEDICATIONS: See Medication Reconciliation list. DISCHARGE INSTRUCTIONS: Patient was discharged home. Follow-up with a primary care provider in 1 week. I have been assigned to dictate discharge summary for this account. I was not involved in the patient's management. Essence Goodson NP Dec 27, 2019 16:02
== END 2019-12-25 18:05 | disposition home or self-care (01) | DRG 683 ==
LOC: EDBD 08:42 → EMR 09:00 → 4E 10:31 → EDBEDREQ 11:42
DX: N17.9 Acute kidney failure, unspecified (principal); N39.0 Urinary tract infection, site not specified; I12.9 Hypertensive chronic kidney disease with stage 1 through stage 4 chronic kidney disease, or unspecified chronic kidney disease; I16.0 Hypertensive urgency; E11.65 Type 2 diabetes mellitus with hyperglycemia; E11.22 Type 2 diabetes mellitus with diabetic chronic kidney disease; K52.9 Noninfective gastroenteritis and colitis, unspecified; Z88.6 Allergy status to analgesic agent; Z88.0 Allergy status to penicillin; Z88.8 Allergy status to other drugs, medicaments and biological substances; E78.5 Hyperlipidemia, unspecified; Z79.84 Long term (current) use of oral hypoglycemic drugs; I25.10 Atherosclerotic heart disease of native coronary artery without angina pectoris; D63.1 Anemia in chronic kidney disease; B95.2 Enterococcus as the cause of diseases classified elsewhere; B96.1 Klebsiella pneumoniae [K. pneumoniae] as the cause of diseases classified elsewhere
CPT/HCPCS: 36415; 70450; 74018; 76770; 80048; 80053; 81003; 82044; 82306; 82570; 82728; 82962; 83036; 83540; 83550; 83690; 83735; 83970; 84100; 84484; 85025; 87086; 87181; 93005; 96361; 96374; 99285; J1815; J2405; J7030